=== PATIENT | female | born 1955 | race Caucasian/White ===

== ENCOUNTER → 2018-12-23 10:19 | Outpatient (CLI) | payer OTHER, MEDICAID, SELFPAY ==
[2018-12-23 11:02] LABS: Add Manual Diff / Slide Review NO; Basophils Absolute Auto 100 /uL (0-100); Basophils Percent Auto 0.8 % (0-2); Eosinophils Absolute Auto 100 /uL (0-450); Eosinophils Percent Auto 1.2 % (2-4); Hematocrit 42.5 % (36-46); Hemoglobin 14.6 g/dL (12.0-16.0); Lymphocytes Absolute Auto 1500 /uL (1100-4500); Lymphocytes Percent Auto 18.4 % (25-40); Mean Corpuscular HGB Conc 34.3 % (30-36); Mean Corpuscular Hemoglobin 33.6 PG (26-34); Mean Corpuscular Volume 97.9 fL (80-100); Monocytes Absolute Auto 500 /uL (0-900); Monocytes Percent Auto 5.7 % (3-14); Neutrophils Absolute Auto 6000 /uL (1500-7000); Neutrophils Percent Auto 73.9 % (50-75); Platelet Count 251 X10^3/uL (150-400); Red Blood Cell Count 4.34 X10^6/uL (4.0-5.2); Red Cell Distribution Width 13.2 % (11.6-14.8); White Blood Cell Count 8.2 X10^3/uL (4.5-11.0)
[2018-12-23 11:07] LABS: Hemoglobin A1C% w Est Avg Glu 6.7 % (4.0-6.0)
[2018-12-23 12:17] LABS: Creatinine Urine Random 124.1 mg/dL
[2018-12-23 12:24] LABS: Microalbumi Creatinin Ratio Ur 13.6 ug/mg CR (<30); Microalbumin Urine Random 1.7 mg/dL (0-1.6)
[2018-12-23 12:27] LABS: Alanine Aminotransferase 56 IU/L (9-52); Albumin 4.3 g/dL (3.5-5.0); Albumin Globulin Ratio 1.7 (1.0-2.8); Alkaline Phosphatase 111 U/L (38-126); Aspartate Aminotransferase 40 IU/L (14-36); Bilirubin Total 0.4 mg/dL (0.2-1.3); Blood Urea Nitrogen 15 mg/dL (7-17); Calcium 10.4 mg/dL (8.4-10.2); Carbon Dioxide 29 mmol/L (22-32); Chloride 104 mmol/L (98-107); Globulin 2.6 g/dL (1.7-4.1); Glucose 201 mg/dL (80-110); HDL Cholesterol 46 mg/dL (40-60); HEMOLYSIS < 15 (0-50); Potassium 4.9 mmol/L (3.4-5.1); Sodium 142 mmol/L (137-145); Total Protein 6.9 g/dL (6.3-8.2); Triglycerides 506 mg/dL (35-150)
[2018-12-23 12:51] LABS: Cholesterol 284 mg/dL (140-199)
[2018-12-23 13:10] LABS: LDL Cholesterol Direct 178 mg/dL (<100)
== END ==
PROVIDERS: PCP Family Medicine; Visit Provider Family Medicine
DX: E78.00 Pure hypercholesterolemia, unspecified (principal); E11.9 Type 2 diabetes mellitus without complications; Z79.4 Long term (current) use of insulin
CPT/HCPCS: 36415; 80053; 80061; 82043; 82570; 83036; 83721; 85025

== ENCOUNTER 2019-04-14 14:22 | Emergency (ER) | payer OTHER, MEDICAID, SELFPAY ==
[2019-04-14 14:34] VITALS: BP 141/88; PULSE 97; RESP 18; TEMP 36.3; O2SAT 97
== END 2019-04-14 16:55 | disposition left against medical advice (07) ==
PROVIDERS: Emergency Provider Emergency Medicine; PCP Family Medicine
CPT/HCPCS: 99282

== ENCOUNTER 2019-08-18 02:12 | Emergency (ER) | payer OTHER, MEDICAID, SELFPAY ==
--- NOTE | 2019-08-18 02:18 | DI.RAD.S_ITS ---
PROCEDURE: XR FOOT LT MIN 3V INDICATIONS: fall with foot pain TECHNIQUE: 3 views of the foot were acquired. COMPARISON: None. FINDINGS: Bones: No fractures or dislocations. No suspicious bony lesions. Soft tissues: No tibiotalar joint effusion. Achilles tendon appears normal. IMPRESSION: No fracture. No osseous lesion. If symptoms and/or clinical suspicion for pathology persists, further assessment with repeat radiographs (7-10 days) or advanced imaging (e.g. CT, MRI or bone scan) may be helpful. Dictated by: Liza Byrd MD, PhD on 08/18/2019 at 8:42 Approved by: Liza Byrd MD, PhD on 08/18/2019 at 8:42
--- NOTE | 2019-08-18 02:18 | DI.RAD.S_ITS ---
PROCEDURE: XR HAND RT MIN 3V INDICATIONS: fall with pain TECHNIQUE: 3 views of the hand(s) acquired. COMPARISON: [facility], , HAND 3V RIGHT, 08/18/2012, 1:51. FINDINGS: Bones: No fractures or dislocations. Carpal bones are normally aligned. No suspicious bony lesions. Soft tissues: No suspicious soft tissue calcifications. IMPRESSION: No fracture. No osseous lesion. If symptoms and/or clinical suspicion for pathology persists, further assessment with repeat radiographs (7-10 days) or advanced imaging (e.g. CT, MRI or bone scan) may be helpful. Dictated by: Liza Byrd MD, PhD on 08/18/2019 at 8:41 Approved by: Liza Byrd MD, PhD on 08/18/2019 at 8:42
--- NOTE | 2019-08-18 02:18 | DI.CT.S_ITS ---
PROCEDURE: CT HEAD/BRAIN WO CON INDICATIONS: fall TECHNIQUE: Noncontrast 4.5 mm thick angled axial sections acquired from the foramen magnum to the vertex, with coronal and sagittal reformats. For radiation dose reduction, the following was used: automated exposure control, adjustment of mA and/or kV according to patient size. COMPARISON: [facility], CT, HEAD WITHOUT CONTRAST, 06/03/2010, 19:43. FINDINGS: Image quality: Excellent. CSF spaces: Basal cisterns are patent. No extra-axial fluid collections. Ventricles are normal in size and shape. Brain: No midline shift. No intracranial masses or hemorrhage. Suresh-white matter interface is normal. Skull and face: Calvarium and visualized facial bones are intact, without suspicious lesions. Sinuses: Visualized sinuses and mastoids are clear. IMPRESSION: No acute intracranial disease process. Dictated by: Liza Byrd MD, PhD on 08/18/2019 at 7:12 Approved by: Liza Byrd MD, PhD on 08/18/2019 at 7:14
--- NOTE | 2019-08-18 02:18 | DI.RAD.S_ITS ---
PROCEDURE: XR ANKLE LT MIN 3V INDICATIONS: fall with ankle pain TECHNIQUE: 3 views of the ankle were acquired. COMPARISON: None. FINDINGS: Bones: Minimally displaced fracture of the lateral malleolus. Ankle mortise is normally aligned. No suspicious bony lesions. Soft tissues: No tibiotalar joint effusion. Achilles tendon appears normal. IMPRESSION: Lateral malleolus fracture. Dictated by: Liza Byrd MD, PhD on 08/18/2019 at 8:42 Approved by: Liza Byrd MD, PhD on 08/18/2019 at 8:43
[2019-08-18 02:23] VITALS: BP 123/74; PULSE 84; RESP 23; TEMP 36.6; O2SAT 100; BMI 33.4
--- NOTE | 2019-08-18 02:31 | ED.FALL ---
HPI - Fall General Chief Complaint: Fall Stated Complaint: Finger and leg pain Time Seen by Provider: 08/18/19 02:12 Source: patient and EMS Mode of arrival: EMS Limitations: no limitations History of Present Illness HPI Narrative: 63-year-old female daily smoker with history of asthma, schizophrenia, bipolar, anxiety and presents by EMS with chief complaint of alcohol intoxication and the left foot and right hand pain. Very little is known about the circumstances but apparently PD was called to the scene after perhaps an argument, this is very unclear. EMT state patient was laying on the ground and alert but slurring her words and smelling of alcohol. She admits to doing multiple shots tonight. It is unclear how long she laid on the ground. She is very adamant that she did not hit her head and has no neck or back pain, only left ankle and right hand. She denies the use of blood thinners and is not been using street drugs. Attempts to call home, but no answer MD complaint: fall Fall from: standing Fall witnessed: yes, by family Place fall occurred: home Loss of consciousness: none Prolonged down time: unclear Symptoms prior to fall: none Context: tripped/slipped and alcohol use Location of injury - extremities: Left: ankle and foot and Right: hand Related Data Home Medications Medication Instructions Recorded Confirmed atorvastatin [Lipitor] 20 mg PO BEDTIME 04/14/19 04/14/19 levothyroxine [Synthroid] 200 mcg PO DAILY 04/14/19 04/14/19 metformin 1,000 mg PO BID 04/14/19 04/14/19 quetiapine [Seroquel] 300 mg PO BEDTIME 04/14/19 04/14/19 Previous Rx's Medication Instructions Recorded [true metrix meter] 1 kit QDAY #1 06/12/16 Chantix Starting Month Box 1 tab PO SEE INSTRUCTIONS #1 pkg 08/20/17 [true metrix strips] #100 each 12/03/17 albuterol sulfate 90 mcg/actuation 1 puff INHALATION Q4HP PRN #1 ea 12/03/17 aerosol inhaler alcohol wipes #100 each 12/03/17 insulin glargine 100 unit/mL (3 10 unit SUBCUT QDAY #5 syr 12/03/17 mL) subcutaneous pen clonazepam 0.5 mg tablet 0.5 mg PO BID #60 tab 02/24/18 olanzapine 20 mg disintegrating 20 mg PO DAILY #30 tab 02/24/18 tablet pen needle, diabetic 31 gauge x #90 each 02/24/18/ hydrocodone 10 mg-acetaminophen 1 tab PO Q4H PRN #120 tab 03/10/18 325 mg tablet sertraline 100 mg tablet 100 mg PO BID #60 tab 01/23/19 hydrocodone-acetaminophen 1 tab PO Q4-6H PRN #20 tab 08/18/19 Allergies Allergy/AdvReac Type Severity Reaction Status Date / Time No Known Drug Allergies Allergy Unverified 02/24/18 10:38 Review of Systems Constitutional Constitutional: Denies chills, Denies fatigue, Denies fever(s), Denies frequent falls, Denies lethargy and Denies weakness Eyes Eyes: Denies change in vision, Denies eye discharge, Denies irritation and Denies loss of vision ENT Ears, Nose, Mouth, and Throat: Denies change in voice, Denies dizziness, Denies neck pain, Denies sore throat and Denies throat swelling Cardiovascular Cardiovascular: Denies chest pain, Denies irregular heart rhythm, Denies lightheadedness, Denies palpitations, Denies dyspnea, Denies dyspnea on exertion and Denies orthopnea Respiratory Respiratory: Denies cough, Denies dyspnea, Denies dyspnea on exertion and Denies wheezing Gastrointestinal Gastrointestinal: Denies abdominal pain, Denies change in bowel habits, Denies diarrhea, Denies nausea and Denies vomiting Genitourinary Genitourinary: Denies hematuria, Denies flank pain, Denies urinary incontinence and Denies urinary urgency Musculoskeletal Musculoskeletal: Denies back pain, Reports joint swelling, Reports limited range of motion, Denies muscle weakness, Denies neck pain, Denies numbness and Denies tingling Integumentary/Breasts Skin/Breast: Denies pruritus, Denies erythema, Denies rash and Denies wounds Neurologic Neurologic: Denies behavioral changes, Denies confusion, Denies dizziness, Denies frequent falls, Denies loss of vision, Denies numbness, Denies tingling and Denies weakness Psychiatric Psychiatric: Denies anxiety, Denies behavioral changes, Denies confusion, Denies depression, Denies homicidal ideation and Denies suicidal ideation Endocrine Endocrine: Denies fatigue, Denies flushing and Denies palpitations Hematologic/Lymphatic Hematologic/Lymphatic: Denies easy bruising Allergic/Immunologic Allergic/Immunologic: Denies urticaria, Denies throat swelling and Denies wheezing Patient History Medical History ADHD (attention deficit hyperactivity disorder) (Chronic Unknown) Anxiety (Chronic Unknown) Asthma (Chronic Unknown) Bipolar disorder (Chronic Unknown) Chickenpox (Resolved Unknown) Chronic back pain (Chronic Unknown) Chronic low back pain (05/02/15) Chronic pain syndrome (Chronic Unknown) Depression (Chronic Unknown) Diabetes insipidus (Chronic Unknown) Fibroids (Resolved 2004) Foot pain (Resolved Unknown) Fractures (Resolved Unknown) Hearing loss (Chronic Unknown) Hypothyroidism (Chronic 1985) Osteoarthritis (Chronic Unknown) Restless leg syndrome (Chronic Unknown) Schizophrenia (Chronic Unknown) Shoulder pain (Resolved Unknown) Type 2 diabetes mellitus (Chronic 2005) Uncomplicated opioid dependence (Chronic 12/11/16) Vertigo (Chronic Unknown) Surgical History Status post laparoscopic cholecystectomy Status post tubal ligation Family History Father Brain tumor Mother Cancer Brother Car occupant injured in traffic accident Sister Brain tumor Grandfather Cancer Grandmother Heart failure Social History Smoking Status: Current every day smoker Smoking Status: Current every day smoker alcohol intake frequency: 0-2 drinks per day Substance Use Type: does not use Exam Narrative Exam Narrative: GENERAL: [63] year old patient appears older than stated age. Well nourished, bit disheveled, anxious, tearful, slurring her words, anxious HEAD: Atraumatic. Normocephalic. EYES: Pupils equal round and reactive. Extraocular motions intact. No scleral icterus. No injection or drainage. ENT: Poor dentition throughout Nose without bleeding, purulent drainage. Throat without erythema, tonsillar hypertrophy or exudate. Airway patent. NECK: Trachea midline. Non tender CARDIOVASCULAR: Regular rate and rhythm without murmurs, gallops, or rubs. RESPIRATORY: Clear to auscultation. Breath sounds equal bilaterally. No wheezes, rales, or rhonchi. GASTROINTESTINAL: Abdomen soft, non-tender, nondistended. EXTREMITIES: Ecchymosis and tenderness to palpation on the dorsum of the left foot, closed, neurovascularly intact. Additional pain and swelling on right hand and middle finger. No obvious deformity, painful range of motion and close No edema or joint tenderness. BACK: Nontender without deformity or crepitance. No flank tenderness. NEURO: AOx3. SKIN: No rash or erythema of visible areas Initial Vital Signs Initial Vital Signs: Vital Signs Temperature 97.9 F 08/18/19 02:23 Pulse Rate 84 08/18/19 02:23 Respiratory Rate 23 08/18/19 02:23 Blood Pressure 123/74 08/18/19 02:23 Pulse Oximetry 100 08/18/19 02:23 Procedures Orthopedic Splinting/Casting Injury #1: Side: left Lower Extremity Injury Location: ankle Lower Extremity Immobilizer: boot orthosis Other Orthopedic Equipment: crutches Post splinting neuro exam: intact Post splinting vascular exam: intact Placed by: Nursing Injury #2: Side: right Upper Extremity Injury Location: hand Upper Extremity Immobilizer: aluminum form splint and finger (other) Post splinting neuro exam: intact Post splinting vascular exam: intact Placed by: Nursing Course Orders Ordered: ED Orders 08/18/19 02:18 CT head/brain wo con Stat XR ankle LT min 3V Stat XR foot LT min 3V Stat XR hand RT min 3V Stat 08/18/19 02:58 Basic Metabolic Panel Stat Complete Blood Count AUTO DIFF Stat Troponin & CK Cardiac Panel Stat Vital Signs Vital signs: Vital Signs - 8 hr 08/18/19 02:23 08/18/19 03:00 08/18/19 04:00 Temperature 97.9 F Pulse Rate 84 77 76 Respiratory Rate 23 18 18 Blood Pressure 123/74 Blood Pressure [Left Arm] 110/74 108/62 Pulse Oximetry 100 98 98 MDM - Fall Lab Data Result diagrams: 08/18/19 02:58 08/18/19 02:58 Labs: Lab Results 08/18/19 08/18/19 Range/Units 02:58 02:58 WBC 4.8 (4.5-11.0) X10^3/uL RBC 4.29 (4.0-5.2) X10^6/uL Hgb 14.2 (12.0-16.0) g/dL Hct 42.2 (36-46) % MCV 98.4 (80-100) fL MCH 33.2 (26-34) PG MCHC 33.7 (30-36) % RDW 13.8 (11.6-14.8) % Plt Count 222 (150-400) X10^3/uL Neut % (Auto) 56.1 (50-75) % Lymph % (Auto) 34.5 (25-40) % [place] % (Auto) 7.0 (3-14) % Eos % (Auto) 1.6 L (2-4) % Baso % (Auto) 0.8 (0-2) % Neut # (Auto) 2700 (7310-5418) /uL Lymph # (Auto) 1700 (5489-7121) /uL [place] # (Auto) 300 (0-900) /uL Eos # (Auto) 100 (0-450) /uL Baso # (Auto) 0 (0-100) /uL Sodium 141 (137-145) mmol/L Potassium 4.5 (3.4-5.1) mmol/L Chloride 107 (98-107) mmol/L Carbon Dioxide 20 L (22-32) mmol/L BUN 13 (7-17) mg/dL Creatinine 0.70 (0.52-1.04) mg/dL Estimated GFR > 60.0 (>60) mL/min BUN/Creatinine Ratio 18.6 (6-22) Glucose 127 H (80-110) mg/dL Calcium 9.4 (8.4-10.2) mg/dL Total Creatine Kinase 51 (30-135) U/L CK-MB (CK-2) TNP CK-MB (CK-2) Rel Index TNP Troponin I < 0.012 (0.01-0.034) ng/mL Discharge Plan Departure Patient Disposition: Home Clinical Impression: Ankle fracture, left Qualifiers: Encounter type: initial encounter Fracture type: closed Qualified Code(s): S82.892A - Other fracture of left lower leg, initial encounter for closed fracture Contusion of finger Qualifiers: Encounter type: initial encounter Finger: middle finger Damage to nail status: without damage Laterality: right Qualified Code(s): S60.031A - Contusion of right middle finger without damage to nail, initial encounter Alcohol intoxication Qualifiers: Complication of substance-induced condition: uncomplicated Qualified Code(s): F10.920 - Alcohol use, unspecified with intoxication, uncomplicated Activity Restrictions/Additional Instructions: *You have been diagnosed with [left ankle fracture] *What to do: *Take medications as directed. NO WEIGHT BEARING at all on LEFT FOOT *Follow up with your primary care provider in 2-3 days, call for an appointment. Let them know you were seen in the Emergency Department and that we ask that you be seen in follow up *Return to ER if you should have any new, worsening or concerning symptoms Prescriptions: New hydrocodone-acetaminophen 5-325 mg tablet 1 tab PO Q4-6H PRN (Reason: pain) Qty: 20 RF: 0 No Action clonazepam 0.5 mg tablet 0.5 mg PO BID Qty: 60 RF: 0 olanzapine 20 mg tablet,disintegrating 20 mg PO DAILY Qty: 30 RF: 11 (DME) pen needle, diabetic [Easy Comfort Pen [place]] 31 gauge x 3/16 needle See Dose Instructions .ROUTE .MEDSUPPLY Qty: 90 RF: 3 [true metrix meter] 1 kit QDAY Qty: 1 RF: 0 Chantix Starting Month Box 1 EACH tablets,dose pack 1 tab PO SEE INSTRUCTIONS Qty: 1 RF: 0 albuterol sulfate [Ventolin HFA] 90 mcg/actuation HFA aerosol inhaler 1 puff INHALATION Q4HP PRN (Reason: shortness of breath or wheezing) Qty: 1 RF: 11 insulin glargine [Lantus Solostar U-100 Insulin] 100 unit/mL (3 mL) insulin pen 10 unit SUBCUT QDAY Qty: 5 RF: 0 (DME) [true metrix strips] 0 .Route .MEDSUPPLY Qty: 100 RF: 6 (DME) alcohol wipes Qty: 100 RF: 1 hydrocodone-acetaminophen [[place]] 10-325 mg tablet 1 tab PO Q4H PRN (Reason: pain) Qty: 120 RF: 0 sertraline 100 mg tablet 100 mg PO BID Qty: 60 RF: 2 metformin 500 mg tablet extended release 24 hr 1,000 mg PO BID RF: 0 atorvastatin [Lipitor] 20 mg tablet 20 mg PO BEDTIME RF: 0 quetiapine [Seroquel] 300 mg tablet 300 mg PO BEDTIME RF: 0 levothyroxine [Synthroid] 200 mcg tablet 200 mcg PO DAILY RF: 0 Referrals: Adelso Baron MD [Primary Care Provider] - Abdi Moore MD [Physician] -
[2019-08-18 03:00] VITALS: BP 110/74; PULSE 77; RESP 18; O2SAT 98
[2019-08-18 03:11] LABS: Add Manual Diff / Slide Review NO; Basophils Absolute Auto 0 /uL (0-100); Basophils Percent Auto 0.8 % (0-2); Eosinophils Absolute Auto 100 /uL (0-450); Eosinophils Percent Auto 1.6 % (2-4); Hematocrit 42.2 % (36-46); Hemoglobin 14.2 g/dL (12.0-16.0); Lymphocytes Absolute Auto 1700 /uL (1100-4500); Lymphocytes Percent Auto 34.5 % (25-40); Mean Corpuscular HGB Conc 33.7 % (30-36); Mean Corpuscular Hemoglobin 33.2 PG (26-34); Mean Corpuscular Volume 98.4 fL (80-100); Monocytes Absolute Auto 300 /uL (0-900); Neutrophils Absolute Auto 2700 /uL (1500-7000); Neutrophils Percent Auto 56.1 % (50-75); Platelet Count 222 X10^3/uL (150-400); Red Blood Cell Count 4.29 X10^6/uL (4.0-5.2); Red Cell Distribution Width 13.8 % (11.6-14.8); White Blood Cell Count 4.8 X10^3/uL (4.5-11.0)
[2019-08-18 03:16] LABS: BUN Creatinine Ratio 18.6 (6-22); Blood Urea Nitrogen 13 mg/dL (7-17); Calcium 9.4 mg/dL (8.4-10.2); Carbon Dioxide 20 mmol/L (22-32); Chloride 107 mmol/L (98-107); Creatine Kinase 51 U/L (30-135); Estimated Glomerular Filt Rate > 60.0 mL/min (>60); Glucose 127 mg/dL (80-110); HEMOLYSIS 44 (0-50); Potassium 4.5 mmol/L (3.4-5.1); Sodium 141 mmol/L (137-145)
[2019-08-18 03:28] LABS: Troponin I < 0.012 ng/mL (0.01-0.034)
[2019-08-18 04:00] VITALS: BP 108/62; PULSE 76; RESP 18; O2SAT 98
[2019-08-18 05:30] VITALS: BP 125/68; PULSE 80; RESP 18; O2SAT 96
== END 2019-08-18 05:30 | disposition home or self-care (01) ==
PROVIDERS: Emergency Provider Emergency Medicine; PCP Family Medicine
DX: S82.892A Other fracture of left lower leg, initial encounter for closed fracture (principal); S60.031A Contusion of right middle finger without damage to nail, initial encounter; F10.920 Alcohol use, unspecified with intoxication, uncomplicated; W19.XXXA Unspecified fall, initial encounter
CPT/HCPCS: 36415; 70450; 73130; 73610; 73630; 80048; 82550; 84484; 85025; 99284; 99285

== ENCOUNTER 2019-08-20 01:09 | Emergency (ER) | payer OTHER, MEDICAID, SELFPAY ==
[2019-08-20 01:14] VITALS: BP 143/89; PULSE 107; RESP 18; TEMP 36.6; O2SAT 98; BMI 33.8
== END 2019-08-20 03:00 | disposition left against medical advice (07) ==
PROVIDERS: Emergency Provider Emergency Medicine; PCP Family Medicine
CPT/HCPCS: 99281

== ENCOUNTER 2021-04-17 17:05 | Inpatient (IN) | payer MEDICARE, MEDICAID, SELFPAY ==
[2021-04-17] VITALS (14 sets, daily range): BP systolic 93–126; BP diastolic 44–86; PULSE 92–101; RESP 15–30; TEMP 36.2; O2SAT 92–97; BMI 28.7
[2021-04-17] MEDS: SODIUM CHLORIDE 0.9% 1,000 ML 1000 ML IV ×2 (18:24→22:10)
[2021-04-17 18:36] LABS: Add Manual Diff / Slide Review NO; Basophils Absolute Auto 100 /uL (0-100); Basophils Percent Auto 0.9 % (0-2); Eosinophils Absolute Auto 0 /uL (0-450); Hematocrit 31.2 % (36-46); Hemoglobin 10.5 g/dL (12.0-16.0); Lymphocytes Absolute Auto 2600 /uL (1100-4500); Lymphocytes Percent Auto 36.4 % (25-40); Mean Corpuscular HGB Conc 33.5 % (30-36); Mean Corpuscular Hemoglobin 34.3 PG (26-34); Mean Corpuscular Volume 102.4 fL (80-100); Monocytes Absolute Auto 500 /uL (0-900); Monocytes Percent Auto 7.7 % (3-14); Neutrophils Absolute Auto 3900 /uL (1500-7000); Platelet Count 216 X10^3/uL (150-400); Red Blood Cell Count 3.05 X10^6/uL (4.0-5.2); Red Cell Distribution Width 16.6 % (11.6-14.8)
--- NOTE | 2021-04-17 18:46 | ED_ITS ---
HPI - Nausea/Vomiting/Diarrhea General Chief complaint: Nausea/Vomiting/Diarrhea Stated complaint: facial swelling, diarrhea, vomiting for days Time Seen by Provider: 04/17/21 18:39 Source: patient and family Mode of arrival: Wheelchair Limitations: no limitations History of Present Illness HPI Narrative: This is a 65-year-old female who comes emergency department for generally being unwell for the last couple weeks. She has a partner who is present with her but they have been living separately she in a travel trailer on their property. Patient does drink alcohol. She states she drinks much too much but does not clarify. Her partner also confirms this. She does have a history of hemangioma which was evaluated at [facility] and was told it was not cancer which they had originally thought. She states no other interventions were done. She has had a cholecystectomy. She does have insulin and she takes metformin and insulin but is unclear about her other medical issues. She does not believe she has had any cardiac issues. Neither she nor her spouse consume if she has any hypertension or dyslipidemia. Patient has been having some intermittent abdominal pain. She has had constipation not diarrhea. She has had vomiting intermittently. No blood noted in her stools or with her emesis per family or patient. She has had facial swelling that was worse yesterday but she and significant other stay is present today. She has not had any recent interventions. She is still using insulin intermittently. She states she is not typically compliant with her medications. She denies any other surgical history. She denies any recreational drugs. She denies any tobacco. Related Data Home Medications Medication Instructions Recorded Confirmed atorvastatin 20 mg tablet (Lipitor) 20 mg PO BEDTIME 04/14/19 04/14/19 levothyroxine 200 mcg tablet 200 mcg PO DAILY 04/14/19 04/14/19 (Synthroid) metformin 500 mg tablet,extended 1,000 mg PO BID 04/14/19 04/14/19 release 24 hr quetiapine 300 mg tablet (Seroquel) 300 mg PO BEDTIME 04/14/19 04/14/19 Previous Rx's Medication Instructions Recorded [true metrix meter] 1 kit QDAY #1 06/12/16 varenicline 0.5 mg (11)-1 mg (42) 1 tab PO SEE INSTRUCTIONS #1 pkg 08/20/17 tablets in a dose pack (Chantix Starting Month Box) [true metrix strips] #100 each 12/03/17 albuterol sulfate 90 mcg/actuation 1 puff INHALATION Q4HP PRN #1 ea 12/03/17 aerosol inhaler (Ventolin HFA) alcohol wipes #100 each 12/03/17 insulin glargine 100 unit/mL (3 10 unit SUBCUT QDAY #5 syr 12/03/17 mL) subcutaneous pen (Lantus Solostar U-100 Insulin) clonazepam 0.5 mg tablet 0.5 mg PO BID #60 tab 02/24/18 olanzapine 20 mg disintegrating 20 mg PO DAILY #30 tab 02/24/18 tablet pen needle, diabetic 31 gauge x #90 each 02/24/1809/17 (Easy Comfort Pen [place]) hydrocodone 10 mg-acetaminophen 1 tab PO Q4H PRN #120 tab 03/10/18 325 mg tablet ([place]) sertraline 100 mg tablet 100 mg PO BID #60 tab 01/23/19 hydrocodone 5 mg-acetaminophen 325 1 tab PO Q4-6H PRN #20 tab 08/18/20 mg tablet Allergies Allergy/AdvReac Type Severity Reaction Status Date / Time No Known Drug Allergies Allergy Unverified 02/24/18 10:38 Review of Systems Review of Systems ROS Unobtainable: All systems reviewed & are unremarkable except as noted in HPI and below Patient History Medical History (Updated 04/18/21 @ 04:57 by Snehal Gary DO) ADHD (attention deficit hyperactivity disorder) (Unknown) Anxiety (Unknown) Asthma (Unknown) Bipolar disorder (Unknown) Chickenpox (Unknown) Chronic back pain (Unknown) Chronic low back pain (05/02/15) Chronic pain syndrome (Unknown) Depression (Unknown) Diabetes insipidus (Unknown) Fibroids (2004) Foot pain (Unknown) Fractures (Unknown) Hearing loss (Unknown) Hypothyroidism (1985) Osteoarthritis (Unknown) Restless leg syndrome (Unknown) Schizophrenia (Unknown) Shoulder pain (Unknown) Type 2 diabetes mellitus (2005) Uncomplicated opioid dependence (12/11/16) Vertigo (Unknown) Surgical History Status post laparoscopic cholecystectomy Status post tubal ligation Family History Father Brain tumor Mother Cancer Brother Car occupant injured in traffic accident Sister Brain tumor Grandfather Cancer Grandmother Heart failure Social History Smoking Status: Current every day smoker Smoking Status: Current every day smoker alcohol intake frequency: 0-2 drinks per day Substance Use Type: does not use Exam Narrative Exam Narrative: GEN: Chronically ill-appearing female, alert and oriented, patient appears to be in to moderate distress. Patient does frequently roll around on the bed. HEENT: Atraumatic, pupils are equal round reactive to light, extraocular movements are intact, nares are clear, TMs are clear with no fluid, there is no conjunctival pallor. Throat is clear without any exudates, erythema, tonsillar enlargement or uvular deviation, no scleral icterus. No obvious jaundice. HEART: Regular rate and rhythm without murmur, clicks, rubs. No swelling bilateral lower extremities. LUNGS:Lungs clear to auscultation, no wheezes, rales, crackles, chest moves symmetrically, no tachypnea accessory muscle use. ABD:bowel sounds normal, soft, non-tender, no guarding, rebound, rigidity, no masses noted, no hepatosplenomegaly appreciated. :No CVA tenderness MSCL: Non-tender, no muscle atrophy, muscles strength 5/5 upper and lower extremities, full range of motion NEURO:CN 2-12 intact, sensation normal SKIN: No rash, erythema, jaundice or other skin changes appreciated other than a small area of cellulitis that is tender at the left abdomen with no obvious fluctuance or fluid collection. Spot a 1 cm area of erythema Initial Vital Signs Initial Vital Signs: Vital Signs Temperature 97.1 F L 04/17/21 17:17 Pulse Rate 95 H 04/17/21 17:17 Respiratory Rate 22 04/17/21 17:17 Blood Pressure 121/74 04/17/21 17:17 Pulse Oximetry 97 04/17/21 17:17 Course Orders Ordered: Acetaminophen (Acetaminophen 325 Mg Tablet) 650 mg PO Q6HR PRN PRN Reason: Fever/Mild Pain (1-3) Hydrocodone Bitart/Acetaminophen (Hydrocodone/Acet 5/325 Tablet) 1 tab PO Q6HR PRN PRN Reason: Pain, Moderate (4-6) Al Hydrox/Mg Hydrox/Simethicone (Mag Hydrox/Alum/Simeth 30 Ml Udc) 30 ml PO Q6HR PRN PRN Reason: Dyspepsia Albuterol (Albuterol 2.5 Mg/3 Ml Neb (Adult)) 2.5 mg INH Q4H PRN PRN Reason: Shortness Of Breath Or Wheezing Atorvastatin Calcium (Atorvastatin 20 Mg Tablet) 20 mg PO BEDTIME [facility] Clindamycin HCl (Clindamycin 150 Mg Capsule) 300 mg PO Q6H [facility] Last Admin: 04/18/21 03:30 Dose: 300 mg Documented by: FERMÍN Dextrose (Dextrose 50 % In Water 25 Gm/50 Ml Syringe) 25 gm IV PRN PRN PRN Reason: Hypoglycemia Enoxaparin Sodium (Enoxaparin 40 Mg/0.4 Ml Syringe) 40 mg SUBCUT DAILY [facility] Folic Acid (Folic Acid 1 Mg Tablet) 1 mg PO DAILY [facility] Sodium Chloride (Normal Saline 0.9%) 1,000 mls @ 100 mls/hr IV CONT [facility] Last Admin: 04/18/21 00:18 Dose: 100 mls/hr Documented by: FERMÍN Insulin Glargine (Insulin Glargine 100 Unit/Ml 3ml Pen) 10 unit SUBCUT DAILY [facility] Insulin Human Lispro (Insulin Lispro 100 Unit/Ml 3ml Vial) 0 unit SUBCUT ACHS [facility]; Protocol Levothyroxine Sodium (Levothyroxine 100 Mcg Tablet) 200 mcg PO DAILY [facility] Lorazepam (Lorazepam 2 Mg/Ml Inj) 0 mg IV CIWAPRN PRN; Protocol PRN Reason: Alcohol Withdrawal Last Admin: 04/18/21 00:22 Dose: 2 mg Documented by: FERMÍN Lorazepam (Lorazepam 1 Mg Tablet) 0 mg PO CIWAPRN PRN; Protocol PRN Reason: Alcohol Withdrawal Multivitamins (Multivitamin 1 Tablet) 1 tab PO DAILY [facility] Naloxone HCl (Naloxone 0.4 Mg/Ml Vial) 0.2 mg IV Q2MIN PRN PRN Reason: Opiate Reversal Ondansetron HCl (Ondansetron 4 Mg/2 Ml Inj) 4 mg IV Q8HR PRN PRN Reason: Nausea And Vomiting Pantoprazole Sodium (Pantoprazole 40 Mg Vial) 40 mg IV DAILY [facility] Quetiapine Fumarate (Quetiapine 100 Mg Tablet) 300 mg PO BEDTIME [facility] Sertraline HCl (Sertraline 50 Mg Tablet) 100 mg PO BID [facility] Thiamine HCl (Thiamine 100 Mg Tablet) 100 mg PO DAILY [facility] Stop: 04/21/21 09:01 Discontinued Medications Sodium Chloride (Normal Saline 0.9%) 1,000 mls @ 1,000 mls/hr IV BOLUS ONE Stop: 04/17/21 19:21 Last Infusion: 04/17/21 19:24 Dose: 0 mls/hr Documented by: Admin: 04/17/21 18:24 Dose: 1,000 mls/hr Documented by: CAMELIA Sodium Chloride (Normal Saline 0.9%) 1,000 mls @ 1,000 mls/hr IV BOLUS ONE Stop: 04/17/21 23:01 Last Infusion: 04/17/21 22:25 Dose: 0 mls/hr Documented by: Admin: 04/17/21 22:10 Dose: 1,000 mls/hr Documented by: AL Clindamycin Phosphate (Cleocin) 900 mg in 50 mls @ 50 mls/hr IV NOW ONE Stop: 04/17/21 23:16 Last Admin: 04/17/21 22:23 Dose: 50 mls/hr Documented by: AL Consultations Consultation #1: Dr. Phelps, accepts for admission. Some patient's symptoms I suspect are secondary to alcohol and methamphetamine abuse. After further discussion patient states she does use methamphetamines frequently. Was noted she had a large change in her hemoglobin. No bright red blood on digital rectal exam but poor sample. I would be concerned with her recent hypotension and elevated lactate for possible GI bleeding and he accepts for admission. Patient has not had any obvious bleeding here in the department. Her lactate was slowly improving. There was a very small area of cellulitis on her left abdomen with no changes on CT on she has known alcohol abuse with what appears to be cirrhosis. Vital Signs Vital signs: Vital Signs - 8 hr 04/17/21 21:40 04/17/21 21:41 Pulse Rate 95 H 96 H Respiratory Rate 15 16 Blood Pressure 119/59 L Pulse Oximetry 96 MDM - Nausea/Vomiting/Diarrhea Lab Data Result diagrams: 04/17/21 18:20 04/17/21 18:20 Labs: Lab Results 04/17/21 04/17/21 04/17/21 Range/Units 18:20 18:20 18:20 WBC 7.0 (4.5-11.0) X10^3/uL RBC 3.05 L (4.0-5.2) X10^6/uL Hgb 10.5 L (12.0-16.0) g/dL Hct 31.2 L (36-46) % MCV 102.4 H (80-100) fL MCH 34.3 H (26-34) PG MCHC 33.5 (30-36) % RDW 16.6 H (11.6-14.8) % Plt Count 216 (150-400) X10^3/uL Neut % (Auto) 55.0 (50-75) % Lymph % (Auto) 36.4 (25-40) % [place] % (Auto) 7.7 (3-14) % Eos % (Auto) 0.0 L (2-4) % Baso % (Auto) 0.9 (0-2) % Neut # (Auto) 3900 (1148-5066) /uL Lymph # (Auto) 2600 (7980-1558) /uL [place] # (Auto) 500 (0-900) /uL Eos # (Auto) 0 (0-450) /uL Baso # (Auto) 100 (0-100) /uL PT (10.1-12.7) SECONDS INR (0.9-1.3) APTT (26.4-36.2) SECONDS Sodium 127 L (137-145) mmol/L Potassium 3.9 (3.4-5.1) mmol/L Chloride 95 L (98-107) mmol/L Carbon Dioxide 21 L (22-32) mmol/L BUN 14 (7-17) mg/dL Creatinine 0.51 L (0.52-1.04) mg/dL Estimated GFR > 60.0 (>60) mL/min BUN/Creatinine Ratio 27.5 H (6-22) Glucose 372 H (80-110) mg/dL Lactate (0.7-2.1) mmol/L Calcium 8.8 (8.4-10.2) mg/dL Total Bilirubin 1.2 (0.2-1.3) mg/dL AST 102 H (14-36) IU/L ALT 109 H (<35) IU/L Alkaline Phosphatase 559 H (38-126) U/L Ammonia (9-30) umol/L Total Creatine Kinase < 20 L (30-135) U/L CK-MB (CK-2) TNP CK-MB (CK-2) Rel Index TNP Troponin I < 0.012 (0.01-0.034) ng/mL Total Protein 6.0 L (6.3-8.2) g/dL Albumin 3.3 L (3.5-5.0) g/dL Globulin 2.7 (1.7-4.1) g/dL Albumin/Globulin Ratio 1.2 (1.0-2.8) Lipase 105 (23-300) U/L Urine Color Urine Appearance Urine pH (4.5-8.0) Ur Specific [place] (1.000-1.035) Urine Protein (Negative) Urine Glucose (UA) (Negative) g/dL Urine Ketones (NEGATIVE) Urine Occult Blood (Negative) Urine Nitrate (Negative) Urine Bilirubin (NEGATIVE) Urine Urobilinogen (0.2) E.U./dL Ur Leukocyte Esterase (NEGATIVE) Urine RBC (0-5/HPF) Urine WBC (0-5/HPF) Ur Squamous Epith Cells (0-5/HPF) Urine Bacteria (None) Ur Culture Indicated? U Opiates 300ng/mL cut (Negative) Ur Oxycodone Screen (Negative) Urine Methadone Screen (Negative) Ur Barbiturates Screen (Negative) U Tricyclic Antidepress (Negative) Ur Phencyclidine Scrn (Negative) Ur Amphetamines Screen (Negative) U Methamphetamines Scrn (Negative) Ur MDMA Scrn (Ecstasy) (Negative) U Benzodiazepines Scrn (Negative) Urine Cocaine Screen (Negative) U Marijuana (THC) Screen (Negative) Ethyl Alcohol ( - 10) mg/dL SARS-CoV-2 (PCR) (Negative) 04/17/21 04/17/21 04/17/21 Range/Units 18:20 18:20 19:04 WBC (4.5-11.0) X10^3/uL RBC (4.0-5.2) X10^6/uL Hgb (12.0-16.0) g/dL Hct (36-46) % MCV (80-100) fL MCH (26-34) PG MCHC (30-36) % RDW (11.6-14.8) % Plt Count (150-400) X10^3/uL Neut % (Auto) (50-75) % Lymph % (Auto) (25-40) % [place] % (Auto) (3-14) % Eos % (Auto) (2-4) % Baso % (Auto) (0-2) % Neut # (Auto) (2592-2586) /uL Lymph # (Auto) (5944-7054) /uL [place] # (Auto) (0-900) /uL Eos # (Auto) (0-450) /uL Baso # (Auto) (0-100) /uL PT (10.1-12.7) SECONDS INR (0.9-1.3) APTT (26.4-36.2) SECONDS Sodium (137-145) mmol/L Potassium (3.4-5.1) mmol/L Chloride (98-107) mmol/L Carbon Dioxide (22-32) mmol/L BUN (7-17) mg/dL Creatinine (0.52-1.04) mg/dL Estimated GFR (>60) mL/min BUN/Creatinine Ratio (6-22) Glucose (80-110) mg/dL Lactate 3.7 H (0.7-2.1) mmol/L Calcium (8.4-10.2) mg/dL Total Bilirubin (0.2-1.3) mg/dL AST (14-36) IU/L ALT (<35) IU/L Alkaline Phosphatase (38-126) U/L Ammonia (9-30) umol/L Total Creatine Kinase (30-135) U/L CK-MB (CK-2) CK-MB (CK-2) Rel Index Troponin I (0.01-0.034) ng/mL Total Protein (6.3-8.2) g/dL Albumin (3.5-5.0) g/dL Globulin (1.7-4.1) g/dL Albumin/Globulin Ratio (1.0-2.8) Lipase (23-300) U/L Urine Color Urine Appearance Urine pH (4.5-8.0) Ur Specific [place] (1.000-1.035) Urine Protein (Negative) Urine Glucose (UA) (Negative) g/dL Urine Ketones (NEGATIVE) Urine Occult Blood (Negative) Urine Nitrate (Negative) Urine Bilirubin (NEGATIVE) Urine Urobilinogen (0.2) E.U./dL Ur Leukocyte Esterase (NEGATIVE) Urine RBC (0-5/HPF) Urine WBC (0-5/HPF) Ur Squamous Epith Cells (0-5/HPF) Urine Bacteria (None) Ur Culture Indicated? U Opiates 300ng/mL cut (Negative) Ur Oxycodone Screen (Negative) Urine Methadone Screen (Negative) Ur Barbiturates Screen (Negative) U Tricyclic Antidepress (Negative) Ur Phencyclidine Scrn (Negative) Ur Amphetamines Screen (Negative) U Methamphetamines Scrn (Negative) Ur MDMA Scrn (Ecstasy) (Negative) U Benzodiazepines Scrn (Negative) Urine Cocaine Screen (Negative) U Marijuana (THC) Screen (Negative) Ethyl Alcohol 116 H ( - 10) mg/dL SARS-CoV-2 (PCR) Negative (Negative) 04/17/21 04/17/21 04/17/21 Range/Units 19:22 19:22 19:24 WBC (4.5-11.0) X10^3/uL RBC (4.0-5.2) X10^6/uL Hgb (12.0-16.0) g/dL Hct (36-46) % MCV (80-100) fL MCH (26-34) PG MCHC (30-36) % RDW (11.6-14.8) % Plt Count (150-400) X10^3/uL Neut % (Auto) (50-75) % Lymph % (Auto) (25-40) % [place] % (Auto) (3-14) % Eos % (Auto) (2-4) % Baso % (Auto) (0-2) % Neut # (Auto) (0166-9065) /uL Lymph # (Auto) (8909-8569) /uL [place] # (Auto) (0-900) /uL Eos # (Auto) (0-450) /uL Baso # (Auto) (0-100) /uL PT 13.6 H (10.1-12.7) SECONDS INR 1.2 (0.9-1.3) APTT 31 (26.4-36.2) SECONDS Sodium (137-145) mmol/L Potassium (3.4-5.1) mmol/L Chloride (98-107) mmol/L Carbon Dioxide (22-32) mmol/L BUN (7-17) mg/dL Creatinine (0.52-1.04) mg/dL Estimated GFR (>60) mL/min BUN/Creatinine Ratio (6-22) Glucose (80-110) mg/dL Lactate (0.7-2.1) mmol/L Calcium (8.4-10.2) mg/dL Total Bilirubin (0.2-1.3) mg/dL AST (14-36) IU/L ALT (<35) IU/L Alkaline Phosphatase (38-126) U/L Ammonia (9-30) umol/L Total Creatine Kinase (30-135) U/L CK-MB (CK-2) CK-MB (CK-2) Rel Index Troponin I (0.01-0.034) ng/mL Total Protein (6.3-8.2) g/dL Albumin (3.5-5.0) g/dL Globulin (1.7-4.1) g/dL Albumin/Globulin Ratio (1.0-2.8) Lipase (23-300) U/L Urine Color Yellow Urine Appearance Clear Urine pH 5.5 (4.5-8.0) Ur Specific [place] 1.010 (1.000-1.035) Urine Protein Negative (Negative) Urine Glucose (UA) 2+ H (Negative) g/dL Urine Ketones Negative (NEGATIVE) Urine Occult Blood Negative (Negative) Urine Nitrate Negative (Negative) Urine Bilirubin Negative (NEGATIVE) Urine Urobilinogen 0.2 (0.2) E.U./dL Ur Leukocyte Esterase Negative (NEGATIVE) Urine RBC None seen (0-5/HPF) Urine WBC 0-1/hpf (0-5/HPF) Ur Squamous Epith Cells 0-1 /hpf (0-5/HPF) Urine Bacteria None seen (None) Ur Culture Indicated? Cult not indicated U Opiates 300ng/mL cut Negative (Negative) Ur Oxycodone Screen Negative (Negative) Urine Methadone Screen Negative (Negative) Ur Barbiturates Screen Negative (Negative) U Tricyclic Antidepress Positive H (Negative) Ur Phencyclidine Scrn Negative (Negative) Ur Amphetamines Screen Positive H (Negative) U Methamphetamines Scrn Positive H (Negative) Ur MDMA Scrn (Ecstasy) Negative (Negative) U Benzodiazepines Scrn Negative (Negative) Urine Cocaine Screen Negative (Negative) U Marijuana (THC) Screen Negative (Negative) Ethyl Alcohol ( - 10) mg/dL SARS-CoV-2 (PCR) (Negative) 04/17/21 04/17/21 Range/Units 19:24 21:23 WBC (4.5-11.0) X10^3/uL RBC (4.0-5.2) X10^6/uL Hgb (12.0-16.0) g/dL Hct (36-46) % MCV (80-100) fL MCH (26-34) PG MCHC (30-36) % RDW (11.6-14.8) % Plt Count (150-400) X10^3/uL Neut % (Auto) (50-75) % Lymph % (Auto) (25-40) % [place] % (Auto) (3-14) % Eos % (Auto) (2-4) % Baso % (Auto) (0-2) % Neut # (Auto) (4260-0008) /uL Lymph # (Auto) (6555-6371) /uL [place] # (Auto) (0-900) /uL Eos # (Auto) (0-450) /uL Baso # (Auto) (0-100) /uL PT (10.1-12.7) SECONDS INR (0.9-1.3) APTT (26.4-36.2) SECONDS Sodium (137-145) mmol/L Potassium (3.4-5.1) mmol/L Chloride (98-107) mmol/L Carbon Dioxide (22-32) mmol/L BUN (7-17) mg/dL Creatinine (0.52-1.04) mg/dL Estimated GFR (>60) mL/min BUN/Creatinine Ratio (6-22) Glucose (80-110) mg/dL Lactate 2.8 H (0.7-2.1) mmol/L Calcium (8.4-10.2) mg/dL Total Bilirubin (0.2-1.3) mg/dL AST (14-36) IU/L ALT (<35) IU/L Alkaline Phosphatase (38-126) U/L Ammonia < 9 L (9-30) umol/L Total Creatine Kinase (30-135) U/L CK-MB (CK-2) CK-MB (CK-2) Rel Index Troponin I (0.01-0.034) ng/mL Total Protein (6.3-8.2) g/dL Albumin (3.5-5.0) g/dL Globulin (1.7-4.1) g/dL Albumin/Globulin Ratio (1.0-2.8) Lipase (23-300) U/L Urine Color Urine Appearance Urine pH (4.5-8.0) Ur Specific [place] (1.000-1.035) Urine Protein (Negative) Urine Glucose (UA) (Negative) g/dL Urine Ketones (NEGATIVE) Urine Occult Blood (Negative) Urine Nitrate (Negative) Urine Bilirubin (NEGATIVE) Urine Urobilinogen (0.2) E.U./dL Ur Leukocyte Esterase (NEGATIVE) Urine RBC (0-5/HPF) Urine WBC (0-5/HPF) Ur Squamous Epith Cells (0-5/HPF) Urine Bacteria (None) Ur Culture Indicated? U Opiates 300ng/mL cut (Negative) Ur Oxycodone Screen (Negative) Urine Methadone Screen (Negative) Ur Barbiturates Screen (Negative) U Tricyclic Antidepress (Negative) Ur Phencyclidine Scrn (Negative) Ur Amphetamines Screen (Negative) U Methamphetamines Scrn (Negative) Ur MDMA Scrn (Ecstasy) (Negative) U Benzodiazepines Scrn (Negative) Urine Cocaine Screen (Negative) U Marijuana (THC) Screen (Negative) Ethyl Alcohol ( - 10) mg/dL SARS-CoV-2 (PCR) (Negative) Imaging Data CT scan - abdomen/pelvis: Radiologist's Impression: Launch?[place] [address] CT Scan Report Signed Patient: Cinthya Rosa MR#: [id number] : 1955 Acct:[id number] Age/Sex: 65 / F Date of Service: 04/17/21 Loc: ED Accession Number: [id number] ?? Procedure: CT abdomen pelvis w con Ordering Provider: Snehal Gary D.O. PROCEDURE:? CT ABDOMEN PELVIS W CON ? INDICATIONS:? etoh use, hx hemangioma, abd pain ? TECHNIQUE:? After the administration of oral and IV contrast, axial sections were acquired from the lung bases to the pubic symphysis.? Coronal and sagittal reformats were performe d.? For radiation dose reduction, the following was used:? automated exposure control, adjustment of mA and/or kV according to patient size. ? COMPARISON:? [facility], CT, ABDOMEN/PELVIS WITH CONTRAST, 03/27/2010, 23:45. ? FINDINGS:? Image quality:? Excellent.? ? Lung bases:? Clear lung bases.? Mild circumferential distal esophageal wall thickening.? No varices.? No hiatal hernia. Heart:? Moderate mitral annular calcification.? Normal size heart. ? ? ABDOMEN: Liver:? Mild hepatomegaly and diffuse hypodensity.? Ill-defined hypodensity in segment V measuring about 1.5 cm, decreased in size compared to the prior study.? No other liver masses. Gallbladder:? Surgically absent? ? Biliary ducts:? Nondilated. Pancreas:? Normal. Spleen:? Upper limits of normal in size measuring 12.1 cm.? Coarse calcifications suggesting granuloma.? Adrenal Glands:? No nodules. Kidneys and Ureters:? Normal enhancement.? No hydronephrosis or nephrolithiasis.? No hydroureter. ? Stomach and Bowel:? Decompressed stomach.? Few prominent loops of fluid-filled small bowel in the central abdomen but no transition point to suggest obstruction.? Normal quantity of solid stool present in the colon.? Nonvisualization of the appendix. Peritoneum:? No intraperitoneal inflammation, free fluid, or free air. ? Ventral Wall: ? No hernia.? Abdominal Nodes:? No retroperitoneal or mesenteric adenopathy by size criteria.? Vessels:? Aorta and inferior vena cava are normal in size.? Mild abdominal aortic atherosclerotic calcification. ? PELVIS: Pelvic Organs:? Anteverted uterus with an anterior ovoid enhancing mass in the myometrium consistent with a fibroid.? Normal ovarian tissue. Bladder:? Normal bladder wall thickness. Pelvic Nodes: No enlarged lymph nodes.? Miscellaneous: No inguinal hernias are seen. ? ? ? Bones:? Unremarkable.? IMPRESSION:? ? 1. Hepatomegaly and hepatic steatosis suggesting alcoholic steatosis. 2. Few mildly prominent loops of fluid-filled small bowel may indicate enteritis or ileus. 3. Distal esophageal wall thickening suggesting esophagitis 4.. Decreased size of prior hepatic hypodensity previously thought to be related to trauma versus hemangioma.? 5. Post cholecystectomy.? ? Dictated by: Silvai Michaels M.D. on 04/17/2021 at 20:25 ? ? Approved by: Silvia Michaels M.D. on 04/17/2021 at 20:35?? ECG Data Attestation: I personally reviewed and interpreted this ECG as follows: Prior ECG tracings: available for review Interpretation: Sinus rhythm rate of 93 CO 138 QRS 84 QTC 42. Q-waves in 3. Other acute changes noted. Patient has prior EKG from 12/29/2011 with no new changes. MDM Narrative Medical decision making narrative: This is a 65-year-old female comes emergency department with weakness, full you diarrhea which show she later [place] to cuts to patient patient has not had any obvious overt bleeding in the department but does admit to some changes with bowel movements a could be GI bleed. She has had a change in her hemoglobin recently. She has a been persistently tachycardic and her blood pressure improved with fluids but she was hypotensive initially. She has a small area of cellulitis on her left abdomen but this seems like a less likely source. She did respond to fluids she did have antibiotics initiated. CT abdomen pelvis was obtained as she also drinks quite a bit and has elevated liver enzymes. Is also noted to be hyponatremic which is new compared to her prior labs. Discharge Plan Departure Patient Disposition: Admitted As Inpatient Clinical Impression: Acute GI bleeding, Acidosis, lactic, ETOH abuse, Cirrhosis, Abdominal wall cellulitis, Hyponatremia Admit Date/Time: 04/17/21 22:15 Admit Provider: Jacob Phelps
[2021-04-17 18:48] LABS: Alanine Aminotransferase 109 IU/L (<35); Albumin 3.3 g/dL (3.5-5.0); Albumin Globulin Ratio 1.2 (1.0-2.8); Alkaline Phosphatase 559 U/L (38-126); Aspartate Aminotransferase 102 IU/L (14-36); BUN Creatinine Ratio 27.5 (6-22); Bilirubin Total 1.2 mg/dL (0.2-1.3); Blood Urea Nitrogen 14 mg/dL (7-17); Calcium 8.8 mg/dL (8.4-10.2); Carbon Dioxide 21 mmol/L (22-32); Chloride 95 mmol/L (98-107); Estimated Glomerular Filt Rate > 60.0 mL/min (>60); Globulin 2.7 g/dL (1.7-4.1); Glucose 372 mg/dL (80-110); HEMOLYSIS 20 (0-50); Lipase 105 U/L (23-300); Potassium 3.9 mmol/L (3.4-5.1); Sodium 127 mmol/L (137-145)
--- NOTE | 2021-04-17 18:56 | DI.CT.S_ITS ---
PROCEDURE: CT ABDOMEN PELVIS W CON INDICATIONS: etoh use, hx hemangioma, abd pain TECHNIQUE: After the administration of oral and IV contrast, axial sections were acquired from the lung bases to the pubic symphysis. Coronal and sagittal reformats were performed. For radiation dose reduction, the following was used: automated exposure control, adjustment of mA and/or kV according to patient size. COMPARISON: [facility], CT, ABDOMEN/PELVIS WITH CONTRAST, 03/27/2010, 23:45. FINDINGS: Image quality: Excellent. Lung bases: Clear lung bases. Mild circumferential distal esophageal wall thickening. No varices. No hiatal hernia. Heart: Moderate mitral annular calcification. Normal size heart. ABDOMEN: Liver: Mild hepatomegaly and diffuse hypodensity. Ill-defined hypodensity in segment V measuring about 1.5 cm, decreased in size compared to the prior study. No other liver masses. Gallbladder: Surgically absent Biliary ducts: Nondilated. Pancreas: Normal. Spleen: Upper limits of normal in size measuring 12.1 cm. Coarse calcifications suggesting granuloma. Adrenal Glands: No nodules. Kidneys and Ureters: Normal enhancement. No hydronephrosis or nephrolithiasis. No hydroureter. Stomach and Bowel: Decompressed stomach. Few prominent loops of fluid-filled small bowel in the central abdomen but no transition point to suggest obstruction. Normal quantity of solid stool present in the colon. Nonvisualization of the appendix. Peritoneum: No intraperitoneal inflammation, free fluid, or free air. Ventral Wall: No hernia. Abdominal Nodes: No retroperitoneal or mesenteric adenopathy by size criteria. Vessels: Aorta and inferior vena cava are normal in size. Mild abdominal aortic atherosclerotic calcification. PELVIS: Pelvic Organs: Anteverted uterus with an anterior ovoid enhancing mass in the myometrium consistent with a fibroid. Normal ovarian tissue. Bladder: Normal bladder wall thickness. Pelvic Nodes: No enlarged lymph nodes. Miscellaneous: No inguinal hernias are seen. Bones: Unremarkable. IMPRESSION: 1. Hepatomegaly and hepatic steatosis suggesting alcoholic steatosis. 2. Few mildly prominent loops of fluid-filled small bowel may indicate enteritis or ileus. 3. Distal esophageal wall thickening suggesting esophagitis 4.. Decreased size of prior hepatic hypodensity previously thought to be related to trauma versus hemangioma. 5. Post cholecystectomy. Dictated by: Silvia Michaels M.D. on 04/17/2021 at 20:25 Approved by: Silvia Michaels M.D. on 04/17/2021 at 20:35
[2021-04-17 19:18] LABS: Creatine Kinase < 20 U/L (30-135); Ethanol (ETOH) 116 mg/dL; Lactate (Lactic Acid) 3.7 mmol/L (0.7-2.1)
[2021-04-17 19:31] LABS: Troponin I < 0.012 ng/mL (0.01-0.034)
[2021-04-17 19:33] LABS: Appearance Urine UA CLEAR; Bilirubin Urine UA NEGATIVE (NEGATIVE); Color Urine UA YELLOW; Glucose Urine UA 2+ g/dL (Negative); Ketones Urine UA NEGATIVE (NEGATIVE); Leukocyte Esterase Urine UA NEGATIVE (NEGATIVE); Nitrite Urine UA NEGATIVE (Negative); Occult Blood Urine UA NEGATIVE (Negative); Protein Urine UA NEGATIVE (Negative); Urobilinogen Urine UA 0.2 E.U./dL (0.2)
[2021-04-17 19:38] LABS: UR Morphine/Opiate cutoff 300 Negative (Negative); Ur Creatinine Normal (Normal); Ur Specific Gravity Normal (Normal); Urine Amphetamines Positive (Negative); Urine Barbiturates Negative (Negative); Urine Benzodiazepines Negative (Negative); Urine Cocaine Negative (Negative); Urine MDMA Negative (Negative); Urine Methadone Negative (Negative); Urine Methamphetamines Positive (Negative); Urine Oxycodone Negative (Negative); Urine Phencyclidine Negative (Negative); Urine Tetrahydrocannabinol Negative (Negative); Urine Tricyclic Antidepressant Positive (Negative); Urine pH Normal (Normal)
[2021-04-17 19:42] LABS: INR 1.2 (0.9-1.3); Prothrombin Time 13.6 SECONDS (10.1-12.7)
[2021-04-17 19:43] LABS: Bacteria Urine None Seen; Culture Indicated Urine Cult Not Indicated; RBC Urine None Seen (0-5/HPF); Squamous Epithelial Cell Urine 0-1 /HPF (0-5/HPF); WBC Urine 0-1/HPF (0-5/HPF); pH Urine UA 5.5 (4.5-8.0)
[2021-04-17 19:45] LABS: PTT Partial Thromboplastin Tim 31 SECONDS (26.4-36.2)
[2021-04-17 19:53] LABS: Ammonia (NH3) < 9 umol/L (9-30)
[2021-04-17 20:09] LABS: COVID19 - ADMIT (NP swab/PCR) Negative (Negative)
[2021-04-17 21:04] LABS: Reflexed Lactate in 2 Hours Y
[2021-04-17 21:51] LABS: Lactate 2HR (Lactic Acid Rflx) 2.8 mmol/L (0.7-2.1)
[2021-04-17] MEDS: CLINDAMYCIN 900 MG/50 ML PIGGYBACK 50 MG IV (22:23)
[2021-04-18] VITALS (11 sets, daily range): BP systolic 102–128; BP diastolic 54–75; PULSE 72–93; RESP 16–18; TEMP 35.5–36.2; O2SAT 93–99
--- NOTE | 2021-04-18 00:12 | PM.HP.1 ---
History of Present Illness History of Present Illness Date Patient Seen: 04/17/21 Time Patient Seen: 22:00 Chief complaint: facial swelling, diarrhea, vomiting for days Narrative: Ms. Rosa is a 65W with PMH bipolar disorder, schizophrenia, depression, meth abuse (smokes), EtOH abuse, Type 2 DM on insulin, chronic pain syndrome who presents with facial swelling, vomiting, diarrhea, and abdominal pain. She appears acutely intoxicated and is difficult to get a history from. She also endorses most review of systems that I ask. She states she has not seen a doctor for at least two years. She notes for at least a week she has noticed inability to keep any oral intake down, and has noted significant vomiting and nausea. Also some diarrhea. She states she notes blood intermittently in stool, last over a week ago. She endorses diffuse abdominal pain, she endorses feeling feverish/chills, occasionally short of breath. She has chest pain that is painful to touch. Over the last day she has noted facial swelling, and feeling lethargic, though less facial swelling today. She says she smokes meth, last time was 5 days ago. She drinks at least 5 shots of whiskey daily, often more. In the ED workup was done, she was afebrile mildly tachycardic 90s-100s, blood pressure dropped to systolic of 90s, improved with fluids. Labs notable for WBC 7.0, hgb 10.5, na 127, creatinine 0.51, glucose 372, bili 1.2, ast 102, alt 109, alk phos 59, troponin negative. Lactate 3.7 improved to 2.8. EtOH 116. Ammonia negative. Ua negative for infection. CT abdomen showed hepatic steatosis, fluid-filled small bowel consistent with enteritis, esophageal wall thickening consistent with esophagitis, decreased hepatic hypodensity. She was given IV fluids and clindamycin and admitted for further treatment. Patient History Medical History ADHD (attention deficit hyperactivity disorder) (Unknown) Anxiety (Unknown) Asthma (Unknown) Bipolar disorder (Unknown) Chickenpox (Unknown) Chronic back pain (Unknown) Chronic low back pain (05/02/15) Chronic pain syndrome (Unknown) Depression (Unknown) Diabetes insipidus (Unknown) Fibroids (2005) Foot pain (Unknown) Fractures (Unknown) Hearing loss (Unknown) Hypothyroidism (1985) Osteoarthritis (Unknown) Restless leg syndrome (Unknown) Schizophrenia (Unknown) Shoulder pain (Unknown) Type 2 diabetes mellitus (2005) Uncomplicated opioid dependence (12/11/16) Vertigo (Unknown) Surgical History Status post laparoscopic cholecystectomy Status post tubal ligation Family & Social History Family History Father Brain tumor Mother Cancer Brother Car occupant injured in traffic accident Sister Brain tumor Grandfather Cancer Grandmother Heart failure Safety & Behavioral: Feels Safe in Current Yes Environment Been Physically Hurt or No Threatened By a Person Tobacco & Substance use: Smoking Status Current every day smoker alcohol intake frequency 0-2 drinks per day Substance Use Type does not use Meds Home Medications and Allergies Home Medications Medication Instructions Recorded Confirmed Type [true metrix meter] 1 kit QDAY #1 06/12/16 Rx varenicline 0.5 mg (11)-1 mg (42) 1 tab PO SEE INSTRUCTIONS #1 pkg 08/20/17 Rx tablets in a dose pack (Chantix Starting Month Box) [true metrix strips] #100 each 12/03/17 Rx albuterol sulfate 90 mcg/actuation 1 puff INHALATION Q4HP PRN #1 ea 12/03/17 Rx aerosol inhaler (Ventolin HFA) alcohol wipes #100 each 12/03/17 Rx insulin glargine 100 unit/mL (3 10 unit SUBCUT QDAY #5 syr 12/03/17 Rx mL) subcutaneous pen (Lantus Solostar U-100 Insulin) clonazepam 0.5 mg tablet 0.5 mg PO BID #60 tab 02/24/18 04/14/19 Rx olanzapine 20 mg disintegrating 20 mg PO DAILY #30 tab 02/24/18 04/14/19 Rx tablet pen needle, diabetic 31 gauge x #90 each 02/24/18 02/24/18 Rx 3/16 (Easy Comfort Pen Clarita) hydrocodone 10 mg-acetaminophen 1 tab PO Q4H PRN #120 tab 03/10/18 04/14/19 Rx 325 mg tablet (Mead) sertraline 100 mg tablet 100 mg PO BID #60 tab 01/23/19 04/14/19 Rx atorvastatin 20 mg tablet (Lipitor) 20 mg PO BEDTIME 04/14/19 04/14/19 History levothyroxine 200 mcg tablet 200 mcg PO DAILY 04/14/19 04/14/19 History (Synthroid) metformin 500 mg tablet,extended 1,000 mg PO BID 04/14/19 04/14/19 History release 24 hr quetiapine 300 mg tablet (Seroquel) 300 mg PO BEDTIME 04/14/19 04/14/19 History hydrocodone 5 mg-acetaminophen 325 1 tab PO Q4-6H PRN #20 tab 08/18/19 Rx mg tablet Allergies Allergy/AdvReac Type Severity Reaction Status Date / Time No Known Drug Allergies Allergy Unverified 02/24/18 10:38 Review of Systems Review of Systems Narrative: 14 systems reviewed and negative aside from what is noted in HPI Exam Vital Signs (past 8 hours): - 04/17/21 17:17 04/17/21 18:10 04/17/21 18:16 Temperature 97.1 F L Pulse Rate 95 H 100 H 97 H Respiratory Rate 22 23 Blood Pressure 121/74 Pulse Oximetry 97 95 96 04/17/21 18:18 04/17/21 18:30 04/17/21 18:45 Temperature Pulse Rate 96 H 94 H 94 H Respiratory Rate 30 H 19 17 Blood Pressure 93/44 L 99/50 L Pulse Oximetry 96 95 92 04/17/21 19:00 04/17/21 19:01 04/17/21 19:30 Temperature Pulse Rate 97 H 97 H 92 H Respiratory Rate 17 Blood Pressure 114/71 Pulse Oximetry 96 97 04/17/21 21:40 04/17/21 21:41 04/17/21 23:00 Temperature 97.2 F L Pulse Rate 95 H 96 H 101 H Respiratory Rate 15 16 16 Blood Pressure 119/59 L 126/86 Pulse Oximetry 96 94 04/17/21 23:28 Temperature 97.2 F L Pulse Rate 101 H Respiratory Rate 16 Blood Pressure 126/86 Pulse Oximetry 94 Oxygen Delivery Method Room Air Oxygen Flow Rate 0 Narrative Exam Narrative: GEN: moderate distress and discomfort in bed, writhing, appears acutely intoxicated HEENT: moist mucous membreanes, PERRL NECK: trachea midline, no JVD CV: regular rate and rhythm, no murmurs PULM: clear bilaterally, no wheezes, rhonchi, rales ABD: soft, nontender, nondistended, no organomegaly, skin has boils with surrounding mild erythema EXT: warm and well perfused with no edema NEURO: awake, alert, agitated, no focal deficits, confused PSYCH: cooperative, agitated Objective Labs Result Diagrams: 04/17/21 18:20 04/17/21 18:20 Labs: Laboratory Results - last 24 hr 04/17/21 04/17/21 04/17/21 18:20 18:20 18:20 WBC 7.0 RBC 3.05 L Hgb 10.5 L Hct 31.2 L MCV 102.4 H MCH 34.3 H MCHC 33.5 RDW 16.6 H Plt Count 216 Neut % (Auto) 55.0 Lymph % (Auto) 36.4 [place] % (Auto) 7.7 Eos % (Auto) 0.0 L Baso % (Auto) 0.9 Neut # (Auto) 3900 Lymph # (Auto) 2600 [place] # (Auto) 500 Eos # (Auto) 0 Baso # (Auto) 100 PT INR APTT Sodium 127 L Potassium 3.9 Chloride 95 L Carbon Dioxide 21 L BUN 14 Creatinine 0.51 L Estimated GFR > 60.0 BUN/Creatinine Ratio 27.5 H Glucose 372 H Lactate Calcium 8.8 Total Bilirubin 1.2 AST 102 H ALT 109 H Alkaline Phosphatase 559 H Ammonia Total Creatine Kinase < 20 L CK-MB (CK-2) TNP CK-MB (CK-2) Rel Index TNP Troponin I < 0.012 Total Protein 6.0 L Albumin 3.3 L Globulin 2.7 Albumin/Globulin Ratio 1.2 Lipase 105 Urine Color Urine Appearance Urine pH Ur Specific [place] Urine Protein Urine Glucose (UA) Urine Ketones Urine Occult Blood Urine Nitrate Urine Bilirubin Urine Urobilinogen Ur Leukocyte Esterase Urine RBC Urine WBC Ur Squamous Epith Cells Urine Bacteria Ur Culture Indicated? U Opiates 300ng/mL cut Ur Oxycodone Screen Urine Methadone Screen Ur Barbiturates Screen U Tricyclic Antidepress Ur Phencyclidine Scrn Ur Amphetamines Screen U Methamphetamines Scrn Ur MDMA Scrn (Ecstasy) U Benzodiazepines Scrn Urine Cocaine Screen U Marijuana (THC) Screen Ethyl Alcohol SARS-CoV-2 (PCR) 04/17/21 04/17/21 04/17/21 18:20 18:20 19:04 WBC RBC Hgb Hct MCV MCH MCHC RDW Plt Count Neut % (Auto) Lymph % (Auto) [place] % (Auto) Eos % (Auto) Baso % (Auto) Neut # (Auto) Lymph # (Auto) [place] # (Auto) Eos # (Auto) Baso # (Auto) PT INR APTT Sodium Potassium Chloride Carbon Dioxide BUN Creatinine Estimated GFR BUN/Creatinine Ratio Glucose Lactate 3.7 H Calcium Total Bilirubin AST ALT Alkaline Phosphatase Ammonia Total Creatine Kinase CK-MB (CK-2) CK-MB (CK-2) Rel Index Troponin I Total Protein Albumin Globulin Albumin/Globulin Ratio Lipase Urine Color Urine Appearance Urine pH Ur Specific [place] Urine Protein Urine Glucose (UA) Urine Ketones Urine Occult Blood Urine Nitrate Urine Bilirubin Urine Urobilinogen Ur Leukocyte Esterase Urine RBC Urine WBC Ur Squamous Epith Cells Urine Bacteria Ur Culture Indicated? U Opiates 300ng/mL cut Ur Oxycodone Screen Urine Methadone Screen Ur Barbiturates Screen U Tricyclic Antidepress Ur Phencyclidine Scrn Ur Amphetamines Screen U Methamphetamines Scrn Ur MDMA Scrn (Ecstasy) U Benzodiazepines Scrn Urine Cocaine Screen U Marijuana (THC) Screen Ethyl Alcohol 116 H SARS-CoV-2 (PCR) Negative 04/17/21 04/17/21 04/17/21 19:22 19:22 19:24 WBC RBC Hgb Hct MCV MCH MCHC RDW Plt Count Neut % (Auto) Lymph % (Auto) [place] % (Auto) Eos % (Auto) Baso % (Auto) Neut # (Auto) Lymph # (Auto) [place] # (Auto) Eos # (Auto) Baso # (Auto) PT 13.6 H INR 1.2 APTT 31 Sodium Potassium Chloride Carbon Dioxide BUN Creatinine Estimated GFR BUN/Creatinine Ratio Glucose Lactate Calcium Total Bilirubin AST ALT Alkaline Phosphatase Ammonia Total Creatine Kinase CK-MB (CK-2) CK-MB (CK-2) Rel Index Troponin I Total Protein Albumin Globulin Albumin/Globulin Ratio Lipase Urine Color Yellow Urine Appearance Clear Urine pH 5.5 Ur Specific [place] 1.010 Urine Protein Negative Urine Glucose (UA) 2+ H Urine Ketones Negative Urine Occult Blood Negative Urine Nitrate Negative Urine Bilirubin Negative Urine Urobilinogen 0.2 Ur Leukocyte Esterase Negative Urine RBC None seen Urine WBC 0-1/hpf Ur Squamous Epith Cells 0-1 /hpf Urine Bacteria None seen Ur Culture Indicated? Cult not indicated U Opiates 300ng/mL cut Negative Ur Oxycodone Screen Negative Urine Methadone Screen Negative Ur Barbiturates Screen Negative U Tricyclic Antidepress Positive H Ur Phencyclidine Scrn Negative Ur Amphetamines Screen Positive H U Methamphetamines Scrn Positive H Ur MDMA Scrn (Ecstasy) Negative U Benzodiazepines Scrn Negative Urine Cocaine Screen Negative U Marijuana (THC) Screen Negative Ethyl Alcohol SARS-CoV-2 (PCR) 04/17/21 04/17/21 19:24 21:23 WBC RBC Hgb Hct MCV MCH MCHC RDW Plt Count Neut % (Auto) Lymph % (Auto) [place] % (Auto) Eos % (Auto) Baso % (Auto) Neut # (Auto) Lymph # (Auto) [place] # (Auto) Eos # (Auto) Baso # (Auto) PT INR APTT Sodium Potassium Chloride Carbon Dioxide BUN Creatinine Estimated GFR BUN/Creatinine Ratio Glucose Lactate 2.8 H Calcium Total Bilirubin AST ALT Alkaline Phosphatase Ammonia < 9 L Total Creatine Kinase CK-MB (CK-2) CK-MB (CK-2) Rel Index Troponin I Total Protein Albumin Globulin Albumin/Globulin Ratio Lipase Urine Color Urine Appearance Urine pH Ur Specific [place] Urine Protein Urine Glucose (UA) Urine Ketones Urine Occult Blood Urine Nitrate Urine Bilirubin Urine Urobilinogen Ur Leukocyte Esterase Urine RBC Urine WBC Ur Squamous Epith Cells Urine Bacteria Ur Culture Indicated? U Opiates 300ng/mL cut Ur Oxycodone Screen Urine Methadone Screen Ur Barbiturates Screen U Tricyclic Antidepress Ur Phencyclidine Scrn Ur Amphetamines Screen U Methamphetamines Scrn Ur MDMA Scrn (Ecstasy) U Benzodiazepines Scrn Urine Cocaine Screen U Marijuana (THC) Screen Ethyl Alcohol SARS-CoV-2 (PCR) Assessment & Plan Assessment & Plan narrative: Ms. Rosa is a 65W with complex medical history who presents with multiple symptoms but most notably abdominal pain and likely meth intoxication. 1. Abdominal pain, acute -has evidence of acute enteritis and esophagitis on CT imaging, along with hepatic steatosis -DF low, no indication to start steroids -ordered for stool culture, no indication to start antibiotics currently -ordered for IV PPI -could consider further abdominal imaging 2. Possible GI bleed with anemia -no evidence of overt bleeding currently -ordered for stool occult blood test -type and screen ordered -trend cbc -no indication for transfusion currently, no indication for scope currently 3. Methamphetamine intoxication with acute encephalopathy -ordered for symptomatic control with prn benzos, prn pain meds -encouraged abstinence from substances -SW consult in AM 4. Abdominal skin ulcer with acute cellulitis -consistent with possibly infected furuncle -continue clindamycin -blood cultures pending 5. Alcohol abuse -endorses significant etoh abuse -mvi, thiamine, folate ordered -etoh level elevated on admission -no evidence of withdrawal currently, last drink 04/17 am 6. Transaminitis, acute -secondary to etoh abuse -trend lfts daily -abdominal ultrasound ordered 7. Hyponatremia, acute -secondary to poor oral intake and nausea and vomiting likely from substance abuse -ordered for IV fluids -trend daily 8. Type 2 Diabetes with hyperglycemia -glucose on chem >370 -hold oral diabetic medications -ordered for insulin sliding scale, continue lantus -check a1c 9. Hyperlipidemia -continue statin 10. Hypothyroidism -continue synthroid 11. Asthma -not in acute exacerbation -continue inhalers prn 12. Chronic pain syndrome -history of opiate dependence -careful with opiate dosing 13. Depression, Bipolar disorder, Schizophrenia -continue seroquel and sertraline -zyprexa also on med list, confirm first that patient should be on two anti-psychotics before continuing 14. Elevated lactate -initially elevated to 3.7, improved to 2.8 with IV fluids -repeat lactate -etiology not clear, likely related to meth abuse, possible also related to hypovolemia from poor oral intake or to liver disease 15. Tricyclic antidepressant in urine -patient does not endorse abuse of TCA -did not list TCA on medication list -unclear etiology of TCA in urine -doubt poisoning currently, monitor clinical course closely, QRS duration normal CODE: Full Proxy: Darci Rosa, life partner DIET: Full liquid DVT ppx: lovenox 40u sc I have utilized all available immediate resources to obtain, update, or review the patient's current medications. Time Spent With Patient Critical Care time: I spent a total of [] minutes of critical care time on this patient's care today; this time is exclusive of procedural time. Quality MIPS - Admit I confirm the patient?s Advance Care Plan is present, Code status is documented, Surrogate decision maker is in patient?s record [If Yes, STOP here]: Yes
[2021-04-18] MEDS: SODIUM CHLORIDE 0.9% 1,000 ML 100 ML IV ×3 (00:18→20:47)
[2021-04-18] MEDS: LORazepam 2 MG/ML INJ IV (00:22)
--- NOTE | 2021-04-18 00:22 | PC.NURSE ---
Patient belongings on admit: 1 pair edmondson leather sandals 1 hussain black stretch pants 1 pair black underwear 1 light teal shirt 1 blues furry zip jacket 1 blue cammo face covering
[2021-04-18] MEDS: CLINDAMYCIN 150 MG CAPSULE 300 MG PO ×4 (03:30→20:31)
[2021-04-18 04:59] LABS: Add Manual Diff / Slide Review NO; Basophils Absolute Auto 100 /uL (0-100); Basophils Percent Auto 1.1 % (0-2); Eosinophils Absolute Auto 0 /uL (0-450); Eosinophils Percent Auto 0.2 % (2-4); Hematocrit 29.2 % (36-46); Hemoglobin 9.8 g/dL (12.0-16.0); Lymphocytes Absolute Auto 2200 /uL (1100-4500); Lymphocytes Percent Auto 37.3 % (25-40); Mean Corpuscular HGB Conc 33.8 % (30-36); Mean Corpuscular Hemoglobin 34.3 PG (26-34); Mean Corpuscular Volume 101.7 fL (80-100); Monocytes Absolute Auto 400 /uL (0-900); Monocytes Percent Auto 7.3 % (3-14); Neutrophils Absolute Auto 3200 /uL (1500-7000); Neutrophils Percent Auto 54.1 % (50-75); Platelet Count 201 X10^3/uL (150-400); Red Blood Cell Count 2.87 X10^6/uL (4.0-5.2); Red Cell Distribution Width 16.3 % (11.6-14.8); White Blood Cell Count 5.9 X10^3/uL (4.5-11.0)
[2021-04-18 05:06] LABS: BUN Creatinine Ratio 25.5 (6-22); Blood Urea Nitrogen 12 mg/dL (7-17); Calcium 7.7 mg/dL (8.4-10.2); Carbon Dioxide 22 mmol/L (22-32); Chloride 100 mmol/L (98-107); Estimated Glomerular Filt Rate > 60.0 mL/min (>60); Glucose 183 mg/dL (80-110); HEMOLYSIS < 15 (0-50); Lactate (Lactic Acid) 2.9 mmol/L (0.7-2.1); Magnesium 1.1 mg/dL (1.6-2.3); Phosphorous 3.1 mg/dL (2.8-4.1); Sodium 129 mmol/L (137-145)
[2021-04-18 05:11] LABS: Alanine Aminotransferase 88 IU/L (<35); Albumin 2.7 g/dL (3.5-5.0); Albumin Globulin Ratio 1.1 (1.0-2.8); Alkaline Phosphatase 507 U/L (38-126); Aspartate Aminotransferase 112 IU/L (14-36); Bilirubin Total 1.4 mg/dL (0.2-1.3); Bilirubin Unconjugated 0.6 mg/dL (0.0-1.1); Globulin 2.5 g/dL (1.7-4.1); HEMOLYSIS < 15 (0-50); Total Protein 5.2 g/dL (6.3-8.2)
[2021-04-18 05:12] LABS: Hemoglobin A1C% w Est Avg Glu 9.9 % (4.0-6.0)
[2021-04-18] MEDS: HYDROCODONE/ACET 5/325 TABLET 1 TAB PO ×2 (06:11→09:10)
[2021-04-18 06:49] LABS: Reflexed Lactate in 2 Hours Y
[2021-04-18 08:50] LABS: Lactate 2HR (Lactic Acid Rflx) 2.3 mmol/L (0.7-2.1)
[2021-04-18] MEDS: MULTIVITAMIN 1 TABLET 1 TAB PO (08:50)
[2021-04-18] MEDS: LEVOTHYROXINE 100 MCG TABLET 200 MCG PO (08:50)
[2021-04-18] MEDS: FOLIC ACID 1 MG TABLET PO (08:50)
[2021-04-18] MEDS: PANTOPRAZOLE 40 MG VIAL IV (08:50)
[2021-04-18] MEDS: THIAMINE 100 MG TABLET PO (08:50)
[2021-04-18] MEDS: SERTRALINE 50 MG TABLET 100 MG PO ×2 (08:50→20:31)
[2021-04-18] MEDS: ENOXAPARIN 40 MG/0.4 ML SYRINGE SUBCUT (08:50)
[2021-04-18] MEDS: INSULIN LISPRO 100 UNIT/ML 3ML VIAL SUBCUT ×4 (09:07→21:09)
[2021-04-18] MEDS: MAGNESIUM CHLORIDE 64 MG TABLET 128 MG PO ×2 (09:08→16:46)
[2021-04-18] MEDS: INSULIN GLARGINE 100 UNIT/ML 3ML PEN 10 UNIT SUBCUT (09:09)
--- NOTE | 2021-04-18 11:47 | PC.NURSE ---
Patients CIWA score is a 0. She was given Vicodin earlier for discomfort to back at 5/10. This has been helpful to her. Ativan given earlier this morning by noc shift has been helpful to her. She does have a bit of SOB when up ambulating but this resolves as soon as she lays down. Patient has been appropriate and pleasant with care. She is a one person assist to use the bathroom. We need a stool sample sent on patient, and she is aware of this. Resting comfortably now.
--- NOTE | 2021-04-18 11:59 | DIET.PN1 ---
Dietary Progress Note Assessment: 65 y/o F c PMH bipolar disorder, schizophrenia, depression, meth abuse, ETOH abuse, T2DM c insulin, chronic pain. States she has not eaten consistently in weeks d/t N/V. Has been able to eat mostly full liquids prior to admit per her report, ie pudding, soups, large quantities of milk. Also reports hyperglycemia ranging from 200-600 mg/dL. States she checks BG once per day. Has not seen her provider (Dr. [facility]) in 2 years. Likely needs changes to DM medications c recent HgA1c of 9.9%, negative for ketones. No DM ed hx. Has family member at bedside, whom is also her transportation to appts. Both open to DM education. Encouraged her to see provider for DM med adjustment after d/c. Recent B H, 178, 330 H Current DM medications: Lantus 10u daily Lispro correction 330 mg/dL was taken while I was there. Seems to be r/t oatmeal, milk, and juice provided on full liquid diet for breakfast. Has skin ulcers on abdomen that look like where she injects insulin, but she cannot confirm this. Endorses slow healing, consistent with hyperglycemia and reported low protein intake. Usual intake reported as milk (1/2 gallon whole milk daily), SF jello, cheese, tomato soup, some chicken and pat. Pt poor diet recall historian. Has difficulty preparing foods Reports feeling she has lost weight, but recent weight is above reported UBW. ETOH reported intake 5 shots whisky daily. Currently on Thiamine, Folate, and MVI. Ht: 177.8 cm Wt: 83kg (last night) BMI: 28.7 UBW: 68-73kg (reported) Last BM: 04/18/21 (04/18/21 03:36) MNA: Willy Score: 16 Diet: 04/17/21 Dinner Full Liquid Diet Diet Modifications: Carb consistent diet full liquids 04/17/21 17:21 NPO Diet Diet Modifications: NPO Type: Strict Labs: RBC 2.87 X10^6/uL (4.0-5.2) L 04/18/21 04:45 Hgb 9.8 g/dL (12.0-16.0) L 04/18/21 04:45 Hct 29.2 % (36-46) L 04/18/21 04:45 Creatinine 0.47 mg/dL (0.52-1.04) L 04/18/21 04:45 Hemoglobin A1c 9.9 % (4.0-6.0) H 04/18/21 04:45 Lactate 2.3 mmol/L (0.7-2.1) H 04/18/21 08:27 Nutrition Diagnosis: Excessive CHO intake r/t lack of nutrition knowledge or ability to prepare foods aeb pt report and 9.9% hgA1c Inadequate protein kcal intake r/t ETOH abuse and N/V aeb pt report Interventions: 1. Change diet to full liquids Carb Consistent Diet 2. Send protein shake 3. Help set up OP DM education (provide DM ed contact info and contact provider's office) Monitoring/Evaluations: BG, weights, PO Electronically Signed by: Arielle Arreguin 04/18/21 11:59 Clinical Dietitian [address] [id number]
--- NOTE | 2021-04-18 16:25 | PM.PN.1 ---
Subjective Subjective Date Patient Seen: 04/18/21 Time Patient Seen: 16:25 Interval history: Patient feels improved today, still with abdominal pain. No bowel movements thus far. She is hungry, tolerated fulls, wants regular diet. Exam Vital Signs (past 8 hours): - 04/18/21 11:48 04/18/21 11:49 04/18/21 11:55 Temperature 96 F L Pulse Rate 87 Respiratory Rate 18 Blood Pressure 126/54 L Pulse Oximetry 96 96 98 04/18/21 16:23 Temperature Pulse Rate Respiratory Rate Blood Pressure Pulse Oximetry 96 Oxygen Delivery Method Room Air Oxygen Flow Rate 0 Narrative Exam Narrative: GEN: no acute distress, chronically ill appearing. HEENT: moist mucous membreanes, PERRL NECK: trachea midline, no JVD CV: regular rate and rhythm, no murmurs PULM: clear bilaterally, no wheezes, rhonchi, rales ABD: soft, nontender, nondistended, no organomegaly, skin has boils with surrounding mild erythema EXT: warm and well perfused with no edema NEURO: awake, alert, no focal deficits PSYCH: cooperative, calm Objective Labs Result Diagrams: 04/18/21 04:45 04/18/21 04:45 Labs: Laboratory Results - last 24 hr 04/17/21 04/17/21 04/17/21 18:20 18:20 18:20 WBC 7.0 RBC 3.05 L Hgb 10.5 L Hct 31.2 L MCV 102.4 H MCH 34.3 H MCHC 33.5 RDW 16.6 H Plt Count 216 Neut % (Auto) 55.0 Lymph % (Auto) 36.4 [place] % (Auto) 7.7 Eos % (Auto) 0.0 L Baso % (Auto) 0.9 Neut # (Auto) 3900 Lymph # (Auto) 2600 [place] # (Auto) 500 Eos # (Auto) 0 Baso # (Auto) 100 PT INR APTT Sodium 127 L Potassium 3.9 Chloride 95 L Carbon Dioxide 21 L BUN 14 Creatinine 0.51 L Estimated GFR > 60.0 BUN/Creatinine Ratio 27.5 H Glucose 372 H Hemoglobin A1c Lactate Calcium 8.8 Phosphorus Magnesium Total Bilirubin 1.2 Conjugated Bilirubin Unconjugated Bilirubin AST 102 H ALT 109 H Alkaline Phosphatase 559 H Ammonia Total Creatine Kinase < 20 L CK-MB (CK-2) TNP CK-MB (CK-2) Rel Index TNP Troponin I < 0.012 Total Protein 6.0 L Albumin 3.3 L Globulin 2.7 Albumin/Globulin Ratio 1.2 Lipase 105 Urine Color Urine Appearance Urine pH Ur Specific [place] Urine Protein Urine Glucose (UA) Urine Ketones Urine Occult Blood Urine Nitrate Urine Bilirubin Urine Urobilinogen Ur Leukocyte Esterase Urine RBC Urine WBC Ur Squamous Epith Cells Urine Bacteria Ur Culture Indicated? U Opiates 300ng/mL cut Ur Oxycodone Screen Urine Methadone Screen Ur Barbiturates Screen U Tricyclic Antidepress Ur Phencyclidine Scrn Ur Amphetamines Screen U Methamphetamines Scrn Ur MDMA Scrn (Ecstasy) U Benzodiazepines Scrn Urine Cocaine Screen U Marijuana (THC) Screen Ethyl Alcohol SARS-CoV-2 (PCR) Blood Type Antibody Screen 04/17/21 04/17/21 04/17/21 18:20 18:20 19:04 WBC RBC Hgb Hct MCV MCH MCHC RDW Plt Count Neut % (Auto) Lymph % (Auto) [place] % (Auto) Eos % (Auto) Baso % (Auto) Neut # (Auto) Lymph # (Auto) [place] # (Auto) Eos # (Auto) Baso # (Auto) PT INR APTT Sodium Potassium Chloride Carbon Dioxide BUN Creatinine Estimated GFR BUN/Creatinine Ratio Glucose Hemoglobin A1c Lactate 3.7 H Calcium Phosphorus Magnesium Total Bilirubin Conjugated Bilirubin Unconjugated Bilirubin AST ALT Alkaline Phosphatase Ammonia Total Creatine Kinase CK-MB (CK-2) CK-MB (CK-2) Rel Index Troponin I Total Protein Albumin Globulin Albumin/Globulin Ratio Lipase Urine Color Urine Appearance Urine pH Ur Specific [place] Urine Protein Urine Glucose (UA) Urine Ketones Urine Occult Blood Urine Nitrate Urine Bilirubin Urine Urobilinogen Ur Leukocyte Esterase Urine RBC Urine WBC Ur Squamous Epith Cells Urine Bacteria Ur Culture Indicated? U Opiates 300ng/mL cut Ur Oxycodone Screen Urine Methadone Screen Ur Barbiturates Screen U Tricyclic Antidepress Ur Phencyclidine Scrn Ur Amphetamines Screen U Methamphetamines Scrn Ur MDMA Scrn (Ecstasy) U Benzodiazepines Scrn Urine Cocaine Screen U Marijuana (THC) Screen Ethyl Alcohol 116 H SARS-CoV-2 (PCR) Negative Blood Type Antibody Screen 04/17/21 04/17/21 04/17/21 19:22 19:22 19:24 WBC RBC Hgb Hct MCV MCH MCHC RDW Plt Count Neut % (Auto) Lymph % (Auto) [place] % (Auto) Eos % (Auto) Baso % (Auto) Neut # (Auto) Lymph # (Auto) [place] # (Auto) Eos # (Auto) Baso # (Auto) PT 13.6 H INR 1.2 APTT 31 Sodium Potassium Chloride Carbon Dioxide BUN Creatinine Estimated GFR BUN/Creatinine Ratio Glucose Hemoglobin A1c Lactate Calcium Phosphorus Magnesium Total Bilirubin Conjugated Bilirubin Unconjugated Bilirubin AST ALT Alkaline Phosphatase Ammonia Total Creatine Kinase CK-MB (CK-2) CK-MB (CK-2) Rel Index Troponin I Total Protein Albumin Globulin Albumin/Globulin Ratio Lipase Urine Color Yellow Urine Appearance Clear Urine pH 5.5 Ur Specific [place] 1.010 Urine Protein Negative Urine Glucose (UA) 2+ H Urine Ketones Negative Urine Occult Blood Negative Urine Nitrate Negative Urine Bilirubin Negative Urine Urobilinogen 0.2 Ur Leukocyte Esterase Negative Urine RBC None seen Urine WBC 0-1/hpf Ur Squamous Epith Cells 0-1 /hpf Urine Bacteria None seen Ur Culture Indicated? Cult not indicated U Opiates 300ng/mL cut Negative Ur Oxycodone Screen Negative Urine Methadone Screen Negative Ur Barbiturates Screen Negative U Tricyclic Antidepress Positive H Ur Phencyclidine Scrn Negative Ur Amphetamines Screen Positive H U Methamphetamines Scrn Positive H Ur MDMA Scrn (Ecstasy) Negative U Benzodiazepines Scrn Negative Urine Cocaine Screen Negative U Marijuana (THC) Screen Negative Ethyl Alcohol SARS-CoV-2 (PCR) Blood Type Antibody Screen 04/17/21 04/17/21 04/18/21 19:24 21:23 04:45 WBC 5.9 RBC 2.87 L Hgb 9.8 L Hct 29.2 L MCV 101.7 H MCH 34.3 H MCHC 33.8 RDW 16.3 H Plt Count 201 Neut % (Auto) 54.1 Lymph % (Auto) 37.3 [place] % (Auto) 7.3 Eos % (Auto) 0.2 L Baso % (Auto) 1.1 Neut # (Auto) 3200 Lymph # (Auto) 2200 [place] # (Auto) 400 Eos # (Auto) 0 Baso # (Auto) 100 PT INR APTT Sodium Potassium Chloride Carbon Dioxide BUN Creatinine Estimated GFR BUN/Creatinine Ratio Glucose Hemoglobin A1c Lactate 2.8 H Calcium Phosphorus Magnesium Total Bilirubin Conjugated Bilirubin Unconjugated Bilirubin AST ALT Alkaline Phosphatase Ammonia < 9 L Total Creatine Kinase CK-MB (CK-2) CK-MB (CK-2) Rel Index Troponin I Total Protein Albumin Globulin Albumin/Globulin Ratio Lipase Urine Color Urine Appearance Urine pH Ur Specific [place] Urine Protein Urine Glucose (UA) Urine Ketones Urine Occult Blood Urine Nitrate Urine Bilirubin Urine Urobilinogen Ur Leukocyte Esterase Urine RBC Urine WBC Ur Squamous Epith Cells Urine Bacteria Ur Culture Indicated? U Opiates 300ng/mL cut Ur Oxycodone Screen Urine Methadone Screen Ur Barbiturates Screen U Tricyclic Antidepress Ur Phencyclidine Scrn Ur Amphetamines Screen U Methamphetamines Scrn Ur MDMA Scrn (Ecstasy) U Benzodiazepines Scrn Urine Cocaine Screen U Marijuana (THC) Screen Ethyl Alcohol SARS-CoV-2 (PCR) Blood Type Antibody Screen 04/18/21 04/18/21 04/18/21 04:45 04:45 04:45 WBC RBC Hgb Hct MCV MCH MCHC RDW Plt Count Neut % (Auto) Lymph % (Auto) [place] % (Auto) Eos % (Auto) Baso % (Auto) Neut # (Auto) Lymph # (Auto) [place] # (Auto) Eos # (Auto) Baso # (Auto) PT INR APTT Sodium 129 L Potassium 4.0 Chloride 100 Carbon Dioxide 22 BUN 12 Creatinine 0.47 L Estimated GFR > 60.0 BUN/Creatinine Ratio 25.5 H Glucose 183 H D Hemoglobin A1c 9.9 H Lactate Calcium 7.7 L Phosphorus 3.1 Magnesium 1.1 L Total Bilirubin 1.4 H Conjugated Bilirubin 0.0 Unconjugated Bilirubin 0.6 AST 112 H ALT 88 H Alkaline Phosphatase 507 H Ammonia Total Creatine Kinase CK-MB (CK-2) CK-MB (CK-2) Rel Index Troponin I Total Protein 5.2 L Albumin 2.7 L Globulin 2.5 Albumin/Globulin Ratio 1.1 Lipase Urine Color Urine Appearance Urine pH Ur Specific [place] Urine Protein Urine Glucose (UA) Urine Ketones Urine Occult Blood Urine Nitrate Urine Bilirubin Urine Urobilinogen Ur Leukocyte Esterase Urine RBC Urine WBC Ur Squamous Epith Cells Urine Bacteria Ur Culture Indicated? U Opiates 300ng/mL cut Ur Oxycodone Screen Urine Methadone Screen Ur Barbiturates Screen U Tricyclic Antidepress Ur Phencyclidine Scrn Ur Amphetamines Screen U Methamphetamines Scrn Ur MDMA Scrn (Ecstasy) U Benzodiazepines Scrn Urine Cocaine Screen U Marijuana (THC) Screen Ethyl Alcohol SARS-CoV-2 (PCR) Blood Type Antibody Screen 04/18/21 04/18/21 04/18/21 04:45 04:45 08:27 WBC RBC Hgb Hct MCV MCH MCHC RDW Plt Count Neut % (Auto) Lymph % (Auto) [place] % (Auto) Eos % (Auto) Baso % (Auto) Neut # (Auto) Lymph # (Auto) [place] # (Auto) Eos # (Auto) Baso # (Auto) PT INR APTT Sodium Potassium Chloride Carbon Dioxide BUN Creatinine Estimated GFR BUN/Creatinine Ratio Glucose Hemoglobin A1c Lactate 2.9 H 2.3 H Calcium Phosphorus Magnesium Total Bilirubin Conjugated Bilirubin Unconjugated Bilirubin AST ALT Alkaline Phosphatase Ammonia Total Creatine Kinase CK-MB (CK-2) CK-MB (CK-2) Rel Index Troponin I Total Protein Albumin Globulin Albumin/Globulin Ratio Lipase Urine Color Urine Appearance Urine pH Ur Specific [place] Urine Protein Urine Glucose (UA) Urine Ketones Urine Occult Blood Urine Nitrate Urine Bilirubin Urine Urobilinogen Ur Leukocyte Esterase Urine RBC Urine WBC Ur Squamous Epith Cells Urine Bacteria Ur Culture Indicated? U Opiates 300ng/mL cut Ur Oxycodone Screen Urine Methadone Screen Ur Barbiturates Screen U Tricyclic Antidepress Ur Phencyclidine Scrn Ur Amphetamines Screen U Methamphetamines Scrn Ur MDMA Scrn (Ecstasy) U Benzodiazepines Scrn Urine Cocaine Screen U Marijuana (THC) Screen Ethyl Alcohol SARS-CoV-2 (PCR) Blood Type B Positive Antibody Screen Negative REPLACED BY [facility] Medical History (Updated 04/18/21 @ 04:57 by Snehal Gary DO) ADHD (attention deficit hyperactivity disorder) (Unknown) Anxiety (Unknown) Asthma (Unknown) Bipolar disorder (Unknown) Chickenpox (Unknown) Chronic back pain (Unknown) Chronic low back pain (05/02/15) Chronic pain syndrome (Unknown) Depression (Unknown) Diabetes insipidus (Unknown) Fibroids (2004) Foot pain (Unknown) Fractures (Unknown) Hearing loss (Unknown) Hypothyroidism (1985) Osteoarthritis (Unknown) Restless leg syndrome (Unknown) Schizophrenia (Unknown) Shoulder pain (Unknown) Type 2 diabetes mellitus (2005) Uncomplicated opioid dependence (12/11/16) Vertigo (Unknown) Surgical History Status post laparoscopic cholecystectomy Status post tubal ligation Family History Father Brain tumor Mother Cancer Brother Car occupant injured in traffic accident Sister Brain tumor Grandfather Cancer Grandmother Heart failure Social History Smoking Status: Current every day smoker Assessment & Plan Assessment & Plan narrative: Ms. Rosa is a 65W with complex medical history who presents with multiple symptoms but most notably abdominal pain and likely meth intoxication. 1. Abdominal pain, acute, possible alcoholic hepatitis. -has evidence of acute enteritis and esophagitis on CT imaging, along with hepatic steatosis. Suspect dehydration due to enteritis at this time. -DF low, no indication to start steroids -ordered for stool culture, no indication to start antibiotics currently -continue IV PPI 2. Possible GI bleed with anemia -no evidence of overt bleeding currently, restarted diet today. Stool guaiac pending 3. Methamphetamine intoxication with acute encephalopathy -ordered for symptomatic control with prn benzos, prn pain meds -encouraged abstinence from substances -SW consult 4. Abdominal skin ulcer with acute cellulitis -consistent with possibly infected furuncle -continue clindamycin -blood cultures pending 5. Alcohol abuse -endorses significant etoh abuse -mvi, thiamine, folate ordered -etoh level elevated on admission -no evidence of withdrawal currently, last drink 04/17 am 6. Transaminitis, acute, possible alcoholic hepatitis. -secondary to etoh abuse -trend lfts daily -abdominal ultrasound ordered 7. Hyponatremia, acute -secondary to poor oral intake and nausea and vomiting likely from substance abuse or enteritis -ordered for IV fluids -trend daily 8. Type 2 Diabetes with hyperglycemia -glucose on chem >370. A1c 9.9%. -hold oral diabetic medications -ordered for insulin sliding scale, continue lantus 9. Hyperlipidemia -continue statin 10. Hypothyroidism -continue synthroid 11. Asthma -not in acute exacerbation -continue inhalers prn 12. Chronic pain syndrome -history of opiate dependence -careful with opiate dosing 13. Depression, Bipolar disorder, Schizophrenia -continue seroquel and sertraline -zyprexa also on med list, confirm first that patient should be on two anti-psychotics before continuing 14. Elevated lactate -initially elevated to 3.7, improved to 2.8 with IV fluids -repeat lactate -etiology not clear, likely related to meth abuse, possible also related to hypovolemia from poor oral intake or to liver disease CODE: Full Proxy: Darci Rosa, life partner DIET: diabetic diet DVT ppx: lovenox 40u sc I have utilized all available immediate resources to obtain, update, or review the patient's current medications. Dispo: likely discharge tomorrow if continued improvement. Time Spent With Patient Critical Care time: I spent a total of [] minutes of critical care time on this patient's care today; this time is exclusive of procedural time.
[2021-04-18 18:52] LABS: Free T4, Direct Thyroxine 0.86 ng/dL (0.78-2.19)
[2021-04-18] MEDS: HYDROCODONE/ACET 10/325 TABLET 1 TAB PO (19:00)
[2021-04-18] MEDS: QUETIAPINE 100 MG TABLET 300 MG PO (20:31)
[2021-04-18] MEDS: ATORVASTATIN 20 MG TABLET PO (20:31)
[2021-04-19 00:57] VITALS: BP 100/48; PULSE 99; RESP 18; TEMP 36.6; O2SAT 97
[2021-04-19 01:04] VITALS: O2SAT 97
[2021-04-19] MEDS: SODIUM CHLORIDE 0.9% 1,000 ML 100 ML IV (03:01)
[2021-04-19] MEDS: CLINDAMYCIN 150 MG CAPSULE 300 MG PO ×2 (03:36→11:31)
[2021-04-19 04:00] VITALS: BP 106/74; PULSE 99; RESP 18; TEMP 36.6; O2SAT 99
[2021-04-19 06:18] VITALS: O2SAT 99
[2021-04-19 06:26] LABS: Add Manual Diff / Slide Review NO; Basophils Absolute Auto 0 /uL (0-100); Basophils Percent Auto 1.2 % (0-2); Eosinophils Absolute Auto 0 /uL (0-450); Eosinophils Percent Auto 0.5 % (2-4); Hematocrit 26.8 % (36-46); Hemoglobin 8.8 g/dL (12.0-16.0); Lymphocytes Absolute Auto 1600 /uL (1100-4500); Lymphocytes Percent Auto 39.6 % (25-40); Mean Corpuscular HGB Conc 32.9 % (30-36); Mean Corpuscular Hemoglobin 34.4 PG (26-34); Mean Corpuscular Volume 104.3 fL (80-100); Monocytes Absolute Auto 200 /uL (0-900); Neutrophils Absolute Auto 2100 /uL (1500-7000); Neutrophils Percent Auto 52.7 % (50-75); Platelet Count 184 X10^3/uL (150-400); Red Blood Cell Count 2.57 X10^6/uL (4.0-5.2); Red Cell Distribution Width 16.6 % (11.6-14.8); White Blood Cell Count 4.1 X10^3/uL (4.5-11.0)
[2021-04-19 06:46] LABS: Alanine Aminotransferase 79 IU/L (<35); Albumin 2.8 g/dL (3.5-5.0); Albumin Globulin Ratio 1.1 (1.0-2.8); Alkaline Phosphatase 504 U/L (38-126); Aspartate Aminotransferase 81 IU/L (14-36); BUN Creatinine Ratio 15.8 (6-22); Bilirubin Total 1.4 mg/dL (0.2-1.3); Blood Urea Nitrogen 9 mg/dL (7-17); Carbon Dioxide 23 mmol/L (22-32); Chloride 100 mmol/L (98-107); Estimated Glomerular Filt Rate > 60.0 mL/min (>60); Globulin 2.6 g/dL (1.7-4.1); Glucose 333 mg/dL (80-110); HEMOLYSIS < 15 (0-50); Magnesium 1.2 mg/dL (1.6-2.3); Potassium 4.1 mmol/L (3.4-5.1); Sodium 129 mmol/L (137-145); Total Protein 5.4 g/dL (6.3-8.2)
[2021-04-19 08:00] VITALS: BP 103/56; PULSE 89; RESP 16; TEMP 35.6; O2SAT 96; O2SAT 97
[2021-04-19] MEDS: OLANZapine ODT 10 MG TAB 20 MG PO (08:05)
[2021-04-19] MEDS: INSULIN LISPRO 100 UNIT/ML 3ML VIAL SUBCUT ×2 (08:07→12:12)
[2021-04-19] MEDS: INSULIN GLARGINE 100 UNIT/ML 3ML PEN 10 UNIT SUBCUT (08:11)
[2021-04-19] MEDS: LEVOTHYROXINE 100 MCG TABLET 200 MCG PO (08:16)
[2021-04-19] MEDS: FOLIC ACID 1 MG TABLET PO (08:16)
[2021-04-19] MEDS: HYDROCODONE/ACET 5/325 TABLET 1 TAB PO (08:16)
[2021-04-19] MEDS: ENOXAPARIN 40 MG/0.4 ML SYRINGE SUBCUT (08:16)
[2021-04-19] MEDS: SERTRALINE 50 MG TABLET 100 MG PO (08:16)
[2021-04-19] MEDS: THIAMINE 100 MG TABLET PO (08:16)
[2021-04-19] MEDS: MULTIVITAMIN 1 TABLET 1 TAB PO (08:16)
[2021-04-19] MEDS: PANTOPRAZOLE 40 MG VIAL IV (08:17)
--- NOTE | 2021-04-19 08:37 | P.DS_ITS ---
History of Present Illness History of Present Illness Date Patient Seen: 04/19/21 Time Patient Seen: 08:37 Chief complaint: facial swelling, diarrhea, vomiting for days Narrative: Ms. Rosa is a 65W with PMH bipolar disorder, schizophrenia, depression, meth abuse (smokes), EtOH abuse, Type 2 DM on insulin, chronic pain syndrome who presents with facial swelling, vomiting, diarrhea, and abdominal pain. She appears acutely intoxicated and is difficult to get a history from. She also endorses most review of systems that I ask. She states she has not seen a doctor for at least two years. She notes for at least a week she has noticed inability to keep any oral intake down, and has noted significant vomiting and nausea. Also some diarrhea. She states she notes blood intermittently in stool, last over a week ago. She endorses diffuse abdominal pain, she endorses feeling feverish/chills, occasionally short of breath. She has chest pain that is painful to touch. Over the last day she has noted facial swelling, and feeling lethargic, though less facial swelling today. She says she smokes meth, last time was 5 days ago. She drinks at least 5 shots of whiskey daily, often more. In the ED workup was done, she was afebrile mildly tachycardic 90s-100s, blood pressure dropped to systolic of 90s, improved with fluids. Labs notable for WBC 7.0, hgb 10.5, na 127, creatinine 0.51, glucose 372, bili 1.2, ast 102, alt 109, alk phos 59, troponin negative. Lactate 3.7 improved to 2.8. EtOH 116. Ammonia negative. Ua negative for infection. CT abdomen showed hepatic steatosis, fluid- filled small bowel consistent with enteritis, esophageal wall thickening consis tent with esophagitis, decreased hepatic hypodensity. She was given IV fluids and clindamycin and admitted for further treatment. Discharge Providers Provider Date of admission: 04/17/21 22:15 Discharge Date: 04/19/21 Primary care physician: Adelso Baron MD Consults: 04/17/21 23:28 Consult to Dietitian, Adult Routine Comment: Reason For Exam: etoh abuse 04/18/21 04:12 [place] [facility] [place] Radiology Routine Comment: substance abuse Discharge provider: Rusty Ramos DO Summary Hospital Course Discharge Diagnosis: 1. Abdominal pain, acute enteritis, possible alcoholic hepatitis. 2. Acute anemia 3. Methamphetamine intoxication with acute encephalopathy 4. Abdominal skin ulcer with acute cellulitis 5. Alcohol abuse 6. Transaminitis, acute, possible alcoholic hepatitis. 7. Hyponatremia, acute 8. Type 2 Diabetes with hyperglycemia 9. Hyperlipidemia 10. Hypothyroidism 11. Asthma 12. Chronic pain syndrome 13. Depression, Bipolar disorder, Schizophrenia 14. Elevated lactate Hospital Course: Ms. Rosa is a 65W with complex medical history who presents with multiple symptoms but most notably abdominal pain. Her imaging showed a nonspecific enteritis. Her transaminase levels were also elevated and given her history of alcohol cessation this may be consistent with an alcoholic hepatitis, or possibly methamphetamine intoxication. Her transaminitis and symptoms continue to improve with fluids and the patient was able to tolerate a diet shortly after admission. Her hemoglobin did continue to trend downward but she had no bowel movements in no overt symptoms of bleeding. She reported to me a normal bowel movement on the day of discharge. This may be due to some dilution from fluids given slow decline in all cell lines on CBC. She was also noted to have an acute abdominal cellulitis that improved with clindamycin. On discharge she was recommended to start taking pantoprazole daily for possible gastritis or small bowel inflammation, as well as the clindamycin for the cellulitis as above. A recommend prompt follow-up with a primary care provider next week for recheck of her blood counts. Exam Vital Signs (past 8 hours): - 04/19/21 00:57 04/19/21 01:04 04/19/21 04:00 Temperature 97.9 F 97.9 F Pulse Rate 99 H 99 H Respiratory Rate 18 18 Blood Pressure 100/48 L 106/74 Pulse Oximetry 97 97 99 04/19/21 06:18 04/19/21 08:00 Temperature 96.1 F L Pulse Rate 89 Respiratory Rate 16 Blood Pressure 103/56 L Pulse Oximetry 99 96 Oxygen Delivery Method Room Air Oxygen Flow Rate 0 Narrative Exam Narrative: GEN: no acute distress, chronically ill appearing. HEENT: moist mucous membranes, PERRL NECK: trachea midline, no JVD CV: regular rate and rhythm, no murmurs PULM: clear bilaterally, no wheezes, rhonchi, rales ABD: soft, nontender, nondistended, no organomegaly, skin has boils with surrounding mild erythema which is improving. EXT: warm and well perfused with no edema NEURO: awake, alert, no focal deficits PSYCH: cooperative, calm Objective Labs Result Diagrams: 04/19/21 06:13 04/19/21 06:13 Labs: Laboratory Results - last 24 hr 04/18/21 04/18/21 04/18/21 04:45 08:27 20:21 WBC RBC Hgb Hct MCV MCH MCHC RDW Plt Count Neut % (Auto) Lymph % (Auto) [place] % (Auto) Eos % (Auto) Baso % (Auto) Neut # (Auto) Lymph # (Auto) [place] # (Auto) Eos # (Auto) Baso # (Auto) Sodium Potassium Chloride Carbon Dioxide BUN Creatinine Estimated GFR BUN/Creatinine Ratio Glucose Lactate 2.3 H Calcium Magnesium 1.0 L Total Bilirubin AST ALT Alkaline Phosphatase Total Protein Albumin Globulin Albumin/Globulin Ratio TSH 14.20 H Free T4 0.86 04/19/21 04/19/21 06:13 06:13 WBC 4.1 L RBC 2.57 L Hgb 8.8 L Hct 26.8 L MCV 104.3 H MCH 34.4 H MCHC 32.9 RDW 16.6 H Plt Count 184 Neut % (Auto) 52.7 Lymph % (Auto) 39.6 [place] % (Auto) 6.0 Eos % (Auto) 0.5 L Baso % (Auto) 1.2 Neut # (Auto) 2100 Lymph # (Auto) 1600 [place] # (Auto) 200 Eos # (Auto) 0 Baso # (Auto) 0 Sodium 129 L Potassium 4.1 Chloride 100 Carbon Dioxide 23 BUN 9 Creatinine 0.57 Estimated GFR > 60.0 BUN/Creatinine Ratio 15.8 Glucose 333 H D Lactate Calcium 8.0 L Magnesium 1.2 L Total Bilirubin 1.4 H AST 81 H ALT 79 H Alkaline Phosphatase 504 H Total Protein 5.4 L Albumin 2.8 L Globulin 2.6 Albumin/Globulin Ratio 1.1 TSH Free T4 [facility] Medical History (Updated 04/18/21 @ 04:57 by Snehal Gary DO) ADHD (attention deficit hyperactivity disorder) (Unknown) Anxiety (Unknown) Asthma (Unknown) Bipolar disorder (Unknown) Chickenpox (Unknown) Chronic back pain (Unknown) Chronic low back pain (05/02/15) Chronic pain syndrome (Unknown) Depression (Unknown) Diabetes insipidus (Unknown) Fibroids (2004) Foot pain (Unknown) Fractures (Unknown) Hearing loss (Unknown) Hypothyroidism (1985) Osteoarthritis (Unknown) Restless leg syndrome (Unknown) Schizophrenia (Unknown) Shoulder pain (Unknown) Type 2 diabetes mellitus (2005) Uncomplicated opioid dependence (12/11/16) Vertigo (Unknown) Surgical History Status post laparoscopic cholecystectomy Status post tubal ligation Family History Father Brain tumor Mother Cancer Brother Car occupant injured in traffic accident Sister Brain tumor Grandfather Cancer Grandmother Heart failure Social History household members: none Smoking Status: Current every day smoker Discharge Plan Discharge Plan Patient Disposition: Home Provider Discharge Comment: Please complete antibiotic course at home and added one new medication for inflammation in your stomach. Please follow up with a primary care provider as soon as possible. Avoid alcohol and methamphetamine in the future. Discharge orders & Medications Prescriptions: New clindamycin HCl 300 mg capsule 300 mg PO Q6H 5 Days Qty: 20 RF: 0 pantoprazole 40 mg tablet,delayed release (DR/EC) 40 mg PO DAILY 30 Days Qty: 30 RF: 0 Continued clonazepam 0.5 mg tablet 0.5 mg PO BID Qty: 60 RF: 0 olanzapine 20 mg tablet,disintegrating 20 mg PO DAILY Qty: 30 RF: 11 [true metrix meter] 1 kit QDAY Qty: 1 RF: 0 albuterol sulfate [Ventolin HFA] 90 mcg/actuation HFA aerosol inhaler 1 puff INHALATION Q4HP PRN (Reason: shortness of breath or wheezing) Qty: 1 RF: 11 insulin glargine [Lantus Solostar U-100 Insulin] 100 unit/mL (3 mL) insulin pen 10 unit SUBCUT QDAY Qty: 5 RF: 0 hydrocodone-acetaminophen [[place]] 10-325 mg tablet 1 tab PO Q4H PRN (Reason: pain) Qty: 120 RF: 0 sertraline 100 mg tablet 100 mg PO BID Qty: 60 RF: 2 metformin 500 mg tablet extended release 24 hr 1,000 mg PO BID RF: 0 atorvastatin [Lipitor] 20 mg tablet 20 mg PO BEDTIME RF: 0 quetiapine [Seroquel] 300 mg tablet 300 mg PO BEDTIME RF: 0 levothyroxine [Synthroid] 200 mcg tablet 200 mcg PO DAILY RF: 0 Follow up/Referrals: Adelso Baron MD [Primary Care Provider] - Diet/Activity/Treatments Diet: Diet as Tolerated and Carb-consistent/Diabetic Activity: As tolerated Visit Report/Discharge Packet Instructions: Clindamycin Discharge Data Primary Care Provider: Adelso Baron
--- NOTE | 2021-04-19 08:54 | PC.NURSE ---
Patient given a vicodin for complaints of pain. This has been helpful for her back discomfort. She is ambulating well with sba and will be going home today. Eating breakfast, blood sugar 360, 5u of fast acting given with 10u of lantus.
--- NOTE | 2021-04-19 09:08 | CM.IDA ---
[employer] Note Initial DCP Assessment Note Pt is a 65 yo female, resident of [place], arrives w/numerous complaints; facial swelling, diarrhea, vomiting. ETOH BAL upon arrival to ED was 116, Meth and Amphetamine+. PMH includes ADHD, Anxiety, Bipolar Disorder, Depression Alcoholic hepatitis suspected, acute enteritis and esophagitis on CT imaging as well. Patient states yesterday she is feeling better and requests regular diet. Today, feeling better and tolerating diet, ambulating room. PCP: Adelso Baron Payer: [employer] consult requested to assess needs and discuss poly substance abuse w/this 65 yo female Reviewed chart, met w/patient 04.18.21 to complete this assessment. S.O. 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 According to this conversation: Patient has been living in her RV since I've been sick states family lives in the house on the property. Patient admits to meth use on a weekly basis (states for approx one year) and drinking approx 5 shots daily of hard alcohol to numb my tummy pain. Patient states before two weeks ago, when her stomach started to hurt w/ N/V after meals, she only drank on the weekends. When asked about seeing outpatient providers, patient states she does not go out d/t the COVID-19 pandemic, states she will not get vaccinated I'm too at risk. States she will not reconsider this stance. Patient has h/o COVID-19 infection. Patient admits she finds no contreras in life currently. Patient reviews family h/o cancer diagnosis and , w/no grief counseling or support. Patient has children and grand children, sees them sporadically. 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 Patient denies the need for information about [employer] transport, which would assist w/getting to doctor appts. ZACHARY Hankins Discharge Planning/Care Management CM Discharge Assessment Start: 04/19/21 09:01 Freq: Status: Active Protocol: Document 04/19/21 09:01 HEATHER (Rec: 04/19/21 09:08 JW [id number]) Discharge Planning Assessment Assigned Banking Assistant ZACHARY Shelby DPOA/Assigned Designee Name Darci Rosa, partner [phone] yrs Contact Information [phone] Advance Directives? No History Provided By Patient,Medical Record Prior Living Arrangements RV Household Members none Comment S.O. Darci, dtr Shyla and dtr's BF live in the House on the property, patient has been living in an RV on property Type of transporation used prior to Relies on Others admit Independent with ADL's No Is patient alert and oriented? Yes: Groggy today, unsure of baseline Needs Assistance With Meal Prep,Home Chores / Shopping Patient/Family Preference Home with Home Health Comment Patient willing to discuss HH upon DC, states I'll think about it Barriers to Discharge No Comment None at this time, home w/ family, denies needs for STEVEN treatment/counseling resources Discharge Plan Home Transportation Arrangement Family Referrals Initiated None needed Additional Comment At this time Whiteboard Updated in Patient Room with Yes name and ext. # of Banking Assistant
[2021-04-19 11:37] VITALS: BP 102/68; PULSE 92; RESP 16; TEMP 35.5; O2SAT 95
--- NOTE | 2021-04-19 13:28 | CM.DPNOTE ---
DC Note Home today w/family. Patient denies needs from this [employer]. IMM provided. HEATHER
== END 2021-04-19 13:20 | disposition home or self-care (01) | DRG 432 ==
LOC: ED 22:14 → AC 22:15
PROVIDERS: Emergency Medicine; Internal Medicine; Admitting Provider Internal Medicine; Emergency Provider Emergency Medicine; PCP Family Medicine; Referring Provider Emergency Medicine; Visit Provider Internal Medicine
DX: K70.10 Alcoholic hepatitis without ascites (principal); G92.8 Other toxic encephalopathy; E87.1 Hypo-osmolality and hyponatremia; L03.311 Cellulitis of abdominal wall; K52.9 Noninfective gastroenteritis and colitis, unspecified; F10.10 Alcohol abuse, uncomplicated; F15.129 Other stimulant abuse with intoxication, unspecified; L98.499 Non-pressure chronic ulcer of skin of other sites with unspecified severity; G89.4 Chronic pain syndrome; Y90.5 Blood alcohol level of 100-119 mg/100 ml; F17.200 Nicotine dependence, unspecified, uncomplicated; E11.65 Type 2 diabetes mellitus with hyperglycemia; E78.5 Hyperlipidemia, unspecified; E03.9 Hypothyroidism, unspecified; F31.9 Bipolar disorder, unspecified; F20.9 Schizophrenia, unspecified; J45.909 Unspecified asthma, uncomplicated; D64.9 Anemia, unspecified; R74.02 Elevation of levels of lactic acid dehydrogenase [LDH]; Z79.4 Long term (current) use of insulin; Z20.822 Contact with and (suspected) exposure to COVID-19; Z79.84 Long term (current) use of oral hypoglycemic drugs
CPT/HCPCS: 36415; 74177; 80048; 80053; 80076; 80305; 80320; 81001; 82140; 82550; 82962; 83036; 83605; 83690; 83735; 84100; 84439; 84443; 84484; 85025; 85610; 85730; 86850; 86900; 86901; 87040; 87045; 87635; 87899; 93005; 93010; 94760; 96361; 96374; 99285; C9803; C9113; J1650; J1815; J2060

== ENCOUNTER 2023-05-29 21:49 | Emergency (ER) | payer MEDICARE, MEDICAID, SELFPAY ==
[2021-04-17 22:25] VITALS: BMI 28.7
[2023-05-29 21:55] VITALS: BP 142/70; PULSE 89; RESP 20; TEMP 36.2; O2SAT 97
--- NOTE | 2023-05-29 22:05 | DI.RAD.S_ITS ---
PROCEDURE: XR RIBS RT MIN 3V W CXR 1V INDICATIONS: R larteral mid rib pain after fall TECHNIQUE: Two views of the right ribs were acquired, along with a single view chest. COMPARISON: None. FINDINGS: Surgical changes and devices: None. Bones and chest wall: Questionable nondisplaced right posterolateral 7th rib fracture. No suspicious bony lesions. Overlying soft tissues appear unremarkable. Lungs and pleura: No pleural effusions or pneumothorax. Lungs appear clear. Mediastinum: Mediastinal contours appear normal. Heart size is normal. IMPRESSION: Questionable nondisplaced right posterolateral 7th rib fracture. No pneumothorax or pleural effusion. Approved by: Meek Hughes M.D. on 05/29/2023 at 23:11
--- NOTE | 2023-05-29 23:22 | ED.FALL ---
HPI - Fall General Chief Complaint: Fall Stated Complaint: GLF, RIGHT SIDE RIBS INJURY Time Seen by Provider: 05/29/23 22:04 Source: patient Mode of arrival: Wheelchair History of Present Illness HPI Narrative: Patient is a 67-year-old female who is here for evaluation of right-sided rib pain. She states that 2 days ago she had an episode where she choked on some milk. During the event of coughing afterwards she ended up falling. She did hit her head. There was no loss of consciousness. She is not on blood thinners. She also landed on her right ribs. Ever since that time she is had discomfort with palpation of the right ribs. Discomfort with coughing or sneezing or taking deep breaths. She is broken ribs in the past and she was concerned that maybe that has happened again. She denies any fevers. She did take some ?pills? prior to arrival and also uses kratom on a regular basis for pain. Related Data Home Medications Medication Instructions Recorded Confirmed atorvastatin 20 mg tablet (Lipitor) 20 mg PO BEDTIME 04/14/19 04/18/21 levothyroxine 200 mcg tablet 200 mcg PO DAILY 04/14/19 04/18/21 (Synthroid) metformin 500 mg tablet,extended 1,000 mg PO BID 04/14/19 04/18/21 release 24 hr quetiapine 300 mg tablet (Seroquel) 300 mg PO BEDTIME 04/14/19 04/18/21 Previous Rx's Medication Instructions Recorded [true metrix meter] 1 kit QDAY ##1 06/12/16 albuterol sulfate 90 mcg/actuation 1 puff inhalation Q4HP PRN 12/03/17 aerosol inhaler (Ventolin HFA) shortness of breath or wheezing #1 ea insulin glargine 100 unit/mL (3 10 unit (0.1 mL) SUBCUT QDAY ##5 12/03/17 mL) subcutaneous pen (Lantus Solostar U-100 Insulin) clonazepam 0.5 mg tablet 0.5 mg PO BID #60 tabs 02/24/18 olanzapine 20 mg disintegrating 20 mg PO DAILY #30 tabs 02/24/18 tablet hydrocodone 10 mg-acetaminophen 1 tab PO Q4H PRN pain #120 tabs 03/10/18 325 mg tablet ([place]) sertraline 100 mg tablet 100 mg PO BID #60 tabs 01/23/19 Allergies Allergy/AdvReac Type Severity Reaction Status Date / Time No Known Drug Allergies Allergy Unverified 02/24/18 10:38 Review of Systems Constitutional Constitutional: Reports system reviewed and no additional complaints, except as documented Cardiovascular Cardiovascular: Reports system reviewed and no additional complaints, except as documented Respiratory Respiratory: Reports system reviewed and no additional complaints, except as documented Gastrointestinal Gastrointestinal: Reports system reviewed and no additional complaints, except as documented Integumentary/Breasts Skin/Breast: Reports system reviewed and no additional complaints, except as documented Patient History Medical History Chronic pain syndrome (Unknown) Osteoarthritis (Unknown) Asthma (Unknown) Schizophrenia (Unknown) Depression (Unknown) Bipolar disorder (Unknown) Anxiety (Unknown) Restless leg syndrome (Unknown) ADHD (attention deficit hyperactivity disorder) (Unknown) Shoulder pain (Unknown) Foot pain (Unknown) Fractures (Unknown) Chronic back pain (Unknown) Chickenpox (Unknown) Vertigo (Unknown) Hearing loss (Unknown) Fibroids (2004) Hypothyroidism (1985) Diabetes insipidus (Unknown) Type 2 diabetes mellitus (2005) Uncomplicated opioid dependence (12/11/16) Chronic low back pain (05/02/15) Surgical History Status post tubal ligation Status post laparoscopic cholecystectomy Family History Father Brain tumor Mother Cancer Brother Car occupant injured in traffic accident Sister Brain tumor Grandfather Cancer Grandmother Heart failure Social History household members: none Smoking Status: Current every day smoker Smoking Status: Current every day smoker alcohol intake frequency: 0-2 drinks per day Substance Use Type: does not use Exam Initial Vital Signs Initial Vital Signs: Vital Signs Temperature 97.2 F L 05/29/23 21:55 Pulse Rate 89 05/29/23 21:55 Respiratory Rate 20 05/29/23 21:55 Blood Pressure 142/70 H 05/29/23 21:55 Pulse Oximetry 97 05/29/23 21:55 Oxygen Delivery Method Room Air 05/29/23 21:55 [facility] Head: normal to inspection and normocephalic Chest Other: Discomfort with palpation of right-sided lateral chest wall. Resp Effort & Inspection: normal respiratory effort Auscultation: clear to auscultation bilaterally Cardio Rate: regular rate GI Other: No abdominal tenderness. Skin General: no rashes or lesions noted Neuro General: patient alert, patient awake and moves all extremities Extrem General: capillary refill normal Course Orders Ordered: ED Orders 05/29/23 22:05 XR ribs RT min 3V w CXR1V Stat Discontinued Medications Hydrocodone Bitart/Acetaminophen (Hydrocodone/Acet 5/325 Prepack) 1 bottle MISC DIRECTED ONE Stop: 05/29/23 23:23 Last Admin: 05/29/23 23:41 Dose: 1 bottle Documented By: PAVAN Hydromorphone HCl (Hydromorphone 1 Mg Inj) 1 mg IM NOW ONE Stop: 05/29/23 23:23 Last Admin: 05/29/23 23:41 Dose: 1 mg Documented By: PAVAN Ketorolac Tromethamine (Ketorolac 30 Mg/Ml Vial) 30 mg IM NOW ONE Stop: 05/29/23 23:23 Last Admin: 05/29/23 23:40 Dose: 30 mg Documented By: PAVAN Vital Signs Vital signs: Vital Signs - 8 hr 05/29/23 21:55 05/29/23 23:45 Temperature 97.2 F L 98.1 F Pulse Rate 89 84 Respiratory Rate 20 18 Blood Pressure 142/70 H 156/88 H Pulse Oximetry 97 96 Oxygen Delivery Method Room Air Room Air MDM - Fall Imaging Data rib x-ray: Radiologist's Impression: PROCEDURE: XR RIBS RT MIN 3V W CXR 1V INDICATIONS: R larteral mid rib pain after fall TECHNIQUE: Two views of the right ribs were acquired, along with a single view chest. COMPARISON: None. FINDINGS: Surgical changes and devices: None. Bones and chest wall: Questionable nondisplaced right posterolateral 7th rib fracture. No suspicious bony lesions. Overlying soft tissues appear unremarkable. Lungs and pleura: No pleural effusions or pneumothorax. Lungs appear clear. Mediastinum: Mediastinal contours appear normal. Heart size is normal. IMPRESSION: Questionable nondisplaced right posterolateral 7th rib fracture. No pneumothorax or pleural effusion. [facility] Narrative Medical decision making narrative: X-ray shows potential 7th rib fracture. This does correspond to where she is having discomfort. She is no abdominal tenderness. Low suspicion for liver or kidney injury based on the location of her discomfort and what she describes. She did hit her head but she is not on any anticoagulation. She was alert and oriented x3. GCS of 15. Low suspicion for intracranial pathology. Will discharge home with symptom treatment. She was given return precautions. Discharge Plan Departure Patient Disposition: Home Clinical Impression: Fracture of rib Instructions: DI for Rib Fracture Activity Restrictions/Additional Instructions: The rib x-ray today does show that your lungs local well however there is most likely a rib fracture on the right side and this does correspond to where you are having discomfort. Unfortunately every time that you sneezing cough this will be uncomfortable. You can try to hold the area or Hugger pillow during these times. Use the pain medication as needed. You can continue to take Tylenol/ibuprofen. Return to the emergency department for new symptoms. Prescriptions: No Action clonazepam 0.5 mg tablet 0.5 mg PO BID Qty: 60 0RF Patient Comments: Patient states that she has not taken this for a bit because she has not seen her dr. olanzapine 20 mg tablet,disintegrating 20 mg PO DAILY Qty: 30 11RF [true metrix meter] 1 kit QDAY Qty: 1 0RF albuterol sulfate [Ventolin HFA] 90 mcg/actuation HFA aerosol inhaler 1 puff INHALATION Q4HP PRN (Reason: shortness of breath or wheezing) Qty: 1 11RF insulin glargine [Lantus Solostar U-100 Insulin] 100 unit/mL (3 mL) insulin pen 10 unit SUBCUT QDAY Qty: 5 0RF hydrocodone-acetaminophen [[place]] 10-325 mg tablet 1 tab PO Q4H PRN (Reason: pain) Qty: 120 0RF Patient Comments: Patient states that she has not had this but is suppose to, she has not seen her doctor. Rx Instructions: EXEMPT sertraline 100 mg tablet 100 mg PO BID Qty: 60 2RF metformin 500 mg tablet extended release 24 hr 1,000 mg PO BID atorvastatin [Lipitor] 20 mg tablet 20 mg PO BEDTIME quetiapine [Seroquel] 300 mg tablet 300 mg PO BEDTIME Rx Instructions: Patient needs to est. care with a PCP. 01/23/19 Last fill by [facility] per [facility] Patient states that she only takes 150mg of this but order is for 300mg levothyroxine [Synthroid] 200 mcg tablet 200 mcg PO DAILY Referrals: Adelso Baron MD [Primary Care Provider] - Stand Alone Forms: Patient Portal/API
[2023-05-29] MEDS: KETOROLAC 30 MG/ML VIAL IM (23:40)
[2023-05-29] MEDS: HYDROCODONE/ACET 5/325 PREPACK 1 BOTTLE MISC (23:41)
[2023-05-29] MEDS: HYDROMORPHONE 1 MG INJ IM (23:41)
[2023-05-29 23:45] VITALS: BP 156/88; PULSE 84; RESP 18; TEMP 36.7; O2SAT 96
== END 2023-05-29 23:47 | disposition home or self-care (01) ==
PROVIDERS: Emergency Provider Emergency Medicine; PCP Family Medicine
DX: S22.31XA Fracture of one rib, right side, initial encounter for closed fracture (principal); F17.200 Nicotine dependence, unspecified, uncomplicated; W19.XXXA Unspecified fall, initial encounter
CPT/HCPCS: 71101; 96372; 99283; J1170; J1885

== ENCOUNTER 2023-06-05 02:07 | Emergency (ER) | payer MEDICARE, MEDICAID, SELFPAY ==
[2021-04-17 22:25] VITALS: BMI 28.7
[2023-06-05] VITALS (12 sets, daily range): BP systolic 125–135; BP diastolic 56–90; PULSE 84–115; RESP 18–24; TEMP 36.6; O2SAT 88–99; BMI 32.7
--- NOTE | 2023-06-05 02:10 | DI.RAD.S_ITS ---
PROCEDURE: XR CHEST 1V INDICATIONS: rib pain, known rib fx. TECHNIQUE: One view of the chest was acquired. COMPARISON: [facility], CHEST 2 VIEW, 05/24/2010, 5:48. [facility], CHEST 2 VIEW, 03/28/2010, 1:06. FINDINGS: Surgical changes and devices: None. Lungs and pleura: Lungs are clear. No pleural effusions or pneumothorax. Mediastinum: Mediastinal contours appear normal. Heart size is normal. Bones and chest wall: No suspicious bony lesions. Overlying soft tissues appear unremarkable. IMPRESSION: No acute cardiopulmonary abnormality is seen. Dictated by: Anthony Courtney M.D. on 06/05/2023 at 7:52 Approved by: Anthony Courtney M.D. on 06/05/2023 at 7:52
--- NOTE | 2023-06-05 02:12 | ED_ITS ---
HPI - Trauma General Chief Complaint: Shortness of Breath/Dyspnea Stated Complaint: EXTREME PAIN/BROKEN RIBS Time Seen by Provider: 06/05/23 02:10 Source: patient, RN notes reviewed and old records reviewed Mode of arrival: Family Vehicle History of Present Illness HPI narrative: 67-year-old female with history of asthma, schizophrenia, bipolar, anxiety chronic tobacco and alcohol use who presents with complaint of rib pain. Patient was seen here on 05/29/2023 after having fall and had what appeared to be a 7th rib fracture on chest x-ray. Patient states rib pain is significantly worse evening she states she does not recall falling. She does drink alcohol regularly and has had alcohol this evening. Patient states pain significantly worse but does not know why. She denies any blood thinners. She denies recurrent trauma. Has pain with any sort of movement or deep inhalation. No nausea vomiting or other GI or urinary symptoms reported. Denies any fevers. Patient denies any street drugs but was noted that she uses kratom regularly on her last visit on 05/29/2023. She does state she smokes regularly and drinks alcohol and when asked she says a lot. She states she is been drinking for pain control. Related Data Home Medications Medication Instructions Recorded Confirmed atorvastatin 20 mg tablet (Lipitor) 20 mg PO BEDTIME 04/14/19 04/18/21 levothyroxine 200 mcg tablet 200 mcg PO DAILY 04/14/19 04/18/21 (Synthroid) metformin 500 mg tablet,extended 1,000 mg PO BID 04/14/19 04/18/21 release 24 hr quetiapine 300 mg tablet (Seroquel) 300 mg PO BEDTIME 04/14/19 04/18/21 Previous Rx's Medication Instructions Recorded [true metrix meter] 1 kit QDAY ##1 06/12/16 albuterol sulfate 90 mcg/actuation 1 puff inhalation Q4HP PRN 12/03/17 aerosol inhaler (Ventolin HFA) shortness of breath or wheezing #1 ea insulin glargine 100 unit/mL (3 10 unit (0.1 mL) SUBCUT QDAY ##5 12/03/17 mL) subcutaneous pen (Lantus Solostar U-100 Insulin) clonazepam 0.5 mg tablet 0.5 mg PO BID #60 tabs 02/24/18 olanzapine 20 mg disintegrating 20 mg PO DAILY #30 tabs 02/24/18 tablet hydrocodone 10 mg-acetaminophen 1 tab PO Q4H PRN pain #120 tabs 03/10/18 325 mg tablet ([place]) sertraline 100 mg tablet 100 mg PO BID #60 tabs 01/23/19 lidocaine 5 % topical patch 1 patch topical DAILY PRN pain #30 06/05/23 ea Allergies Allergy/AdvReac Type Severity Reaction Status Date / Time No Known Drug Allergies Allergy Unverified 02/24/18 10:38 Review of Systems Review of Systems ROS Unobtainable: All systems reviewed & are unremarkable except as noted in HPI and below Patient History Medical History (Updated 06/05/23 @ 04:37 by Snehal Gary DO) Chronic pain syndrome (Unknown) Osteoarthritis (Unknown) Asthma (Unknown) Schizophrenia (Unknown) Depression (Unknown) Bipolar disorder (Unknown) Anxiety (Unknown) Restless leg syndrome (Unknown) ADHD (attention deficit hyperactivity disorder) (Unknown) Shoulder pain (Unknown) Foot pain (Unknown) Fractures (Unknown) Chronic back pain (Unknown) Chickenpox (Unknown) Vertigo (Unknown) Hearing loss (Unknown) Fibroids (2004) Hypothyroidism (1985) Diabetes insipidus (Unknown) Type 2 diabetes mellitus (2005) Uncomplicated opioid dependence (12/11/16) Chronic low back pain (05/02/15) Surgical History Status post tubal ligation Status post laparoscopic cholecystectomy Family History Father Brain tumor Mother Cancer Brother Car occupant injured in traffic accident Sister Brain tumor Grandfather Cancer Grandmother Heart failure Social History household members: none Smoking Status: Current every day smoker Smoking Status: Current every day smoker alcohol intake frequency: 0-2 drinks per day Substance Use Type: does not use Exam Narrative Exam Narrative: GEN: Patient appears in moderate distress. HEAD: No evidence of trauma, no raccoon/Clark sign. NECK: Nontender, painless range of motion, trachea midline EYES: PERRLA, EOMI ENT: External inspection normal, trachea is midline, TM's are normal no hemotypanum, Nares are clear, no septal hematoma, no dental or oral injury, airway is normal and with normal occlusion, No bony tenderness RESP: Chest is tender on the right, no obvious deformity and has symmetric movement, no ecchymosis, breath sounds are normal no crackles, wheezes or rales CVS: Heart sounds are normal, no murmur noted, No JVD. ABG/GI: Nontender, soft, normal bowel sounds, no distention, no organomegaly, pelvic rock is negative NEURO: Oriented AOx3, neuro is grossly intact, sensation and motor is normal all 4 extremities moving, cranial nerves II through XII are intact PSYCH: Normal mood and affect SKIN: Intact, warm and dry, no crepitus and without decubitus BACK: No CVA tenderness, no vertebral tenderness, no step-off's, no crepitus EXT: Atraumatic, hips are nontender, no pedal edema, normal color and temperature, normal range of motion of extremities with normal tendon exam, 2+ pulses in all four extremities. Patient able to stand and step on stool onto bed. Initial Vital Signs Initial Vital Signs: Vital Signs Pulse Rate 115 H 06/05/23 02:09 Respiratory Rate 24 06/05/23 02:09 Pulse Oximetry 99 06/05/23 02:09 Oxygen Delivery Method Room Air 06/05/23 02:09 Course Orders Ordered: ED Orders 06/05/23 02:10 Chest [XR chest 1V] Stat 06/05/23 02:11 Urine Drug Screen, Rapid Stat EKG-12 Lead Stat 06/05/23 02:12 ETOH [Ethanol (ETOH)] Stat 06/05/23 02:20 Complete Blood Count AUTO DIFF Stat Comprehensive Metabolic Panel Stat Lipase Stat PTT Partial Thromboplastin Mohamud Stat Prothrombin Time INR Stat Troponin & CK Cardiac Panel Stat 06/05/23 03:07 CT chest abd pel w con Stat 06/05/23 05:52 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 - [employer] Stat Discontinued Medications Hydromorphone HCl (Hydromorphone 1 Mg Inj) 1 mg IV NOW ONE Stop: 06/05/23 02:11 Last Admin: 06/05/23 02:15 Dose: 1 mg Documented By: SB Acetaminophen (Ofirmev) 1,000 mg in 100 mls @ 400 mls/hr IV NOW ONE Stop: 06/05/23 17:20 Sodium Chloride (Normal Saline 0.9%) 1,000 mls @ 1,000 mls/hr IV BOLUS ONE Stop: 06/05/23 04:56 Last Infusion: 06/05/23 05:43 Dose: Infused Acetaminophen (Ofirmev) 1,000 mg in 100 mls @ 400 mls/hr IV NOW ONE Stop: 06/05/23 04:18 Last Infusion: 06/05/23 04:30 Dose: Infused Ketorolac Tromethamine (Ketorolac 30 Mg/Ml Vial) 15 mg IV NOW ONE Stop: 06/05/23 02:39 Last Admin: 06/05/23 02:42 Dose: 15 mg Documented By: BHASKAR Lidocaine (Lidocaine 5% Patch) 1 each TOP NOW ONE Stop: 06/05/23 05:37 Last Admin: 06/05/23 05:42 Dose: 1 each Vital Signs Vital signs: Vital Signs - 8 hr 06/05/23 02:09 06/05/23 02:17 06/05/23 02:18 Temperature 97.9 F Pulse Rate 115 H 95 H Respiratory Rate 24 Blood Pressure 127/61 Pulse Oximetry 99 88 L 95 Oxygen Delivery Method Room Air Room Air Nasal Cannula Oxygen Flow Rate 2 06/05/23 02:18 06/05/23 02:30 06/05/23 02:30 Temperature Pulse Rate 94 H Respiratory Rate Blood Pressure 127/61 127/85 Pulse Oximetry 95 Oxygen Delivery Method Oxygen Flow Rate 06/05/23 03:00 06/05/23 03:00 06/05/23 03:36 Temperature Pulse Rate 92 H 96 H Respiratory Rate 18 Blood Pressure 125/69 Pulse Oximetry 95 98 Oxygen Delivery Method Nasal Cannula Oxygen Flow Rate 2 06/05/23 04:00 06/05/23 04:00 06/05/23 04:30 Temperature Pulse Rate 97 H 84 Respiratory Rate 18 Blood Pressure 135/90 Pulse Oximetry 95 96 Oxygen Delivery Method Nasal Cannula Oxygen Flow Rate 2 06/05/23 04:30 06/05/23 04:41 06/05/23 04:57 Temperature Pulse Rate Respiratory Rate Blood Pressure 131/78 Pulse Oximetry 92 88 L Oxygen Delivery Method Room Air Room Air Oxygen Flow Rate 06/05/23 04:58 06/05/23 05:00 06/05/23 05:00 Temperature Pulse Rate 87 Respiratory Rate Blood Pressure 127/56 L Pulse Oximetry 93 92 Oxygen Delivery Method Nasal Cannula Room Air Oxygen Flow Rate 1 MDM - Trauma Lab Data 06/05/23 02:20 06/05/23 02:20 Labs: Lab Results 06/05/23 06/05/23 Range/Units 02:12 02:20 WBC 7.5 (4.5-11.0) X10^3/uL RBC 3.68 L (4.0-5.2) X10^6/uL Hgb 12.6 (12.0-16.0) g/dL Hct 36.4 (36-46) % MCV 99.0 (80-100) fL MCH 34.2 H (26-34) PG MCHC 34.6 (30-36) % RDW 14.0 (11.6-14.8) % Plt Count 340 (150-400) X10^3/uL Neut % (Auto) 48.7 L (50-75) % Lymph % (Auto) 41.6 H (25-40) % [place] % (Auto) 8.0 (3-14) % Eos % (Auto) 0.5 L (2-4) % Baso % (Auto) 1.2 (0-2) % Neut # (Auto) 3600 (6555-1773) /uL Lymph # (Auto) 3100 (5355-1007) /uL [place] # (Auto) 600 (0-900) /uL Eos # (Auto) 0 (0-450) /uL Baso # (Auto) 100 (0-100) /uL PT 11.0 (9.4-12.5) SECONDS INR 1.0 (0.9-1.3) APTT 29 (25.1-36.5) SECONDS Sodium 136 L (137-145) mmol/L Potassium 3.6 (3.4-5.1) mmol/L Chloride 98 (98-107) mmol/L Carbon Dioxide 21 L (22-32) mmol/L BUN 7 (7-17) mg/dL Creatinine 0.61 (0.52-1.04) mg/dL Estimated GFR > 60 (>60) mL/min BUN/Creatinine Ratio 11.5 (6-22) Glucose 407 H (80-110) mg/dL Calcium 9.8 (8.4-10.2) mg/dL Total Bilirubin 0.4 (0.2-1.3) mg/dL AST 78 H (14-36) IU/L ALT 70 H (<35) IU/L Alkaline Phosphatase 194 H (38-126) U/L Total Creatine Kinase 36 (30-135) U/L Troponin I < 0.012 (0.01-0.034) ng/mL Total Protein 6.9 (6.3-8.2) g/dL Albumin 4.2 (3.5-5.0) g/dL Globulin 2.7 (1.7-4.1) g/dL Albumin/Globulin Ratio 1.6 (1.0-2.8) Lipase 173 (23-300) U/L Ethyl Alcohol 244 H ( - 10) mg/dL Imaging Data Chest x-ray: Radiologist's Impression: Cardiomediastinal silhouette is unremarkable lungs are well-aerated and clear, no mass infiltrate or atelectasis appear, no pleural effusion suspected osseous structures are unremarkable. New acute cardiopulmonary disease demonstrated. ECG Data Attestation: I personally reviewed and interpreted this ECG as follows: Prior ECG tracings: available for review Interpretation: Normal sinus rhythm rate 89 NE 140 QRS of 134 QTC of 506, right bundle-branch block. Nonspecific change from 04/17/2021. MDM Narrative Medical decision making narrative: 67-year-old female with fall and injury seen on 05/29/23, patient denies recurrent trauma but presents with increased pain in the same area. Patient states she is been drinking to control her pain. She does not have any tachycardia, hypotension or hypoxia initially. She did not receive pain medication and then did become somewhat hypoxic. Chest x-ray shows no acute fracture or changes no effusion, no pneumothorax or other new significant changes. Labs show hemoglobin of 12.6, white count of 7.5 with platelets of 340. COVID is improved from hospitalization in April of 2021. Coags are negative, electrolytes, creatinine are normal glucose is 407, total bilirubin is normal at 0.4 AST ALT and alk-phos are slightly elevated at 78, 7194 CK is 36- troponin with negative lipase. ETOH is 244. She continued to be painful was given additional dose of Toradol here in the department. Patient did not seem to have improvement with this on recheck. Patient did have drop of O2 after receiving Dilaudid. Did not have this when she was here on her last visit although those medications were given IM. With prior rib fracture and hypoxia after pain medications maybe secondary to narcotics but will update additional imaging as CT chest abdomen pelvis. CT chest/abd/pelvis shows nondisplaced right 6th through 8th rib fractures, compression deformity L2 vertebral body proximal 50% loss of vertebral height. No pericardial or pleural effusion lung windows scarring at the lung apices no nodule or infiltrate diffuse hepatic steatosis. Patient had Toradol and Tylenol IV for pain management. Patient did have improvement. Oxygenation improved over time. Patient was able to ambulate to the bathroom without any assistance. Reviewed findings with patient, wished to avoid narcotic pain medications was given prescription for lidocaine patch and incentive spirometer with teaching. Discharge Plan Departure Patient Disposition: Home Clinical Impression: Acute right-sided thoracic back pain Right rib fracture Qualifiers: Encounter type: subsequent encounter Rib fracture type: multiple ribs Fracture type: closed Instructions: DI for Rib Fracture Activity Restrictions/Additional Instructions: Please follow up with your physician for recheck. Use incentive spirometer once hourly while awake for the next week. Continue your home medications as prescribed. Use lidocaine patch to the affected area. Prescription has been printed. Please return for new or worsening symptoms increasing chest pain, shortness of breath, passing out, persistent vomiting, black or bloody stools or other new or concerning changes. Prescriptions: New lidocaine 5 % adhesive patch,medicated 1 patch topical DAILY PRN (Reason: pain) Qty: 30 0RF Rx Instructions: leave on most painful area for up to 12 hrs No Action clonazepam 0.5 mg tablet 0.5 mg PO BID Qty: 60 0RF Patient Comments: Patient states that she has not taken this for a bit because she has not seen her dr. olanzapine 20 mg tablet,disintegrating 20 mg PO DAILY Qty: 30 11RF [true metrix meter] 1 kit QDAY Qty: 1 0RF albuterol sulfate [Ventolin HFA] 90 mcg/actuation HFA aerosol inhaler 1 puff INHALATION Q4HP PRN (Reason: shortness of breath or wheezing) Qty: 1 11RF insulin glargine [Lantus Solostar U-100 Insulin] 100 unit/mL (3 mL) insulin pen 10 unit SUBCUT QDAY Qty: 5 0RF hydrocodone-acetaminophen [[place]] 10-325 mg tablet 1 tab PO Q4H PRN (Reason: pain) Qty: 120 0RF Patient Comments: Patient states that she has not had this but is suppose to, she has not seen her doctor. Rx Instructions: EXEMPT sertraline 100 mg tablet 100 mg PO BID Qty: 60 2RF metformin 500 mg tablet extended release 24 hr 1,000 mg PO BID atorvastatin [Lipitor] 20 mg tablet 20 mg PO BEDTIME quetiapine [Seroquel] 300 mg tablet 300 mg PO BEDTIME Rx Instructions: Patient needs to est. care with a PCP. 01/23/19 Last fill by [facility] per [facility] Patient states that she only takes 150mg of this but order is for 300mg levothyroxine [Synthroid] 200 mcg tablet 200 mcg PO DAILY Referrals: Adelso Baron MD [Primary Care Provider] - Stand Alone Forms: Patient Portal/API
[2023-06-05] MEDS: HYDROMORPHONE 1 MG INJ IV (02:15)
[2023-06-05 02:24] LABS: Add Manual Diff / Slide Review NO; Basophils Absolute Auto 100 /uL (0-100); Basophils Percent Auto 1.2 % (0-2); Eosinophils Absolute Auto 0 /uL (0-450); Eosinophils Percent Auto 0.5 % (2-4); Hematocrit 36.4 % (36-46); Hemoglobin 12.6 g/dL (12.0-16.0); Lymphocytes Absolute Auto 3100 /uL (1100-4500); Lymphocytes Percent Auto 41.6 % (25-40); Mean Corpuscular HGB Conc 34.6 % (30-36); Mean Corpuscular Hemoglobin 34.2 PG (26-34); Monocytes Absolute Auto 600 /uL (0-900); Neutrophils Absolute Auto 3600 /uL (1500-7000); Neutrophils Percent Auto 48.7 % (50-75); Platelet Count 340 X10^3/uL (150-400); Red Blood Cell Count 3.68 X10^6/uL (4.0-5.2); White Blood Cell Count 7.5 X10^3/uL (4.5-11.0)
[2023-06-05 02:33] LABS: Creatine Kinase 36 U/L (30-135)
[2023-06-05 02:35] LABS: Alanine Aminotransferase 70 IU/L (<35); Albumin 4.2 g/dL (3.5-5.0); Albumin Globulin Ratio 1.6 (1.0-2.8); Alkaline Phosphatase 194 U/L (38-126); Aspartate Aminotransferase 78 IU/L (14-36); BUN Creatinine Ratio 11.5 (6-22); Bilirubin Total 0.4 mg/dL (0.2-1.3); Blood Urea Nitrogen 7 mg/dL (7-17); Calcium 9.8 mg/dL (8.4-10.2); Carbon Dioxide 21 mmol/L (22-32); Chloride 98 mmol/L (98-107); Estimated Glomerular Filt Rate > 60 mL/min (>60); Globulin 2.7 g/dL (1.7-4.1); Glucose 407 mg/dL (80-110); HEMOLYSIS < 15 (0-50); Lipase 173 U/L (23-300); Potassium 3.6 mmol/L (3.4-5.1); Sodium 136 mmol/L (137-145); Total Protein 6.9 g/dL (6.3-8.2)
[2023-06-05 02:40] LABS: PTT Partial Thromboplastin Tim 29 SECONDS (25.1-36.5)
[2023-06-05] MEDS: KETOROLAC 30 MG/ML VIAL 15 MG IV (02:42)
[2023-06-05 02:46] LABS: Troponin I < 0.012 ng/mL (0.01-0.034)
--- NOTE | 2023-06-05 03:07 | DI.CT.S_ITS ---
PROCEDURE: CT CHEST ABD PEL W CON INDICATIONS: rib fx. 05/29, increased pain, +etoh, ? recurrent trauma TECHNIQUE: After the administration of oral and intravenous contrast, axial sections acquired from the supraclavicular neck to the pubic symphysis. Coronal and sagittal reformats were performed. For radiation dose reduction, the following was used: automated exposure control, adjustment of mA and/or kV according to patient size. COMPARISON: [facility], CR, XR RIBS RT MIN 3V W CXR 1V, 05/29/2023, 22:22. FINDINGS: Image quality: Excellent. CHEST: Lower Neck: No enlarged lymph nodes. Thyroid: Within normal limits. Axillae: No enlarged lymph nodes. Chest Wall: Nondisplaced posterior right 6th through 8th rib fractures. Lungs and Airways: No consolidation or suspicious nodules. Pleura: No pneumothorax or pleural effusions. Heart: Heart size is enlarged. No pericardial effusion. Annular calcification of the mitral valve. Thoracic Vessels: The aorta and pulmonary arteries demonstrate normal size. Mediastinum and Emilie: No enlarged lymph nodes. Esophagus: Circumferential wall thickening. No hiatal hernia. ABDOMEN: Liver: Hepatic steatosis with edge blunting. Gallbladder: Absent. Biliary ducts: No biliary dilation. Pancreas: No ductal dilation. Spleen: Size is within normal limits. Adrenal Glands: No adrenal nodules. Kidneys and Ureters: No hydronephrosis. No solid mass. No complex renal cystic lesion which requires follow up. Punctate nonobstructing left-sided nephrolithiasis. Stomach and Bowel: Normal colonic caliber, without significant wall thickening. Cholelithiasis without wall thickening or adjacent fat stranding to suggest acute cholecystitis. Peritoneum: No abnormal intraperitoneal fluid. No free air. Ventral Wall: No hernia. Abdominal Nodes: No retroperitoneal or mesenteric adenopathy by size criteria. Vessels: Aorta and inferior vena cava are normal in size. PELVIS: Pelvic Organs: Unremarkable. Bladder: Unremarkable. Pelvic Nodes: No enlarged lymph nodes. Miscellaneous: No inguinal hernias are seen. Bones: Acute appearing compression deformity of the L2 vertebral body, without endplate retropulsion. IMPRESSION: 1. Nondisplaced fractures of the 6th through 8th right ribs. No pneumothorax or hemothorax. 2. Acute appearing compression deformity of the L2 vertebral body, without endplate retropulsion. Dictated by: Anthony Courtney M.D. on 06/05/2023 at 7:53 Approved by: Anthony Courtney M.D. on 06/05/2023 at 7:59
[2023-06-05 03:11] LABS: Ethanol (ETOH) 244 mg/dL
--- NOTE | 2023-06-05 03:42 | PC.NURSE ---
Patient INC of urine on stretcher. Patient denied need to urinate more. While patient off floor getting CT complete linen was changed and patient provided with disposable scrub pants.
[2023-06-05] MEDS: SODIUM CHLORIDE 0.9% 1,000 ML 1000 ML IV (04:12)
[2023-06-05] MEDS: ACETAMINOPHEN IV 1,000 MG/100 ML VIAL 400 MG IV (04:13)
[2023-06-05] MEDS: LIDOCAINE 5% PATCH 1 EACH TOP (05:42)
== END 2023-06-05 05:52 | disposition home or self-care (01) ==
PROVIDERS: Emergency Provider Emergency Medicine; PCP Family Medicine
DX: S22.41XA Multiple fractures of ribs, right side, initial encounter for closed fracture (principal); I45.10 Unspecified right bundle-branch block; R09.02 Hypoxemia; W19.XXXA Unspecified fall, initial encounter
CPT/HCPCS: 36415; 71045; 71260; 74177; 80053; 80320; 82550; 83690; 84484; 85025; 85610; 85730; 93005; 96365; 96375; 99284; 99285; J0131; J1170; J1885; Q9967

== ENCOUNTER 2023-08-04 04:58 | Emergency (ER) | payer MEDICARE, MEDICAID, SELFPAY ==
[2021-04-17 22:25] VITALS: BMI 28.7
[2023-08-04] VITALS (28 sets, daily range): BP systolic 101–169; BP diastolic 57–96; PULSE 99–121; RESP 20; TEMP 36.4–36.6; O2SAT 92–99; BMI 29.5
--- NOTE | 2023-08-04 05:09 | DI.RAD.S_ITS ---
PROCEDURE: XR CHEST 1V INDICATIONS: N/V TECHNIQUE: One view of the chest was acquired. COMPARISON: [facility], CR, XR CHEST 1V, 06/05/2023, 2:25. FINDINGS: Surgical changes and devices: None. Lungs and pleura: Low lung volumes. No consolidation or pneumothorax. No visible pleural effusion. Mediastinum: Normal heart size with dense mitral annular calcification. There is a new curvilinear density along the left superior mediastinum near the aortic arch. No definite widening of the mediastinum. Bones and chest wall: Several mildly displaced right-sided rib fractures. Chronicity is uncertain. IMPRESSION: 1. Right-sided rib fractures of uncertain chronicity. Correlate with recent injury. 2. Left medial mediastinal curvilinear density of uncertain chronicity. This may be due to technique, patient position, or other. Recommend repeat chest radiograph with improved technique. 3. Discussed with Dr. Gary in the emergency room at 09:18 hours 08/04/23. Dictated by: Silvia Michaels M.D. on 08/04/2023 at 9:09 Approved by: Silvia Michaels M.D. on 08/04/2023 at 9:16
--- NOTE | 2023-08-04 05:14 | DI.CT.S_ITS ---
PROCEDURE: CT ABDOMEN PELVIS W CON INDICATIONS: FALL DOWN STAIRS/HEAD TRAUMA/INTRACTABLE VOMITING TECHNIQUE: After the administration of intravenous contrast, axial sections acquired from the lung bases to the pubic symphysis. Coronal and sagittal reformats were performed. For radiation dose reduction, the following was used: automated exposure control, adjustment of mA and/or kV according to patient size. COMPARISON: [facility], CT, CT CHEST ABD PEL W CON, 06/05/2023, 3:20. [facility], CT, CT ABDOMEN PELVIS W CON, 04/17/2021, 19:18. FINDINGS: Image quality: Diagnostic. Lower Chest: Right-sided anterior and posterior rib fractures are partially seen. No visible basal pneumothorax or significant pleural effusion. Mild circumferential distal esophageal wall thickening. Dense mitral annular calcification. Normal size heart. ABDOMEN: Liver: Moderate to severe hepatic steatosis. Smooth liver margin. Further focal fat deposition adjacent to the falciform ligament and adjacent to the gallbladder fossa. Gallbladder: Surgically absent Biliary ducts: No biliary dilation. Pancreas: Diminutive pancreas. No visible ductal dilatation. Spleen: Normal size. Calcified granuloma. Adrenal Glands: No adrenal nodules. Kidneys and Ureters: Symmetric enhancement. Nonobstructing left upper pole punctate calcification. No hydronephrosis. No hydroureter. Stomach and Bowel: Stomach and small bowel loops are normal caliber. Decompressed colon. Appendix was not seen. Peritoneum: No abnormal intraperitoneal fluid. No free air. Ventral Wall: No hernia. Abdominal Nodes: No retroperitoneal or mesenteric adenopathy by size criteria. Vessels: Aorta and inferior vena cava are normal in size. PELVIS: Pelvic Organs: Anteverted uterus with heterogeneous myometrium secondary to several small fibroids. Ovarian tissue is age-appropriate. Bladder: Decompressed. Pelvic Nodes: No enlarged lymph nodes. Miscellaneous: No hernias. No pelvic hematoma. Bones: There is a nonacute L2 compression fracture with superior endplate irregularity. No acute fractures. IMPRESSION: 1. Partially seen right rib fractures of uncertain chronicity. No pleural or parenchymal abnormalities seen at the lung bases. 2. Moderate to severe hepatic steatosis. Worse compared to the prior exam. 3. Nonobstructing left upper pole intrarenal calculus. 4. Fibroid uterus. 5. Nonacute L2 compression fracture. 6. Final interpretation is concordant with preliminary report. Dictated by: Silvia Michaels M.D. on 08/04/2023 at 9:01 Approved by: Silvia Michaels M.D. on 08/04/2023 at 9:08
--- NOTE | 2023-08-04 05:15 | ED_ITS ---
HPI - Nausea/Vomiting/Diarrhea <Snehal Aguero MD - Last Filed: 08/04/23 18:44> General Chief complaint: Nausea/Vomiting/Diarrhea Stated complaint: sick, can't eat x2 days Time Seen by Provider: 08/04/23 04:59 Source: patient and family Mode of arrival: Wheelchair History of Present Illness HPI Narrative: 67-year-old female with history of insulin-dependent diabetes, alcohol abuse, schizophrenia, bipolar disorder presents by private vehicle from home for nausea, vomiting, generalized abdominal pain. History is somewhat difficult to obtain, patient initially stated that symptoms have been going on for 2 months, when checking in the complaint was for 2 days of vomiting, daughter at bedside states that symptoms have been ongoing for 5 days. Patient has been able to swallow liquids and foods, but shortly afterwards vomits. Normally drinks pt of liquor per day, patient states she has been continuing to drink alcohol because it ?soothes my stomach?, but vomits the alcohol as well. Denies history of alcohol withdrawal Related Data Home Medications Medication Instructions Recorded Confirmed atorvastatin 20 mg tablet (Lipitor) 20 mg PO BEDTIME 04/14/19 04/18/21 levothyroxine 200 mcg tablet 200 mcg PO DAILY 04/14/19 04/18/21 (Synthroid) metformin 500 mg tablet,extended 1,000 mg PO BID 04/14/19 04/18/21 release 24 hr quetiapine 300 mg tablet (Seroquel) 300 mg PO BEDTIME 04/14/19 04/18/21 Previous Rx's Medication Instructions Recorded [true metrix meter] 1 kit QDAY ##1 06/12/16 albuterol sulfate 90 mcg/actuation 1 puff inhalation Q4HP PRN 12/03/17 aerosol inhaler (Ventolin HFA) shortness of breath or wheezing #1 ea insulin glargine 100 unit/mL (3 10 unit (0.1 mL) SUBCUT QDAY ##5 12/03/17 mL) subcutaneous pen (Lantus Solostar U-100 Insulin) clonazepam 0.5 mg tablet 0.5 mg PO BID #60 tabs 02/24/18 olanzapine 20 mg disintegrating 20 mg PO DAILY #30 tabs 02/24/18 tablet hydrocodone 10 mg-acetaminophen 1 tab PO Q4H PRN pain #120 tabs 03/10/18 325 mg tablet ([place]) sertraline 100 mg tablet 100 mg PO BID #60 tabs 01/23/19 lidocaine 5 % topical patch 1 patch topical DAILY PRN pain #30 06/05/23 ea ondansetron 4 mg disintegrating 4 mg PO QID PRN nausea and 08/04/23 tablet vomiting #10 tabs Allergies Allergy/AdvReac Type Severity Reaction Status Date / Time No Known Drug Allergies Allergy Unverified 02/24/18 10:38 Review of Systems <Snehal Aguero MD - Last Filed: 08/04/23 18:44> Review of Systems Narrative: Negative except as noted above Patient History <Snehal Aguero MD - Last Filed: 08/04/23 18:44> Medical History (Updated 08/04/23 @ 05:20 by Snehal Aguero MD) Chronic pain syndrome (Unknown) Osteoarthritis (Unknown) Asthma (Unknown) Schizophrenia (Unknown) Depression (Unknown) Bipolar disorder (Unknown) Anxiety (Unknown) Restless leg syndrome (Unknown) ADHD (attention deficit hyperactivity disorder) (Unknown) Shoulder pain (Unknown) Foot pain (Unknown) Fractures (Unknown) Chronic back pain (Unknown) Chickenpox (Unknown) Vertigo (Unknown) Hearing loss (Unknown) Fibroids (2004) Hypothyroidism (1985) Diabetes insipidus (Unknown) Type 2 diabetes mellitus (2005) Uncomplicated opioid dependence (12/11/16) Chronic low back pain (05/02/15) Surgical History Status post tubal ligation Status post laparoscopic cholecystectomy Family History Father Brain tumor Mother Cancer Brother Car occupant injured in traffic accident Sister Brain tumor Grandfather Cancer Grandmother Heart failure Social History household members: none Smoking Status: Current every day smoker Smoking Status: Current every day smoker alcohol intake frequency: 3 or more drinks per day Alcohol type: hard liquor Substance Use Type: does not use Exam <Snehal Aguero MD - Last Filed: 08/04/23 18:44> Initial Vital Signs Initial Vital Signs: Vital Signs Pulse Oximetry 97 08/04/23 05:03 Oxygen Delivery Method Room Air 08/04/23 05:03 Const: Awake, alert, moaning, appears chronically unwell, significantly older than stated age ENT: Patent, edentulous, dry mucous membranes Cardiac: Tachycardia, regular rhythm RESP: unlabored, clear bilaterally, no wheezing GI: Atraumatic, soft, generalized tenderness to deep palpation without rebound or guarding Skin: Warm, Dry, intact, foreskin turgor Neuro: AO x3, CN II-XII grossly intact, moves all extremities, writing around on bed, jerking head back and forth, smacking lips (tardive dyskinesia?) <Snehal Gary DO - Last Filed: 08/09/23 20:01> Initial Vital Signs Initial Vital Signs: Vital Signs Pulse Oximetry 97 08/04/23 05:03 Oxygen Delivery Method Room Air 08/04/23 05:03 Course <Snehal Aguero MD - Last Filed: 08/04/23 18:44> Orders Ordered: Discontinued Medications Droperidol (Droperidol 5 Mg/2 Ml Vial) 5 mg IV NOW ONE Stop: 08/04/23 05:11 Last Admin: 08/04/23 05:20 Dose: 5 mg Documented By: CAROLINA Sodium Chloride (Normal Saline 0.9%) 1,000 mls @ 1,000 mls/hr IV BOLUS ONE Stop: 08/04/23 06:08 Last Infusion: 08/04/23 07:19 Dose: Infused Documented By: Admin: 08/04/23 05:19 Dose: 1,000 mls/hr Documented By: CAROLINA Sodium Chloride (Normal Saline 0.9%) 1,000 mls @ 1,000 mls/hr IV BOLUS ONE Stop: 08/04/23 06:55 Last Infusion: 08/04/23 07:30 Dose: Infused Documented By: Admin: 08/04/23 06:27 Dose: 1,000 mls/hr Documented By: CAROLINA Lorazepam (Lorazepam 2 Mg/Ml Inj) 2 mg IV NOW ONE Stop: 08/04/23 05:36 Last Admin: 08/04/23 05:38 Dose: 2 mg Documented By: CAROLINA Vital Signs Vital signs: Vital Signs - 8 hr 08/04/23 12:04 08/04/23 12:05 08/04/23 12:05 Temperature Pulse Rate 115 H 115 H Respiratory Rate Blood Pressure 109/71 Pulse Oximetry 97 95 Oxygen Delivery Method 08/04/23 12:30 08/04/23 13:24 08/04/23 13:25 Temperature 97.5 F L Pulse Rate 114 H 119 H Respiratory Rate 20 Blood Pressure 121/72 121/72 Pulse Oximetry 93 93 Oxygen Delivery Method Room Air <Snehal Gary DO - Last Filed: 08/09/23 20:01> Orders Ordered: Discontinued Medications Droperidol (Droperidol 5 Mg/2 Ml Vial) 5 mg IV NOW ONE Stop: 08/04/23 05:11 Last Admin: 08/04/23 05:20 Dose: 5 mg Documented By: CAROLINA Sodium Chloride (Normal Saline 0.9%) 1,000 mls @ 1,000 mls/hr IV BOLUS ONE Stop: 08/04/23 06:08 Last Infusion: 08/04/23 07:19 Dose: Infused Documented By: Admin: 08/04/23 05:19 Dose: 1,000 mls/hr Documented By: CAROLINA Sodium Chloride (Normal Saline 0.9%) 1,000 mls @ 1,000 mls/hr IV BOLUS ONE Stop: 08/04/23 06:55 Last Infusion: 08/04/23 07:30 Dose: Infused Documented By: Admin: 08/04/23 06:27 Dose: 1,000 mls/hr Documented By: CAROLINA Lorazepam (Lorazepam 2 Mg/Ml Inj) 2 mg IV NOW ONE Stop: 08/04/23 05:36 Last Admin: 08/04/23 05:38 Dose: 2 mg Documented By: CAROLINA Vital Signs Vital signs: Vital Signs - 8 hr 08/04/23 12:04 08/04/23 12:05 08/04/23 12:05 Temperature Pulse Rate 115 H 115 H Respiratory Rate Blood Pressure 109/71 Pulse Oximetry 97 95 Oxygen Delivery Method 08/04/23 12:30 08/04/23 13:24 08/04/23 13:25 Temperature 97.5 F L Pulse Rate 114 H 119 H Respiratory Rate 20 Blood Pressure 121/72 121/72 Pulse Oximetry 93 93 Oxygen Delivery Method Room Air MDM - Nausea/Vomiting/Diarrhea <Snehal Aguero MD - Last Filed: 08/04/23 18:44> Lab Data 01/31/24 05:10 08/04/23 05:10 Labs: Lab Results 08/04/23 08/04/23 08/04/23 Range/Units 05:10 05:18 05:20 WBC 6.9 (4.5-11.0) X10^3/uL RBC 4.26 (4.0-5.2) X10^6/uL Hgb 14.4 (12.0-16.0) g/dL Hct 42.1 (36-46) % MCV 98.8 (80-100) fL MCH 33.7 (26-34) PG MCHC 34.1 (30-36) % RDW 15.9 H (11.6-14.8) % Plt Count 279 (150-400) X10^3/uL Neut % (Auto) 65.3 (50-75) % Lymph % (Auto) 25.2 (25-40) % [place] % (Auto) 7.8 (3-14) % Eos % (Auto) 0.5 L (2-4) % Baso % (Auto) 1.2 (0-2) % Neut # (Auto) 4500 (4450-1735) /uL Lymph # (Auto) 1700 (3072-4279) /uL [place] # (Auto) 500 (0-900) /uL Eos # (Auto) 0 (0-450) /uL Baso # (Auto) 100 (0-100) /uL PT 12.2 (9.4-12.5) SECONDS INR 1.1 (0.9-1.3) VBG pH 7.44 H (7.33-7.43) VBG pCO2 28.6 L (45-50) mmHg VBG pO2 51 H (35-45) mmHg VBG HCO3 19 L (24-28) mmol/L VBG Total CO2 20 L (24-29) mmol/L VBG O2 Saturation 88 H (70-75) % VBG Base Excess -5.0 L (0-4) mmol/L FiO2 21 Sodium 132 L (137-145) mmol/L Potassium 3.6 (3.4-5.1) mmol/L Chloride 94 L (98-107) mmol/L Carbon Dioxide 20 L (22-32) mmol/L BUN 8 (7-17) mg/dL Creatinine 0.55 (0.52-1.04) mg/dL Estimated GFR > 60 (>60) mL/min BUN/Creatinine Ratio 14.5 (6-22) Glucose 264 H (80-110) mg/dL Calcium 8.6 (8.4-10.2) mg/dL Total Bilirubin 1.1 (0.2-1.3) mg/dL AST 428 H (14-36) IU/L ALT 211 H (<35) IU/L Alkaline Phosphatase 302 H (38-126) U/L Ammonia 15 (9-30) umol/L Total Creatine Kinase 44 (30-135) U/L Troponin I < 0.012 (0.01-0.034) ng/mL Total Protein 7.1 (6.3-8.2) g/dL Albumin 4.1 (3.5-5.0) g/dL Globulin 3.0 (1.7-4.1) g/dL Albumin/Globulin Ratio 1.4 (1.0-2.8) Lipase 67 (23-300) U/L Urine Color Urine Appearance Urine pH (4.5-8.0) Ur Specific [place] (1.000-1.035) Urine Protein (Negative) Urine Glucose (UA) (Negative) g/dL Urine Ketones (NEGATIVE) Urine Occult Blood (Negative) Urine Nitrate (Negative) Urine Bilirubin (NEGATIVE) Urine Urobilinogen (0.2) E.U./dL Ur Leukocyte Esterase (NEGATIVE) Urine RBC (0-5/HPF) Urine WBC (0-5/HPF) Ur Squamous Epith Cells (0-5/HPF) Urine Bacteria (None) Ur Culture Indicated? Vol Urine Centrifuged Salicylates 3.6 (<20) mg/dL U Opiates 300ng/mL cut (Negative) Ur Oxycodone Screen (Negative) Urine Methadone Screen (Negative) Acetaminophen < 10 (10-30) ug/mL Ur Barbiturates Screen (Negative) U Tricyclic Antidepress (Negative) Ur Phencyclidine Scrn (Negative) Ur Amphetamines Screen (Negative) U Methamphetamines Scrn (Negative) Ur MDMA Scrn (Ecstasy) (Negative) U Benzodiazepines Scrn (Negative) Urine Cocaine Screen (Negative) U Marijuana (THC) Screen (Negative) Urine Specific [place] (Normal) Ethyl Alcohol 124 H ( - 10) mg/dL Ur Creatinine (Normal) Chlamy pneumoniae PCR Not detected (Not Detect) Adenovirus (PCR) Not detected (Not Detect) B.parapertussis DNA PCR Not detected (Not Detecte) Coronavirus OC43 (PCR) Not detected (Not Detect) Coronavirus HKU1 (PCR) Not detected (Not Detect) Coronavirus 229E (PCR) Not detected (Not Detect) SARS-CoV-2 (PCR) Not detected (Not Detecte) Coronavirus NL63 (PCR) Not detected (Not Detect) Human Metapneumovir PCR Not detected (Not Detect) Influenza Type A (PCR) Not detected (Not Detect) Influenza Type B (PCR) Not detected (Not Detect) M. pneumoniae (PCR) Not detected (Not Detect) Parainfluenza 1 (PCR) Not detected (Not Detect) Parainfluenza 2 (PCR) Not detected (Not Detect) Parainfluenza 3 (PCR) Not detected (Not Detect) Parainfluenza 4 (PCR) Not detected (Not Detect) RSV (PCR) Detected H (Not Detect) Entero/Rhino (PCR) Not detected (Not Detect) 08/04/23 08/04/23 Range/Units 09:25 09:25 WBC (4.5-11.0) X10^3/uL RBC (4.0-5.2) X10^6/uL Hgb (12.0-16.0) g/dL Hct (36-46) % MCV (80-100) fL MCH (26-34) PG MCHC (30-36) % RDW (11.6-14.8) % Plt Count (150-400) X10^3/uL Neut % (Auto) (50-75) % Lymph % (Auto) (25-40) % [place] % (Auto) (3-14) % Eos % (Auto) (2-4) % Baso % (Auto) (0-2) % Neut # (Auto) (7490-9539) /uL Lymph # (Auto) (0232-1136) /uL [place] # (Auto) (0-900) /uL Eos # (Auto) (0-450) /uL Baso # (Auto) (0-100) /uL PT (9.4-12.5) SECONDS INR (0.9-1.3) VBG pH (7.33-7.43) VBG pCO2 (45-50) mmHg VBG pO2 (35-45) mmHg VBG HCO3 (24-28) mmol/L VBG Total CO2 (24-29) mmol/L VBG O2 Saturation (70-75) % VBG Base Excess (0-4) mmol/L FiO2 Sodium (137-145) mmol/L Potassium (3.4-5.1) mmol/L Chloride (98-107) mmol/L Carbon Dioxide (22-32) mmol/L BUN (7-17) mg/dL Creatinine (0.52-1.04) mg/dL Estimated GFR (>60) mL/min BUN/Creatinine Ratio (6-22) Glucose (80-110) mg/dL Calcium (8.4-10.2) mg/dL Total Bilirubin (0.2-1.3) mg/dL AST (14-36) IU/L ALT (<35) IU/L Alkaline Phosphatase (38-126) U/L Ammonia (9-30) umol/L Total Creatine Kinase (30-135) U/L Troponin I (0.01-0.034) ng/mL Total Protein (6.3-8.2) g/dL Albumin (3.5-5.0) g/dL Globulin (1.7-4.1) g/dL Albumin/Globulin Ratio (1.0-2.8) Lipase (23-300) U/L Urine Color Yellow Urine Appearance Clear Urine pH 6.5 Normal (4.5-8.0) Ur Specific [place] <=1.005 (1.000-1.035) Urine Protein Negative (Negative) Urine Glucose (UA) Negative (Negative) g/dL Urine Ketones Trace H (NEGATIVE) Urine Occult Blood Negative (Negative) Urine Nitrate Negative (Negative) Urine Bilirubin Negative (NEGATIVE) Urine Urobilinogen 2.0 H (0.2) E.U./dL Ur Leukocyte Esterase Negative (NEGATIVE) Urine RBC None seen (0-5/HPF) Urine WBC 1-5/hpf (0-5/HPF) Ur Squamous Epith Cells 0-1 /hpf (0-5/HPF) Urine Bacteria Many (>30) H (None) Ur Culture Indicated? Cult not indicated Vol Urine Centrifuged 10ml (spun) Salicylates (<20) mg/dL U Opiates 300ng/mL cut Negative (Negative) Ur Oxycodone Screen Negative (Negative) Urine Methadone Screen Negative (Negative) Acetaminophen (10-30) ug/mL Ur Barbiturates Screen Negative (Negative) U Tricyclic Antidepress Negative (Negative) Ur Phencyclidine Scrn Negative (Negative) Ur Amphetamines Screen Positive H (Negative) U Methamphetamines Scrn Positive H (Negative) Ur MDMA Scrn (Ecstasy) Negative (Negative) U Benzodiazepines Scrn Positive H (Negative) Urine Cocaine Screen Negative (Negative) U Marijuana (THC) Screen Negative (Negative) Urine Specific [place] Normal (Normal) Ethyl Alcohol ( - 10) mg/dL Ur Creatinine Normal (Normal) Chlamy pneumoniae PCR (Not Detect) Adenovirus (PCR) (Not Detect) B.parapertussis DNA PCR (Not Detecte) Coronavirus OC43 (PCR) (Not Detect) Coronavirus HKU1 (PCR) (Not Detect) Coronavirus 229E (PCR) (Not Detect) SARS-CoV-2 (PCR) (Not Detecte) Coronavirus NL63 (PCR) (Not Detect) Human Metapneumovir PCR (Not Detect) Influenza Type A (PCR) (Not Detect) Influenza Type B (PCR) (Not Detect) M. pneumoniae (PCR) (Not Detect) Parainfluenza 1 (PCR) (Not Detect) Parainfluenza 2 (PCR) (Not Detect) Parainfluenza 3 (PCR) (Not Detect) Parainfluenza 4 (PCR) (Not Detect) RSV (PCR) (Not Detect) Entero/Rhino (PCR) (Not Detect) Point of Care Testing Glucose POC 231 ECG Data Interpretation: Sinus tachycardia rate of 107 beats per minute. Right bundle-branch block, PVCs present. No STEMI. MDM Narrative Medical decision making narrative: This is a very chronically unwell appearing patient presenting for 2-5 days of nausea, vomiting, inability to tolerate p.o.. Abdomen is soft with diffuse tenderness to deep palpation, no peritoneal signs. Patient has generalized writhing movements and lip-smacking, question if patient has some form of tardive dyskinesia, this movement pattern is reported to be patient's baseline per daughter at bedside, but slightly worse in the last several days. We will order IV fluids, droperidol since this will have both antiemetic and antipsychotic properties given patient's history of schizophrenia and abnormal movements. Patient states that she has had decreased alcohol intake over the last several days but is still able to keep down some alcohol. She denies ever withdrawing from alcohol however I am concerned that there may be a component of withdrawal contributing to the agitation and tachycardia and we will add Ativan. Daughter has arrived to help provide additional history. Daughter states that she has not seen the patient several days, when she arrived she was told that the patient had not been able to get up off the couch due to weakness and has been urinating on herself. She has been off of all of her medications for at least 1 month due to insurance issues. Daughter states that the patient did fall 1-1/2 weeks ago and did not seek medical care at that time. She has not had any other medical care at outside facilities recently. Patient is now resting comfortably after receiving antiemetics and Ativan. Laboratory work is significant for WBCs 6.9, hemoglobin 14.4, platelets 279. VBG shows pH of 7.44, bicarb 19. Sodium 132, potassium 3.6, chloride 94, CO2 20, creatinine 0.55. Anion gap 18, question if this is starvation ketosis. Respiratory panel positive for RSV. Pending urinalysis and urine tox screen. Alcohol level 124. CT brain negative for acute findings. Chest x-ray unremarkable. CT of the abdomen and pelvis shows hepatic steatosis without obstruction, infection, other acute findings. Patient is still sleeping soundly, pending urinalysis, we will need to trial p.o.. Care of patient is signed out to daytime provider at 7:00 a.m.. Final disposition pending their evaluation and judgment. <Snehal Gary, - Last Filed: 08/09/23 20:01> Lab Data Labs: Lab Results 08/04/23 08/04/23 08/04/23 Range/Units 05:10 05:18 05:20 WBC 6.9 (4.5-11.0) X10^3/uL RBC 4.26 (4.0-5.2) X10^6/uL Hgb 14.4 (12.0-16.0) g/dL Hct 42.1 (36-46) % MCV 98.8 (80-100) fL MCH 33.7 (26-34) PG MCHC 34.1 (30-36) % RDW 15.9 H (11.6-14.8) % Plt Count 279 (150-400) X10^3/uL Neut % (Auto) 65.3 (50-75) % Lymph % (Auto) 25.2 (25-40) % [place] % (Auto) 7.8 (3-14) % Eos % (Auto) 0.5 L (2-4) % Baso % (Auto) 1.2 (0-2) % Neut # (Auto) 4500 (6764-0829) /uL Lymph # (Auto) 1700 (9373-3982) /uL [place] # (Auto) 500 (0-900) /uL Eos # (Auto) 0 (0-450) /uL Baso # (Auto) 100 (0-100) /uL PT 12.2 (9.4-12.5) SECONDS INR 1.1 (0.9-1.3) VBG pH 7.44 H (7.33-7.43) VBG pCO2 28.6 L (45-50) mmHg VBG pO2 51 H (35-45) mmHg VBG HCO3 19 L (24-28) mmol/L VBG Total CO2 20 L (24-29) mmol/L VBG O2 Saturation 88 H (70-75) % VBG Base Excess -5.0 L (0-4) mmol/L FiO2 21 Sodium 132 L (137-145) mmol/L Potassium 3.6 (3.4-5.1) mmol/L Chloride 94 L (98-107) mmol/L Carbon Dioxide 20 L (22-32) mmol/L BUN 8 (7-17) mg/dL Creatinine 0.55 (0.52-1.04) mg/dL Estimated GFR > 60 (>60) mL/min BUN/Creatinine Ratio 14.5 (6-22) Glucose 264 H (80-110) mg/dL Calcium 8.6 (8.4-10.2) mg/dL Total Bilirubin 1.1 (0.2-1.3) mg/dL AST 428 H (14-36) IU/L ALT 211 H (<35) IU/L Alkaline Phosphatase 302 H (38-126) U/L Ammonia 15 (9-30) umol/L Total Creatine Kinase 44 (30-135) U/L Troponin I < 0.012 (0.01-0.034) ng/mL Total Protein 7.1 (6.3-8.2) g/dL Albumin 4.1 (3.5-5.0) g/dL Globulin 3.0 (1.7-4.1) g/dL Albumin/Globulin Ratio 1.4 (1.0-2.8) Lipase 67 (23-300) U/L Urine Color Urine Appearance Urine pH (4.5-8.0) Ur Specific [place] (1.000-1.035) Urine Protein (Negative) Urine Glucose (UA) (Negative) g/dL Urine Ketones (NEGATIVE) Urine Occult Blood (Negative) Urine Nitrate (Negative) Urine Bilirubin (NEGATIVE) Urine Urobilinogen (0.2) E.U./dL Ur Leukocyte Esterase (NEGATIVE) Urine RBC (0-5/HPF) Urine WBC (0-5/HPF) Ur Squamous Epith Cells (0-5/HPF) Urine Bacteria (None) Ur Culture Indicated? Vol Urine Centrifuged Salicylates 3.6 (<20) mg/dL U Opiates 300ng/mL cut (Negative) Ur Oxycodone Screen (Negative) Urine Methadone Screen (Negative) Acetaminophen < 10 (10-30) ug/mL Ur Barbiturates Screen (Negative) U Tricyclic Antidepress (Negative) Ur Phencyclidine Scrn (Negative) Ur Amphetamines Screen (Negative) U Methamphetamines Scrn (Negative) Ur MDMA Scrn (Ecstasy) (Negative) U Benzodiazepines Scrn (Negative) Urine Cocaine Screen (Negative) U Marijuana (THC) Screen (Negative) Urine Specific [place] (Normal) Ethyl Alcohol 124 H ( - 10) mg/dL Ur Creatinine (Normal) Chlamy pneumoniae PCR Not detected (Not Detect) Adenovirus (PCR) Not detected (Not Detect) B.parapertussis DNA PCR Not detected (Not Detecte) Coronavirus OC43 (PCR) Not detected (Not Detect) Coronavirus HKU1 (PCR) Not detected (Not Detect) Coronavirus 229E (PCR) Not detected (Not Detect) SARS-CoV-2 (PCR) Not detected (Not Detecte) Coronavirus NL63 (PCR) Not detected (Not Detect) Human Metapneumovir PCR Not detected (Not Detect) Influenza Type A (PCR) Not detected (Not Detect) Influenza Type B (PCR) Not detected (Not Detect) M. pneumoniae (PCR) Not detected (Not Detect) Parainfluenza 1 (PCR) Not detected (Not Detect) Parainfluenza 2 (PCR) Not detected (Not Detect) Parainfluenza 3 (PCR) Not detected (Not Detect) Parainfluenza 4 (PCR) Not detected (Not Detect) RSV (PCR) Detected H (Not Detect) Entero/Rhino (PCR) Not detected (Not Detect) 08/04/23 08/04/23 Range/Units 09:25 09:25 WBC (4.5-11.0) X10^3/uL RBC (4.0-5.2) X10^6/uL Hgb (12.0-16.0) g/dL Hct (36-46) % MCV (80-100) fL MCH (26-34) PG MCHC (30-36) % RDW (11.6-14.8) % Plt Count (150-400) X10^3/uL Neut % (Auto) (50-75) % Lymph % (Auto) (25-40) % [place] % (Auto) (3-14) % Eos % (Auto) (2-4) % Baso % (Auto) (0-2) % Neut # (Auto) (3648-5604) /uL Lymph # (Auto) (5369-8621) /uL [place] # (Auto) (0-900) /uL Eos # (Auto) (0-450) /uL Baso # (Auto) (0-100) /uL PT (9.4-12.5) SECONDS INR (0.9-1.3) VBG pH (7.33-7.43) VBG pCO2 (45-50) mmHg VBG pO2 (35-45) mmHg VBG HCO3 (24-28) mmol/L VBG Total CO2 (24-29) mmol/L VBG O2 Saturation (70-75) % VBG Base Excess (0-4) mmol/L FiO2 Sodium (137-145) mmol/L Potassium (3.4-5.1) mmol/L Chloride (98-107) mmol/L Carbon Dioxide (22-32) mmol/L BUN (7-17) mg/dL Creatinine (0.52-1.04) mg/dL Estimated GFR (>60) mL/min BUN/Creatinine Ratio (6-22) Glucose (80-110) mg/dL Calcium (8.4-10.2) mg/dL Total Bilirubin (0.2-1.3) mg/dL AST (14-36) IU/L ALT (<35) IU/L Alkaline Phosphatase (38-126) U/L Ammonia (9-30) umol/L Total Creatine Kinase (30-135) U/L Troponin I (0.01-0.034) ng/mL Total Protein (6.3-8.2) g/dL Albumin (3.5-5.0) g/dL Globulin (1.7-4.1) g/dL Albumin/Globulin Ratio (1.0-2.8) Lipase (23-300) U/L Urine Color Yellow Urine Appearance Clear Urine pH 6.5 Normal (4.5-8.0) Ur Specific [place] <=1.005 (1.000-1.035) Urine Protein Negative (Negative) Urine Glucose (UA) Negative (Negative) g/dL Urine Ketones Trace H (NEGATIVE) Urine Occult Blood Negative (Negative) Urine Nitrate Negative (Negative) Urine Bilirubin Negative (NEGATIVE) Urine Urobilinogen 2.0 H (0.2) E.U./dL Ur Leukocyte Esterase Negative (NEGATIVE) Urine RBC None seen (0-5/HPF) Urine WBC 1-5/hpf (0-5/HPF) Ur Squamous Epith Cells 0-1 /hpf (0-5/HPF) Urine Bacteria Many (>30) H (None) Ur Culture Indicated? Cult not indicated Vol Urine Centrifuged 10ml (spun) Salicylates (<20) mg/dL U Opiates 300ng/mL cut Negative (Negative) Ur Oxycodone Screen Negative (Negative) Urine Methadone Screen Negative (Negative) Acetaminophen (10-30) ug/mL Ur Barbiturates Screen Negative (Negative) U Tricyclic Antidepress Negative (Negative) Ur Phencyclidine Scrn Negative (Negative) Ur Amphetamines Screen Positive H (Negative) U Methamphetamines Scrn Positive H (Negative) Ur MDMA Scrn (Ecstasy) Negative (Negative) U Benzodiazepines Scrn Positive H (Negative) Urine Cocaine Screen Negative (Negative) U Marijuana (THC) Screen Negative (Negative) Urine Specific [place] Normal (Normal) Ethyl Alcohol ( - 10) mg/dL Ur Creatinine Normal (Normal) Chlamy pneumoniae PCR (Not Detect) Adenovirus (PCR) (Not Detect) B.parapertussis DNA PCR (Not Detecte) Coronavirus OC43 (PCR) (Not Detect) Coronavirus HKU1 (PCR) (Not Detect) Coronavirus 229E (PCR) (Not Detect) SARS-CoV-2 (PCR) (Not Detecte) Coronavirus NL63 (PCR) (Not Detect) Human Metapneumovir PCR (Not Detect) Influenza Type A (PCR) (Not Detect) Influenza Type B (PCR) (Not Detect) M. pneumoniae (PCR) (Not Detect) Parainfluenza 1 (PCR) (Not Detect) Parainfluenza 2 (PCR) (Not Detect) Parainfluenza 3 (PCR) (Not Detect) Parainfluenza 4 (PCR) (Not Detect) RSV (PCR) (Not Detect) Entero/Rhino (PCR) (Not Detect) Point of Care Testing Glucose POC 231 MDM Narrative Medical decision making narrative: This is a very chronically unwell appearing patient presenting for 2-5 days of nausea, vomiting, inability to tolerate p.o.. Abdomen is soft with diffuse tenderness to deep palpation, no peritoneal signs. Patient has generalized writhing movements and lip-smacking, question if patient has some form of tardive dyskinesia, this movement pattern is reported to be patient's baseline per daughter at bedside, but slightly worse in the last several days. We will order IV fluids, droperidol since this will have both antiemetic and antipsychotic properties given patient's history of schizophrenia and abnormal movements. Patient states that she has had decreased alcohol intake over the last several days but is still able to keep down some alcohol. She denies ever withdrawing from alcohol however I am concerned that there may be a component of withdrawal contributing to the agitation and tachycardia and we will add Ativan. Daughter has arrived to help provide additional history. Daughter states that she has not seen the patient several days, when she arrived she was told that the patient had not been able to get up off the couch due to weakness and has been urinating on herself. She has been off of all of her medications for at least 1 month due to insurance issues. Daughter states that the patient did fall 1-1/2 weeks ago and did not seek medical care at that time. She has not had any other medical care at outside facilities recently. Patient is now resting comfortably after receiving antiemetics and Ativan. Laboratory work is significant for WBCs 6.9, hemoglobin 14.4, platelets 279. VBG shows pH of 7.44, bicarb 19. Sodium 132, potassium 3.6, chloride 94, CO2 20, creatinine 0.55. Anion gap 18, question if this is starvation ketosis. Respiratory panel positive for RSV. Pending urinalysis and urine tox screen. Alcohol level 124. CT brain negative for acute findings. Chest x-ray unremarkable. CT of the abdomen and pelvis shows hepatic steatosis without obstruction, infection, other acute findings. Patient is still sleeping soundly, pending urinalysis, we will need to trial p.o.. Care of patient is signed out to daytime provider at 7:00 a.m.. Final disposition pending their evaluation and judgment. 08/04/23 Mank: Patient seen and evaluated by myself. She is currently sleeping. is in the room. Reviewed patient's findings with the . We will continue to monitor, he states he has been able to get to the bathroom but has had a few accidents but has had generalized weakness. Has been vomiting but has been more like clear things not food or bile and she has been able to keep some things down. He states she does continue to drink regularly. We will wait for patient to wake up, check urinalysis p.o. trial and ambulation trial for final disposition Patient seen evaluated by myself she has been up more she has been eating and drinking here in the department. She has still been a little bit wobbly. No vomiting. Reviewed all of her findings with her and her . She states she feels improved right now. Discharge Plan Departure Patient Disposition: Home Clinical Impression: Vomiting, Alcohol abuse Activity Restrictions/Additional Instructions: I hope you continue to feel improved. You can take zofran 1 tablet every 6 hours as needed for nausea and vomiting. Prescription printed. Please return for persistent vomiting, lightheadedness or passing out, new abdominal back or flank pain, black or bloody stools, difficulty with urination or other new or concerning changes Prescriptions: New ondansetron 4 mg tablet,disintegrating 4 mg PO QID PRN (Reason: nausea and vomiting) Qty: 10 0RF No Action clonazepam 0.5 mg tablet 0.5 mg PO BID Qty: 60 0RF Patient Comments: Patient states that she has not taken this for a bit because she has not seen her dr. olanzapine 20 mg tablet,disintegrating 20 mg PO DAILY Qty: 30 11RF [true metrix meter] 1 kit QDAY Qty: 1 0RF albuterol sulfate [Ventolin HFA] 90 mcg/actuation HFA aerosol inhaler 1 puff INHALATION Q4HP PRN (Reason: shortness of breath or wheezing) Qty: 1 11RF insulin glargine [Lantus Solostar U-100 Insulin] 100 unit/mL (3 mL) insulin pen 10 unit SUBCUT QDAY Qty: 5 0RF hydrocodone-acetaminophen [[place]] 10-325 mg tablet 1 tab PO Q4H PRN (Reason: pain) Qty: 120 0RF Patient Comments: Patient states that she has not had this but is suppose to, she has not seen her doctor. Rx Instructions: EXEMPT sertraline 100 mg tablet 100 mg PO BID Qty: 60 2RF metformin 500 mg tablet extended release 24 hr 1,000 mg PO BID atorvastatin [Lipitor] 20 mg tablet 20 mg PO BEDTIME quetiapine [Seroquel] 300 mg tablet 300 mg PO BEDTIME Rx Instructions: Patient needs to est. care with a PCP. 01/23/19 Last fill by Brook Doe Patient states that she only takes 150mg of this but order is for 300mg levothyroxine [Synthroid] 200 mcg tablet 200 mcg PO DAILY lidocaine 5 % adhesive patch,medicated 1 patch topical DAILY PRN (Reason: pain) Qty: 30 0RF Rx Instructions: leave on most painful area for up to 12 hrs Referrals: Adelso Baron MD [Primary Care Provider] - Stand Alone Forms: Patient Portal/API
[2023-08-04] MEDS: SODIUM CHLORIDE 0.9% 1,000 ML 1000 ML IV ×2 (05:19→06:27)
[2023-08-04] MEDS: DROPERIDOL 5 MG/2 ML VIAL IV (05:20)
[2023-08-04 05:22] LABS: Add Manual Diff / Slide Review NO; Basophils Absolute Auto 100 /uL (0-100); Basophils Percent Auto 1.2 % (0-2); Eosinophils Absolute Auto 0 /uL (0-450); Eosinophils Percent Auto 0.5 % (2-4); Hematocrit 42.1 % (36-46); Hemoglobin 14.4 g/dL (12.0-16.0); Lymphocytes Absolute Auto 1700 /uL (1100-4500); Lymphocytes Percent Auto 25.2 % (25-40); Mean Corpuscular HGB Conc 34.1 % (30-36); Mean Corpuscular Hemoglobin 33.7 PG (26-34); Mean Corpuscular Volume 98.8 fL (80-100); Monocytes Absolute Auto 500 /uL (0-900); Monocytes Percent Auto 7.8 % (3-14); Neutrophils Absolute Auto 4500 /uL (1500-7000); Neutrophils Percent Auto 65.3 % (50-75); Platelet Count 279 X10^3/uL (150-400); Red Blood Cell Count 4.26 X10^6/uL (4.0-5.2); Red Cell Distribution Width 15.9 % (11.6-14.8); White Blood Cell Count 6.9 X10^3/uL (4.5-11.0)
[2023-08-04 05:29] LABS: Fractionated Inspired Oxygen 21; HCO3 VBG 19 mmol/L (24-28); Oxygen Saturation VBG 88 % (70-75); PCO2 VBG 28.6 mmHg (45-50); PO2 VBG 51 mmHg (35-45); Total CO2 VBG 20 mmol/L (24-29); pH VBG 7.44 (7.33-7.43)
[2023-08-04 05:29] LABS: INR 1.1 (0.9-1.3); Prothrombin Time 12.2 SECONDS (9.4-12.5)
--- NOTE | 2023-08-04 05:31 | DI.CT.S_ITS ---
PROCEDURE: CT HEAD/BRAIN WO CON INDICATIONS: N/V X 5 DAYS, CAN'T KEEP ANYTHING DOWN, MIDEPIGASTRIC PN TECHNIQUE: Noncontrast 4.5 mm thick angled axial sections acquired from the foramen magnum to the vertex, with coronal and sagittal reformats. For radiation dose reduction, the following was used: automated exposure control, adjustment of mA and/or kV according to patient size. COMPARISON: [facility], CT, HEAD WITHOUT CONTRAST, 06/03/2010, 19:43. [facility], CT, CT HEAD/BRAIN WO CON, 08/18/2019, 2:19. FINDINGS: Image quality: Diagnostic. CSF spaces: Basal cisterns are patent. No extra-axial fluid collections. The ventricles are symmetric in size and shape. Brain: No intracranial bleeds or masses. There is cerebral volume loss for age, with resultant ventricular and sulcal prominence. There are periventricular and deep white matter chronic small vessel ischemic changes. There is intracranial internal carotid artery atherosclerosis. Skull and face: Calvarium and visualized facial bones appear intact, without suspicious lesions. Sinuses: Bilateral maxillary and ethmoidal sinus mucous mucosal thickening. The mastoids are clear. IMPRESSION: 1. No acute intracranial pathology. No significant discrepancy with the security shift manager radiology preliminary report. Dictated by: Rachna Vines M.D. on 08/04/2023 at 7:51 Approved by: Rachna Vines M.D. on 08/04/2023 at 7:52
[2023-08-04] MEDS: LORazepam 2 MG/ML INJ IV (05:38)
[2023-08-04 05:47] LABS: Acetaminophen < 10 ug/mL (10-30); Alanine Aminotransferase 211 IU/L (<35); Albumin 4.1 g/dL (3.5-5.0); Albumin Globulin Ratio 1.4 (1.0-2.8); Alkaline Phosphatase 302 U/L (38-126); Ammonia (NH3) 15 umol/L (9-30); Aspartate Aminotransferase 428 IU/L (14-36); BUN Creatinine Ratio 14.5 (6-22); Bilirubin Total 1.1 mg/dL (0.2-1.3); Blood Urea Nitrogen 8 mg/dL (7-17); Calcium 8.6 mg/dL (8.4-10.2); Carbon Dioxide 20 mmol/L (22-32); Chloride 94 mmol/L (98-107); Estimated Glomerular Filt Rate > 60 mL/min (>60); Ethanol (ETOH) 124 mg/dL; Glucose 264 mg/dL (80-110); HEMOLYSIS 16 (0-50); Lipase 67 U/L (23-300); Potassium 3.6 mmol/L (3.4-5.1); Salicylate 3.6 mg/dL (<20); Sodium 132 mmol/L (137-145); Total Protein 7.1 g/dL (6.3-8.2)
[2023-08-04 06:17] LABS: Adenovirus Not Detected (Not Detect); B. parapertussis Not Detected (Not Detecte); Bordetella pertussis Not Detected (Not Detect); Chlamydophila pneumoniae Not Detected (Not Detect); Coronavirus 229E Not Detected (Not Detect); Coronavirus HKU1 Not Detected (Not Detect); Coronavirus NL 63 Not Detected (Not Detect); Coronavirus OC43 Not Detected (Not Detect); Human Metapneumovirus Not Detected (Not Detect); Human Rhinovirus/Enterovirus Not Detected (Not Detect); Influenza A Not Detected (Not Detect); Influenza B Not Detected (Not Detect); Mycoplasma pneumoniae Not Detected (Not Detect); Parainfluenza Virus 1 Not Detected (Not Detect); Parainfluenza Virus 2 Not Detected (Not Detect); Parainfluenza Virus 3 Not Detected (Not Detect); Parainfluenza Virus 4 Not Detected (Not Detect); Respiratory Syncytial Virus Detected (Not Detect); SARS- CoV-2 Not Detected (Not Detecte)
--- NOTE | 2023-08-04 06:40 | PC.NURSE ---
PO fluid challenge ordered. Pt. sleeping soundly, arousable briefly to shoulder shake, but falls immediately back to sleep. RN uncomfortable giving pt. tsp. H2O in current state. ERMD informed.
[2023-08-04 07:05] LABS: Creatine Kinase 44 U/L (30-135)
[2023-08-04 07:18] LABS: Troponin I < 0.012 ng/mL (0.01-0.034)
--- NOTE | 2023-08-04 09:19 | DI.RAD.S_ITS ---
PROCEDURE: XR CHEST 2V INDICATIONS: mediastinal contour TECHNIQUE: 2 views of the chest were acquired. COMPARISON: [facility], CR, XR CHEST 1V, 08/04/2023, 5:33. FINDINGS: Surgical changes and devices: None. Lungs and pleura: Lungs are clear. No pleural effusions or pneumothorax. Mediastinum: Mediastinal contours are normal. Heart size is normal. Bones and chest wall: No suspicious bony abnormalities. Soft tissues appear unremarkable. IMPRESSION: No acute cardiopulmonary abnormality is seen. Dictated by: Carlo Barnett M.D. on 08/04/2023 at 10:07 Approved by: Carlo Barnett M.D. on 08/04/2023 at 10:10
--- NOTE | 2023-08-04 09:26 | PC.NURSE ---
Pt up to bsc with 2 person assist. Pt unsteady on feet and very sleepy. Unable to produce urine sample. Bladder scanned pt and 250mL in bladder. Verbal order to straight-cath pt from dr sanford. 250mL of clear anirudh urine drained from bladder. Urine sample sent to lab. Pt ke-area red and irritated. Performed pericare. Pt o2 sat dropped to 89% and pt placed on 2L NC. Pt sating 95%.
[2023-08-04 09:31] LABS: Appearance Urine UA CLEAR; Bilirubin Urine UA NEGATIVE (NEGATIVE); Color Urine UA YELLOW; Glucose Urine UA NEGATIVE (Negative); Ketones Urine UA TRACE (NEGATIVE); Leukocyte Esterase Urine UA NEGATIVE (NEGATIVE); Nitrite Urine UA NEGATIVE (Negative); Occult Blood Urine UA NEGATIVE (Negative); Protein Urine UA NEGATIVE (Negative); Specific Gravity Urine UA <=1.005 (1.000-1.035)
[2023-08-04 09:34] LABS: pH Urine UA 6.5 (4.5-8.0)
[2023-08-04 09:36] LABS: UR Morphine/Opiate cutoff 300 Negative (Negative); Ur Creatinine Normal (Normal); Ur Specific Gravity Normal (Normal); Urine Amphetamines Positive (Negative); Urine Cocaine Negative (Negative); Urine Tetrahydrocannabinol Negative (Negative); Urine pH Normal (Normal)
[2023-08-04 09:37] LABS: Urine Barbiturates Negative (Negative); Urine Benzodiazepines Positive (Negative); Urine MDMA Negative (Negative); Urine Methadone Negative (Negative); Urine Methamphetamines Positive (Negative); Urine Phencyclidine Negative (Negative); Urine Volume 10mL (spun)
[2023-08-04 09:38] LABS: Urine Oxycodone Negative (Negative); Urine Tricyclic Antidepressant Negative (Negative)
[2023-08-04 09:46] LABS: Bacteria Urine Many (>30)
[2023-08-04 09:47] LABS: Culture Indicated Urine Cult Not Indicated; RBC Urine None Seen (0-5/HPF); Squamous Epithelial Cell Urine 0-1 /HPF (0-5/HPF); WBC Urine 1-5/HPF (0-5/HPF)
--- NOTE | 2023-08-04 12:49 | PC.NURSE ---
pt ambulated around the dept with stand by assist. Pt has steady gait and denies sob
== END 2023-08-04 13:25 | disposition home or self-care (01) ==
PROVIDERS: Emergency Medicine; Emergency Provider Emergency Medicine; PCP Family Medicine
DX: F10.129 Alcohol abuse with intoxication, unspecified (principal); Y90.6 Blood alcohol level of 120-199 mg/100 ml; B33.8 Other specified viral diseases; R11.2 Nausea with vomiting, unspecified; R00.0 Tachycardia, unspecified; Z20.822 Contact with and (suspected) exposure to COVID-19
CPT/HCPCS: 36415; 70450; 71045; 71046; 74177; 80053; 80305; 80320; 80329; 81001; 82140; 82550; 82805; 82962; 83690; 84484; 85025; 85610; 87633; 93005; 96361; 96374; 96375; 99284; 99285; G0480; J1790; J2060; Q9967

== ENCOUNTER 2024-05-12 18:38 | Inpatient (IN) | payer MEDICARE, MEDICAID, SELFPAY ==
[2021-04-17 22:25] VITALS: BMI 28.7
[2024-05-12] VITALS (15 sets, daily range): BP systolic 94–124; BP diastolic 53–78; PULSE 98–104; RESP 11–41; TEMP 36.4; O2SAT 92–95; BMI 25.2
--- NOTE | 2024-05-12 18:59 | EKG_ITS ---
[address] [id number] [address] [place] [address] Test Date: 2024-05-12 Pat Name: Cinthya Rosa Department: Room: Gender: Female Search Analyst: : 1955 Requested By: Order Number: [id number] Reading MD: Dequan Leahy MD Measurements Intervals [place] Rate: 104 P: 42 [place]: 158 QRS: 65 QRSD: 132 T: 9 QT: 416 QTc: 547 Interpretive Statements Sinus tachycardia Right bundle branch block NO SIGNIFICANT CHANGE FROM PRIOR TRACING Electronically Signed On 05-14-2024 13:39:50 PST by Dequan Leahy MD
--- NOTE | 2024-05-12 18:59 | DI.RAD.S_ITS ---
PROCEDURE: XR CHEST 1V INDICATIONS: chest pain TECHNIQUE: One view of the chest was acquired. COMPARISON: [facility], CR, XR CHEST 2V, 08/04/2023, 9:36. [facility], CR, XR CHEST 1V, 08/04/2023, 5:33. FINDINGS: Surgical changes and devices: None. Lungs and pleura: Lungs are clear. No pleural effusions or pneumothorax. Mediastinum: Mediastinal contours appear normal. Heart size is normal. Bones and chest wall: No suspicious bony lesions. Overlying soft tissues appear unremarkable. Healed right rib fractures. IMPRESSION: No acute cardiopulmonary abnormality is seen. Dictated by: Anthony Courtney M.D. on 05/12/2024 at 19:27 Approved by: Anthony Courtney M.D. on 05/12/2024 at 19:27
--- NOTE | 2024-05-12 19:04 | PC.NURSE ---
This RN went to take patients blood as there was a line in place from EMS This RN pulled blood from established 18G IV in left AC. This RN engaged patient in conversation. This RN asked if patient used any form of drugs. Patient states I do meth but my last time smoking it was yesterday. I asked if patient took any drugs nasally and patient responded 'no. This RN asked if patient used IV drugs and patient states no. This RN asked if patient if she uses fentnyl at all. Patient responded Oh, yes I do occasionally but I don't think I used any today. Patient continues My granddaughter is my supplier of fentnyl and sometimes she leaves me other stuff behind. Primary nurse notified. Dr. Holm notified.
[2024-05-12 19:15] LABS: Prothrombin Time 11.1 SECONDS (9.4-12.5)
[2024-05-12 19:16] LABS: Add Manual Diff / Slide Review NO; Basophils Absolute Auto 100 /uL (0-100); Basophils Percent Auto 1.5 % (0-2); Eosinophils Absolute Auto 100 /uL (0-450); Eosinophils Percent Auto 1.4 % (2-4); Hematocrit 37.7 % (36-46); Hemoglobin 12.6 g/dL (12.0-16.0); Lymphocytes Absolute Auto 2200 /uL (1100-4500); Lymphocytes Percent Auto 32.3 % (25-40); Mean Corpuscular HGB Conc 33.4 % (30-36); Mean Corpuscular Hemoglobin 33.1 PG (26-34); Monocytes Absolute Auto 300 /uL (0-900); Monocytes Percent Auto 4.3 % (3-14); Neutrophils Absolute Auto 4100 /uL (1500-7000); Neutrophils Percent Auto 60.5 % (50-75); Platelet Count 212 X10^3/uL (150-400); Red Blood Cell Count 3.81 X10^6/uL (4.0-5.2); Red Cell Distribution Width 15.6 % (11.6-14.8); White Blood Cell Count 6.9 X10^3/uL (4.5-11.0)
[2024-05-12 19:17] LABS: PTT Partial Thromboplastin Tim 36 SECONDS (25.1-36.5)
[2024-05-12 19:24] LABS: Alanine Aminotransferase 137 IU/L (<35); Albumin 4.3 g/dL (3.5-5.0); Albumin Globulin Ratio 1.7 (1.0-2.8); Alkaline Phosphatase 178 U/L (38-126); Aspartate Aminotransferase 336 IU/L (14-36); BUN Creatinine Ratio 30.4 (6-22); Bilirubin Total 0.6 mg/dL (0.2-1.3); Blood Urea Nitrogen 21 mg/dL (7-17); Calcium 8.4 mg/dL (8.4-10.2); Carbon Dioxide 22 mmol/L (22-32); Chloride 109 mmol/L (98-107); Creatine Kinase 66 U/L (30-135); Estimated Glomerular Filt Rate > 60 mL/min (>60); Globulin 2.6 g/dL (1.7-4.1); Glucose 162 mg/dL (80-110); HEMOLYSIS 50 (0-50); Lipase 81 U/L (23-300); Magnesium 1.3 mg/dL (1.6-2.3); Potassium 4.3 mmol/L (3.4-5.1); Sodium 140 mmol/L (137-145); Total Protein 6.9 g/dL (6.3-8.2)
[2024-05-12 19:36] LABS: NT-proBNP (BNP-Adult 18+) 31 pg/mL (<125); Troponin I 0.018 ng/mL (0.01-0.034)
--- NOTE | 2024-05-12 19:55 | ED_ITS ---
HPI - Overdose General Chief Complaint: Toxicology Problem Stated Complaint: Unresponsive/Not Breathing - Now AxO Time Seen by Provider: 05/12/24 19:54 Source: patient and EMS Mode of arrival: EMS History of Present Illness HPI Narrative: Patient is a 68-year-old female with a history of insulin-dependent diabetes, alcohol abuse, drug abuse, schizophrenia, bipolar, comes into the ED via EMS for evaluation of unresponsiveness. According to medics family found the patient unresponsive with decreased breathing therefore they did by standard chest compression only CPR, by medic arrival patient with pulse, was given Narcan intranasally and patient back to baseline. Patient does admit to taking methamphetamine, fentanyl, at time of initial evaluation patient tearful but not complaining of any actual discomfort or pain at this time. 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 States she occasionally does fentanyl, however she states that she did not do any drugs today. Related Data Home Medications Medication Instructions Recorded Confirmed atorvastatin 20 mg tablet (Lipitor) 20 mg PO BEDTIME 04/14/19 04/18/21 levothyroxine 200 mcg tablet 200 mcg PO DAILY 04/14/19 04/18/21 (Synthroid) metformin 500 mg tablet,extended 1,000 mg PO BID 04/14/19 04/18/21 release 24 hr quetiapine 300 mg tablet (Seroquel) 300 mg PO BEDTIME 04/14/19 04/18/21 Previous Rx's Medication Instructions Recorded [true metrix meter] 1 kit QDAY ##1 06/12/16 albuterol sulfate 90 mcg/actuation 1 puff inhalation Q4HP PRN 12/03/17 aerosol inhaler (Ventolin HFA) shortness of breath or wheezing #1 ea insulin glargine 100 unit/mL (3 10 unit (0.1 mL) SUBCUT QDAY ##5 12/03/17 mL) subcutaneous pen (Lantus Solostar U-100 Insulin) clonazepam 0.5 mg tablet 0.5 mg PO BID #60 tabs 02/24/18 olanzapine 20 mg disintegrating 20 mg PO DAILY #30 tabs 02/24/18 tablet hydrocodone 10 mg-acetaminophen 1 tab PO Q4H PRN pain #120 tabs 03/10/18 325 mg tablet (Simpson) sertraline 100 mg tablet 100 mg PO BID #60 tabs 01/23/19 lidocaine 5 % topical patch 1 patch topical DAILY PRN pain #30 06/05/23 ea ondansetron 4 mg disintegrating 4 mg PO QID PRN nausea and 08/04/23 tablet vomiting #10 tabs Allergies Allergy/AdvReac Type Severity Reaction Status Date / Time No Known Drug Allergies Allergy Unverified 02/24/18 10:38 Review of Systems Review of Systems Narrative: General: Denies fever, chills, weight loss HEENT: Denies headache, eye drainage, eye irritation, head trauma, sore throat, voice change Cardiovascular: Positive chest pain, denies palpitations, shortness of breath, tachycardia Respiratory: Denies any shortness of breath, cough, wheeze, stridor GI/: Denies any abdominal pain, nausea, vomiting, diarrhea, bright red blood per rectum, melanotic stools, urinary frequency, urinary retention, dysuria, hematuria MSK: Denies any joint pain, muscle pains, swelling Skin: Denies any rashes, lesions, discoloration Neuro: Denies any headache, lightheadedness, dizziness, fainting, weakness Psych: Denies SI/HI Patient History Medical History (Updated 05/12/24 @ 22:25 by Rusty Denney DO) Chronic pain syndrome (Unknown) Osteoarthritis (Unknown) Asthma (Unknown) Schizophrenia (Unknown) Depression (Unknown) Bipolar disorder (Unknown) Anxiety (Unknown) Restless leg syndrome (Unknown) ADHD (attention deficit hyperactivity disorder) (Unknown) Shoulder pain (Unknown) Foot pain (Unknown) Fractures (Unknown) Chronic back pain (Unknown) Chickenpox (Unknown) Vertigo (Unknown) Hearing loss (Unknown) Fibroids (2004) Hypothyroidism (1985) Diabetes insipidus (Unknown) Type 2 diabetes mellitus (2005) Uncomplicated opioid dependence (12/11/16) Chronic low back pain (05/02/15) Surgical History Status post tubal ligation Status post laparoscopic cholecystectomy Family History Father Brain tumor Mother Cancer Brother Car occupant injured in traffic accident Sister Brain tumor Grandfather Cancer Grandmother Heart failure Social History household members: none Smoking Status: Current every day smoker Smoking Status: Current every day smoker alcohol intake frequency: 3 or more drinks per day Alcohol type: hard liquor Substance Use Type: methamphetamine Exam Narrative Exam Narrative: General: Cooperative, comfortable, well-developed, not in acute distress HEENT: Normocephalic, atraumatic, PERRLA, normal sclera, eyelids normal, Neck: Active full range of motion, atraumatic Chest: Normal to inspection, negative crepitus, no overlying erythema ecchymosis, mild tenderness to palpation of the chest but no gross deformity noted Respiratory: Normal respiratory effort, not in acute respiratory distress, clear to auscultation bilaterally negative cough, wheeze, tachypnea, rhonchi, rales Cardiology: Regular rate rhythm negative gallop, murmur, rubs GI/: Normal to inspection, soft, nonrigid, no tenderness to palpation, exam deferred MSK: Full range of active range of motion of all 4 extremities, atraumatic Skin: No rashes lesions noted Neuro: Alert awake oriented x3, moves all 4 extremities spontaneously, cranial nerves intact, able to answer all questions appropriately follows commands appropriately Psych: Cooperative, negative suicidal or homicidal ideations Initial Vital Signs Initial Vital Signs: Vital Signs Temperature 97.6 F 05/12/24 18:38 Pulse Rate 103 H 05/12/24 18:38 Respiratory Rate 16 05/12/24 18:38 Blood Pressure 115/59 L 05/12/24 18:38 Pulse Oximetry 92 05/12/24 18:38 Oxygen Delivery Method Room Air 05/12/24 18:38 Course Orders Ordered: ED Orders 05/12/24 18:58 Complete Blood Count AUTO DIFF Stat Comprehensive Metabolic Panel Stat Lipase Stat Magnesium Stat NT-proBNP (BNP-Adult 18+) Stat PTT Partial Thromboplastin Mohamud Stat Prothrombin Time INR Stat Troponin & CK Cardiac Panel Stat 05/12/24 18:59 XR chest 1V Stat EKG-12 Lead Stat 05/12/24 19:00 Acetaminophen Stat Ethanol (ETOH) Stat Salicylate Stat 05/12/24 20:01 CT chest wo con Stat 05/12/24 20:06 Urine Drug Screen, Rapid Stat 05/12/24 21:14 Troponin I Routine 05/12/24 23:21 Trop I [Troponin I] Stat Discontinued Medications Magnesium Sulfate (Magnesium Sulfate) 2 gm in 50 mls @ 150 mls/hr IV NOW ONE Stop: 05/12/24 20:14 Last Infusion: 05/12/24 21:51 Dose: Infused Documented By: LOGAN Co-signed By: SUZANNE Admin: 05/12/24 20:03 Dose: 150 mls/hr Documented By: LOGAN Co-signed By: KELLI Acetaminophen (Ofirmev) 1,000 mg in 100 mls @ 400 mls/hr IV NOW ONE Stop: 05/12/24 23:53 Last Infusion: 05/13/24 00:06 Dose: Infused Documented By: Admin: 05/12/24 23:49 Dose: 400 mls/hr Documented By: MENDOZA Lidocaine (Lidocaine 5% Patch) 1 each TOP NOW ONE Stop: 05/12/24 20:28 Last Admin: 05/12/24 20:34 Dose: 1 each Documented By: LOGAN Vital Signs Vital signs: Vital Signs - 8 hr 05/12/24 18:38 05/12/24 18:43 05/12/24 18:44 Temperature 97.6 F Pulse Rate 103 H Respiratory Rate 16 Blood Pressure 115/59 L 115/59 L Pulse Oximetry 92 92 Oxygen Delivery Method Room Air Oxygen Flow Rate 05/12/24 18:44 05/12/24 19:00 05/12/24 19:00 Temperature Pulse Rate 102 H 103 H Respiratory Rate 25 H Blood Pressure 120/62 Pulse Oximetry 92 94 Oxygen Delivery Method Nasal Cannula Oxygen Flow Rate 2 05/12/24 19:30 05/12/24 19:30 05/12/24 20:00 Temperature Pulse Rate 101 H 104 H Respiratory Rate 11 L 16 Blood Pressure 104/67 Pulse Oximetry 94 95 Oxygen Delivery Method Oxygen Flow Rate 05/12/24 20:01 05/12/24 20:01 05/12/24 20:30 Temperature Pulse Rate 103 H Respiratory Rate 41 H Blood Pressure 97/57 L 107/61 Pulse Oximetry 93 Oxygen Delivery Method Oxygen Flow Rate 05/12/24 20:30 05/12/24 21:00 05/12/24 21:00 Temperature Pulse Rate 100 H 100 H Respiratory Rate 11 L 36 H Blood Pressure 94/53 L Pulse Oximetry 93 93 Oxygen Delivery Method Nasal Cannula Nasal Cannula Oxygen Flow Rate 2 2 05/12/24 21:33 05/12/24 21:34 05/12/24 21:34 Temperature Pulse Rate 102 H 104 H Respiratory Rate 14 33 H Blood Pressure 120/68 Pulse Oximetry 95 Oxygen Delivery Method Oxygen Flow Rate 05/12/24 22:00 05/12/24 22:00 05/12/24 22:30 Temperature Pulse Rate 99 H 99 H Respiratory Rate 30 H 32 H Blood Pressure 110/64 Pulse Oximetry 94 94 Oxygen Delivery Method Oxygen Flow Rate 05/12/24 22:30 05/12/24 23:00 05/12/24 23:00 Temperature Pulse Rate 98 H Respiratory Rate 19 Blood Pressure 107/72 117/75 Pulse Oximetry 95 Oxygen Delivery Method Nasal Cannula Oxygen Flow Rate 2 05/12/24 23:30 05/12/24 23:30 05/13/24 00:00 Temperature Pulse Rate 100 H Respiratory Rate 16 Blood Pressure 124/78 137/86 Pulse Oximetry 93 Oxygen Delivery Method Oxygen Flow Rate 05/13/24 00:00 05/13/24 00:30 05/13/24 00:30 Temperature Pulse Rate 104 H 97 H Respiratory Rate 24 19 Blood Pressure 137/79 Pulse Oximetry 96 95 Oxygen Delivery Method Oxygen Flow Rate MDM - Overdose Differential Diagnosis Differential diagnosis: Likely cocaine intoxication, poisoning by opiate or related narcotic and drug overdose Lab Data 05/12/24 18:58 05/12/24 18:58 Labs: Lab Results 05/12/24 05/12/24 05/12/24 Range/Units 18:58 19:00 21:14 WBC 6.9 (4.5-11.0) X10^3/uL RBC 3.81 L (4.0-5.2) X10^6/uL Hgb 12.6 (12.0-16.0) g/dL Hct 37.7 (36-46) % MCV 99.0 (80-100) fL MCH 33.1 (26-34) PG MCHC 33.4 (30-36) % RDW 15.6 H (11.6-14.8) % Plt Count 212 (150-400) X10^3/uL Neut % (Auto) 60.5 (50-75) % Lymph % (Auto) 32.3 (25-40) % O'Brien % (Auto) 4.3 (3-14) % Eos % (Auto) 1.4 L (2-4) % Baso % (Auto) 1.5 (0-2) % Neut # (Auto) 4100 (0757-4131) /uL Lymph # (Auto) 2200 (2839-3943) /uL O'Brien # (Auto) 300 (0-900) /uL Eos # (Auto) 100 (0-450) /uL Baso # (Auto) 100 (0-100) /uL PT 11.1 (9.4-12.5) SECONDS INR 1.0 (0.9-1.3) APTT 36 (25.1-36.5) SECONDS Sodium 140 (137-145) mmol/L Potassium 4.3 (3.4-5.1) mmol/L Chloride 109 H (98-107) mmol/L Carbon Dioxide 22 (22-32) mmol/L BUN 21 H (7-17) mg/dL Creatinine 0.69 (0.52-1.04) mg/dL Estimated GFR > 60 (>60) mL/min BUN/Creatinine Ratio 30.4 H (6-22) Glucose 162 H (80-110) mg/dL Calcium 8.4 (8.4-10.2) mg/dL Magnesium 1.3 L (1.6-2.3) mg/dL Total Bilirubin 0.6 (0.2-1.3) mg/dL AST 336 H (14-36) IU/L ALT 137 H (<35) IU/L Alkaline Phosphatase 178 H (38-126) U/L Total Creatine Kinase 66 (30-135) U/L Troponin I 0.018 0.067 H (0.01-0.034) ng/mL NT-Pro-B Natriuret Pep 31 (<125) pg/mL Total Protein 6.9 (6.3-8.2) g/dL Albumin 4.3 (3.5-5.0) g/dL Globulin 2.6 (1.7-4.1) g/dL Albumin/Globulin Ratio 1.7 (1.0-2.8) Lipase 81 (23-300) U/L Salicylates < 1.0 (<20) mg/dL Acetaminophen < 10 (10-30) ug/mL Ethyl Alcohol 259 H ( - 10) mg/dL 11/08/24 Range/Units 23:21 WBC (4.5-11.0) X10^3/uL RBC (4.0-5.2) X10^6/uL Hgb (12.0-16.0) g/dL Hct (36-46) % MCV (80-100) fL MCH (26-34) PG MCHC (30-36) % RDW (11.6-14.8) % Plt Count (150-400) X10^3/uL Neut % (Auto) (50-75) % Lymph % (Auto) (25-40) % O'Brien % (Auto) (3-14) % Eos % (Auto) (2-4) % Baso % (Auto) (0-2) % Neut # (Auto) (3546-5706) /uL Lymph # (Auto) (0432-5598) /uL O'Brien # (Auto) (0-900) /uL Eos # (Auto) (0-450) /uL Baso # (Auto) (0-100) /uL PT (9.4-12.5) SECONDS INR (0.9-1.3) APTT (25.1-36.5) SECONDS Sodium (137-145) mmol/L Potassium (3.4-5.1) mmol/L Chloride (98-107) mmol/L Carbon Dioxide (22-32) mmol/L BUN (7-17) mg/dL Creatinine (0.52-1.04) mg/dL Estimated GFR (>60) mL/min BUN/Creatinine Ratio (6-22) Glucose (80-110) mg/dL Calcium (8.4-10.2) mg/dL Magnesium (1.6-2.3) mg/dL Total Bilirubin (0.2-1.3) mg/dL AST (14-36) IU/L ALT (<35) IU/L Alkaline Phosphatase (38-126) U/L Total Creatine Kinase (30-135) U/L Troponin I 0.092 H (0.01-0.034) ng/mL NT-Pro-B Natriuret Pep (<125) pg/mL Total Protein (6.3-8.2) g/dL Albumin (3.5-5.0) g/dL Globulin (1.7-4.1) g/dL Albumin/Globulin Ratio (1.0-2.8) Lipase (23-300) U/L Salicylates (<20) mg/dL Acetaminophen (10-30) ug/mL Ethyl Alcohol ( - 10) mg/dL Imaging Data Chest x-ray: Radiologist's Impression: [address] [address] XRay Report Signed Patient: Cinthya Rosa MR#: [id number] : 1955 Acct:[id number] Age/Sex: 68 / F Date of Service: 05/12/24 Loc: ED Accession Number: [id number] Procedure: XR chest 1V Ordering Provider: Rusty Denney D.O. PROCEDURE: XR CHEST 1V INDICATIONS: chest pain TECHNIQUE: One view of the chest was acquired. COMPARISON: [facility], CR, XR CHEST 2V, 08/04/2023, 9:36. [facility], CR, XR CHEST 1V, 08/04/2023, 5:33. FINDINGS: Surgical changes and devices: None. Lungs and pleura: Lungs are clear. No pleural effusions or pneumothorax. Mediastinum: Mediastinal contours appear normal. Heart size is normal. Bones and chest wall: No suspicious bony lesions. Overlying soft tissues appear unremarkable. Healed right rib fractures. IMPRESSION: No acute cardiopulmonary abnormality is seen. CT scan - chest: Radiologist's Impression: [address] [address] [address] Scan Report Signed Patient: Cinthya Rosa MR#: [id number] : 1955 Acct:[id number] Age/Sex: 68 / F Date of Service: 05/12/24 Loc: ED Accession Number: [id number] Procedure: CT chest wo con Ordering Provider: Rusty Denney D.O. PROCEDURE: CT CHEST WO CON INDICATIONS: chest pain after CPR, r/o rib and sternal fractures TECHNIQUE: Noncontrast 5 mm thick sections acquired from the pulmonary apices to the posterior costophrenic angles. 1 mm lung window, 5 mm thick coronal and sagittal and 7 mm axial MIP reformats were then acquired. For radiation dose reduction, the following was used: automated exposure control, adjustment of mA and/or kV according to patient size. COMPARISON: [facility], CT, CT CHEST ABD PEL W CON, 06/05/2023, 3:20. [facility], CR, XR CHEST 1V, 05/12/2024, 19:04. FINDINGS: Image quality: [id number] motion artifact Lungs and pleura: Mild bibasilar atelectasis and opacities. No pneumothorax. No drainable pleural effusions. There are micro nodules and granulomas, without overtly suspicious component. Mediastinum, heart, and esophagus: Atherosclerotic calcifications. No hiatal hernia. Mild nonspecific distal esophageal wall thickening and patulous appearance of the mid esophagus. Annular and coronary calcifications. No pathologic lymph nodes by size criteria. Chest wall and thyroid: No actionable thyroid nodule identified. Chest wall is unremarkable Upper abdomen: Hepatic steatosis. Possible splenic granuloma. No significant abnormality on this noncontrast study Bones: There are osseous degenerative changes. There are old right posterior rib fractures. Right anterior rib fractures appears subacute, although there are a few rib fractures, for example the anterior 3rd rib and 6 rib, which may be acute. Nondisplaced acute left rib fractures are present at multiple levels, extending from the 2nd to the 8th ribs. Nondisplaced lower sternal fracture. IMPRESSION: Multiple rib fractures of different ages, with subacute to chronic components particularly on the right. Acute components are seen anteriorly at multiple levels bilaterally along with a nondisplaced sternal fracture, compatible with reported chest compressions. No pneumothorax or hemothorax. Mild lower lung opacities and atelectasis. Consider future imaging surveillance to assess for resolution. ECG Data Interpretation: EKG interpreted ED physician sinus tachycardia 104 beats per minute QTC 547, normal axis, nonspecific ST changes, right bundle-branch block noted, no STEMI MDM Narrative Medical decision making narrative: Patient is a 68-year-old female with a history of drug abuse, hyperlipidemia, insulin-dependent diabetes, presents via EMS for unresponsiveness. According to medics they were called because patient was found at home by family unresponsive not breathing, they did perform chest compressions only CPR, at time of evaluation by medics they noted patient with a pulse, did give intranasal Narcan with patient with immediately awakening. Patient states that she does do meth, fentanyl, kratom, she is complaining of chest pain consistent with recent CPR. CT scan showing nondisplaced sternal fracture with subacute and chronic rib fractures, patient with up trending troponin, more consistent with recent compression most likely secondary to cardiac contusion, EKG nonischemic in nature, patient require admission to the hospital to trend troponin call placed to hospitalist for admission. 2256: Discussed case with hospitalist Dr. Tello, who reviewed the case, he is recommending repeat troponin, states that as long as it is peaked/not up trending would recommend discharge home, order repeat troponin now 0003: Patient's repeat troponin still up trending, most recent 0.092 therefore will reach out to hospitalist for admission need for echo in the a.m. 0043: The patient's management plan was discussed Dr. Tello, who agrees to admit the patient to their service and assumes care of this patient at this time. Full admission orders will be placed by the primary team. Naloxone at Discharge Meets criteria for naloxone at discharge?: No Discharge Plan Departure Patient Disposition: Admitted As Inpatient Clinical Impression: Sternal fracture, Cardiac contusion, Alcohol intoxication, Drug abuse
--- NOTE | 2024-05-12 20:01 | DI.CT.S_ITS ---
PROCEDURE: CT CHEST WO CON INDICATIONS: chest pain after CPR, r/o rib and sternal fractures TECHNIQUE: Noncontrast 5 mm thick sections acquired from the pulmonary apices to the posterior costophrenic angles. 1 mm lung window, 5 mm thick coronal and sagittal and 7 mm axial MIP reformats were then acquired. For radiation dose reduction, the following was used: automated exposure control, adjustment of mA and/or kV according to patient size. COMPARISON: [facility], CT, CT CHEST ABD PEL W CON, 06/05/2023, 3:20. [facility], CR, XR CHEST 1V, 05/12/2024, 19:04. FINDINGS: Image quality: [id number] motion artifact Lungs and pleura: Mild bibasilar atelectasis and opacities. No pneumothorax. No drainable pleural effusions. There are micro nodules and granulomas, without overtly suspicious component. Mediastinum, heart, and esophagus: Atherosclerotic calcifications. No hiatal hernia. Mild nonspecific distal esophageal wall thickening and patulous appearance of the mid esophagus. Annular and coronary calcifications. No pathologic lymph nodes by size criteria. Chest wall and thyroid: No actionable thyroid nodule identified. Chest wall is unremarkable Upper abdomen: Hepatic steatosis. Possible splenic granuloma. No significant abnormality on this noncontrast study Bones: There are osseous degenerative changes. There are old right posterior rib fractures. Right anterior rib fractures appears subacute, although there are a few rib fractures, for example the anterior 3rd rib and 6 rib, which may be acute. Nondisplaced acute left rib fractures are present at multiple levels, extending from the 2nd to the 8th ribs. Nondisplaced lower sternal fracture. IMPRESSION: Multiple rib fractures of different ages, with subacute to chronic components particularly on the right. Acute components are seen anteriorly at multiple levels bilaterally along with a nondisplaced sternal fracture, compatible with reported chest compressions. No pneumothorax or hemothorax. Mild lower lung opacities and atelectasis. Consider future imaging surveillance to assess for resolution. Other findings above. Dictated by: Balwinder Randall M.D. on 05/12/2024 at 21:52 Approved by: Balwinder Randall M.D. on 05/12/2024 at 21:57
[2024-05-12] MEDS: MAGNESIUM SULFATE 2 GM/50 ML PIGGYBACK IV (20:03)
[2024-05-12 20:24] LABS: Acetaminophen < 10 ug/mL (10-30); Ethanol (ETOH) 259 mg/dL; Salicylate < 1.0 mg/dL (<20)
[2024-05-12] MEDS: LIDOCAINE 5% PATCH 1 EACH TOP (20:34)
[2024-05-12 21:51] LABS: Troponin I 0.067 ng/mL (0.01-0.034)
[2024-05-12 23:49] LABS: Troponin I 0.092 ng/mL (0.01-0.034)
[2024-05-12] MEDS: ACETAMINOPHEN IV 1,000 MG/100 ML VIAL 400 MG IV (23:49)
[2024-05-13] VITALS (14 sets, daily range): BP systolic 121–165; BP diastolic 79–109; PULSE 76–112; RESP 16–27; TEMP 35.8–36.3; O2SAT 92–96; BMI 25.2
--- NOTE | 2024-05-13 01:11 | DI.ECHO.S_ITS ---
[facility] : : [address] : : [place] : : [address] : : Phone: [phone] Echocardiogram Report + :Name: NEETU BRUCE Study Date: 05/13/2024 Height: 60 in : :[facility] ReadingLocation: Weight: 129 lb : : Gender: Female BSA: 1.5 m2 : :: 1955 Age: 68 yrs BP: 121/83 mmHg: :Reason For Study: Found unresponsive : :Ordering Physician: ANNETTE : :FLEX GATES Performed By: Kim Walls : :Referring: FLEX SAMAYOA : + Interpretation Summary This is a technically difficult study characterized by limited endocardial visualization on apical views. Patient refused contrast and was not able to perform breathing instructions. Sinus tachycardia. Normal LV size, wall thickness, wall motion and LV systolic function. EF is 70-75%. Moderate MAC; otherwise no significant valvular abnormalities. No prior study available for comparison. Procedure: A two-dimensional transthoracic echocardiogram with color flow and Doppler was performed. The study was done portably. The study quality was technically difficult. Images were not obtained from all of the standard acoustic windows due to the limited scope of the study. The patient was in a tachycardic rhythm during the exam. The heart rate ranged between 100-105 bpm during the study. Left Ventricle: The left ventricle is normal in size and wall thickness. The left ventricle is hyperdynamic. The ejection fraction is estimated to be 70- 75%. Diastolic function could not be accurately assessed due to tachycardia. Right Ventricle: The right ventricle is not well visualized. Right ventricular systolic function is mildly reduced. Atria: The left atrium is not well visualized. Right atrium not well visualized. There is no Doppler evidence for an interatrial shunt. Mitral Valve: The mitral valve leaflets are slightly calcified. There is moderate mitral annular calcification. No significant mitral valve stenosis. There is trace mitral regurgitation. Aortic Valve: The aortic valve is trileaflet. The aortic valve opens well. There is mild aortic valve sclerosis. There is no aortic valve stenosis. No aortic regurgitation is present. Tricuspid Valve: The tricuspid valve leaflets are thin and pliable. There is a trace or physiologic amount of tricuspid regurgitation. Pulmonary artery pressures cannot be estimated because of the lack of a measurable TR jet velocity but the IVC suggests a CVP of around 3 mmHg. Pulmonic Valve: The pulmonic valve leaflets are thin and pliable; valve motion is normal. There is no pulmonic valvular regurgitation. Great Vessels: The aortic root is normal size. The ascending aorta is normal in size. The aortic arch could not be visualized. The pulmonary artery is normal size. The IVC is of normal diameter and collapses greater than 50% with a sniff. This suggests a low right atrial pressure of 3 mm Hg. Pericardium/ Pleura There is an anterior echo-free space consistent with a fat pad. There is no pericardial effusion. There is no pleural effusion. MMode/2D Measurements & Calculations LVIDd: 3.7 cm LVOT diam: 2.1 cm LVIDs: 2.2 cm Ao root diam: 3.4 cm FS: 40.5 % asc Aorta Diam: 3.3 cm EPSS: 0.72 cm IVSd: 0.72 cm LVPWd: 1.1 cm LV bradshaw. diameter/BSA (cm/m^2): 2.4 LV sys. diameter/BSA (cm/m^2): 1.4 IVC diam: 1.2 cm TAPSE: 1.2 cm LVAd ap4: 14.3 cm2 LVAd ap2: 15.9 cm2 LVAs ap4: 7.6 cm2 LVLd ap2: 6.6 cm LVLs ap4: 4.8 cm LVAs ap2: 7.6 cm2 LVLs ap2: 4.9 cm Doppler Measurements & Calculations Ao V2 max: 117.8 cm/sec LVOT Max Philipp: 100.2 cm/sec Ao V2 mean: 77.1 cm/sec LV V1 max P.0 mmHg Ao max P.5 mmHg LV V1 VTI: 14.5 cm Ao mean P.7 mmHg ARELY(I,D): 2.9 cm2 Ao V2 VTI: 16.9 cm ARELY(V,D): 2.9 cm2 sev ratio: 0.86 ARELY indexed to BSA (cm^2/m^2): 1.9 MV E max philipp: 62.4 cm/sec PA V2 max: 84.1 cm/sec MV A max philipp: 145.6 cm/sec PA V2 mean: 55.5 cm/sec MV E/A: 0.43 PA mean P.4 mmHg Med Peak E' Philipp: 7.7 cm/sec PA pr(Accel): 46.5 mmHg E/E' med: 8.1 Lat Peak E' Philipp: 8.7 cm/sec E/E' lat: 7.1 E/e' average: 7.6 MV dec time: 0.12 sec MVA(VTI): 1.9 cm2 MV V2 mean: 83.5 cm/sec SV(LVOT): 49.4 ml MV mean P.5 mmHg MV V2 VTI: 26.2 cm Electronically signed by: Yolanda Terrazas M.D. on Reading Physician:05/13/2024 05:54 PM
--- NOTE | 2024-05-13 01:19 | P.HP_ITS ---
History of Present Illness History of Present Illness Chief complaint: Unresponsive/Not Breathing - Now AxO Narrative: 68 y/o with PMH of drug abuse, alcoholism, bipolar disorder, BRIGITTE, DM, HLD, hypothyroidism, became unresponsive at home and had doing chest compressions until the arrival of EMS. She had a pulse on their arrival and woke up immediately after administered Narcan. On arrival to ED she complained on muskuloskeletal chest pain and Xray showed sternal / rib fractures from CPR and uptrending troponin. EKG looked same as previous ones - RBBB w/o acute ischemic changes. Considering existing risk factors, placed in observation on telemetry for additional work up -cycling troponins / echocardiogram. [facility] Medical History (Updated 05/13/24 @ 03:24 by Soy Taylor MD) Chronic pain syndrome (Unknown) Osteoarthritis (Unknown) Asthma (Unknown) Schizophrenia (Unknown) Depression (Unknown) Bipolar disorder (Unknown) Anxiety (Unknown) Restless leg syndrome (Unknown) ADHD (attention deficit hyperactivity disorder) (Unknown) Shoulder pain (Unknown) Foot pain (Unknown) Fractures (Unknown) Chronic back pain (Unknown) Chickenpox (Unknown) Vertigo (Unknown) Hearing loss (Unknown) Fibroids (2004) Hypothyroidism (1985) Diabetes insipidus (Unknown) Type 2 diabetes mellitus (2005) Uncomplicated opioid dependence (12/11/16) Chronic low back pain (05/02/15) Surgical History Status post tubal ligation Status post laparoscopic cholecystectomy Family History Father Brain tumor Mother Cancer Brother Car occupant injured in traffic accident Sister Brain tumor Grandfather Cancer Grandmother Heart failure Social History household members: none Smoking Status: Current every day smoker Meds Home Medications and Allergies Home Medications Medication Instructions Recorded Confirmed Type [true metrix meter] 1 kit QDAY ##1 06/12/16 04/18/21 Rx albuterol sulfate 90 mcg/actuation 1 puff inhalation Q4HP PRN 12/03/17 05/13/24 Rx aerosol inhaler (Ventolin HFA) shortness of breath or wheezing #1 ea insulin glargine 100 unit/mL (3 10 unit (0.1 mL) SUBCUT QDAY ##5 12/03/17 05/13/24 Rx mL) subcutaneous pen (Lantus Solostar U-100 Insulin) olanzapine 20 mg disintegrating 20 mg PO DAILY #30 tabs 02/24/18 05/13/24 Rx tablet hydrocodone 10 mg-acetaminophen 1 tab PO Q4H PRN pain #120 tabs 03/10/18 05/13/24 Rx 325 mg tablet ([place]) sertraline 100 mg tablet 100 mg PO BID #60 tabs 01/23/19 05/13/24 Rx levothyroxine 200 mcg tablet 200 mcg PO DAILY 04/14/19 05/13/24 History (Synthroid) quetiapine 300 mg tablet (Seroquel) 300 mg PO BEDTIME 04/14/19 05/13/24 History atorvastatin 20 mg tablet 20 mg PO QPM 05/13/24 05/13/24 History Allergies Allergy/AdvReac Type Severity Reaction Status Date / Time No Known Drug Allergies Allergy Unverified 02/24/18 10:38 Review of Systems Review of Systems Narrative: Poor historian Musculoskeletal Comments: anterior chest wall / sternal tenderness, more on the left Exam Vital Signs (past 8 hours): - 05/12/24 18:38 05/12/24 18:43 05/12/24 18:44 Temperature 97.6 F Pulse Rate 103 H Respiratory Rate 16 Blood Pressure 115/59 L 115/59 L Pulse Oximetry 92 92 Oxygen Delivery Method Room Air Oxygen Flow Rate 05/12/24 18:44 05/12/24 19:00 05/12/24 19:00 Temperature Pulse Rate 102 H 103 H Respiratory Rate 25 H Blood Pressure 120/62 Pulse Oximetry 92 94 Oxygen Delivery Method Nasal Cannula Oxygen Flow Rate 2 05/12/24 19:30 05/12/24 19:30 05/12/24 20:00 Temperature Pulse Rate 101 H 104 H Respiratory Rate 11 L 16 Blood Pressure 104/67 Pulse Oximetry 94 95 Oxygen Delivery Method Oxygen Flow Rate 05/12/24 20:01 05/12/24 20:01 05/12/24 20:30 Temperature Pulse Rate 103 H Respiratory Rate 41 H Blood Pressure 97/57 L 107/61 Pulse Oximetry 93 Oxygen Delivery Method Oxygen Flow Rate 05/12/24 20:30 05/12/24 21:00 05/12/24 21:00 Temperature Pulse Rate 100 H 100 H Respiratory Rate 11 L 36 H Blood Pressure 94/53 L Pulse Oximetry 93 93 Oxygen Delivery Method Nasal Cannula Nasal Cannula Oxygen Flow Rate 2 2 05/12/24 21:33 05/12/24 21:34 05/12/24 21:34 Temperature Pulse Rate 102 H 104 H Respiratory Rate 14 33 H Blood Pressure 120/68 Pulse Oximetry 95 Oxygen Delivery Method Oxygen Flow Rate 05/12/24 22:00 05/12/24 22:00 05/12/24 22:30 Temperature Pulse Rate 99 H 99 H Respiratory Rate 30 H 32 H Blood Pressure 110/64 Pulse Oximetry 94 94 Oxygen Delivery Method Oxygen Flow Rate 05/12/24 22:30 05/12/24 23:00 05/12/24 23:00 Temperature Pulse Rate 98 H Respiratory Rate 19 Blood Pressure 107/72 117/75 Pulse Oximetry 95 Oxygen Delivery Method Nasal Cannula Oxygen Flow Rate 2 05/12/24 23:30 05/12/24 23:30 05/13/24 00:00 Temperature Pulse Rate 100 H Respiratory Rate 16 Blood Pressure 124/78 137/86 Pulse Oximetry 93 Oxygen Delivery Method Oxygen Flow Rate 05/13/24 00:00 05/13/24 00:30 05/13/24 00:30 Temperature Pulse Rate 104 H 97 H Respiratory Rate 24 19 Blood Pressure 137/79 Pulse Oximetry 96 95 Oxygen Delivery Method Oxygen Flow Rate Oxygen Delivery Method Nasal Cannula Oxygen Flow Rate 2 Const Other: in no distress HENMT Other: poor dentition Chest Other: severe tenderness over sternum Resp Other: b/l rhonchi Cardio Other: tachycardic, regular Neuro Other: tardive dyskinesia Extrem Other: w/o swelling Psych Other: anxious Objective ECG Impression: NSR, RBBB, likely old inferior DC, w/o acute ischemic changes Labs 05/12/24 18:58 05/12/24 18:58 Labs: Laboratory Results - last 24 hr 05/12/24 05/12/24 05/12/24 18:58 19:00 21:14 WBC 6.9 RBC 3.81 L Hgb 12.6 Hct 37.7 MCV 99.0 MCH 33.1 MCHC 33.4 RDW 15.6 H Plt Count 212 Neut % (Auto) 60.5 Lymph % (Auto) 32.3 [place] % (Auto) 4.3 Eos % (Auto) 1.4 L Baso % (Auto) 1.5 Neut # (Auto) 4100 Lymph # (Auto) 2200 [place] # (Auto) 300 Eos # (Auto) 100 Baso # (Auto) 100 PT 11.1 INR 1.0 APTT 36 Sodium 140 Potassium 4.3 Chloride 109 H Carbon Dioxide 22 BUN 21 H Creatinine 0.69 Estimated GFR > 60 BUN/Creatinine Ratio 30.4 H Glucose 162 H Calcium 8.4 Magnesium 1.3 L Total Bilirubin 0.6 AST 336 H ALT 137 H Alkaline Phosphatase 178 H Total Creatine Kinase 66 Troponin I 0.018 0.067 H NT-Pro-B Natriuret Pep 31 Total Protein 6.9 Albumin 4.3 Globulin 2.6 Albumin/Globulin Ratio 1.7 Lipase 81 Salicylates < 1.0 Acetaminophen < 10 Ethyl Alcohol 259 H 05/12/24 23:21 WBC RBC Hgb Hct MCV MCH MCHC RDW Plt Count Neut % (Auto) Lymph % (Auto) [place] % (Auto) Eos % (Auto) Baso % (Auto) Neut # (Auto) Lymph # (Auto) [place] # (Auto) Eos # (Auto) Baso # (Auto) PT INR APTT Sodium Potassium Chloride Carbon Dioxide BUN Creatinine Estimated GFR BUN/Creatinine Ratio Glucose Calcium Magnesium Total Bilirubin AST ALT Alkaline Phosphatase Total Creatine Kinase Troponin I 0.092 H NT-Pro-B Natriuret Pep Total Protein Albumin Globulin Albumin/Globulin Ratio Lipase Salicylates Acetaminophen Ethyl Alcohol Assessment & Plan Assessment and plan (1) Elevated troponin: Status: Acute (2) Opiate overdose: Qualifiers: Encounter type: subsequent encounter Injury intent: accidental or unintentional Qualified Code(s): T40.601D - Poisoning by unspecified narcotics, accidental (unintentional), subsequent encounter Status: Acute (3) Sternal fracture: Status: Acute (4) Drug abuse: Status: Acute (5) Alcohol intoxication: Qualifiers: Complication of substance-induced condition: uncomplicated Qualified Code(s): F10.920 - Alcohol use, unspecified with intoxication, uncomplicated Status: Acute (6) Schizophrenia: Status: Chronic (7) Bipolar disorder: Status: Chronic (8) Chronic pain syndrome: Status: None (9) Type 2 diabetes mellitus: Status: Chronic (10) Hypothyroidism: Status: Chronic Assessment & Plan narrative: Opiate OD / Polysubstance Abuse - tested negative for opiates and psitive methamphetamine, likely used fentanyl earlier today. Urine level pending - counseling, monitored Elevated Troponin - likely from CPR although with multiple risk factors for CAD - placed in observation on hospital monitor, troponin until it peaks, echocardiogram, ASA x 1, statin, lipid panel Sternal / Ribs Fractures - from unnecessary CPR at home - pain management, incentive spirometry DM - Lantus, SS, metformin, CCD - A1C pending Bipolar Disorder / BRIGITTE - Zyprexa, Seroquel, Zoloft, clonazepam Hypothyroidism - levothyroxine, - TSH pending DVT prophylaxis - Lovenox Time-Based Coding :: [TOTAL MINUTES] spent with patient and on the chart (including review of chart, obtaining history, exam, reviewing outside data, placing orders, documenting exam and treatment plan, and counseling patient) on [DATE].
[2024-05-13 02:18] LABS: Ur Creatinine Normal (Normal); Ur Specific Gravity Normal (Normal); Urine pH Normal (Normal)
[2024-05-13 02:19] LABS: UR Morphine/Opiate cutoff 300 Negative (Negative); Urine Amphetamines Positive (Negative); Urine Barbiturates Negative (Negative); Urine Benzodiazepines Negative (Negative); Urine Cocaine Negative (Negative); Urine MDMA Negative (Negative); Urine Methadone Negative (Negative); Urine Methamphetamines Positive (Negative); Urine Oxycodone Negative (Negative); Urine Phencyclidine Negative (Negative); Urine Tetrahydrocannabinol Negative (Negative); Urine Tricyclic Antidepressant Negative (Negative)
[2024-05-13 03:04] LABS: Troponin I 0.085 ng/mL (0.01-0.034)
[2024-05-13 03:15] LABS: BUN Creatinine Ratio 33.9 (6-22); Blood Urea Nitrogen 19 mg/dL (7-17); Calcium 8.8 mg/dL (8.4-10.2); Carbon Dioxide 19 mmol/L (22-32); Chloride 104 mmol/L (98-107); Cholesterol 255 mg/dL (140-199); Estimated Glomerular Filt Rate > 60 mL/min (>60); Glucose 141 mg/dL (80-110); HEMOLYSIS < 15 (0-50); Magnesium 1.4 mg/dL (1.6-2.3); Potassium 3.8 mmol/L (3.4-5.1); Sodium 134 mmol/L (137-145); Triglycerides 75 mg/dL (35-150)
[2024-05-13 03:18] LABS: Hemoglobin A1C% w Est Avg Glu 8.1 % (4.0-6.0)
[2024-05-13 03:23] LABS: HDL Cholesterol 121 mg/dL (40-60); LDL Cholesterol Calculated 119 mg/dL (<100)
[2024-05-13] MEDS: HYDROCODONE/ACET 5/325 TABLET 2 TAB PO ×4 (03:45→19:54)
[2024-05-13 03:46] LABS: Thyroid Stimulating Hormone 6.68 uIU/mL (0.47-4.68)
[2024-05-13] MEDS: LORazepam 2 MG/ML INJ IV ×5 (04:30→22:32)
[2024-05-13 07:05] LABS: Troponin I 0.049 ng/mL (0.01-0.034)
--- NOTE | 2024-05-13 07:41 | P.HP_ITS ---
History of Present Illness History of Present Illness Date Patient Seen: 05/13/24 Chief complaint: Unresponsive/Not Breathing - Now AxO Narrative: From night doctor: 68 y/o with PMH of drug abuse, alcoholism, bipolar disorder, BRIGITTE, DM, HLD, hypothyroidism, became unresponsive at home and had doing chest compressions until the arrival of EMS. She had a pulse on their arrival and woke up immediately after administered Narcan. On arrival to ED she complained on muskuloskeletal chest pain and Xray showed sternal / rib fractures from CPR and uptrending troponin. EKG looked same as previous ones - RBBB w/o acute ischemic changes. Considering existing risk factors, placed in observation on telemetry for additional work up -cycling troponins / echocardiogram. S: She was doing well except for sternal pain. She was not confused. No nausea. She also denies any abdominal pain. Her feet are tingling. [facility] Medical History Chronic pain syndrome (Unknown) Osteoarthritis (Unknown) Asthma (Unknown) Schizophrenia (Unknown) Depression (Unknown) Bipolar disorder (Unknown) Anxiety (Unknown) Restless leg syndrome (Unknown) ADHD (attention deficit hyperactivity disorder) (Unknown) Shoulder pain (Unknown) Foot pain (Unknown) Fractures (Unknown) Chronic back pain (Unknown) Chickenpox (Unknown) Vertigo (Unknown) Hearing loss (Unknown) Fibroids (2004) Hypothyroidism (1985) Diabetes insipidus (Unknown) Type 2 diabetes mellitus (2005) Uncomplicated opioid dependence (12/11/16) Chronic low back pain (05/02/15) Surgical History Status post tubal ligation Status post laparoscopic cholecystectomy Family History Father Brain tumor Mother Cancer Brother Car occupant injured in traffic accident Sister Brain tumor Grandfather Cancer Grandmother Heart failure Social History household members: none Smoking Status: Current every day smoker Meds Home Medications and Allergies Home Medications Medication Instructions Recorded Confirmed Type [true metrix meter] 1 kit QDAY ##1 06/12/16 04/18/21 Rx albuterol sulfate 90 mcg/actuation 1 puff inhalation Q4HP PRN 12/03/17 05/13/24 Rx aerosol inhaler (Ventolin HFA) shortness of breath or wheezing #1 ea insulin glargine 100 unit/mL (3 10 unit (0.1 mL) SUBCUT QDAY ##5 12/03/17 05/13/24 Rx mL) subcutaneous pen (Lantus Solostar U-100 Insulin) olanzapine 20 mg disintegrating 20 mg PO DAILY #30 tabs 02/24/18 05/13/24 Rx tablet hydrocodone 10 mg-acetaminophen 1 tab PO Q4H PRN pain #120 tabs 03/10/18 05/13/24 Rx 325 mg tablet ([place]) sertraline 100 mg tablet 100 mg PO BID #60 tabs 01/23/19 05/13/24 Rx levothyroxine 200 mcg tablet 200 mcg PO DAILY 04/14/19 05/13/24 History (Synthroid) quetiapine 300 mg tablet (Seroquel) 300 mg PO BEDTIME 04/14/19 05/13/24 History atorvastatin 20 mg tablet 20 mg PO QPM 05/13/24 05/13/24 History Allergies Allergy/AdvReac Type Severity Reaction Status Date / Time No Known Drug Allergies Allergy Unverified 02/24/18 10:38 Review of Systems Review of Systems Narrative: All else reviewed and otherwise unremarkable except as noted in the history and physical. Exam Vital Signs (past 8 hours): - 05/13/24 00:00 05/13/24 00:00 05/13/24 00:30 Temperature Pulse Rate 104 H 97 H Respiratory Rate 24 19 Blood Pressure 137/86 Pulse Oximetry 96 95 Oxygen Delivery Method Oxygen Flow Rate Fraction of Inspired Oxygen 05/13/24 00:30 05/13/24 01:20 05/13/24 01:33 Temperature 96.7 F L Pulse Rate 103 H 103 H Respiratory Rate 22 Blood Pressure 137/79 165/96 H Pulse Oximetry 96 96 Oxygen Delivery Method Nasal Cannula Oxygen Flow Rate 2 2 Fraction of Inspired Oxygen 28 05/13/24 04:00 05/13/24 05:36 Temperature 97.3 F L Pulse Rate 105 H 98 H Respiratory Rate 19 16 Blood Pressure 158/98 H Pulse Oximetry 96 Oxygen Delivery Method Oxygen Flow Rate 2 Fraction of Inspired Oxygen Fraction of Inspired Oxygen 28 SaO2/FiO2 Ratio 342 Oxygen Delivery Method Nasal Cannula Oxygen Flow Rate 2 Narrative Exam Narrative: NAD, alert and oriented, fluent speech, calm. Normocephalic skull, EOMI, anicteric sclera, symmetric pupils. Oropharynx unremarkable, no droop. Neck supple, midline trachea, no adenopathy. Lungs clear, normal rate and effort. Heart regular, no murmur gallop or rub. Abdomen is soft, non distended and non tender. Extremities are free of edema. Skin is free of rash or lesions. Joints are not swollen or deformed. Judgment appears to be normal. Sternum is tender. Objective ECG Impression: Rate: 104 P: 42 RI: 158 QRS: 65 QRSD: 132 T: 9 QT: 416 QTc: 547 Interpretive Statements Sinus tachycardia Right bundle branch block Imaging CT scan - chest: Radiologist's impression: Multiple rib fractures of different ages, with subacute to chronic components particularly on the right. Acute components are seen anteriorly at multiple levels bilaterally along with a nondisplaced sternal fracture, compatible with reported chest compressions. No pneumothorax or hemothorax. Mild lower lung opacities and atelectasis. Consider future imaging surveillance to assess for resolution. Other findings above. Labs 05/12/24 18:58 05/13/24 02:30 Labs: Laboratory Results - last 24 hr 05/12/24 05/12/24 05/12/24 18:58 19:00 21:14 WBC 6.9 RBC 3.81 L Hgb 12.6 Hct 37.7 MCV 99.0 MCH 33.1 MCHC 33.4 RDW 15.6 H Plt Count 212 Neut % (Auto) 60.5 Lymph % (Auto) 32.3 [place] % (Auto) 4.3 Eos % (Auto) 1.4 L Baso % (Auto) 1.5 Neut # (Auto) 4100 Lymph # (Auto) 2200 [place] # (Auto) 300 Eos # (Auto) 100 Baso # (Auto) 100 PT 11.1 INR 1.0 APTT 36 Sodium 140 Potassium 4.3 Chloride 109 H Carbon Dioxide 22 BUN 21 H Creatinine 0.69 Estimated GFR > 60 BUN/Creatinine Ratio 30.4 H Glucose 162 H Hemoglobin A1c 8.1 H Calcium 8.4 Magnesium 1.3 L Total Bilirubin 0.6 AST 336 H ALT 137 H Alkaline Phosphatase 178 H Total Creatine Kinase 66 Troponin I 0.018 0.067 H NT-Pro-B Natriuret Pep 31 Total Protein 6.9 Albumin 4.3 Globulin 2.6 Albumin/Globulin Ratio 1.7 Triglycerides Cholesterol LDL Cholesterol, Calc HDL Cholesterol Lipase 81 TSH Salicylates < 1.0 U Opiates 300ng/mL cut Ur Oxycodone Screen Urine Methadone Screen Acetaminophen < 10 Ur Barbiturates Screen U Tricyclic Antidepress Ur Phencyclidine Scrn Ur Amphetamines Screen U Methamphetamines Scrn Ur MDMA Scrn (Ecstasy) U Benzodiazepines Scrn Urine Cocaine Screen U Marijuana (THC) Screen Urine pH Urine Specific [place] Ethyl Alcohol 259 H Ur Creatinine 05/12/24 05/13/24 05/13/24 23:21 01:39 02:30 WBC RBC Hgb Hct MCV MCH MCHC RDW Plt Count Neut % (Auto) Lymph % (Auto) [place] % (Auto) Eos % (Auto) Baso % (Auto) Neut # (Auto) Lymph # (Auto) [place] # (Auto) Eos # (Auto) Baso # (Auto) PT INR APTT Sodium 134 L Potassium 3.8 Chloride 104 Carbon Dioxide 19 L BUN 19 H Creatinine 0.56 Estimated GFR > 60 BUN/Creatinine Ratio 33.9 H Glucose 141 H Hemoglobin A1c Calcium 8.8 Magnesium 1.4 L Total Bilirubin AST ALT Alkaline Phosphatase Total Creatine Kinase Troponin I 0.092 H 0.085 H NT-Pro-B Natriuret Pep Total Protein Albumin Globulin Albumin/Globulin Ratio Triglycerides 75 Cholesterol 255 H LDL Cholesterol, Calc 119 H HDL Cholesterol 121 H Lipase TSH 6.68 H Salicylates U Opiates 300ng/mL cut Negative Ur Oxycodone Screen Negative Urine Methadone Screen Negative Acetaminophen Ur Barbiturates Screen Negative U Tricyclic Antidepress Negative Ur Phencyclidine Scrn Negative Ur Amphetamines Screen Positive H U Methamphetamines Scrn Positive H Ur MDMA Scrn (Ecstasy) Negative U Benzodiazepines Scrn Negative Urine Cocaine Screen Negative U Marijuana (THC) Screen Negative Urine pH Normal Urine Specific [place] Normal Ethyl Alcohol Ur Creatinine Normal 05/13/24 06:32 WBC RBC Hgb Hct MCV MCH MCHC RDW Plt Count Neut % (Auto) Lymph % (Auto) [place] % (Auto) Eos % (Auto) Baso % (Auto) Neut # (Auto) Lymph # (Auto) [place] # (Auto) Eos # (Auto) Baso # (Auto) PT INR APTT Sodium Potassium Chloride Carbon Dioxide BUN Creatinine Estimated GFR BUN/Creatinine Ratio Glucose Hemoglobin A1c Calcium Magnesium Total Bilirubin AST ALT Alkaline Phosphatase Total Creatine Kinase Troponin I 0.049 H NT-Pro-B Natriuret Pep Total Protein Albumin Globulin Albumin/Globulin Ratio Triglycerides Cholesterol LDL Cholesterol, Calc HDL Cholesterol Lipase TSH Salicylates U Opiates 300ng/mL cut Ur Oxycodone Screen Urine Methadone Screen Acetaminophen Ur Barbiturates Screen U Tricyclic Antidepress Ur Phencyclidine Scrn Ur Amphetamines Screen U Methamphetamines Scrn Ur MDMA Scrn (Ecstasy) U Benzodiazepines Scrn Urine Cocaine Screen U Marijuana (THC) Screen Urine pH Urine Specific [place] Ethyl Alcohol Ur Creatinine Assessment & Plan Assessment & Plan narrative: 1. Opiate overdose, present on admission and improved. - tested negative for opiates and psitive methamphetamine, likely used fentanyl earlier today. Urine level pending - counseling, monitored 2. Elevated Troponin, present on admission and active. - likely from CPR although with multiple risk factors for CAD - placed in observation on clinical research monitor, troponin until it peaks, echocardiogram, ASA x 1, statin, lipid panel 3. Sternal and rib fractures, present on admission and improved. - from unnecessary CPR at home - pain management, incentive spirometry 4. DM 2, present on admission and improved. - Lantus, SS, metformin, CCD - A1C pending 5. Bipolar Disorder, present on admission and improved. - Zyprexa, Seroquel, Zoloft, clonazepam 6. Hypothyroidism, present on admission and improved. - levothyroxine, - TSH pending PLAN: -continue to monitor mental status and pain control. -telemetry -bed, physical therapy -incentive spirometry JUNIOR: 05/14 if pain control adequate. DVT prophylaxis - Lovenox Full code. Time-Based Coding :: 40 min spent with patient and on the chart (including review of chart, obtaining history, exam, reviewing outside data, placing orders, documenting exam and treatment plan, and counseling patient) on 05/13 Quality MIPS - Admit I confirm the patient?s Advance Care Plan is present, Code status is documented, Surrogate decision maker is in patient?s record [If Yes, STOP here]: Yes MIPS - Meds 'Current medications' to include all prescriptions, [id number] products, herbals, cannabis/cannabidiol products, and vitamin/mineral/dietary (nutritional) supplements. I have utilized all available resources to obtain, update, or review the patient?s current medications. [If Yes, STOP here]: Yes
[2024-05-13] MEDS: ASPIRIN EC 81 MG TABLET PO (08:09)
[2024-05-13] MEDS: OLANZapine ODT 10 MG TAB 20 MG PO (08:09)
[2024-05-13] MEDS: clonazePAM 0.5 MG TABLET PO ×2 (08:09→20:04)
[2024-05-13] MEDS: SERTRALINE 50 MG TABLET 100 MG PO ×2 (08:09→20:03)
[2024-05-13] MEDS: ENOXAPARIN 40 MG/0.4 ML SYRINGE SUBCUT (08:12)
[2024-05-13] MEDS: INSULIN GLARGINE 100 UNIT/ML 3ML PEN 10 UNIT SUBCUT (08:20)
[2024-05-13] MEDS: INSULIN LISPRO 100 UNIT/ML 3ML VIAL SUBCUT ×2 (08:21→11:44)
[2024-05-13 09:48] LABS: Troponin I 0.034 ng/mL (0.01-0.034)
[2024-05-13] MEDS: MAGNESIUM CHLORIDE 64 MG TABLET 128 MG PO (11:45)
[2024-05-13] MEDS: HYDROCODONE/ACET 5/325 TABLET 1 TAB PO (15:52)
[2024-05-13] MEDS: METFORMIN XR 500 MG TABLET 1000 MG PO (20:03)
[2024-05-13] MEDS: ATORVASTATIN 20 MG TABLET PO (20:03)
[2024-05-13] MEDS: QUETIAPINE 100 MG TABLET 300 MG PO (20:03)
[2024-05-13 20:50] LABS: Alanine Aminotransferase 140 IU/L (<35); Albumin 4.3 g/dL (3.5-5.0); Albumin Globulin Ratio 1.7 (1.0-2.8); Alkaline Phosphatase 203 U/L (38-126); Aspartate Aminotransferase 199 IU/L (14-36); BUN Creatinine Ratio 30.4 (6-22); Bilirubin Total 1.4 mg/dL (0.2-1.3); Blood Urea Nitrogen 17 mg/dL (7-17); Calcium 8.7 mg/dL (8.4-10.2); Carbon Dioxide 20 mmol/L (22-32); Chloride 103 mmol/L (98-107); Estimated Glomerular Filt Rate > 60 mL/min (>60); Globulin 2.6 g/dL (1.7-4.1); Glucose 154 mg/dL (80-110); HEMOLYSIS < 15 (0-50); Potassium 3.9 mmol/L (3.4-5.1); Sodium 133 mmol/L (137-145); Total Protein 6.9 g/dL (6.3-8.2)
[2024-05-14] VITALS (8 sets, daily range): BP systolic 129–143; BP diastolic 68–123; PULSE 75–115; RESP 14–22; TEMP 36.1–36.8; O2SAT 91–98
[2024-05-14] MEDS: HYDROCODONE/ACET 5/325 TABLET 2 TAB PO ×4 (00:12→21:35)
[2024-05-14] MEDS: LORazepam 2 MG/ML INJ IV ×4 (04:46→22:39)
[2024-05-14 07:36] LABS: Magnesium 1.2 mg/dL (1.6-2.3)
[2024-05-14] MEDS: SERTRALINE 50 MG TABLET 100 MG PO ×2 (09:00→19:55)
[2024-05-14] MEDS: ASPIRIN EC 81 MG TABLET PO (09:00)
[2024-05-14] MEDS: clonazePAM 0.5 MG TABLET PO ×2 (09:00→19:56)
[2024-05-14] MEDS: METFORMIN XR 500 MG TABLET 1000 MG PO (09:00)
[2024-05-14] MEDS: HYDROCODONE/ACET 5/325 TABLET 1 TAB PO (09:00)
[2024-05-14] MEDS: ENOXAPARIN 40 MG/0.4 ML SYRINGE SUBCUT (09:00)
[2024-05-14] MEDS: OLANZapine ODT 10 MG TAB 20 MG PO (09:00)
[2024-05-14] MEDS: INSULIN GLARGINE 100 UNIT/ML 3ML PEN 10 UNIT SUBCUT (09:02)
[2024-05-14] MEDS: INSULIN LISPRO 100 UNIT/ML 3ML VIAL SUBCUT ×3 (09:03→20:14)
--- NOTE | 2024-05-14 09:29 | PM.PN.1 ---
Subjective Subjective Interval history: She was doing a little bit better today. She is still having a lot of sternal and rib pain with any movement. Poor appetite. She denies any dyspnea but is having a hard time taking a deep breath. She would like to go home. She denies drugs in the evening if her event but does note 3 cocktails. Exam Vital Signs (past 8 hours): - 05/14/24 05:05 Pulse Rate 75 Respiratory Rate 16 Fraction of Inspired Oxygen 28 SaO2/FiO2 Ratio 342 Oxygen Delivery Method Nasal Cannula Oxygen Flow Rate 3 Narrative Exam Narrative: NAD, alert and oriented. Fluent speech. Chronically ill and frail in appearance Lungs are clear, normal rate and effort. Heart is regular, no murmur gallop or rub. Abdomen is soft, non distended. Extremities are free of edema. Sternum is tender to palpation. Objective Labs 05/12/24 18:58 05/13/24 09:18 Labs: Laboratory Results - last 24 hr 05/13/24 05/13/24 05/14/24 09:15 09:18 07:10 Sodium 133 L Potassium 3.9 Chloride 103 Carbon Dioxide 20 L BUN 17 Creatinine 0.56 Estimated GFR > 60 BUN/Creatinine Ratio 30.4 H Glucose 154 H Calcium 8.7 Magnesium 1.2 L Total Bilirubin 1.4 H AST 199 H ALT 140 H Alkaline Phosphatase 203 H Troponin I 0.034 Total Protein 6.9 Albumin 4.3 Globulin 2.6 Albumin/Globulin Ratio 1.7 [facility] Medical History Chronic pain syndrome (Unknown) Osteoarthritis (Unknown) Asthma (Unknown) Schizophrenia (Unknown) Depression (Unknown) Bipolar disorder (Unknown) Anxiety (Unknown) Restless leg syndrome (Unknown) ADHD (attention deficit hyperactivity disorder) (Unknown) Shoulder pain (Unknown) Foot pain (Unknown) Fractures (Unknown) Chronic back pain (Unknown) Chickenpox (Unknown) Vertigo (Unknown) Hearing loss (Unknown) Fibroids (2004) Hypothyroidism (1985) Diabetes insipidus (Unknown) Type 2 diabetes mellitus (2005) Uncomplicated opioid dependence (12/11/16) Chronic low back pain (05/02/15) Surgical History Status post tubal ligation Status post laparoscopic cholecystectomy Family History Father Brain tumor Mother Cancer Brother Car occupant injured in traffic accident Sister Brain tumor Grandfather Cancer Grandmother Heart failure Social History household members: none Smoking Status: Current every day smoker Assessment & Plan Assessment & Plan narrative: 1. Opiate overdose, present on admission and improved. - tested negative for opiates and psitive methamphetamine, likely used fentanyl earlier today. Urine level pending - counseling, monitored -she denies recent use of opiates today. 2. Elevated Troponin, present on admission and active. - likely from CPR although with multiple risk factors for CAD - stop telemetry. 3. Sternal and rib fractures, present on admission and improved. - from unnecessary CPR at home - pain management, incentive spirometry - PT and OT referrals. Assess mobility and safety of gait. 4. DM 2, present on admission and improved. - Lantus, SS, metformin, CCD - A1C pending 5. Bipolar Disorder, present on admission and improved. - Zyprexa, Seroquel, Zoloft, clonazepam 6. Hypothyroidism, present on admission and improved. - levothyroxine, - TSH pending 7. Hypomagnesemia, present on admission and active. PLAN: -continue to monitor mental status and pain control. -out of bed, PT and OT assessments. -replace magnesium -incentive spirometry JUNIOR: 05/15 if pain control adequate. DVT prophylaxis - Lovenox Full code. Time-Based Coding :: [TOTAL MINUTES] spent with patient and on the chart (including review of chart, obtaining history, exam, reviewing outside data, placing orders, documenting exam and treatment plan, and counseling patient) on [DATE].
[2024-05-14] MEDS: MAGNESIUM CHLORIDE 64 MG TABLET 128 MG PO ×2 (10:43→19:55)
--- NOTE | 2024-05-14 12:32 | PT.IIE ---
Current Diagnoses Hypothyroidism, unspecified (05/13/24) Type 2 diabetes mellitus without complications (05/13/24) Alcohol use, unspecified with intoxication, uncomplicated (05/13/24) Other psychoactive substance abuse, uncomplicated (05/13/24) Schizophrenia, unspecified (05/13/24) Bipolar disorder, unspecified (05/13/24) Chronic pain syndrome (05/13/24) Other specified abnormal findings of blood chemistry (05/13/24) Unspecified fracture of sternum, initial encounter for closed fracture (05/13/24) Poisoning by unspecified narcotics, accidental (unintentional), subsequent encounter (05/13/24) Surgical History (Last Reviewed 05/13/24 @ 07:42 by Victor Hugo Lan MD) Status post laparoscopic cholecystectomy Status post tubal ligation Medical History (Last Reviewed 05/13/24 @ 07:42 by Victor Hugo Lan MD) ADHD (attention deficit hyperactivity disorder) (Unknown) Anxiety (Unknown) Asthma (Unknown) Bipolar disorder (Unknown) Chickenpox (Unknown) Chronic back pain (Unknown) Chronic low back pain (05/02/15) Chronic pain syndrome (Unknown) Depression (Unknown) Diabetes insipidus (Unknown) Fibroids (2004) Foot pain (Unknown) Fractures (Unknown) Hearing loss (Unknown) Hypothyroidism (1985) Osteoarthritis (Unknown) Restless leg syndrome (Unknown) Schizophrenia (Unknown) Shoulder pain (Unknown) Type 2 diabetes mellitus (2005) Uncomplicated opioid dependence (12/11/16) Vertigo (Unknown) Physical Therapy Inpatient Evaluation/Re-Eval M1 PT/OT-IP Prior Functional Status Start: 05/14/24 11:36 Freq: NEEDED Status: Active Protocol: Document 05/14/24 11:36 MB (Rec: 05/14/24 12:32 MB [id number]) Medical Review Prior Functional Status Medical History Reviewed Yes Communication Unsure baseline diet, pt has no teeth and when asked if she has dentures, she states she does not. Pt with confusion and she does not answer any other questions except for name and . Speech is difficult to understand. Mobility and Gait Unsure baseline mobility and pt cannot answer questions Activities of Daily Living and IADL's Unsure baseline ADLs and pt cannot answer questions Social History Additional Social History Comment Pt cannot answer any PLOF questions and given confidential status, PT does not look to call any other person M2 PT-IP Current Condition Start: 05/14/24 11:36 Freq: NEEDED Status: Active Protocol: Document 05/14/24 11:36 MB (Rec: 05/14/24 12:32 MB [id number]) Physical Therapy Current Condition Current Condition Evaluation Date 05/14/24 Treatment Diagnosis Unresponsive, CPR performed, sternal and rib fractures M3 PT-IP Subjective Start: 05/14/24 11:36 Freq: NEEDED Status: Active Protocol: Document 05/14/24 11:36 MB (Rec: 05/14/24 12:32 MB [id number]) Subjective Physical Therapy Visit Type Type Initial Evaluation Visit Start Time 11:36 Visit Stop Time 12:02 Number of ACADEMIC ADVISEMENT DIRECTOR Visits 0 Physical Therapy Visit Comments Patient Comments Pt with some verbalizations that are difficult to understand and she makes gasping type face and sits up when bed flattened as nsg and PT try to assist pt up to HOB Therapy Pain Assessment Pain When Pain Assessed During Mobility Pain Present Pain Present Pain Reported Location Chest Intensity 10 Scale Used Richi (Faces) M4 PT-IP Mobility and Gait Start: 05/14/24 11:36 Freq: NEEDED Status: Active Protocol: Document 05/14/24 11:36 MB (Rec: 05/14/24 12:32 MB [id number]) PT-Bed Mobility Assessment Supine to Sit Supine to Sit Contact Guard Assistance,1 Person Assistance,Head of Bed Elevated,Bedrails Sit to Supine Sit to Supine Moderate Assistance Scooting Scooting to Edge of Bed Contact Guard Assistance Scooting Up and Down in Bed Minimal Assistance PT-Transfer Assessment Sit to and From Stand Sit to and from Stand Minimal Assistance,1 Person Assistance,Use of Upper Extremities Equipment Transfer Assistive Device Front Wheeled Walker Orthotic/Prosthetic Devices or Brace: No Transfers Transfer Destination Bed Transfer Technique Side stepping Transfer Ability Level of Assist Minimal Assistance,1 Person Assistance,2 Person Assistance ,Use of Upper Extremities Comments Mobility Comments 1-2 person assistance for bed mobility, STS and stepping today d/t pt has trouble following commands and communicating and her mobility /body positioning and movement is occ writhing type movement, likely d/t high sternal pain Gait Assessment Gait Gait Assistance Required: Minimum Assistance,Moderate Assistance,1 Person Assist,2 Person Assist Distance (Feet) 4 Able to Maintain Weight Bearing Status Yes During Gait Assistive Devices Assistive Device Front Wheeled Walker Orthotic/Prosthetic Devices or Brace: No Gait Deviations General Gait Pattern Antalgic,Flexed Trunk,Step-to Gait,Wide Based Gait Factors Limiting Gait Function Factors Limiting Gait Function Decreased Activity Tolerance, Decreased Strength,Difficulty Following Directions, Incoordination,Pain,Poor Balance,Poor Safety Awareness Comments Gait Comments Side stepping with rolling walker today PT-Balance Assessment Sitting Balance and Reactions Static Sitting Balance Ability Fair Dynamic Sitting Balance Ability Fair Standing Balance and Reactions Static Standing Balance Ability Fair Dynamic Standing Balance Ability Poor Device Used RW M5 PT-IP Objective Assessments Start: 05/14/24 11:36 Freq: NEEDED Status: Active Protocol: Document 05/14/24 11:36 MB (Rec: 05/14/24 12:32 MB [id number]) Orientation Orientation/Cognition Level of Alertness Confusional State Orientation Name,Birthday Comments Pt has no teeth, presents with confusion and does not answer many questions and speech is difficult to understand Gross Range of Motion Upper Extremity ROM Impairments Cannot tolerate ROM or MMT UEs or LEs today d/t pain Coordination Assessment Gross Coordination Gross Coordination Impaired Sensation Assessment Comments Sensation Comments Does not follow directions M6 PT-IP Treatment Start: 05/14/24 11:36 Freq: NEEDED Status: Active Protocol: Document 05/14/24 11:36 MB (Rec: 05/14/24 12:32 MB [id number]) Physical Therapy Treatment Education Education Provided Safety M7 PT-IP Assessment and Plan Start: 05/14/24 11:36 Freq: NEEDED Status: Active Protocol: Document 05/14/24 11:36 MB (Rec: 05/14/24 12:32 MB [id number]) PT Summary Assessment and Plan Potential Rehabilitation Potential Fair Status of Condition at Evaluation Evolving Summary Impairments Pain,ROM,Strength,Balance, Coordination,Cognition,Bed Mobility,Transfers,Gait, Activity Tolerance Progress Towards Goals Slow Progress due to Pain,Slow Progress due to Activity Tolerance Assessment Summary Pt is a 68 y/o female who was found unrespsonsive and who underwent CPR and sustained displaced sternal fracture and rib fractures. All mobility appears very painful for pt today. She presents with confusion and poor communication. She will benefit from PT to improve mobility. Unsure baseline and home safety given history of events. Goals Bed Mobility Goal Standby Assistance Transfer Goal Standby Assistance,Front Wheeled Walker Gait Goal Standby Assistance,Front Wheel Walker Gait Distance 100 Other Goals If pt has steps, she will perform stair training with LRAD or rail and no more than CGA to allow safe home entry. Days to Meet Goals 10 Frequency of Treatment Frequency Of Treatment Once a Day Treatment Plan Physical Therapy Treatment Plan Bed Mobility Training,Transfer Training,Gait Training, Therapeutic Exercise,Balance Retraining,Discharge Planning, Hot or Cold Pack,Neuromuscular Re-ed,Coordination Retraining ,Manual Therapy Precautions Other Precautions Displaced sternal fracture, rib fractures Recommendations To Nursing Amount of Assist Needed 2 Person Assist Discharge Recommendations PT Discharge Recommendations SNF Rehab Transportation Needs at Discharge Wheelchair/Cabulance
--- NOTE | 2024-05-14 15:42 | CM.IDA ---
Initial Brief DCP Assessment Patient is 68 y/o female who presented to via EMS due to concern for unresponsiveness, concern for overdose. Patient received CPR chest compressions and was given Narcan prior to arrival to ED. Patient admitted to Methamphetamine use and states occasional fentanyl use. Patient was positive for Amphetamines, Methamphetamine and ETOH BAL 259 upon arrival. Patient's PCP is Dr. Adelso Baron, patient has Medicaid and Medicare insurance. Patient has hx of insulin dependent diabetes, Hypothyroidism, ETOH use, polysubstance use, Schizophrenia, Depression, Anxiety, Bipolar Affective Disorder, and ADHD. Patient was admitted due to concern for elevated troponin, opiate overdose, cardiac contusion, sternal fracture and ETOH intoxication. This TOOLS DEVELOPER reviewed TOOLS DEVELOPER and reviewed patient with RN. It is reported that patient's CIWA is 10, patient presents as A/Ox4 but was just given Ativan for withdrawal symptoms. At this time PT recommends SNF rehab, per Hospitalist report patient endorses preference to d/c to home. This TOOLS DEVELOPER attempts to meet with patient but patient presented as somnolent and TOOLS DEVELOPER was unable to wake patient at this time. Patient is not allowed visitors at this time and TOOLS DEVELOPER did not receive consent to contact patient's life partner. Per EMR, patient resides in [place] with life partner. Patient has local children and grandchildren. Patient reported to ED RN last night that her granddaughter supplies her with drugs. TOOLS DEVELOPER put STEVEN resource handout on DCP desk for follow up to attempt to evaluate patient further tomorrow. Plan: patient in need of further PT and OT evaluation, DCP to continue to attempt to assess patient further in regards to POC IBIS Flynn Discharge Planning/Care Management CM Discharge Assessment Start: 05/14/24 15:34 Freq: Status: Active Protocol: Document 05/14/24 15:34 LN (Rec: 05/14/24 15:41 LN [id number]) Discharge Planning Assessment Assigned Medical Diagnostic Radiographer IBIS Sales DPOA/Assigned Designee Name cassidy Ramirez Contact Information [phone] Advance Directives? No Advance Directives on File No History Provided By Medical Record Has Patient been admitted in last 30 No days? Prior Living Arrangements House Household Members significant other Type of transportation used prior to Relies on Others admit Independent with ADL's No Is patient alert and oriented? RN states A/O, TOOLS DEVELOPER unable to assess today Comment Unknown at this time Caregiver for Another No Comment Unable to meet with patient, did not receive consent to talk with family yet at this time. Per Hospitalist note, patient preference to d/c to home. Transportation Arrangement Family Additional Comment none at this time
[2024-05-14] MEDS: QUETIAPINE 100 MG TABLET 300 MG PO (19:55)
[2024-05-14] MEDS: ATORVASTATIN 20 MG TABLET PO (19:55)
--- NOTE | 2024-05-14 22:47 | PC.NURSE ---
NOC: Pt continuously attempting to get out of bed, reporting increased anxiety and suspicion, referencing calling or seeing family members, and confused re: location and circumstances, most recent CIWA 8. Attempts to redirect patient are only temporarily successful (~5 min). Medicated per CIWA protocol 1 mg lorazepam IV. Pt resting comfortable, call light and belongings within reach, RR 15 and O2 sat 93% on room air. Care continues.
[2024-05-15] VITALS (7 sets, daily range): BP systolic 100–169; BP diastolic 69–100; PULSE 98–112; RESP 16–24; TEMP 36.1–37.1; O2SAT 92–98
[2024-05-15] MEDS: HYDROCODONE/ACET 5/325 TABLET 2 TAB PO ×5 (05:11→21:37)
[2024-05-15] MEDS: LEVOTHYROXINE 100 MCG TABLET 200 MCG PO (05:11)
[2024-05-15] MEDS: LORazepam 2 MG/ML INJ IV (05:20)
--- NOTE | 2024-05-15 08:10 | PM.PN.1 ---
Subjective Subjective Interval history: S: She feels better today, less sternal pain. No nausea. She denies cough in his breathing relatively well. She was still somewhat somnolent and shaky. Met with her at the bedside. Exam Vital Signs (past 8 hours): - 05/15/24 04:45 05/15/24 07:02 Temperature 98.8 F Pulse Rate 109 H 105 H Respiratory Rate 24 Blood Pressure 148/96 H Pulse Oximetry 94 92 Oxygen Delivery Method Room Air Oxygen Flow Rate 0 Fraction of Inspired Oxygen 21 Fraction of Inspired Oxygen 21 SaO2/FiO2 Ratio 438 Oxygen Delivery Method Room Air Oxygen Flow Rate 0 Narrative Exam Narrative: NAD, drowsy, alert and oriented. Slow and fluent speech. Lungs are clear, normal rate and effort. Heart is regular, no murmur gallop or rub. Abdomen is soft, non distended. Extremities are free of edema. Objective Labs 05/15/24 08:20 05/15/24 08:20 [facility] Medical History Chronic pain syndrome (Unknown) Osteoarthritis (Unknown) Asthma (Unknown) Schizophrenia (Unknown) Depression (Unknown) Bipolar disorder (Unknown) Anxiety (Unknown) Restless leg syndrome (Unknown) ADHD (attention deficit hyperactivity disorder) (Unknown) Shoulder pain (Unknown) Foot pain (Unknown) Fractures (Unknown) Chronic back pain (Unknown) Chickenpox (Unknown) Vertigo (Unknown) Hearing loss (Unknown) Fibroids (2004) Hypothyroidism (1985) Diabetes insipidus (Unknown) Type 2 diabetes mellitus (2005) Uncomplicated opioid dependence (12/11/16) Chronic low back pain (05/02/15) Surgical History Status post tubal ligation Status post laparoscopic cholecystectomy Family History Father Brain tumor Mother Cancer Brother Car occupant injured in traffic accident Sister Brain tumor Grandfather Cancer Grandmother Heart failure Social History household members: significant other Smoking Status: Current every day smoker Assessment & Plan Assessment & Plan narrative: 1. Opiate overdose, present on admission and resolved. - tested negative for opiates and psitive methamphetamine, likely used fentanyl earlier today. Urine level pending - counseling, monitored -she denies recent use of opiates today. 2. Elevated Troponin, present on admission and improved. - likely from CPR although with multiple risk factors for CAD 3. Alcohol withdrawal, present on admission and active. 4. Sternal and rib fractures, present on admission and improved. - from unnecessary CPR at home - pain management, incentive spirometry - PT and OT referrals. Assess mobility and safety of gait. 5. DM 2, present on admission and improved. - Lantus, SS, metformin, CCD - A1C pending 6. Bipolar Disorder, present on admission and improved. - Zyprexa, Seroquel, Zoloft, clonazepam 7. Hypothyroidism, present on admission and improved. - levothyroxine, - TSH pending 8. Hypomagnesemia, present on admission and active. PLAN: -add Librium 10 t.i.d. today, continue CIWA protocol. -continue pain medications, primarily oral. She was much improved, anticipate probable discharge in 1 day to the care of her . JUNIOR: 05/16 if pain control adequate. Time-Based Coding :: [TOTAL MINUTES] spent with patient and on the chart (including review of chart, obtaining history, exam, reviewing outside data, placing orders, documenting exam and treatment plan, and counseling patient) on [DATE].
[2024-05-15 08:39] LABS: Hematocrit 34.7 % (36-46); Hemoglobin 11.7 g/dL (12.0-16.0); Mean Corpuscular HGB Conc 33.8 % (30-36); Mean Corpuscular Hemoglobin 33.4 PG (26-34); Mean Corpuscular Volume 98.8 fL (80-100); Platelet Count 129 X10^3/uL (150-400); Red Blood Cell Count 3.51 X10^6/uL (4.0-5.2); Red Cell Distribution Width 15.4 % (11.6-14.8); White Blood Cell Count 5.2 X10^3/uL (4.5-11.0)
[2024-05-15] MEDS: ASPIRIN EC 81 MG TABLET PO (08:42)
[2024-05-15] MEDS: clonazePAM 0.5 MG TABLET PO (08:42)
[2024-05-15] MEDS: ENOXAPARIN 40 MG/0.4 ML SYRINGE SUBCUT (08:42)
[2024-05-15] MEDS: SERTRALINE 50 MG TABLET 100 MG PO ×2 (08:43→21:29)
[2024-05-15] MEDS: OLANZapine ODT 10 MG TAB 20 MG PO (08:43)
[2024-05-15 08:46] LABS: BUN Creatinine Ratio 37.3 (6-22); Blood Urea Nitrogen 19 mg/dL (7-17); Calcium 9.4 mg/dL (8.4-10.2); Carbon Dioxide 21 mmol/L (22-32); Chloride 101 mmol/L (98-107); Estimated Glomerular Filt Rate > 60 mL/min (>60); Glucose 178 mg/dL (80-110); HEMOLYSIS 19 (0-50); Magnesium 1.1 mg/dL (1.6-2.3); Potassium 3.7 mmol/L (3.4-5.1); Sodium 131 mmol/L (137-145)
[2024-05-15] MEDS: INSULIN GLARGINE 100 UNIT/ML 3ML PEN 10 UNIT SUBCUT (08:49)
[2024-05-15] MEDS: INSULIN LISPRO 100 UNIT/ML 3ML VIAL SUBCUT ×4 (08:51→21:29)
--- NOTE | 2024-05-15 09:13 | OT.IP.EVAL ---
Current Diagnoses Hypothyroidism, unspecified (05/13/24) Type 2 diabetes mellitus without complications (05/13/24) Alcohol use, unspecified with intoxication, uncomplicated (05/13/24) Other psychoactive substance abuse, uncomplicated (05/13/24) Schizophrenia, unspecified (05/13/24) Bipolar disorder, unspecified (05/13/24) Chronic pain syndrome (05/13/24) Other specified abnormal findings of blood chemistry (05/13/24) Unspecified fracture of sternum, initial encounter for closed fracture (05/13/24) Poisoning by unspecified narcotics, accidental (unintentional), subsequent encounter (05/13/24) Past Medical History (Last Reviewed 05/13/24 @ 07:42 by Victor Hugo Lan MD) ADHD (attention deficit hyperactivity disorder) (Unknown) Anxiety (Unknown) Asthma (Unknown) Bipolar disorder (Unknown) Chickenpox (Unknown) Chronic back pain (Unknown) Chronic low back pain (05/02/15) Chronic pain syndrome (Unknown) Depression (Unknown) Diabetes insipidus (Unknown) Fibroids (2004) Foot pain (Unknown) Fractures (Unknown) Hearing loss (Unknown) Hypothyroidism (1985) Osteoarthritis (Unknown) Restless leg syndrome (Unknown) Schizophrenia (Unknown) Shoulder pain (Unknown) Type 2 diabetes mellitus (2005) Uncomplicated opioid dependence (12/11/16) Vertigo (Unknown) Surgical History (Last Reviewed 05/13/24 @ 07:42 by Victor Hugo Lan MD) Status post laparoscopic cholecystectomy Status post tubal ligation Occupational Therapy Inpatient Evaluation/Re-Eval M1 PT/OT-IP Prior Functional Status Start: 05/14/24 11:36 Freq: NEEDED Status: Active Protocol: Document 05/15/24 11:38 CGR (Rec: 05/15/24 11:51 CGR [id number]) Medical Review Prior Functional Status Medical History Reviewed Yes Communication Pt is an effective verbal communicator. Mobility and Gait Pt states she is IND in her mobility but has a wlker at home. Activities of Daily Living and IADL's Pt states she is IND in all ADLs but her daughter comes over to do her laundry for her . Social History Household Members significant other Living Arrangements House Number of Floors (Floors) 3 or More Floors Number of Stairs To Enter/Railing? 15 steps without rail to enter 2 steps down to the front room 2 steps up to the dining room 6 steps up to the bedroom and bathrooms 6 steps down to the other level. Home Environment Standard Height Toilet,Tub/ Shower Home Equipment Front Wheel Walker,Straight Cane,Shower Seat without Backrest,Hand Held Shower Employment Status Retired Additional Social History Comment Pt states that she has a adjustabel bed but it hasn't been set up so she is sleeping in a flat bed at home. M2 OT-IP Current Condition Start: 05/15/24 11:38 Freq: Status: Active Protocol: Document 05/15/24 11:38 CGR (Rec: 05/15/24 11:51 CGR [id number]) Occupational Therapy Current Condition Current Condition Evaluation Date 05/15/24 Treatment Diagnosis unresponsive s/p CPR, + methamphetamines, increased trops Diagnosis Onset Date 05/13/24 M3 OT- IP Subjective and Pain Start: 05/15/24 11:38 Freq: Status: Active Protocol: Document 05/15/24 11:38 CGR (Rec: 05/15/24 11:51 CGR [id number]) OT- Subjective Occupational Therapy Visit Type Type Initial Evaluation Visit Start Time 08:41 Visit Stop Time 09:13 Notes Per nursing, pt is pretty agreeable at this time. OT Pain Assessment Pain When Pain Assessed At Rest Pain Present Pain Present Pain Reported Location Chest Intensity 5 Scale Used Numeric (0 - 10) Management Techniques Distraction,Modification of Treatment,Re-positioning, Timing of Activity with Medications M4 OT- IP ADL's Start: 05/15/24 11:38 Freq: Status: Active Protocol: Document 05/15/24 11:38 CGR (Rec: 05/15/24 11:51 CGR [id number]) OT [id number] General Evaluation Self-Feeding Ability Independent Comments OT Self-Feeding Comments Pt left eating breakfast at end of session. OT ADL-Grooming General Evaluation Grooming Ability Standby Assistance Comments OT Grooming Comments washed hands at sink OT ADL-Oral Care Comments Oral Care Comments not performed, pt does not appear to have teeth. OT ADL-Dressing General Eval Lower Body Dressing Ability Independent Areas Needing Assistance Underpants/Brief,Socks Comments OT Dressing Comments seated EOB for socks, clean brief done seated on toilet OT ADL-Toileting General Evaluation Toileting Ability Standby Assistance Comments OT Toileting Comments urination seated on toilet OT ADL-Bathing Comments OT Bathing Comments not performed M5 OT- IP IADL's Start: 05/15/24 11:38 Freq: Status: Active Protocol: Document 05/15/24 11:38 CGR (Rec: 05/15/24 11:51 CGR [id number]) OT-Instrumental Activities of Daily Living Deficits IADL Deficits Identified Deficits Home Safety Awareness Awareness of Need for Assistance at Home Decreased Awareness Ability to Problem Solve Emergency Unable to Problem Solve Situations Medication Management Medication Management Comments Concerns for pt's abilty to perform Money Management Money Management Caregiver Provides Assistance Meal Preparation Meal Preparation Caregiver Provides Assist Hay Chopper Hay Chopper Caregiver Provides Assist Driving Driving Comments Pt does not drive M6 OT- IP Functional Cognition Start: 05/15/24 11:38 Freq: Status: Active Protocol: Document 05/15/24 11:38 CGR (Rec: 05/15/24 11:51 CGR [id number]) Cognitive Factors Limiting Selfcare Function Cognitive Ability Level of Alertness Alert Patient Orientation Name,Age,Birthday,Month,Year, Place,Situation Attention Span Ability Capable of Focused Attention, Capable of Sustained Attention Ability to Follow Commands Able to Follow One Step Commands OT- Vision and Hearing OT- Hearing Assessment OT- Hearing Assessment WFL OT- Vision Assessment Visual Acuity Glasses All The Time Visual Attentiveness WFL Occular Pursuits WFL Visual Convergence WFL Vision Assessment Comments Pt states she does not have glasses at hospital M7 OT- IP Mobility and Balance Start: 05/15/24 11:38 Freq: Status: Active Protocol: Document 05/15/24 11:38 CGR (Rec: 05/15/24 11:51 CGR [id number]) OT- Bed Mobility Assessment Scooting Scooting to Edge of Bed Independent OT-Transfer Assessment Sit to and From Stand Sit to and from Stand Contact Guard Assistance Transfers Transfer Ability Contact Guard Assistance Technique Transfer Destination Bed,Chair,Toilet Transfer Technique Stand Step Pivot Devices Transfer Assistive Devices Gait Belt,Front Wheeled Walker Comments Mobility Comments Pt sitting up in bed when OT entered. Bed to toielt to sink to chair. OT- Balance Assessment Sitting Balance and Reactions Static Sitting Balance Ability Normal Dynamic Sitting Balance Ability Normal M8 OT- IP Objective Assessments Start: 05/15/24 11:38 Freq: Status: Active Protocol: Document 05/15/24 11:38 CGR (Rec: 05/15/24 11:51 CGR [id number]) OT Gross Range of Motion Upper Extremity Range of Motion Assessment Within Functional Limits OT Strength Upper Extremity Strength Assessment Bilaterally Impaired Comments Strength Comments 3+/5 OT- Coordination Assessment Upper Extremity Finger to Nose Test Within Functional Limits Finger Tapping Test Within Functional Limits OT-Muscle Tone Assessment Muscle Tone WNL Yes OT Sensation Assessment Edema Edema Absent M9 OT- IP Assessment and Plan Start: 05/15/24 11:38 Freq: Status: Active Protocol: Document 05/15/24 11:38 CGR (Rec: 05/15/24 11:51 CGR [id number]) OT Summary Assessment and Plan Potential Rehabilitation Potential Good Analytic Complexity at Evaluation Moderate Summary OT Impairments Pain,Strength,Balance, Coordination,Functional Cognition,Functional Mobility, Grooming,Dressing,Toileting, Bathing,Toilet Transfers, Shower Transfers,Activity Tolerance Progress Towards Goals Progressing Toward Goals Assessment Summary Pt presents as a moderate complexity evaluation s/p admit for being found unresponsive. Pt currently needing CGA for mobility and SBA for ADLS but with poor safety. Pt is likely close to her baseline but may benefit from a few more sessions with OT. Goals Grooming Goal Independent Dressing Goal Independent Toileting Goal Independent Bathing Goal Independent Toilet Transfer Goal Independent Shower Transfer Goal Independent Days to Meet Goals 10 Frequency of Treatment Other frequency 5x a week Treatment Plan OT Treatment Plan ADL Training,Functional Cognition Training,Functional Mobility,Patient/Family Education,Discharge Planning Other Treatment Recommendations and Next Shower Treatment Focus Discharge Recommendations OT Discharge Recommendations Home with Assistance Transportation Needs at Discharge Private Vehicle
[2024-05-15] MEDS: chlordiazePOXIDE 10 MG CAPSULE PO ×3 (12:43→21:29)
[2024-05-15] MEDS: MAGNESIUM CHLORIDE 64 MG TABLET 128 MG PO ×2 (12:44→20:29)
--- NOTE | 2024-05-15 13:13 | CM.DPC ---
DCP STEVEN Cont: Per MD, pt remains on withdrawal and pain meds and to work with therapies today and not yet stable for discharge home today but anticipate possible d/c tomorrow Tues. Per OT, pt needing SBA to CGA with mobility but likely close to baseline and recommending home with assist and pt with poor safety awareness. SW met bedside with pt and Sig Other Darci and explained role but pt recently given sedating medications and sleeping at the end of the bed for comfort and not able to participate in conversation at this time. Darci confirms that they were for 25 years and for a few years and then have been back together for many years. Darci states that he and pt have a hx of ETOH use but mostly social until about 3 years ago when pt's ETOH use significantly increased. Darci is not aware of pt having any hx of STEVEN treatment in the past but he and other family members have been encouraging pt to seek treatment and pt had stated at admission that she feels this is a turning point and interested in sobriety and tx. Darci aware of pt's auditory hallucinations/schizophrenia and bipolar and mental health and confirms that pt has long hx of paranoia and feeling the need to track Darci when he leaves the house through his cell phone. Darci aware that pt has been using meth but he and pt have not talked very extensively or directly about this as pt tends to hide it from me and he is not sure her source for the meth (unclear if Darci is aware of pt's other UDS+ drugs). Darci works for [employer] and had the past 6 weeks off due to the strike but just started back to working nights yesterday and has to commute to [employer] for work. SO very supportive of pt getting STEVEN or MH tx but pt does not drive and Darci gets her to her appointments. Provided the list of STEVEN resources locally to Darci to review with pt once she wakes up more. Darci confirms that pt should be using cane or walker at home but she doesn't and he also provides CGA assist for entering and exiting the house as it's a split level with a fair amount of stairs. This could be a barrier to pt doing tx in person outside of the home unless other family members can assist with mobility and transport to appointments. ADRIAN discussed other option of Telehealth as well. Dtr comes over about once a week to assist with some chores. Roopa is homeless and uses Fentanyl and sometimes comes over to their house. Plan: SW to follow closely for pt to become more medically appropriate to stay awake and participate in discharge planning and discussion to determine any community resources she might be agreeable to participating in. Darci will arrive bedside in the AM around [address] back from his job with [employer] and will provide transport home if pt medically stable to d/c. ZACHARY Matias
--- NOTE | 2024-05-15 14:07 | PT.IPTN ---
Current Diagnoses Hypothyroidism, unspecified (05/13/24) Type 2 diabetes mellitus without complications (05/13/24) Alcohol use, unspecified with intoxication, uncomplicated (05/13/24) Other psychoactive substance abuse, uncomplicated (05/13/24) Schizophrenia, unspecified (05/13/24) Bipolar disorder, unspecified (05/13/24) Chronic pain syndrome (05/13/24) Other specified abnormal findings of blood chemistry (05/13/24) Unspecified fracture of sternum, initial encounter for closed fracture (05/13/24) Poisoning by unspecified narcotics, accidental (unintentional), subsequent encounter (05/13/24) Physical Therapy Treatment Note M2 PT-IP Current Condition Start: 05/14/24 11:36 Freq: NEEDED Status: Active Protocol: Document 05/14/24 11:36 MB (Rec: 05/14/24 12:32 MB [id number]) Physical Therapy Current Condition Current Condition Evaluation Date 05/14/24 Treatment Diagnosis Unresponsive, CPR performed, sternal and rib fractures M3 PT-IP Subjective Start: 05/14/24 11:36 Freq: NEEDED Status: Active Protocol: Document 05/15/24 13:47 MB (Rec: 05/15/24 14:06 MB [id number]) Subjective Physical Therapy Visit Type Type Treatment Note Visit Start Time 13:47 Visit Stop Time 14:02 Number of HAM MARKER Visits 0 Physical Therapy Visit Comments Patient Comments Pt is hypoverbal and con't with high pain with all mobility, especially when moving flat. Therapy Pain Assessment Pain When Pain Assessed During Mobility Pain Present Pain Present Pain Reported Location Chest Intensity 10 Scale Used Kern-Jean Baptiste (Faces) M4 PT-IP Mobility and Gait Start: 05/14/24 11:36 Freq: NEEDED Status: Active Protocol: Document 05/15/24 13:47 MB (Rec: 05/15/24 14:06 MB [id number]) PT-Bed Mobility Assessment Supine to Sit Supine to Sit Contact Guard Assistance,1 Person Assistance,Head of Bed Elevated,Bedrails Sit to Supine Sit to Supine Moderate Assistance Scooting Scooting to Edge of Bed Contact Guard Assistance PT-Transfer Assessment Sit to and From Stand Sit to and from Stand Contact Guard Assistance,1 Person Assistance,Use of Upper Extremities Equipment Transfer Assistive Device Front Wheeled Walker Orthotic/Prosthetic Devices or Brace: No Transfers Transfer Destination Bed Transfer Technique Side stepping Transfer Ability Level of Assist Minimal Assistance,1 Person Assistance,Use of Upper Extremities Comments Mobility Comments Increased time and encouragement for mobility d/t high pain, side stepping right up to HOB about 3' Gait Assessment Gait Gait Assistance Required: Minimum Assistance,1 Person Assist Distance (Feet) 3 Assistive Devices Assistive Device Front Wheeled Walker Orthotic/Prosthetic Devices or Brace: No Gait Deviations General Gait Pattern Antalgic,Flexed Trunk,Step-to Gait,Wide Based Gait Factors Limiting Gait Function Factors Limiting Gait Function Decreased Activity Tolerance, Decreased Strength,Difficulty Following Directions, Incoordination,Pain,Poor Balance,Poor Safety Awareness PT-Balance Assessment Sitting Balance and Reactions Static Sitting Balance Ability Fair Dynamic Sitting Balance Ability Fair Standing Balance and Reactions Static Standing Balance Ability Fair Dynamic Standing Balance Ability Fair Device Used RW M5 PT-IP Objective Assessments Start: 05/14/24 11:36 Freq: NEEDED Status: Active Protocol: Document 05/14/24 11:36 MB (Rec: 05/14/24 12:32 MB [id number]) Orientation Orientation/Cognition Level of Alertness Confusional State Orientation Name,Birthday Comments Pt has no teeth, presents with confusion and does not answer many questions and speech is difficult to understand Gross Range of Motion Upper Extremity ROM Impairments Cannot tolerate ROM or MMT UEs or LEs today d/t pain Coordination Assessment Gross Coordination Gross Coordination Impaired Sensation Assessment Comments Sensation Comments Does not follow directions M6 PT-IP Treatment Start: 05/14/24 11:36 Freq: NEEDED Status: Active Protocol: Document 05/15/24 13:47 MB (Rec: 05/15/24 14:06 MB [id number]) Physical Therapy Treatment Education Education Provided Safety M7 PT-IP Assessment and Plan Start: 05/14/24 11:36 Freq: NEEDED Status: Active Protocol: Document 05/15/24 13:47 MB (Rec: 05/15/24 14:06 MB [id number]) PT Summary Assessment and Plan Potential Rehabilitation Potential Fair Status of Condition at Evaluation Evolving Summary Impairments Pain,ROM,Strength,Balance, Coordination,Cognition,Bed Mobility,Transfers,Gait, Activity Tolerance Progress Towards Goals Slow Progress due to Pain,Slow Progress due to Activity Tolerance Assessment Summary Pt con't with high pain with mobility and is willing to get up with PT and DATA LIBRARIAN to move from foot of bed to HOB. DATA LIBRARIAN assist with changing brief and hygiene. Pt only tolerates minimally stepping up to HOB today. Goals Bed Mobility Goal Standby Assistance Transfer Goal Standby Assistance,Front Wheeled Walker Gait Goal Standby Assistance,Front Wheel Walker Gait Distance 100 Other Goals If pt has steps, she will perform stair training with LRAD or rail and no more than CGA to allow safe home entry. Days to Meet Goals 10 Frequency of Treatment Frequency Of Treatment Once a Day Treatment Plan Physical Therapy Treatment Plan Bed Mobility Training,Transfer Training,Gait Training, Therapeutic Exercise,Balance Retraining,Discharge Planning, Hot or Cold Pack,Neuromuscular Re-ed,Coordination Retraining ,Manual Therapy Precautions Other Precautions Displaced sternal fracture, rib fractures Recommendations To Nursing Amount of Assist Needed 1 Person Assist Discharge Recommendations PT Discharge Recommendations Home with 25/01 Assist Available,Home Health,SNF Rehab Equipment Needed for Home Before Pt may need RW if d/c home Discharge Transportation Needs at Discharge Wheelchair/Cabulance
[2024-05-15] MEDS: QUETIAPINE 100 MG TABLET 300 MG PO (21:29)
[2024-05-15] MEDS: ATORVASTATIN 20 MG TABLET PO (21:29)
[2024-05-16] VITALS: BP 100/57; PULSE 114; RESP 20; TEMP 36.2; O2SAT 95
[2024-05-16] MEDS: NICOTINE 21 MG PATCH TOP (01:12)
[2024-05-16] MEDS: HYDROCODONE/ACET 5/325 TABLET 2 TAB PO (01:15)
[2024-05-16 03:53] VITALS: BP 121/76; PULSE 103; RESP 18; TEMP 36.2; O2SAT 97
[2024-05-16] MEDS: SERTRALINE 50 MG TABLET 100 MG PO (05:08)
[2024-05-16] MEDS: OLANZapine ODT 10 MG TAB 20 MG PO (05:08)
[2024-05-16] MEDS: LEVOTHYROXINE 100 MCG TABLET 200 MCG PO (06:13)
--- NOTE | 2024-05-16 07:03 | P.DS_ITS ---
History of Present Illness History of Present Illness Chief complaint: Unresponsive/Not Breathing - Now AxO Narrative: From night doctor: 68 y/o with PMH of drug abuse, alcoholism, bipolar disorder, BRIGITTE, DM, HLD, hypothyroidism, became unresponsive at home and had doing chest compressions until the arrival of EMS. She had a pulse on their arrival and woke up immediately after administered Narcan. On arrival to ED she complained on muskuloskeletal chest pain and Xray showed sternal / rib fractures from CPR and uptrending troponin. EKG looked same as previous ones - RBBB w/o acute ischemic changes. Considering existing risk factors, placed in observation on telemetry for additional work up -cycling troponins / echocardiogram. S: She was doing well except for sternal pain. She was not confused. No nausea. She also denies any abdominal pain. Her feet are tingling. Discharge Providers Provider Date of admission: 05/13/24 00:47 Discharge Date: 05/16/24 Primary care physician: Adelso Baron MD Consults: 05/13/24 02:14 Consult to Speech Therapy Evaluate & Treat Comment: Physician Instructions: Evaluate and treat 05/14/24 09:28 Consult to Physical Therapy Evaluate & Treat Comment: Physician Instructions: Evaluate and Treat 05/14/24 09:29 Consult to Occupational Therapy Evaluate & Treat Comment: Physician Instructions: Evaluate and treat Discharge provider: Victor Hugo Lan MD Summary Hospital Course Discharge Diagnosis: 1. Opiate overdose, present on admission and resolved. - tested negative for opiates and psitive methamphetamine, likely used fentanyl earlier today. Urine level pending -she denies recent use of opiates today. 2. Elevated troponin, present on admission and improved. - likely from CPR. 3. Alcohol withdrawal, present on admission and improved. 4. Sternal and rib fractures, present on admission and improved. 5. DM 2, present on admission and improved. 6. Bipolar Disorder, present on admission and improved. - Zyprexa, Seroquel, Zoloft, clonazepam 7. Hypothyroidism, present on admission and improved. 8. Hypomagnesemia, present on admission and active. Hospital Course: She was admitted with a presumed overdose related to alcohol and possibly fentanyl. Her opiate screen was negative but this does not include fentanyl I believe. She did improve with Narcan and subsequently was found to have sternal and rib fractures. She was observed for evidence of withdrawal and treated with Librium as well as pain medications for her fracture associated pain. She was initially quite somnolent but normalized over the next 2 days. I met with her on the afternoon of May 15 and felt that she would be stable for discharge with the if she had ongoing improvement and reasonable pain control. We met together on the morning of the and he felt comfortable taking her home. She was eager to return home he will be on Librium t.i.d. as needed for several days and pain medications. Status at Discharge Cognitive/behavioral status at discharge: oriented Functional status at discharge: independent ambulation Overall status at discharge: patient is progressing back to baseline Time Spent with Patient Time spent: Greater than 30 minutes Exam Vital Signs (past 8 hours): - 05/16/24 00:00 05/16/24 03:53 Temperature 97.2 F L 97.1 F L Pulse Rate 114 H 103 H Respiratory Rate 20 18 Blood Pressure 100/57 L 121/76 Pulse Oximetry 95 97 Oxygen Flow Rate 0 0 Fraction of Inspired Oxygen 21 SaO2/FiO2 Ratio 438 Oxygen Delivery Method Room Air Oxygen Flow Rate 0 Narrative Exam Narrative: NAD, alert and oriented. Fluent speech. Lungs are clear, normal rate and effort. Heart is regular, no murmur gallop or rub. Abdomen is soft, non distended. Extremities are free of edema. Objective ECG Impression: Impression: Rate: 104 P: 42 [place]: 158 QRS: 65 QRSD: 132 T: 9 QT: 416 QTc: 547 Interpretive Statements Sinus tachycardia Right bundle branch block Imaging Multiple studies:: Radiologist's impression: CT scan - chest: Radiologist's impression: Multiple rib fractures of different ages, with subacute to chronic components particularly on the right. Acute components are seen anteriorly at multiple levels bilaterally along with a nondisplaced sternal fracture, compatible with reported chest compressions. No pneumothorax or hemothorax. Mild lower lung opacities and atelectasis. Consider future imaging surveillance to assess for resolution. Other findings above. Labs 05/15/24 08:20 05/15/24 08:20 Labs: Laboratory Results - last 24 hr 05/15/24 05/16/24 08:20 04:25 WBC 5.2 RBC 3.51 L Hgb 11.7 L Hct 34.7 L MCV 98.8 MCH 33.4 MCHC 33.8 RDW 15.4 H Plt Count 129 L Sodium 131 L Potassium 3.7 Chloride 101 Carbon Dioxide 21 L BUN 19 H Creatinine 0.51 L Estimated GFR > 60 BUN/Creatinine Ratio 37.3 H Glucose 178 H Calcium 9.4 Magnesium 1.1 L 1.0 L [facility] Medical History Chronic pain syndrome (Unknown) Osteoarthritis (Unknown) Asthma (Unknown) Schizophrenia (Unknown) Depression (Unknown) Bipolar disorder (Unknown) Anxiety (Unknown) Restless leg syndrome (Unknown) ADHD (attention deficit hyperactivity disorder) (Unknown) Shoulder pain (Unknown) Foot pain (Unknown) Fractures (Unknown) Chronic back pain (Unknown) Chickenpox (Unknown) Vertigo (Unknown) Hearing loss (Unknown) Fibroids (2004) Hypothyroidism (1985) Diabetes insipidus (Unknown) Type 2 diabetes mellitus (2005) Uncomplicated opioid dependence (12/11/16) Chronic low back pain (05/02/15) Surgical History Status post tubal ligation Status post laparoscopic cholecystectomy Family History Father Brain tumor Mother Cancer Brother Car occupant injured in traffic accident Sister Brain tumor Grandfather Cancer Grandmother Heart failure Social History household members: significant other Smoking Status: Current every day smoker Discharge Assessment & Plan Assessment and Plan Assessment: 1. Opiate overdose, present on admission and resolved. - tested negative for opiates and psitive methamphetamine, likely used fentanyl earlier today. Urine level pending -she denies recent use of opiates today. 2. Elevated troponin, present on admission and improved. - likely from CPR. 3. Alcohol withdrawal, present on admission and improved. 4. Sternal and rib fractures, present on admission and improved. 5. DM 2, present on admission and improved. 6. Bipolar Disorder, present on admission and improved. - Zyprexa, Seroquel, Zoloft, clonazepam 7. Hypothyroidism, present on admission and improved. 8. Hypomagnesemia, present on admission and active. Plan of Treatment: Discharge home with close follow up. Vicodin as needed pain and Librium 10 t.i.d. as needed anxiety or agitation. Discharge Plan Discharge Plan Patient Disposition: Home Provider Discharge Comment: Stable for discharge home with limited pain medications and close follow up. Discharge orders & Medications Prescriptions: New hydrocodone-acetaminophen 5-325 mg Tablet 1 tab PO Q4H PRN (Reason: Pain, Moderate (4-6)) Qty: 15 0RF chlordiazepoxide HCl 10 mg capsule 10 mg PO Q8H PRN (Reason: anxiety) Qty: 15 0RF magnesium chloride [Mag 64] 64 mg tablet,delayed release (DR/EC) 64 mg PO DAILY Qty: 30 0RF Continued olanzapine 20 mg tablet,disintegrating 20 mg PO DAILY Qty: 30 11RF [true metrix meter] 1 kit QDAY Qty: 1 0RF albuterol sulfate [Ventolin HFA] 90 mcg/actuation HFA aerosol inhaler 1 puff INHALATION Q4HP PRN (Reason: shortness of breath or wheezing) Qty: 1 11RF insulin glargine [Lantus Solostar U-100 Insulin] 100 unit/mL (3 mL) insulin pen 10 unit SUBCUT QDAY Qty: 5 0RF sertraline 100 mg tablet 100 mg PO BID Qty: 60 2RF quetiapine [Seroquel] 300 mg tablet 300 mg PO BEDTIME Rx Instructions: Patient needs to est. care with a PCP. 01/23/19 Last fill by Brook Doe Patient states that she only takes 150mg of this but order is for 300mg levothyroxine [Synthroid] 200 mcg tablet 200 mcg PO DAILY atorvastatin 20 mg tablet 20 mg PO QPM Patient Comments: take 1 tablet by mouth every evening Discontinued hydrocodone-acetaminophen [[place]] 10-325 mg tablet 1 tab PO Q4H PRN (Reason: pain) Qty: 120 0RF Patient Comments: Patient states that she has not had this but is suppose to, she has not seen her doctor. Rx Instructions: EXEMPT Follow up/Referrals: Adelso Baron MD [Primary Care Provider] - Discharge Health Status Multidrug resistant organism: No MDRO Diet/Activity/Treatments Diet: Regular Visit Report/Discharge Packet Instructions: DI for Rib Fracture, DI for Sternum Fracture, DI for Prescription Opioid Use, Chlordiazepoxide Stand Alone Forms: Patient Portal/API Discharge Data Primary Care Provider: Adelso Baron
--- NOTE | 2024-05-16 07:45 | PC.NURSE ---
Addendum entered by Kevan Acevedo R.N. 05/16/24 08:23: Patient agreed to wait for magnesium supplement, and magnesium supplement added in addition to prescriptions to [facility] per Dr. Lan. Patient declines breakfast, eager to leave. Discharge instructions reviewed with patient and her , included [facility] department standing order for Narcan and explained use to patient and her . Patient escorted out via wheelchair with all her belongings by SLIDE FASTENER CHAIN ASSEMBLER to ne home. Original Note: Report from crossing guard received, and discharge order is in place by Dr. Lan. Patient is dressed and sitting up next to her , she declines staying for breakfast or morning medications. IV removed by SLIDE FASTENER CHAIN ASSEMBLER.
[2024-05-16] MEDS: MAGNESIUM CHLORIDE 64 MG TABLET 128 MG PO (08:15)
== END 2024-05-16 08:26 | disposition home or self-care (01) | DRG 918 ==
LOC: ED 22:42 → AC 05-13 00:47
PROVIDERS: Hospitalist; Internal Medicine; Admitting Provider Internal Medicine; Emergency Provider Student in an Organized Health Care Education/Training Program; PCP Family Medicine; Referring Provider Student in an Organized Health Care Education/Training Program; Visit Provider Internal Medicine
DX: T40.411A Poisoning by fentanyl or fentanyl analogs, accidental (unintentional), initial encounter (principal); M96.A1 Fracture of sternum associated with chest compression and cardiopulmonary resuscitation; M96.A3 Multiple fractures of ribs associated with chest compression and cardiopulmonary resuscitation; F10.139 Alcohol abuse with withdrawal, unspecified; F10.129 Alcohol abuse with intoxication, unspecified; R79.89 Other specified abnormal findings of blood chemistry; F20.9 Schizophrenia, unspecified; F31.9 Bipolar disorder, unspecified; G89.4 Chronic pain syndrome; E11.9 Type 2 diabetes mellitus without complications; E03.9 Hypothyroidism, unspecified; E83.42 Hypomagnesemia; F17.200 Nicotine dependence, unspecified, uncomplicated; J45.909 Unspecified asthma, uncomplicated; Y90.8 Blood alcohol level of 240 mg/100 ml or more; Z79.4 Long term (current) use of insulin
CPT/HCPCS: 36415; 71045; 71250; 80048; 80053; 80061; 80305; 80320; 80329; 80354; 82550; 82962; 83036; 83690; 83735; 83880; 84443; 84484; 85025; 85027; 85610; 85730; 93005; 93010; 93306; 94762; 96365; 96367; 96375; 97161; 97166; 97530; 97535; 99285; G0480; J0134; J1650; J1815; J2060; J3475

== ENCOUNTER 2025-04-06 22:51 | Inpatient (IN) | payer MEDICARE, MEDICAID, SELFPAY ==
[2024-05-13 01:09] VITALS: BMI 25.2
[2025-04-06 23:15] VITALS: BP 103/73; PULSE 103; RESP 22; TEMP 37.2; O2SAT 97; BMI 26.4
[2025-04-06] MEDS: ONDANSETRON 4 MG/2 ML INJ IV (23:34)
[2025-04-06 23:43] LABS: Add Manual Diff / Slide Review NO; Hematocrit 32.1 % (36-46); Hemoglobin 11.4 g/dL (12.0-16.0); Lymphocytes Absolute Auto 3100 /uL (1100-4500); Mean Corpuscular HGB Conc 35.5 % (30-36); Mean Corpuscular Hemoglobin 36.8 PG (26-34); Mean Corpuscular Volume 103.5 fL (80-100); Platelet Count 246 X10^3/uL (150-400)
[2025-04-06 23:49] LABS: INR 2.3 (0.9-1.3); Prothrombin Time 25.4 SECONDS (9.4-12.5)
[2025-04-06 23:52] LABS: Alanine Aminotransferase 102 IU/L (<35); Albumin 3.2 g/dL (3.5-5.0); Albumin Globulin Ratio 1.1 (1.0-2.8); Alkaline Phosphatase 462 U/L (38-126); Blood Urea Nitrogen 3 mg/dL (7-17); Calcium 6.7 mg/dL (8.4-10.2); Carbon Dioxide 18 mmol/L (22-32); Chloride 92 mmol/L (98-107); Estimated Glomerular Filt Rate > 60 mL/min (>60); Globulin 3.0 g/dL (1.7-4.1); Glucose 202 mg/dL (70-99); HEMOLYSIS < 15 (0-50); Lipase 25 U/L (23-300); Potassium 3.0 mmol/L (3.4-5.1); Sodium 125 mmol/L (137-145); Total Protein 6.2 g/dL (6.3-8.2)
[2025-04-07] VITALS (21 sets, daily range): BP systolic 99–146; BP diastolic 52–92; PULSE 86–115; RESP 15–57; TEMP 35.5–36.4; O2SAT 91–97; BMI 26.4
--- NOTE | 2025-04-07 | DI.RAD.S_ITS ---
PROCEDURE: XR GASTROGRAFIN CHALLENGE COMPARISON: [facility], CT, CT ABDOMEN PELVIS W CON, 04/07/2025, 0:49. INDICATIONS: obstipation FINDINGS: Enteric contrast is seen within the colon . Mildly prominent loops of large bowel measuring up to 7 cm. Osseous structures are unremarkable. Visualized lungs are clear IMPRESSION: Progression of contrast through to the colon. Air-filled loops of large bowel measuring up to 7 cm suggestive of ileus. Dictated by: Ramez Boo M.D. on 04/07/2025 at 15:12 Approved by: Ramez Boo M.D. on 04/07/2025 at 15:16
--- NOTE | 2025-04-07 00:39 | DI.CT.S_ITS ---
PROCEDURE: CT ABDOMEN PELVIS W CON INDICATIONS: Distended abdomen/abdominal pain TECHNIQUE: After the administration of intravenous contrast, axial sections acquired from the lung bases to the pubic symphysis. Coronal and sagittal reformats were performed. For radiation dose reduction, the following was used: automated exposure control, adjustment of mA and/or kV according to patient size. COMPARISON: [facility], CT, CT ABDOMEN PELVIS W CON, 04/17/2021, 19:18. [facility], CT, CT ABDOMEN PELVIS W CON, 08/04/2023, 5:39. FINDINGS: Image quality: Diagnostic. Lower Chest: No significant findings. Prior right-sided rib fractures. ABDOMEN: Liver: Hepatic steatosis. Area of increased density in the right liver, (3/64), unchanged. Possibly a hemangioma. Rim of increased density surrounding the right liver. Gallbladder: Absent. Biliary ducts: No biliary dilation. Pancreas: Atrophic. Spleen: Size is within normal limits. Calcified granuloma. Adrenal Glands: No adrenal nodules. Kidneys and Ureters: No hydronephrosis. No solid mass. No complex renal cystic lesion which requires follow up. Stomach and Bowel: Stomach is not distended. The duodenum is fluid-filled with mural enhancement and surrounding edema. There is also mural enhancement at the proximal small bowel. No small bowel obstruction. A few colonic diverticuli. No diverticulitis. The appendix is not seen. Peritoneum: Mesenteric edema. No ascites. No pneumoperitoneum. Ventral Wall: No significant ventral hernia. Subcutaneous edema. Abdominal Nodes: No retroperitoneal or mesenteric adenopathy by size criteria. Vessels: Aorta and inferior vena cava are normal in size. Mesenteric arteries are patent. Portal vein is patent. PELVIS: Pelvic Organs: Anteverted uterus. Suspected uterine fibroid. Unchanged appearance. Presacral edema. Bladder: No bladder wall thickening, accounting for underdistention. Pelvic Nodes: No enlarged lymph nodes. Miscellaneous: No inguinal hernias are seen. Bones: No aggressive osseous abnormality. L2 compression fracture, unchanged. IMPRESSION: 1. Duodenitis and proximal small bowel enteritis. 2. No bowel obstruction. No pneumoperitoneum. 3. Marked hepatic steatosis. 4. Hypodense focus in the right liver, unchanged. Possibly a hemangioma. Dictated by: Tommy Pinto M.D. on 04/07/2025 at 2:07 Approved by: Tommy Pinto M.D. on 04/07/2025 at 2:18
[2025-04-07] MEDS: MORPHINE 4 MG/ML INJ IV (00:48)
--- NOTE | 2025-04-07 02:18 | ED_ITS ---
HPI - Abdominal Pain General Chief Complaint: Abdominal Pain Stated Complaint: N/V/D Time Seen by Provider: 04/07/25 00:07 Source: patient Mode of arrival: Wheelchair History of Present Illness HPI narrative: Patient is a 69-year-old female who presents today with abdominal pain. Past medical history significant for marijuana, opioids, methamphetamine use, insulin-dependent diabetes, alcohol abuse, bipolar. Patient states she has no prior history of abdominal surgery however EMR states she had tubal ligation as well as laparoscopic cholecystectomy. Patient states that she has had a 2 day history of progressive abdominal pain. She reports she has never had her abdomen be the still distended before. She reports multiple episodes of diarrhea that would transition to constipation and is unsure if she has had any melena or hematochezia. She in just 1 pt of hard liquor per day and denies any history of withdrawals or seizures. She denies any current use of opioids. Related Data Home Medications ?Medication ?Instructions ?Recorded ?Confirmed levothyroxine 200 mcg tablet 200 mcg PO DAILY 04/14/19 05/13/24 (Synthroid) quetiapine 300 mg tablet (Seroquel) 300 mg PO BEDTIME 04/14/19 05/13/24 atorvastatin 20 mg tablet 20 mg PO QPM 05/13/24 Previous Rx's ?Medication ?Instructions ?Recorded [true metrix meter] 1 kit QDAY ##1 06/12/16 albuterol sulfate 90 mcg/actuation 1 puff inhalation Q 4HP PRN 12/03/17 aerosol inhaler (Ventolin HFA) shortness of breath or wheezing #1 ea insulin glargine 100 unit/mL (3 10 unit (0.1 mL) SUBCU T QDAY ##5 12/03/17 mL) subcutaneous pen (Lantus Solostar U-100 Insulin) olanzapine 20 mg disintegrating 20 mg PO DAILY #30 tab s 02/24/18 tablet sertraline 100 mg tablet 100 mg PO BID #60 tabs 01/23 chlordiazepoxide HCl 10 mg capsule 10 mg PO Q8H PRN an xiety #15 caps 05/16/24 hydrocodone 5 mg-acetaminophen 325 1 tab PO Q4H PRN Pa in, Moderate 05/16/24 mg tablet (4-6) #15 tabs magnesium chloride 64 mg 64 mg PO DAILY #30 tabs 05/05 08/28 (magnesium chloride) tablet,delayed release (Mag 64) Allergies Allergy/AdvReac Type Severity Reaction Status Date / Time No Known Drug Allergies Allergy Unverified 02/24/18 10:38 Review of Systems Review of Systems Narrative: See HPI. Patient History Medical History (Updated 04/07/25 @ 05:16 by Soy Taylor MD) Chronic pain syndrome (Unknown) Osteoarthritis (Unknown) Asthma (Unknown) Schizophrenia (Unknown) Depression (Unknown) Bipolar disorder (Unknown) Anxiety (Unknown) Restless leg syndrome (Unknown) ADHD (attention deficit hyperactivity disorder) (Unknown) Shoulder pain (Unknown) Foot pain (Unknown) Fractures (Unknown) Chronic back pain (Unknown) Chickenpox (Unknown) Vertigo (Unknown) Hearing loss (Unknown) Fibroids (2004) Hypothyroidism (1985) Diabetes insipidus (Unknown) Type 2 diabetes mellitus (2005) Uncomplicated opioid dependence (12/11/16) Chronic low back pain (05/02/15) Surgical History Status post tubal ligation Status post laparoscopic cholecystectomy Family History Father Brain tumor Mother Cancer Brother Car occupant injured in traffic accident Sister Brain tumor Grandfather Cancer Grandmother Heart failure Social History household members: significant other Smoking Status: Current every day smoker Smoking Status: Current every day smoker alcohol intake frequency: 3 or more drinks per day Alcohol type: hard liquor Exam Initial Vital Signs Initial Vital Signs: Vital Signs Temperature 98.9 F 04/06/25 23:15 Pulse Rate 103 H 04/06/25 23:15 Respiratory Rate 22 04/06/25 23:15 Blood Pressure 103/73 04/06/25 23:15 Pulse Oximetry 97 04/06/25 23:15 Oxygen Delivery Method Room Air 04/06/25 23:15 Vital signs reviewed. Patient meets SIRS criteria however believe elevated vitals is secondary to pain and not sepsis. Const Other: Appears disheveled. HENMT Mouth: other (Patient is edentulous with dry mucous membranes.) Resp Other: Tachypneic cover no increased work of breathing, bilateral breath sounds. Cardio Other: Tachycardic with no murmurs rubs or gallops. GI Other: Distended, with no rebound, voluntary guarding, no rebound. Did not appreciate any laparoscopic incisions on patient's abdomen. Neuro Other: A&O x 4. Course Course Course Narrative: 0315: Called radiologist and spoke with Dr. Acosta who stated that patient's imaging is not consistent with mesenteric ischemia and that repeat imaging was not indicated. Dr. Acosta stated that she saw a small bowel obstruction and left lower quadrant. 0325: Discussed with Dr. Burns radiology read with small bowel obstruction in the left lower quadrant. 0346: Patient admitted to the hospital. 0444: Discussed with Dr. Burns and concern with patient's pain out of proportion to her abdominal pain, inability to control pain, LDH 360. 0514: Discussed patient [facility] as I do not believe she is opioid naive (previous UDS positive for fentanyl in 2023). 0715: Patient admitted to Dr. Pena, however remains in the ER. Transfer of care to Dr. Linda while patient is in ER. Orders Ordered: ED Orders 04/06/25 23:22 EKG-12 Lead Stat 04/06/25 23:30 Complete Blood Count AUTO DIFF Stat Comprehensive Metabolic Panel Stat Lipase Stat Prothrombin Time INR Stat 04/07/25 00:39 CT abdomen pelvis w con Stat 04/07/25 03:46 LDH [Lactate Dehydrogenase] Stat Albuterol (Albuterol 2.5 Mg/3 Ml Neb (Adult)) 2.5 mg INH [id number] PRN PRN Reason: Shortness Of Breath Bisacodyl (Bisacodyl 10 Mg Supp) 10 mg ND DAILY PRN PRN Reason: Constipation Hydromorphone HCl (Hydromorphone Hcl 0.5 Mg/0.5 Ml Syringe) 0.5 mg IV Q2H PRN PRN Reason: Pain, Severe (7-10) Last Admin: 04/07/25 07:31 Dose: 0.5 mg Documented By: EB Sodium Chloride (Normal Saline 0.9%) 1,000 mls @ 100 mls/hr IV CONT BRIGITTE Last Admin: 04/07/25 04:52 Dose: 100 mls/hr Documented By: ZIA POTASSIUM CHLORIDE IN WATER (Potassium Cl 10 Meq/100 Ml Aletha) 10 meq in 100 mls @ 100 mls/hr IV Q1H BRIGITTE Stop: 04/07/25 10:44 Last Admin: 04/07/25 07:09 Dose: 100 mls/hr Documented By: Infusion: 04/07/25 06:30 Dose: Infused Documented By: Infusion: 04/07/25 05:32 Dose: 50 mls/hr Documented By: Admin: 04/07/25 04:52 Dose: 100 mls/hr Documented By: ZIA Lactated Ringer's (Lactated Ringers) 1,000 mls @ 100 mls/hr IV CONT BRIGITTE Last Admin: 04/07/25 07:23 Dose: Not Given Documented By: SONJA Insulin Human Regular (Insulin Regular 100 Unit/Ml 3 Ml Vial) 0 unit SUBCUT Q6H BRIGITTE; Protocol Last Admin: 04/07/25 07:20 Dose: Not Given Documented By: SONJA Lorazepam (Lorazepam 2 Mg/Ml Inj) 0.5 mg IV Q2HR PRN PRN Reason: Anxiety Naloxone HCl (Naloxone 0.4 Mg/Ml Vial) 0.2 mg IV Q2MIN PRN PRN Reason: Opiate Reversal Ondansetron HCl (Ondansetron 4 Mg Odt) 4 mg PO NOW PRN PRN Reason: Nausea And Vomiting Last Admin: 04/07/25 07:31 Dose: 4 mg Documented By: SONJA Prochlorperazine (Prochlorperazine 10 Mg/2 Ml Vial) 5 mg IV Q6HR PRN PRN Reason: Nausea Discontinued Medications Hydrocodone Bitart/Acetaminophen (Hydrocodone/Acet 5/325 Tablet) 1 tab PO NOW ONE Stop: 04/07/25 03:34 Last Admin: 04/07/25 03:39 Dose: 1 tab Documented By: ZIA Albuterol (Albuterol Hfa Mdi 60 Puff/8 Gm Inhaler (Covid Only)) 1 puff INH RTQ6HR PRN PRN Reason: Shortness Of Breath Albuterol (Albuterol Hfa Prepack) 1 box MISC DIRECTED ONE Stop: 04/07/25 04:49 Last Admin: 04/07/25 06:59 Dose: Not Given Documented By: Albuterol (Albuterol Hfa Prepack) 1 box MISC DIRECTED ONE Stop: 04/07/25 04:51 Last Admin: 04/07/25 04:53 Dose: 1 box Documented By: ZIA Hydromorphone HCl (Hydromorphone Hcl 0.5 Mg/0.5 Ml Syringe) 0.5 mg IV NOW ONE Stop: 04/07/25 02:19 Last Admin: 04/07/25 02:25 Dose: 0.5 mg Documented By: ZIA Hydromorphone HCl (Hydromorphone Hcl 0.5 Mg/0.5 Ml Syringe) 0.5 mg IV NOW ONE Stop: 04/07/25 02:58 Last Admin: 04/07/25 03:02 Dose: 0.5 mg Documented By: ZIA Hydromorphone HCl (Hydromorphone Hcl 0.5 Mg/0.5 Ml Syringe) 0.5 mg IV NOW ONE Stop: 04/07/25 03:53 Last Admin: 04/07/25 03:57 Dose: 0.5 mg Documented By: ZIA Hydromorphone HCl (Hydromorphone Hcl 0.5 Mg/0.5 Ml Syringe) 0.5 mg IV NOW ONE Stop: 04/07/25 04:35 Last Admin: 04/07/25 04:53 Dose: 0.5 mg Documented By: ZIA Potassium Phosphate 9 mmol/ (Sodium Chloride) 253 mls @ 63.25 mls/hr IV NOW ONE Stop: 04/07/25 04:35 Last Admin: 04/07/25 07:20 Dose: Not Given Documented By: SONJA Lidocaine HCl (Lidocaine 2% (Glydo) 6 Ml Gel) 6 ml TOP NOW ONE Stop: 04/07/25 03:54 Last Admin: 04/07/25 03:58 Dose: 6 ml Documented By: ZIA Morphine Sulfate (Morphine 4 Mg/Ml Inj) 4 mg IV NOW ONE Stop: 04/07/25 00:44 Last Admin: 04/07/25 00:48 Dose: 4 mg Documented By: PEDRO Naloxone HCl (Naloxone 0.4 Mg/Ml Vial) 0.4 mg IV PRN PRN PRN Reason: Opiate Reversal Ondansetron HCl (Ondansetron 4 Mg/2 Ml Inj) 4 mg IV NOW PRN PRN Reason: Nausea And Vomiting Last Admin: 04/06/25 23:34 Dose: 4 mg Documented By: ZIA Ondansetron HCl (Ondansetron 4 Mg/2 Ml Inj) 4 mg IV Q4H PRN PRN Reason: Nausea And Vomiting Reevaluation(s) Reevaluation #1: Patient re-evaluated. Bedside point of care ultrasound did not reveal any pockets of fluid consistent with ascites. Given abdominal distention and pain, we will order CT abdomen and pelvis. Reevaluation #3: Patient re-evaluated. Vital Signs Vital signs: Vital Signs - 8 hr 04/07/25 00:25 04/07/25 00:30 04/07/25 00:30 Pulse Rate 103 H 100 H Respiratory Rate 41 H 25 H Blood Pressure 128/92 H Pulse Oximetry 97 97 04/07/25 01:00 04/07/25 01:30 04/07/25 02:00 Pulse Rate 100 H 92 H 92 H Respiratory Rate 57 H 23 Blood Pressure Pulse Oximetry 97 96 95 04/07/25 02:30 04/07/25 02:30 04/07/25 03:00 Pulse Rate 98 H 96 H Respiratory Rate 26 H 37 H Blood Pressure 146/84 H Pulse Oximetry 95 97 04/07/25 03:00 04/07/25 03:30 04/07/25 03:31 Pulse Rate 115 H Respiratory Rate Blood Pressure 114/84 103/77 Pulse Oximetry 96 04/07/25 03:31 04/07/25 04:00 04/07/25 04:01 Pulse Rate 112 H 109 H Respiratory Rate Blood Pressure 106/73 Pulse Oximetry 94 04/07/25 04:01 Pulse Rate 108 H Respiratory Rate 37 H Blood Pressure Pulse Oximetry MDM - Abdominal Pain Lab Data Lab results narrative: CBC without leukocytosis or left shift. Patient has mild anemia with a hemoglobin of 11.4. She has hyponatremia, hypokalemia. Kidney function was normal with normal creatinine and GFR. LFTs were elevated when compared to those obtained on 05/13/2024. Lactate dehydrogenase 360. PTT 25.4, INR 2.3, elevated from all previous labs and consistent with progressive liver disease. 04/06/25 23:30 04/06/25 23:30 Labs: Lab Results 04/06/25 Range/Units 23:30 WBC 8.3 (4.5-11.0) X10^3/uL RBC 3.10 L (4.0-5.2) X10^6/uL Hgb 11.4 L (12.0-16.0) g/dL Hct 32.1 L (36-46) % MCV 103.5 H (80-100) fL MCH 36.8 H (26-34) PG MCHC 35.5 (30-36) % RDW 16.7 H (11.6-14.8) % Plt Count 246 (150-400) X10^3/uL Neut % (Auto) 56.5 (50-75) % Lymph % (Auto) 37.5 (25-40) % Lyman % (Auto) 4.7 (3-14) % Eos % (Auto) 0.3 L (2-4) % Baso % (Auto) 1.0 (0-2) % Neut # (Auto) 4700 (8449-6964) /uL Lymph # (Auto) 3100 (9226-6350) /uL Lyman # (Auto) 400 (0-900) /uL Eos # (Auto) 0 (0-450) /uL Baso # (Auto) 100 (0-100) /uL PT 25.4 H (9.4-12.5) SECONDS INR 2.3 H (0.9-1.3) Sodium 125 L (137-145) mmol/L Potassium 3.0 L (3.4-5.1) mmol/L Chloride 92 L (98-107) mmol/L Carbon Dioxide 18 L (22-32) mmol/L BUN 3 L (7-17) mg/dL Creatinine 0.44 L (0.52-1.04) mg/dL Estimated GFR > 60 (>60) mL/min BUN/Creatinine Ratio 6.8 (6-22) Glucose 202 H (70-99) mg/dL Calcium 6.7 L (8.4-10.2) mg/dL Total Bilirubin 7.3 H (0.2-1.3) mg/dL AST 280 H (14-36) IU/L ALT 102 H (<35) IU/L Alkaline Phosphatase 462 H (38-126) U/L Lactate Dehydrogenase 360 H (120-246) U/L Total Protein 6.2 L (6.3-8.2) g/dL Albumin 3.2 L (3.5-5.0) g/dL Globulin 3.0 (1.7-4.1) g/dL Albumin/Globulin Ratio 1.1 (1.0-2.8) Lipase 25 (23-300) U/L Imaging Data CT scan - abdomen/pelvis: Radiologist's Impression: Stomach and Bowel: Stomach is not distended. The duodenum is fluid-filled with mural enhancement and surrounding edema. There is also mural enhancement at the proximal small bowel. No small bowel obstruction. A few colonic diverticuli. No diverticulitis. The appendix is not seen. Peritoneum: Mesenteric edema. No ascites. No pneumoperitoneum. Read by Tommy Pinto. Dr. Allyson Acosta stated pair is a transition point in the left lower quadrant consistent with small- bowel obstruction. Treatment and Disposition Social Determinants of Health that impact treatment or disposition: Education, medical literacy. [facility] Narrative Medical decision making narrative: Patient is a 69-year-old female who presents today with abdominal pain. Past medical history significant for marijuana, opioids, methamphetamine use, insulin-dependent diabetes, alcohol abuse, and bipolar. Differential diagnosis includes bowel obstruction, mesenteric ischemia, gastroenteritis, appendicitis, diverticulitis, liver cirrhosis, gastroparesis, constipation, other. In the ER, patient was mildly hypotensive (103/73), tachycardic (HR 103), tachypneic (RR 22), and afebrile. Although she met SIRS criteria for sepsis, patient did not clinically appear to be septic and her vitals were attributed to acute pain. Workup in the ER include a CBC that did not reveal any leukocytosis or left shift, hemoglobin 11.4 is at patient's baseline, PTT 25.4, INR 2.3, elevated from previous without lab values. The patient was hyponatremic (Na 125), potassium 3.0, her creatinine was 0.44 with an EGFR greater than 60. Her AST and ALT were 2:1 ratio, consistent with her alcohol use disorder. LDH 360. Lipase 25. CT abdomen and pelvis revealed duodenitis and proximal small bowel enteritis. I spoke with Dr. Allyson Acosta, radiologist, who informed me that patient had small-bowel obstruction with a transition point in her left lower quadrant. Given these findings, we attempted to place NG tube which patient did not tolerate. I consulted general surgery, Dr. Burns, who stated he will see the patient in the morning and in the interim patient was admitted to inpatient hospitalist service, Dr. Pena. On re-evaluation, patient continued to be writhing in pain after receiving multiple doses of p.o. and IV narcotics. On chart review, patient did have UDS positive for fentanyl. I consulted pharmacy to assist with adequately dosing a patient who is not opioid naive. Given persistent pain, pain out of proportion to exam, I called Dr. Amaro again with concerns that patient may have ischemia versus necrotic bowel. I was informed that general surgery will see the patient in the morning. Discharge Plan Departure Patient Disposition: Admitted As Inpatient Clinical Impression: Abdominal pain Qualifiers: Abdominal location: multiple sites Qualified Code(s): R10.85 - Abdominal pain of multiple sites Bowel obstruction Qualifiers: Intestinal obstruction type: unspecified Intestinal obstruction extent: u nspecified extent Qualified Code(s): K56.609 - Unspecified intestinal obstruction, unspecified as to partial versus complete obstruction Admit Date/Time: 04/07/25 04:28 Admit Provider: Soy Francis
[2025-04-07] MEDS: LIDOCAINE 2% (GLYDO) 6 ML GEL TOP (03:58)
--- NOTE | 2025-04-07 04:20 | PC.NURSE ---
Attempted NGT placement. Pt initially cooperative, but did not tolerate. Declines NGT placement despite education on benefits. Do aware
[2025-04-07] MEDS: POTASSIUM CHLORIDE IN WATER 10 MEQ/100 ML PIGGYBACK 100 MEQ IV ×2 (04:52→07:09)
[2025-04-07] MEDS: SODIUM CHLORIDE 0.9% 1,000 ML 100 ML IV (04:52)
[2025-04-07] MEDS: ALBUTEROL HFA PREPACK 1 BOX MISC (04:53)
--- NOTE | 2025-04-07 05:06 | PM.HP.1 ---
History of Present Illness History of Present Illness Date Patient Seen: 04/07/25 Chief complaint: N/V/D Narrative: 69 y/o with PMH of alcohol abuse, alcoholic liver cirrhosis, GERD, PUD, chronic pain syndrome, bipolar disorder, schizophrenia, without history of prior abdominal surgeries, presented with nausea, vomiting and abdominal pain. CT abdomen read as SBO with transition point. Discussed with surgeon, Dr Burns and admitted to medicine for NGT decompression but refused it's placement. [facility] Medical History (Updated 04/07/25 @ 05:16 by Soy Taylor MD) Chronic pain syndrome (Unknown) Osteoarthritis (Unknown) Asthma (Unknown) Schizophrenia (Unknown) Depression (Unknown) Bipolar disorder (Unknown) Anxiety (Unknown) Restless leg syndrome (Unknown) ADHD (attention deficit hyperactivity disorder) (Unknown) Shoulder pain (Unknown) Foot pain (Unknown) Fractures (Unknown) Chronic back pain (Unknown) Chickenpox (Unknown) Vertigo (Unknown) Hearing loss (Unknown) Fibroids (2004) Hypothyroidism (1985) Diabetes insipidus (Unknown) Type 2 diabetes mellitus (2005) Uncomplicated opioid dependence (12/11/16) Chronic low back pain (05/02/15) Surgical History Status post tubal ligation Status post laparoscopic cholecystectomy Family History Father Brain tumor Mother Cancer Brother Car occupant injured in traffic accident Sister Brain tumor Grandfather Cancer Grandmother Heart failure Social History household members: significant other Smoking Status: Current every day smoker Meds Home Medications and Allergies Home Medications ?Medication ?Instructions ?Recorded ?Confirmed ?Type [true metrix meter] 1 kit QDAY ##1 06/12/16 05/13/24 Rx albuterol sulfate 90 mcg/actuation 1 puff inhalation Q4HP PRN 12/03/17 05/13/24 Rx aerosol inhaler (Ventolin HFA) shortness of breath or wheezing #1 ea insulin glargine 100 unit/mL (3 10 unit (0.1 mL) SUBCUT QDAY ##5 12/03/17 05/13/24 Rx mL) subcutaneous pen (Lantus Solostar U-100 Insulin) olanzapine 20 mg disintegrating 20 mg PO DAILY #30 tabs 02/24/18 05/13/24 Rx tablet sertraline 100 mg tablet 100 mg PO BID #60 tabs 01/23/19 05/13/24 Rx levothyroxine 200 mcg tablet 200 mcg PO DAILY 04/14/19 05/13/24 History (Synthroid) quetiapine 300 mg tablet (Seroquel) 300 mg PO BEDTIME 04/14/19 05/13/24 History atorvastatin 20 mg tablet 20 mg PO QPM 05/13/24 05/13/24 History chlordiazepoxide HCl 10 mg capsule 10 mg PO Q8H PRN anxiety #15 caps 05/16/24 Rx hydrocodone 5 mg-acetaminophen 325 1 tab PO Q4H PRN Pain, Moderate 05/16/24 Rx mg tablet (4-6) #15 tabs magnesium chloride 64 mg 64 mg PO DAILY #30 tabs 05/16/24 Rx (magnesium chloride) tablet,delayed release (Mag 64) Allergies Allergy/AdvReac Type Severity Reaction Status Date / Time No Known Drug Allergies Allergy Unverified 02/24/18 10:38 Review of Systems Review of Systems Narrative: General - negative GI - nausea / vomiting / abdominal distension and pain CVS - w/o chest pain RS - short of breath from distended abdomen Psych - feels anxious MSK - negative Exam Vital Signs (past 8 hours): - 04/06/25 23:15 04/07/25 00:25 04/07/25 00:30 Temperature 98.9 F Pulse Rate 103 H 103 H 100 H Respiratory Rate 22 41 H 25 H Blood Pressure 103/73 Pulse Oximetry 97 97 97 Oxygen Delivery Method Room Air 04/07/25 00:30 04/07/25 01:00 04/07/25 01:30 Temperature Pulse Rate 100 H 92 H Respiratory Rate 57 H Blood Pressure 128/92 H Pulse Oximetry 97 96 Oxygen Delivery Method 04/07/25 02:00 04/07/25 02:30 04/07/25 02:30 Temperature Pulse Rate 92 H 98 H Respiratory Rate 23 26 H Blood Pressure 146/84 H Pulse Oximetry 95 95 Oxygen Delivery Method Oxygen Delivery Method Room Air Narrative Exam Narrative: General - appears in distress GI - distended abdomen, diffusely tender, wasn't able to auscultate for bowel sounds HEENT - edentulous, likely perioral tardive dyskinesia CVS - tachycardic, regular RS - tachypneic Neuro - likely perioral tardive dyskinesia, w/o focal deficits, anxious, not delusional Objective ECG Impression: Sinus tachycardia 104, RBBB, w/o acute ischemic changes QTc > [address] scan - abdomen: My impression: SBO with transition point Radiologist's impression: SBO with transition point hepatic steatosis with likely hemangioma Labs 04/06/25 23:30 04/06/25 23:30 Labs: Laboratory Results - last 24 hr 04/06/25 23:30 WBC 8.3 RBC 3.10 L Hgb 11.4 L Hct 32.1 L MCV 103.5 H MCH 36.8 H MCHC 35.5 RDW 16.7 H Plt Count 246 Neut % (Auto) 56.5 Lymph % (Auto) 37.5 Nye % (Auto) 4.7 Eos % (Auto) 0.3 L Baso % (Auto) 1.0 Neut # (Auto) 4700 Lymph # (Auto) 3100 Nye # (Auto) 400 Eos # (Auto) 0 Baso # (Auto) 100 PT 25.4 H INR 2.3 H Sodium 125 L Potassium 3.0 L Chloride 92 L Carbon Dioxide 18 L BUN 3 L Creatinine 0.44 L Estimated GFR > 60 BUN/Creatinine Ratio 6.8 Glucose 202 H Calcium 6.7 L Total Bilirubin 7.3 H AST 280 H ALT 102 H Alkaline Phosphatase 462 H Lactate Dehydrogenase 360 H Total Protein 6.2 L Albumin 3.2 L Globulin 3.0 Albumin/Globulin Ratio 1.1 Lipase 25 Assessment & Plan Assessment and plan (1) Small bowel obstruction: Status: Acute (2) Type 2 diabetes mellitus: Status: Chronic (3) Hypothyroidism: Status: Chronic (4) Bipolar disorder: Status: Chronic (5) Schizophrenia: Status: Chronic (6) Asthma: Status: Chronic (7) Chronic pain syndrome: Status: Chronic (8) Osteoarthritis: Status: Chronic (9) ETOH abuse: Status: Acute (10) Cirrhosis: Status: Acute (11) Drug abuse: Status: Acute Assessment & Plan narrative: SBO - NPO - NGT for decompression, asked her to allow us to place it, premedicated with Ativan 0.5 mg IV x 1 - surgical assessment - pain and nausea control w/o Zofran (QTc>500ms) - IVFs Duodenitis - PPI IV - likely from alcohol IDDMT2 - SS q 6 h Chronic pain syndrome / OA - prn Dilaudid IV Asthma - albuterol Bipolar disorder / BRIGITTE - to resume home medications with resumed PO - IV or IM antiphyscotics to be considered with prolonged NPO DVT prophylaxis - SCDs Patient consented to telemedicine, two-way, audio-visual encounter with RN assisting with exam. Patient located at [facility], provider located in [place]. Time-Based Coding :: [TOTAL MINUTES] spent with patient and on the chart (including review of chart, obtaining history, exam, reviewing outside data, placing orders, documenting exam and treatment plan, and counseling patient) on [DATE].
--- NOTE | 2025-04-07 05:30 | PC.NURSE ---
Pt c/o burning to L FA PIV where KCL is infusing with NS. KCL titrated down to 75ml/hr; pt again complained of burning. KCL rider now running at 50ml/hr.
[2025-04-07] MEDS: ONDANSETRON 4 MG ODT PO (07:31)
[2025-04-07] MEDS: POTASSIUM CHLORIDE IN WATER 10 MEQ/100 ML PIGGYBACK 50 MEQ IV ×3 (08:07→13:34)
--- NOTE | 2025-04-07 09:06 | PC.NURSE ---
Pt's L forearm IV infiltrated and removed. Three subsequent IV placement attempts were unsuccessful. Pt remains with 1 IV placed in R forearm that is intact.
--- NOTE | 2025-04-07 09:29 | PC.NURSE ---
RN to RN given to Rosa Isela in ACU at [phone]. Pt transferred by Winston LAROSE @[phone]
[2025-04-07] MEDS: INSULIN REGULAR 100 UNIT/ML 3 ML VIAL SUBCUT ×2 (11:53→17:32)
[2025-04-07] MEDS: OLANZapine ODT 10 MG TAB 20 MG PO (13:42)
[2025-04-07] MEDS: MAGNESIUM CHLORIDE 64 MG TABLET PO (13:42)
[2025-04-07 17:01] LABS: Clostridium difficile toxin AB Detected (Not Detect); Enteroaggregative E.coli Not Detected (Not Detect); Enteropathogenic E.coli Not Detected (Not Detect); Enterotoxigenic E.coli It/st Not Detected (Not Detect); Plesiomonsa shigelloides Not Detected (Not Detect); Shiga-like toxin-prod E.coli Not Detected (Not Detect)
[2025-04-07] MEDS: IBUPROFEN 400 MG TABLET PO (17:32)
[2025-04-08] MEDS: LEVOTHYROXINE 100 MCG TABLET 200 MCG PO (05:21)
[2025-04-08 05:56] LABS: Add Manual Diff / Slide Review NO; Hematocrit 30.5 % (36-46); Hemoglobin 10.8 g/dL (12.0-16.0); Lymphocytes Absolute Auto 1800 /uL (1100-4500); Mean Corpuscular HGB Conc 35.3 % (30-36); Mean Corpuscular Hemoglobin 37.0 PG (26-34); Mean Corpuscular Volume 104.8 fL (80-100); Platelet Count 161 X10^3/uL (150-400)
[2025-04-08 06:00] VITALS: BP 113/76; PULSE 106; RESP 16; TEMP 36.6; O2SAT 98
[2025-04-08 06:06] LABS: Blood Urea Nitrogen 7 mg/dL (7-17); Calcium 7.1 mg/dL (8.4-10.2); Carbon Dioxide 27 mmol/L (22-32); Chloride 100 mmol/L (98-107); Estimated Glomerular Filt Rate > 60 mL/min (>60); Glucose 111 mg/dL (70-99); HEMOLYSIS < 15 (0-50); Potassium 3.3 mmol/L (3.4-5.1); Sodium 132 mmol/L (137-145)
--- NOTE | 2025-04-08 08:12 | DI.RAD.S_ITS ---
PROCEDURE: XR KUB INDICATIONS: Bowel obstruction TECHNIQUE: One view of the abdomen acquired. COMPARISON: [facility], CR, XR GASTROGRAFIN CHALLENGE, 04/07/2025, 15:21. [facility], CT, CT ABDOMEN PELVIS W CON, 04/07/2025, 0:49. FINDINGS: Surgical changes and devices: Surgical clips in the right upper quadrant. Bowel: Contrast is seen within the transverse and descending colon with prominent air-filled loop of colon near the splenic flexure, decreased in size from comparison Soft tissues: No suspicious abdominal calcifications. Visualized solid organ contours appear normal in size. Bones: No suspicious bony lesions. IMPRESSION: No bowel obstruction. Progress of contrast through the colon. Dictated by: Ramez Boo M.D. on 04/08/2025 at 8:59 Approved by: Ramez Boo M.D. on 04/08/2025 at 9:01
[2025-04-08 08:33] VITALS: BP 96/56; PULSE 94; RESP 19; TEMP 36.1; O2SAT 96
[2025-04-08] MEDS: SERTRALINE 50 MG TABLET 100 MG PO (08:59)
[2025-04-08] MEDS: OLANZapine ODT 10 MG TAB 20 MG PO (08:59)
[2025-04-08] MEDS: MAGNESIUM CHLORIDE 64 MG TABLET PO (08:59)
[2025-04-08] MEDS: POTASSIUM CHLORIDE 20 MEQ TAB 40 MEQ PO (09:00)
--- NOTE | 2025-04-08 10:59 | P.DS_ITS ---
History of Present Illness History of Present Illness Date Patient Seen: 04/08/25 Chief complaint: N/V/D Narrative: Chief complaint: Abdominal discomfort and distention Clostridium difficile positive History of present illness: 04/07: 69-year-old with alcoholic liver cirrhosis reported nausea vomiting and abdominal pain. Findings emergency department significant for findings on CT significant for duodenitis enteritis and gaseous extension of the colon GI film panel positive for Clostridium difficile. Hospital course: 04/08: Patient is tolerating diet having bowel movements passing gas Clostridium difficile came back positive on GI film panel patient is started on oral vancomycin discharged on oral vancomycin for 14 days Review of systems: No fever or chills No shortness for breath No nausea vomiting No constipation Physical exam Elderly female in no acute distress HEENT unremarkable Heart and lungs clear Abdomen nontender Neuro nonfocal Assessment and plan: Mild Clostridium difficile enteritis without signs of colitis * Oral vancomycin for 14 days Disposition: * Discharge to home: Time based billing: * 35 minutes were involved in evaluation of the patient including direct [id number] evaluation physical examination review of objective laboratory findings and imaging including direct visualization of imaging discussion with care management and treatment team Discharge Providers Provider Date of admission: 04/07/25 04:28 Discharge Date: 04/08/25 Primary care physician: Adelso Baron MD Consults: 04/07/25 10:22 Consult to Dietitian, Adult Routine Comment: Reason For Exam: Pt states she lost a lot of weight d/t low appetit Discharge provider: Erwin Burgos MD Exam Vital Signs (past 8 hours): - 04/08/25 06:00 04/08/25 08:33 Temperature 97.8 F 96.9 F L Pulse Rate 106 H 94 H Respiratory Rate 16 19 Blood Pressure 113/76 96/56 L Pulse Oximetry 98 96 Oxygen Flow Rate 0 0 Oxygen Delivery Method Room Air Oxygen Flow Rate 0 Objective Labs 04/08/25 05:32 04/08/25 05:32 Labs: Laboratory Results - last 24 hr 04/07/25 04/07/25 04/07/25 11:46 13:00 16:44 WBC RBC Hgb Hct MCV MCH MCHC RDW Plt Count Neut % (Auto) Lymph % (Auto) Reagan % (Auto) Eos % (Auto) Baso % (Auto) Neut # (Auto) Lymph # (Auto) Reagan # (Auto) Eos # (Auto) Baso # (Auto) Sodium Potassium Chloride Carbon Dioxide BUN Creatinine Estimated GFR BUN/Creatinine Ratio Glucose POC Whole Bld Glucose 168 H 143 H Calcium Stl C. cayetanensis PCR Not detected Stool Rotavirus (PCR) Not detected Stool Adenovirus (PCR) Not detected Stool Astrovirus (PCR) Not detected Stool Cryptosporidium PCR Not detected Stl E.coli Shiga Tox PCR Not detected St Sh/Enteroin Ecoli PCR Not detected Stl Enterotoxigenic E PCR Not detected Stool EPEC (PCR) Not detected Stl E. histolytica PCR Not detected Stool Giardia Lamblia PCR Not detected Stool Sapovirus (PCR) Not detected Stl P. shigelloides PCR Not detected St Y.enterocolitica PCR Not detected Stool Vibrio (PCR) Not detected Stl Vibrio cholerae PCR Not detected Stl Enteroaggr Ecoli PCR Not detected Stl Norovirus GI/GII PCR Not detected Campylobacter (PCR) Not detected C. difficile Tox (PCR) Detected H Salmonella (PCR) Not detected 04/07/25 04/08/25 04/08/25 21:55 04:51 05:32 WBC 6.5 RBC 2.91 L Hgb 10.8 L Hct 30.5 L MCV 104.8 H MCH 37.0 H MCHC 35.3 RDW 17.1 H Plt Count 161 Neut % (Auto) 65.7 Lymph % (Auto) 28.0 Reagan % (Auto) 5.1 Eos % (Auto) 0.6 L Baso % (Auto) 0.6 Neut # (Auto) 4300 Lymph # (Auto) 1800 Reagan # (Auto) 300 Eos # (Auto) 0 Baso # (Auto) 0 Sodium 132 L Potassium 3.3 L Chloride 100 Carbon Dioxide 27 BUN 7 Creatinine 0.63 Estimated GFR > 60 BUN/Creatinine Ratio 11.1 Glucose 111 H POC Whole Bld Glucose 105 H 144 H Calcium 7.1 L Stl C. cayetanensis PCR Stool Rotavirus (PCR) Stool Adenovirus (PCR) Stool Astrovirus (PCR) Stool Cryptosporidium PCR Stl E.coli Shiga Tox PCR St Sh/Enteroin Ecoli PCR Stl Enterotoxigenic E PCR Stool EPEC (PCR) Stl E. histolytica PCR Stool Giardia Lamblia PCR Stool Sapovirus (PCR) Stl P. shigelloides PCR St Y.enterocolitica PCR Stool Vibrio (PCR) Stl Vibrio cholerae PCR Stl Enteroaggr Ecoli PCR Stl Norovirus GI/GII PCR Campylobacter (PCR) C. difficile Tox (PCR) Salmonella (PCR) [facility] Medical History (Updated 04/07/25 @ 05:16 by Syo Taylor MD) Chronic pain syndrome (Unknown) Osteoarthritis (Unknown) Asthma (Unknown) Schizophrenia (Unknown) Depression (Unknown) Bipolar disorder (Unknown) Anxiety (Unknown) Restless leg syndrome (Unknown) ADHD (attention deficit hyperactivity disorder) (Unknown) Shoulder pain (Unknown) Foot pain (Unknown) Fractures (Unknown) Chronic back pain (Unknown) Chickenpox (Unknown) Vertigo (Unknown) Hearing loss (Unknown) Fibroids (2004) Hypothyroidism (1985) Diabetes insipidus (Unknown) Type 2 diabetes mellitus (2005) Uncomplicated opioid dependence (12/11/16) Chronic low back pain (05/02/15) Surgical History Status post tubal ligation Status post laparoscopic cholecystectomy Family History Father Brain tumor Mother Cancer Brother Car occupant injured in traffic accident Sister Brain tumor Grandfather Cancer Grandmother Heart failure Social History household members: significant other Smoking Status: Current every day smoker alcohol intake: current Discharge Plan Discharge Plan Patient Disposition: Home Discharge orders & Medications Prescriptions: New polyethylene glycol 3350 [Miralax] 17 gram powder in packet 17 g PO BID Qty: 100 0RF vancomycin 250 mg capsule 250 mg PO QID Qty: 60 0RF Continued olanzapine 20 mg tablet,disintegrating 20 mg PO DAILY Qty: 30 11RF albuterol sulfate [Ventolin HFA] 90 mcg/actuation HFA aerosol inhaler 1 puff INHALATION Q4HP PRN (Reason: shortness of breath or wheezing) Qty: 1 11RF insulin glargine [Lantus Solostar U-100 Insulin] 100 unit/mL (3 mL) insulin pen 10 unit SUBCUT QDAY Qty: 5 0RF sertraline 100 mg tablet 100 mg PO BID Qty: 60 2RF quetiapine [Seroquel] 300 mg tablet 300 mg PO BEDTIME Rx Instructions: Patient needs to est. care with a PCP. 01/23/19 Last fill by [facility] per [facility] Patient states that she only takes 150mg of this but order is for 300mg levothyroxine [Synthroid] 200 mcg tablet 200 mcg PO DAILY magnesium chloride [Mag 64] 64 mg tablet,delayed release (DR/EC) 64 mg PO DAILY Qty: 30 0RF [true metrix meter] 1 kit QDAY Follow up/Referrals: Adelso Baron MD [Primary Care Provider, Family Practice] Visit Report/Discharge Packet Stand Alone Forms: Patient Portal/API, Stroke Signs & Symptoms Discharge Data Primary Care Provider: Adelso Baron
--- NOTE | 2025-04-08 11:04 | PM.HP.1 ---
History of Present Illness History of Present Illness Date Patient Seen: 04/07/25 Chief complaint: N/V/D Narrative: Chief complaint: Abdominal discomfort and distention nausea and vomiting History of present illness: 04/07: 69-year-old with alcoholic liver cirrhosis reported nausea vomiting and abdominal pain. Findings emergency department significant for findings on CT significant for duodenitis enteritis and gaseous extension of the colon GI film panel pending Past medical history: Chronic pain syndrome (Unknown) Osteoarthritis (Unknown) Asthma (Unknown) Schizophrenia (Unknown) Depression (Unknown) Bipolar disorder (Unknown) Anxiety (Unknown) Restless leg syndrome (Unknown) ADHD (attention deficit hyperactivity disorder) (Unknown) Shoulder pain (Unknown) Foot pain (Unknown) Fractures (Unknown) Chronic back pain (Unknown) Chickenpox (Unknown) Vertigo (Unknown) Hearing loss (Unknown) Fibroids (2004) Hypothyroidism (1985) Diabetes insipidus (Unknown) Type 2 diabetes mellitus (2005) Uncomplicated opioid dependence (12/11/16) Chronic low back pain (05/02/15) Review of systems: No fever or chills No shortness for breath No nausea vomiting No constipation Physical exam Elderly female in no acute distress HEENT unremarkable Heart and lungs clear Abdomen nontender Neuro nonfocal Assessment and plan: Enteritis and gaseous distention of colon Placed in observation Disposition: Observation The evaluate for possible discharge in 24 hours Time based billin minutes were involved in evaluation of the patient including direct [id number] evaluation physical examination review of objective laboratory findings and imaging including direct visualization of imaging discussion with care management and treatment team [facility] Medical History (Updated 04/07/25 @ 05:16 by Soy Taylor MD) Chronic pain syndrome (Unknown) Osteoarthritis (Unknown) Asthma (Unknown) Schizophrenia (Unknown) Depression (Unknown) Bipolar disorder (Unknown) Anxiety (Unknown) Restless leg syndrome (Unknown) ADHD (attention deficit hyperactivity disorder) (Unknown) Shoulder pain (Unknown) Foot pain (Unknown) Fractures (Unknown) Chronic back pain (Unknown) Chickenpox (Unknown) Vertigo (Unknown) Hearing loss (Unknown) Fibroids (2004) Hypothyroidism (1985) Diabetes insipidus (Unknown) Type 2 diabetes mellitus (2005) Uncomplicated opioid dependence (12/11/16) Chronic low back pain (05/02/15) Surgical History Status post tubal ligation Status post laparoscopic cholecystectomy Family History Father Brain tumor Mother Cancer Brother Car occupant injured in traffic accident Sister Brain tumor Grandfather Cancer Grandmother Heart failure Social History household members: significant other Smoking Status: Current every day smoker alcohol intake: current Meds Home Medications and Allergies Home Medications ?Medication ?Instructions ?Recorded ?Confirmed ?Type albuterol sulfate 90 mcg/actuation 1 puff inhalation Q4HP PRN 12/03/17 04/07/25 Rx aerosol inhaler (Ventolin HFA) shortness of breath or wheezing #1 ea insulin glargine 100 unit/mL (3 10 unit (0.1 mL) SUBCUT QDAY ##5 12/03/17 04/07/25 Rx mL) subcutaneous pen (Lantus Solostar U-100 Insulin) olanzapine 20 mg disintegrating 20 mg PO DAILY #30 tabs 02/24/18 04/07/25 Rx tablet sertraline 100 mg tablet 100 mg PO BID #60 tabs 01/23/19 04/07/25 Rx levothyroxine 200 mcg tablet 200 mcg PO DAILY 04/14/19 04/07/25 History (Synthroid) quetiapine 300 mg tablet (Seroquel) 300 mg PO BEDTIME 04/14/19 04/07/25 History magnesium chloride 64 mg 64 mg PO DAILY #30 tabs 05/16/24 04/07/25 Rx (magnesium chloride) tablet,delayed release (Mag 64) [true metrix meter] 1 kit QDAY 04/07/25 History polyethylene glycol 3350 17 gram 17 g PO BID #100 ea 04/08/25 Rx oral powder packet (Miralax) vancomycin 250 mg capsule 250 mg PO QID #60 caps 04/08/25 Rx Allergies Allergy/AdvReac Type Severity Reaction Status Date / Time No Known Drug Allergies Allergy Unverified 02/24/18 10:38 Exam Vital Signs (past 8 hours): - 04/08/25 06:00 04/08/25 08:33 Temperature 97.8 F 96.9 F L Pulse Rate 106 H 94 H Respiratory Rate 16 19 Blood Pressure 113/76 96/56 L Pulse Oximetry 98 96 Oxygen Flow Rate 0 0 Oxygen Delivery Method Room Air Oxygen Flow Rate 0 Objective Labs 04/08/25 05:32 04/08/25 05:32 Labs: Laboratory Results - last 24 hr 04/07/25 04/07/25 04/07/25 11:46 13:00 16:44 WBC RBC Hgb Hct MCV MCH MCHC RDW Plt Count Neut % (Auto) Lymph % (Auto) Woodward % (Auto) Eos % (Auto) Baso % (Auto) Neut # (Auto) Lymph # (Auto) Woodward # (Auto) Eos # (Auto) Baso # (Auto) Sodium Potassium Chloride Carbon Dioxide BUN Creatinine Estimated GFR BUN/Creatinine Ratio Glucose POC Whole Bld Glucose 168 H 143 H Calcium Stl C. cayetanensis PCR Not detected Stool Rotavirus (PCR) Not detected Stool Adenovirus (PCR) Not detected Stool Astrovirus (PCR) Not detected Stool Cryptosporidium PCR Not detected Stl E.coli Shiga Tox PCR Not detected St Sh/Enteroin Ecoli PCR Not detected Stl Enterotoxigenic E PCR Not detected Stool EPEC (PCR) Not detected Stl E. histolytica PCR Not detected Stool Giardia Lamblia PCR Not detected Stool Sapovirus (PCR) Not detected Stl P. shigelloides PCR Not detected St Y.enterocolitica PCR Not detected Stool Vibrio (PCR) Not detected Stl Vibrio cholerae PCR Not detected Stl Enteroaggr Ecoli PCR Not detected Stl Norovirus GI/GII PCR Not detected Campylobacter (PCR) Not detected C. difficile Tox (PCR) Detected H Salmonella (PCR) Not detected 04/07/25 04/08/25 04/08/25 21:55 04:51 05:32 WBC 6.5 RBC 2.91 L Hgb 10.8 L Hct 30.5 L MCV 104.8 H MCH 37.0 H MCHC 35.3 RDW 17.1 H Plt Count 161 Neut % (Auto) 65.7 Lymph % (Auto) 28.0 Woodward % (Auto) 5.1 Eos % (Auto) 0.6 L Baso % (Auto) 0.6 Neut # (Auto) 4300 Lymph # (Auto) 1800 Woodward # (Auto) 300 Eos # (Auto) 0 Baso # (Auto) 0 Sodium 132 L Potassium 3.3 L Chloride 100 Carbon Dioxide 27 BUN 7 Creatinine 0.63 Estimated GFR > 60 BUN/Creatinine Ratio 11.1 Glucose 111 H POC Whole Bld Glucose 105 H 144 H Calcium 7.1 L Stl C. cayetanensis PCR Stool Rotavirus (PCR) Stool Adenovirus (PCR) Stool Astrovirus (PCR) Stool Cryptosporidium PCR Stl E.coli Shiga Tox PCR St Sh/Enteroin Ecoli PCR Stl Enterotoxigenic E PCR Stool EPEC (PCR) Stl E. histolytica PCR Stool Giardia Lamblia PCR Stool Sapovirus (PCR) Stl P. shigelloides PCR St Y.enterocolitica PCR Stool Vibrio (PCR) Stl Vibrio cholerae PCR Stl Enteroaggr Ecoli PCR Stl Norovirus GI/GII PCR Campylobacter (PCR) C. difficile Tox (PCR) Salmonella (PCR) Assessment & Plan Time-Based Coding :: [TOTAL MINUTES] spent with patient and on the chart (including review of chart, obtaining history, exam, reviewing outside data, placing orders, documenting exam and treatment plan, and counseling patient) on [DATE].
[2025-04-08] MEDS: VANCOMYCIN 125 MG CAPSULE PO (11:45)
--- NOTE | 2025-04-08 13:34 | PC.NURSE ---
Patient is A&OX4, VSS, afebrile. She has loose stool this a.m. but able to keep meds and food down. She has po potassium and magnesium replaced. She denies dizziness/SOB/N/V. KUB repeated at bedside reveals no obstruction. She is cleared for discharge home with po antibiotic and laxative as needed. She verbalizes understanding of medications. She is escorted via w/ch to private vehicle for discharge home today with spouse at 1145 a.m.
[2025-04-09 13:36] LABS: C difficie Toxins A and B, EIA Negative (Negative)
== END 2025-04-08 11:45 | disposition home or self-care (01) | DRG 373 ==
LOC: ED 04-07 00:07 → AC 04-07 04:28
PROVIDERS: Internal Medicine; Admitting Provider Internal Medicine; Emergency Provider Student in an Organized Health Care Education/Training Program; PCP Family Medicine; Referring Provider Student in an Organized Health Care Education/Training Program; Visit Provider Internal Medicine
DX: A04.72 Enterocolitis due to Clostridium difficile, not specified as recurrent (principal); K29.80 Duodenitis without bleeding; E11.9 Type 2 diabetes mellitus without complications; G89.4 Chronic pain syndrome; K70.30 Alcoholic cirrhosis of liver without ascites; J45.909 Unspecified asthma, uncomplicated; F31.9 Bipolar disorder, unspecified; F20.9 Schizophrenia, unspecified; M19.90 Unspecified osteoarthritis, unspecified site; E03.9 Hypothyroidism, unspecified; F17.200 Nicotine dependence, unspecified, uncomplicated; Z79.4 Long term (current) use of insulin; Z79.890 Hormone replacement therapy
CPT/HCPCS: 36415; 74018; 74177; 80048; 80053; 82962; 83615; 83690; 85025; 85610; 87324; 87507; 94660; 96365; 96366; 96375; 96376; 99284; 99285; A9270; J1171; J2272; J2405; J7030; Q9967

== ENCOUNTER 2025-04-12 04:35 | Inpatient (IN) | payer MEDICARE, MEDICAID, SELFPAY ==
[2025-04-07 04:37] VITALS: BMI 26.4
[2025-04-12] VITALS (14 sets, daily range): BP systolic 100–140; BP diastolic 56–85; PULSE 92–114; RESP 18–40; TEMP 35.6–36.7; O2SAT 92–99; BMI 26.4
--- NOTE | 2025-04-12 04:45 | ED_ITS ---
HPI - Abdominal Pain <Brian Madrid MD - Last Filed: 04/12/25 16:25> General Chief Complaint: Abdominal Pain Stated Complaint: Abdominal Pain, Vomiting Time Seen by Provider: 04/12/25 04:44 History of Present Illness HPI narrative: 69-year-old female with history of alcohol and previous opiate abuse, diabetes mellitus, cirrhosis, schizophrenia, bipolar disorder, anxiety, depression. Recent admission, patient believes that was due to C diff infection, taking oral antibiotics. Has increasing abdominal girth, abdominal pain. Denies recent nausea or vomiting. Feels feverish. Denies painful frequent urination. Denies cough chest pain dyspnea. Denies back pain. Related Data Home Medications ?Medication ?Instructions ?Recorded ?Confirmed levothyroxine 200 mcg tablet 200 mcg PO DAILY 04/14/19 04/07/25 (Synthroid) [true metrix meter] 1 kit QDAY 04/07/25 Previous Rx's ?Medication ?Instructions ?Recorded albuterol sulfate 90 mcg/actuation 1 puff inhalation Q 4HP PRN 12/03/17 aerosol inhaler (Ventolin HFA) shortness of breath or wheezing #1 ea insulin glargine 100 unit/mL (3 10 unit (0.1 mL) SUBCU T QDAY ##5 12/03/17 mL) subcutaneous pen (Lantus Solostar U-100 Insulin) sertraline 100 mg tablet 100 mg PO BID #60 tabs 01/23 magnesium chloride 64 mg 64 mg PO DAILY #30 tabs 05/05 08/28 (magnesium chloride) tablet,delayed release (Mag 64) olanzapine 20 mg disintegrating 20 mg PO DAILY #30 tab s 04/08/25 tablet polyethylene glycol 3350 17 gram 17 g PO BID #100 ea 1 oral powder packet (Miralax) quetiapine 300 mg tablet (Seroquel) 300 mg PO BEDTIME #30 tabs 04/08/25 vancomycin 250 mg capsule 250 mg PO QID #60 caps 04/08 naloxone 4 mg/actuation nasal spray 4 mg intranasal Q2 M PRN opioid 04/12/25 overdose #2 ea Allergies Allergy/AdvReac Type Severity Reaction Status Date / Time No Known Drug Allergies Allergy Unverified 04/12/25 04:44 Patient History <Brian Madrid MD - Last Filed: 04/12/25 16:25> Medical History (Updated 04/12/25 @ 06:04 by Brian Madrid MD) Chronic pain syndrome (Unknown) Osteoarthritis (Unknown) Asthma (Unknown) Schizophrenia (Unknown) Depression (Unknown) Bipolar disorder (Unknown) Anxiety (Unknown) Restless leg syndrome (Unknown) ADHD (attention deficit hyperactivity disorder) (Unknown) Shoulder pain (Unknown) Foot pain (Unknown) Fractures (Unknown) Chronic back pain (Unknown) Chickenpox (Unknown) Vertigo (Unknown) Hearing loss (Unknown) Fibroids (2004) Hypothyroidism (1985) Diabetes insipidus (Unknown) Type 2 diabetes mellitus (2005) Uncomplicated opioid dependence (12/11/16) Chronic low back pain (05/02/15) Surgical History Status post tubal ligation Status post laparoscopic cholecystectomy Family History Father Brain tumor Mother Cancer Brother Car occupant injured in traffic accident Sister Brain tumor Grandfather Cancer Grandmother Heart failure Social History household members: significant other Smoking Status: Current some day smoker alcohol intake: current alcohol intake frequency: 3 or more drinks per day Alcohol type: hard liquor Exam <Brian Madrid MD - Last Filed: 04/12/25 16:25> Narrative Exam Narrative: GENERAL: Well-developed patient, in mild distress. HEAD: Atraumatic. Normocephalic. EYES: Pupils equal round and reactive. Extraocular motions intact. No scleral icterus. No injection or drainage. ENT: Nose without bleeding, purulent drainage. Throat without erythema, tonsillar hypertrophy or exudate. Airway patent. NECK: Trachea midline. Non tender CARDIOVASCULAR: Regular rate and rhythm without murmurs, gallops, or rubs. RESPIRATORY: Clear to auscultation. Breath sounds equal bilaterally. No wheezes, rales, or rhonchi. GASTROINTESTINAL: Abdomen protuberant, without central tympany or lateral dullness, not particularly tense, no significant areas of tenderness. Bowel tones normal without rushes/tinkles. EXTREMITIES: No edema or joint tenderness. BACK: Nontender without deformity or crepitance. No flank tenderness. NEURO: AOx3. Motor functions grossly nonfocal. SKIN: No rash or erythema of visible areas Initial Vital Signs Initial Vital Signs: Vital Signs Temperature 96.1 F L 04/12/25 04:44 Pulse Rate 99 H 04/12/25 04:44 Respiratory Rate 26 H 04/12/25 04:44 Blood Pressure 100/69 04/12/25 04:44 Pulse Oximetry 95 04/12/25 04:44 Oxygen Delivery Method Room Air 04/12/25 04:44 <Rachel Valles DO - Last Filed: 04/12/25 13:52> Initial Vital Signs Initial Vital Signs: Vital Signs Temperature 96.1 F L 04/12/25 04:44 Pulse Rate 99 H 04/12/25 04:44 Respiratory Rate 26 H 04/12/25 04:44 Blood Pressure 100/69 04/12/25 04:44 Pulse Oximetry 95 04/12/25 04:44 Oxygen Delivery Method Room Air 04/12/25 04:44 Course <Brian Madrid MD - Last Filed: 04/12/25 16:25> Orders Ordered: ED Orders 04/12/25 08:11 Covid-19 + FLU A/B + RSV - PCR Stat 04/12/25 09:24 US abdomen limited Stat 04/12/25 10:38 Urinalysis and Microscopic Stat Chlordiazepoxide HCl (Chlordiazepoxide 25 Mg Capsule) 25 mg PO TID FOR[facility], [facility] Last Admin: 04/12/25 15:00 Dose: 25 mg Documented By: Admin: 04/12/25 12:10 Dose: 25 mg Documented By: CLAUDIA Heparin Sodium (Porcine) (Heparin 5,000 Unit/Ml Vial) 5,000 unit SUBCUT BID [facility], [facility]–1983 Last Admin: 04/12/25 12:04 Dose: 5,000 unit Documented By: CLAUDIA Hydromorphone HCl (Hydromorphone Hcl 0.5 Mg/0.5 Ml Syringe) 0.5 mg IV Q2H PRN PRN Reason: Pain, Severe (7-10) Last Admin: 04/12/25 15:00 Dose: 0.5 mg Documented By: Admin: 04/12/25 12:11 Dose: 0.5 mg Documented By: CLAUDIA Sodium Chloride (Normal Saline 0.9%) 1,000 mls @ 100 mls/hr IV CONT BRIGITTE Last Admin: 04/12/25 12:04 Dose: 100 mls/hr Documented By: CLAUDIA Dextrose (D10w) 100 mls @ 999 mls/hr IV PRN PRN PRN Reason: Hypoglycemia Ceftriaxone Sodium 2,000 mg/ (Sodium Chloride) 100 mls @ 200 mls/hr IV Q24H BRIGITTE Metronidazole (Flagyl) 500 mg in 100 mls @ 100 mls/hr IV Q6H [facility], [facility]1983 Insulin Human Lispro (Insulin Lispro 100 Unit/Ml 3ml Vial) 0 unit SUBCUT ACHS [facility], [facility]; Protocol Last Admin: 04/12/25 12:20 Dose: 1 unit Documented By: CLAUDIA Co-signed By: Naloxone HCl (Naloxone 0.4 Mg/Ml Vial) 0.2 mg IV Q2MIN PRN PRN Reason: Opiate Reversal Nicotine (Nicotine 21 Mg Patch) 21 mg TOP DAILY [facility], [facility] Last Admin: 04/12/25 12:11 Dose: 21 mg Documented By: CLAUDIA Ondansetron HCl (Ondansetron 4 Mg/2 Ml Inj) 4 mg IV NOW PRN PRN Reason: Nausea And Vomiting Ondansetron HCl (Ondansetron 4 Mg Odt) 4 mg PO NOW PRN PRN Reason: Nausea And Vomiting Ondansetron HCl (Ondansetron 4 Mg/2 Ml Inj) 4 mg IV Q8HR PRN PRN Reason: Nausea And Vomiting Vancomycin HCl (Vancomycin 125 Mg Capsule) 125 mg PO Q6H [facility], [facility] Discontinued Medications Hydromorphone HCl (Hydromorphone Hcl 0.5 Mg/0.5 Ml Syringe) 0.5 mg IV NOW ONE Stop: 04/12/25 05:51 Last Admin: 04/12/25 06:10 Dose: 0.5 mg Documented By: FÁTIMA Hydromorphone HCl (Hydromorphone 1 Mg/Ml Syringe) 1 mg IV NOW ONE Stop: 04/12/25 09:24 Last Admin: 04/12/25 09:30 Dose: 1 mg Documented By: SONJA Sodium Chloride (Normal Saline 0.9%) 1,000 mls @ 1,000 mls/hr IV BOLUS ONE Stop: 04/12/25 05:48 Last Infusion: 04/12/25 07:43 Dose: Infused Documented By: Admin: 04/12/25 05:27 Dose: 1,000 mls/hr Documented By: FÁTIMA Sodium Chloride (Normal Saline 0.9%) 1,000 mls @ 1,000 mls/hr IV BOLUS ONE Stop: 04/12/25 06:18 Last Infusion: 04/12/25 10:16 Dose: Infused Documented By: Admin: 04/12/25 07:43 Dose: 1,000 mls/hr Documented By: SONJA Ceftriaxone Sodium 2,000 mg/ (Sodium Chloride) 100 mls @ 200 mls/hr IV NOW ONE Stop: 04/12/25 05:47 Last Infusion: 04/12/25 07:43 Dose: Infused Documented By: Admin: 04/12/25 06:09 Dose: 200 mls/hr Documented By: FÁTIMA POTASSIUM CHLORIDE IN WATER (Potassium Cl 10 Meq/100 Ml Aletha) 10 meq in 100 mls @ 100 mls/hr IV Q1H BRIGITTE Stop: 04/12/25 07:59 Last Infusion: 04/12/25 10:52 Dose: Infused Documented By: Admin: 04/12/25 09:30 Dose: 100 mls/hr Documented By: Infusion: 04/12/25 09:21 Dose: Infused Documented By: Admin: 04/12/25 08:21 Dose: 100 mls/hr Documented By: SONJA Magnesium Sulfate (Magnesium Sulfate) 2 gm in 50 mls @ 150 mls/hr IV NOW ONE Stop: 04/12/25 07:31 Last Infusion: 04/12/25 08:16 Dose: Infused Documented By: SONJA Co-signed By: SRIRAM Admin: 04/12/25 07:43 Dose: 150 mls/hr Documented By: SONJA Co-signed By: SRIRAM Sodium Chloride (Normal Saline 0.9%) 1,837.05 mls @ 612.35 mls/hr 30 ml/kg infuse over 3 hr (1837.05 ml) IV NOW ONE Stop: 04/12/25 11:07 Last Infusion: 04/12/25 12:38 Dose: Infused Documented By: Admin: 04/12/25 10:19 Dose: 612.35 mls/hr Documented By: SONJA Vancomycin HCl (Vancomycin) 1,250 mg in 250 mls @ 250 mls/hr IV NOW ONE Stop: 04/12/25 09:29 Last Infusion: 04/12/25 15:06 Dose: Infused Documented By: Admin: 04/12/25 12:04 Dose: 250 mls/hr Documented By: CLAUDIA Vital Signs Vital signs: Vital Signs - 8 hr 04/12/25 08:30 04/12/25 08:31 04/12/25 08:31 Pulse Rate 97 H 97 H Respiratory Rate 33 H 35 H Blood Pressure 126/82 Pulse Oximetry 98 93 04/12/25 09:00 04/12/25 09:00 Pulse Rate 93 H Respiratory Rate 30 H Blood Pressure 123/82 Pulse Oximetry 98 <Rachel Valles DO - Last Filed: 04/12/25 13:52> Orders Ordered: ED Orders 04/12/25 08:11 Covid-19 + FLU A/B + RSV - PCR Stat 04/12/25 09:24 US abdomen limited Stat 04/12/25 10:38 Urinalysis and Microscopic Stat Chlordiazepoxide HCl (Chlordiazepoxide 25 Mg Capsule) 25 mg PO TID [facility], [facility] Last Admin: 04/12/25 15:00 Dose: 25 mg Documented By: Admin: 04/12/25 12:10 Dose: 25 mg Documented By: CLAUDIA Heparin Sodium (Porcine) (Heparin 5,000 Unit/Ml Vial) 5,000 unit SUBCUT BID [facility], [facility] Last Admin: 04/12/25 12:04 Dose: 5,000 unit Documented By: CLAUDIA Hydromorphone HCl (Hydromorphone Hcl 0.5 Mg/0.5 Ml Syringe) 0.5 mg IV Q2H PRN PRN Reason: Pain, Severe (7-10) Last Admin: 04/12/25 15:00 Dose: 0.5 mg Documented By: Admin: 04/12/25 12:11 Dose: 0.5 mg Documented By: CLAUDIA Sodium Chloride (Normal Saline 0.9%) 1,000 mls @ 100 mls/hr IV CONT [facility], [facility] Last Admin: 04/12/25 12:04 Dose: 100 mls/hr Documented By: CLAUDIA Dextrose (D10w) 100 mls @ 999 mls/hr IV PRN PRN PRN Reason: Hypoglycemia Ceftriaxone Sodium 2,000 mg/ (Sodium Chloride) 100 mls @ 200 mls/hr IV Q24H [facility], [facility] Metronidazole (Flagyl) 500 mg in 100 mls @ 100 mls/hr IV Q6H [facility], [facility]1983 Insulin Human Lispro (Insulin Lispro 100 Unit/Ml 3ml Vial) 0 unit SUBCUT ACHS [facility], [facility]; Protocol Last Admin: 04/12/25 12:20 Dose: 1 unit Documented By: CLAUDIA Co-signed By: Naloxone HCl (Naloxone 0.4 Mg/Ml Vial) 0.2 mg IV Q2MIN PRN PRN Reason: Opiate Reversal Nicotine (Nicotine 21 Mg Patch) 21 mg TOP DAILY [facility], [facility] Last Admin: 04/12/25 12:11 Dose: 21 mg Documented By: CLAUDIA Ondansetron HCl (Ondansetron 4 Mg/2 Ml Inj) 4 mg IV NOW PRN PRN Reason: Nausea And Vomiting Ondansetron HCl (Ondansetron 4 Mg Odt) 4 mg PO NOW PRN PRN Reason: Nausea And Vomiting Ondansetron HCl (Ondansetron 4 Mg/2 Ml Inj) 4 mg IV Q8HR PRN PRN Reason: Nausea And Vomiting Vancomycin HCl (Vancomycin 125 Mg Capsule) 125 mg PO Q6H [facility], [facility] Discontinued Medications Hydromorphone HCl (Hydromorphone Hcl 0.5 Mg/0.5 Ml Syringe) 0.5 mg IV NOW ONE Stop: 04/12/25 05:51 Last Admin: 04/12/25 06:10 Dose: 0.5 mg Documented By: FÁTIMA Hydromorphone HCl (Hydromorphone 1 Mg/Ml Syringe) 1 mg IV NOW ONE Stop: 04/12/25 09:24 Last Admin: 04/12/25 09:30 Dose: 1 mg Documented By: SONJA Sodium Chloride (Normal Saline 0.9%) 1,000 mls @ 1,000 mls/hr IV BOLUS ONE Stop: 04/12/25 05:48 Last Infusion: 04/12/25 07:43 Dose: Infused Documented By: Admin: 04/12/25 05:27 Dose: 1,000 mls/hr Documented By: FÁTIMA Sodium Chloride (Normal Saline 0.9%) 1,000 mls @ 1,000 mls/hr IV BOLUS ONE Stop: 04/12/25 06:18 Last Infusion: 04/12/25 10:16 Dose: Infused Documented By: Admin: 04/12/25 07:43 Dose: 1,000 mls/hr Documented By: SONJA Ceftriaxone Sodium 2,000 mg/ (Sodium Chloride) 100 mls @ 200 mls/hr IV NOW ONE Stop: 04/12/25 05:47 Last Infusion: 04/12/25 07:43 Dose: Infused Documented By: Admin: 04/12/25 06:09 Dose: 200 mls/hr Documented By: FÁTIMA POTASSIUM CHLORIDE IN WATER (Potassium Cl 10 Meq/100 Ml Aletha) 10 meq in 100 mls @ 100 mls/hr IV Q1H BRIGITTE Stop: 04/12/25 07:59 Last Infusion: 04/12/25 10:52 Dose: Infused Documented By: Admin: 04/12/25 09:30 Dose: 100 mls/hr Documented By: Infusion: 04/12/25 09:21 Dose: Infused Documented By: Admin: 04/12/25 08:21 Dose: 100 mls/hr Documented By: SONJA Magnesium Sulfate (Magnesium Sulfate) 2 gm in 50 mls @ 150 mls/hr IV NOW ONE Stop: 04/12/25 07:31 Last Infusion: 04/12/25 08:16 Dose: Infused Documented By: SONJA Co-signed By: SRIRAM Admin: 04/12/25 07:43 Dose: 150 mls/hr Documented By: SONJA Co-signed By: SRIRAM Sodium Chloride (Normal Saline 0.9%) 1,837.05 mls @ 612.35 mls/hr 30 ml/kg infuse over 3 hr (1837.05 ml) IV NOW ONE Stop: 04/12/25 11:07 Last Infusion: 04/12/25 12:38 Dose: Infused Documented By: Admin: 04/12/25 10:19 Dose: 612.35 mls/hr Documented By: SONJA Vancomycin HCl (Vancomycin) 1,250 mg in 250 mls @ 250 mls/hr IV NOW ONE Stop: 04/12/25 09:29 Last Infusion: 04/12/25 15:06 Dose: Infused Documented By: Admin: 04/12/25 12:04 Dose: 250 mls/hr Documented By: CLAUDIA Vital Signs Vital signs: Vital Signs - 8 hr 04/12/25 08:30 04/12/25 08:31 04/12/25 08:31 Pulse Rate 97 H 97 H Respiratory Rate 33 H 35 H Blood Pressure 126/82 Pulse Oximetry 98 93 04/12/25 09:00 04/12/25 09:00 Pulse Rate 93 H Respiratory Rate 30 H Blood Pressure 123/82 Pulse Oximetry 98 MDM - Abdominal Pain <Brian Madrid MD - Last Filed: 04/12/25 16:25> Lab Data Attestation: I reviewed the patient's lab results. Lab results narrative: White blood cell count 8600, hemoglobin 13.1, platelets adequate. Glucose 199. BUN 4 with creatinine 0.54. Serum CO2 18 decreased. Sodium 133 mildly decreased. Potassium 3.1 decreased. Calculated Anion gap 7 not increased. Total bilirubin 8.8, AST 389, ALT 113, alkaline phosphatase 600. Lipase not elevated. INR 1.8 elevated. Serum albumin 3.5 normal. Lactate 4.6 elevated. Procalcitonin pending. Blood cultures pending. Urinalysis pending. 04/12/25 04:45 04/12/25 04:45 Labs: Lab Results 04/12/25 04/12/25 04/12/25 Range/Units 04:45 06:56 08:11 WBC 8.6 (4.5-11.0) X10^3/uL RBC 3.53 L (4.0-5.2) X10^6/uL Hgb 13.1 (12.0-16.0) g/dL Hct 37.0 (36-46) % MCV 105.1 H (80-100) fL MCH 37.2 H (26-34) PG MCHC 35.4 (30-36) % RDW 17.6 H (11.6-14.8) % Plt Count 278 (150-400) X10^3/uL Neut % (Auto) 50.7 (50-75) % Lymph % (Auto) 38.1 (25-40) % Motley % (Auto) 9.3 (3-14) % Eos % (Auto) 0.3 L (2-4) % Baso % (Auto) 1.6 (0-2) % Neut # (Auto) 4400 (8313-0753) /uL Lymph # (Auto) 3300 (9237-9180) /uL Motley # (Auto) 800 (0-900) /uL Eos # (Auto) 0 (0-450) /uL Baso # (Auto) 100 (0-100) /uL PT 20.4 H D (9.4-12.5) SECONDS INR 1.8 H (0.9-1.3) APTT 48 H (25.1-36.5) SECONDS Sodium 133 L (137-145) mmol/L Potassium 3.1 L (3.4-5.1) mmol/L Chloride 98 (98-107) mmol/L Carbon Dioxide 18 L (22-32) mmol/L BUN 4 L (7-17) mg/dL Creatinine 0.54 (0.52-1.04) mg/dL Estimated GFR > 60 (>60) mL/min BUN/Creatinine Ratio 7.4 (6-22) Glucose 199 H (70-99) mg/dL Lactate 4.6 H* 3.6 H (0.7-2.1) mmol/L Calcium 7.2 L (8.4-10.2) mg/dL Magnesium 0.9 L* (1.6-2.3) mg/dL Total Bilirubin 8.8 H (0.2-1.3) mg/dL AST 389 H (14-36) IU/L ALT 113 H (<35) IU/L Alkaline Phosphatase 600 H (38-126) U/L Total Protein 6.8 (6.3-8.2) g/dL Albumin 3.5 (3.5-5.0) g/dL Globulin 3.3 (1.7-4.1) g/dL Albumin/Globulin Ratio 1.1 (1.0-2.8) Lipase 31 (23-300) U/L Procalcitonin 1.18 H (<0.5) ng/mL SARS-CoV-2 (PCR) Negative (Negative) Influenza A (RT-PCR) Flu a negative (NEGATIVE) Influenza B (RT-PCR) Flu b negative (NEGATIVE) RSV (PCR) Negative (Negative) ECG Data Attestation: I personally reviewed and interpreted this ECG as follows: Interpretation: 0516, normal sinus rhythm with rate of 91, no obvious ST segment elevation or depression changes. Right bundle branch block noted. Low voltage QRS. [place] 152, QRS 118, QTC 521. [facility] Narrative Medical decision making narrative: 69-year-old female with history of schizophrenia and bipolar disorder, history of alcohol and polysubstance abuse, cirrhosis, prior lactic acidosis, recent admission for C diff diarrhea. Has increasing abdominal pain. Screening vitals SIRS positive, with increased respiratory rate and decreased temperature, possible sepsis. Labs sent including blood culture and lactate and procalcitonin. Chest x-ray no acute changes. See tele radiology report. Lab data: White blood cell count 8600, hemoglobin 13.1, platelets adequate. Glucose 199. BUN 4 with creatinine 0.54. Serum CO2 18 decreased. Sodium 133 mildly decreased. Potassium 3.1 decreased. Calculated Anion gap 7 not increased. Total bilirubin 8.8, AST 389, ALT 113, alkaline phosphatase 600. Lipase not elevated. INR 1.8 elevated. Serum albumin 3.5 normal. Lactate 4.6 elevated. Procalcitonin pending. Blood cultures pending. Urinalysis pending. Sepsis discussion. Sirs screening positive, possible GI cause of source of infection, organ dysfunction manifest by elevated lactate, increased heart rate, low temperature. Screening labs show lactate greater than 4, consistent with severe sepsis, although cirrhosis noted, clinically suspect ascites, no significant tenderness on abdominal exam. Blood cultures requested. IV ceftriaxone early empriric antibiotics. Weight 61 kg, IV crystalloid 30 cc/kg we would be 1800 cc, will give 2 L bolus for now. No signs symptoms fluid overload at this time. Urinalysis still pending. Hypokalemia, IV fluid ordered, initial serum potassium 3.1 we will be further diluted, will initiate IV potassium 20 mEq, if CT negative then we will give oral potassium further repletion, might need further intravenous repletion. Add serum magnesium. GI panel requested, if stool specimen received. CT abdomen and pelvis ordered. 0700, CT abdomen and pelvis scan pending, empiric antibiotics and IVF for severe sepsis with elevated lactate, normotensive at present, potassium repletion initiated. Signed out to Dr. Valles. 0730 Dr. Valles-I received sign-out from Dr. Madrid I have seen evaluated myself. Abdomen is quite distended and she is moaning in pain. CT does not show evidence of ascites and overall appears stable from her last CT. Ultrasound also confirms no ascites. There is concern for sepsis she has persistently elevated lactate 4.6 with repeat at 3.6, but no leukocytosis, prolactin also elevated at 1.18. She has a abnormal electrolytes magnesium and potassium which are being replaced. Chronically elevated liver enzymes bilirubin today is 8.8 it was previously 7.3 with elevated AST ALT and alk-phos thought to be secondary to liver failure cirrhosis. SBP considered however she has no evidence of ascites on CT or ultrasound. other possibility choledocholithiasis Urine still pending Dr. Lan updated on patient's symptoms test results agrees to inpatient admission <Rachel Valles, - Last Filed: 04/12/25 13:52> Lab Data Labs: Lab Results 04/12/25 04/12/25 04/12/25 Range/Units 04:45 06:56 08:11 WBC 8.6 (4.5-11.0) X10^3/uL RBC 3.53 L (4.0-5.2) X10^6/uL Hgb 13.1 (12.0-16.0) g/dL Hct 37.0 (36-46) % MCV 105.1 H (80-100) fL MCH 37.2 H (26-34) PG MCHC 35.4 (30-36) % RDW 17.6 H (11.6-14.8) % Plt Count 278 (150-400) X10^3/uL Neut % (Auto) 50.7 (50-75) % Lymph % (Auto) 38.1 (25-40) % Motley % (Auto) 9.3 (3-14) % Eos % (Auto) 0.3 L (2-4) % Baso % (Auto) 1.6 (0-2) % Neut # (Auto) 4400 (5803-2798) /uL Lymph # (Auto) 3300 (9694-4946) /uL Motley # (Auto) 800 (0-900) /uL Eos # (Auto) 0 (0-450) /uL Baso # (Auto) 100 (0-100) /uL PT 20.4 H D (9.4-12.5) SECONDS INR 1.8 H (0.9-1.3) APTT 48 H (25.1-36.5) SECONDS Sodium 133 L (137-145) mmol/L Potassium 3.1 L (3.4-5.1) mmol/L Chloride 98 (98-107) mmol/L Carbon Dioxide 18 L (22-32) mmol/L BUN 4 L (7-17) mg/dL Creatinine 0.54 (0.52-1.04) mg/dL Estimated GFR > 60 (>60) mL/min BUN/Creatinine Ratio 7.4 (6-22) Glucose 199 H (70-99) mg/dL Lactate 4.6 H* 3.6 H (0.7-2.1) mmol/L Calcium 7.2 L (8.4-10.2) mg/dL Magnesium 0.9 L* (1.6-2.3) mg/dL Total Bilirubin 8.8 H (0.2-1.3) mg/dL AST 389 H (14-36) IU/L ALT 113 H (<35) IU/L Alkaline Phosphatase 600 H (38-126) U/L Total Protein 6.8 (6.3-8.2) g/dL Albumin 3.5 (3.5-5.0) g/dL Globulin 3.3 (1.7-4.1) g/dL Albumin/Globulin Ratio 1.1 (1.0-2.8) Lipase 31 (23-300) U/L Procalcitonin 1.18 H (<0.5) ng/mL SARS-CoV-2 (PCR) Negative (Negative) Influenza A (RT-PCR) Flu a negative (NEGATIVE) Influenza B (RT-PCR) Flu b negative (NEGATIVE) RSV (PCR) Negative (Negative) Imaging Data CT scan - abdomen/pelvis: Radiologist's Impression: PROCEDURE: CT ABDOMEN PELVIS W CON INDICATIONS: abd pain TECHNIQUE: After the administration of intravenous contrast, axial sections acquired from the lung bases to the pubic symphysis. Coronal and sagittal reformats were performed. For radiation dose reduction, the following was used: automated exposure control, adjustment of mA and/or kV according to patient size. COMPARISON: [facility], CT, CT ABDOMEN PELVIS W CON, 04/07/2025, 0:49. FINDINGS: Image quality: Diagnostic. Lower Chest: No significant findings. ABDOMEN: Liver: Possible hemangioma in right hepatic lobe remains unchanged. Severe hepatic steatosis. Hepatomegaly. Gallbladder: Gallbladder is surgically absent. Biliary ducts: No biliary dilation. Pancreas: No ductal dilation. Spleen: Size is within normal limits. Adrenal Glands: No adrenal nodules. Kidneys and Ureters: Tiny nonobstructing stones are again seen in left kidney. No hydronephrosis. No solid mass. No complex renal cystic lesion which requires follow up. Stomach and Bowel: Again noted are significant wall thickening in edema with adjacent fat stranding involving duodenum and proximal jejunum consistent with enteritis. No other area of abnormal bowel wall thickening. No abscess collection. Peritoneum: No abnormal intraperitoneal fluid. No free air. Ventral Wall: No significant ventral hernia. Abdominal Nodes: No retroperitoneal or mesenteric adenopathy by size criteria. Vessels: Aorta and inferior vena cava are normal in size. PELVIS: Pelvic Organs: Bulky appearing uterus. Bladder: No bladder wall thickening, accounting for underdistention. Pelvic Nodes: No enlarged lymph nodes. Miscellaneous: No inguinal hernias are seen. Bones: No aggressive osseous abnormality. IMPRESSION: 1. Finding is suggestive of infectious inflammatory enteritis involving proximal small bowel loops as above not significantly changed from prior study. No abscess collection. No free fluid or free air. 2. Other chronic findings are not significantly changed from recent study. Dictated by: Merlin Urbina M.D. on 04/12/2025 at 7:50 Approved by: Merlin Urbina M.D. on 04/12/2025 at 7:57 Chest x-ray: Radiologist's Impression: PROCEDURE: XR CHEST 1V INDICATIONS: suspected sepsis TECHNIQUE: One view of the chest was acquired. COMPARISON: [facility], CR, XR CHEST 1V, 05/12/2024, 19:04. FINDINGS: Surgical changes and devices: None. Lungs and pleura: Lungs are clear. No pleural effusions or pneumothorax. Mediastinum: Mediastinal contours appear normal. Heart size is normal. Bones and chest wall: No suspicious bony lesions. Overlying soft tissues appear unremarkable. IMPRESSION: No acute cardiopulmonary pathology. No discrepancies. Dictated by: Merlin Urbina M.D. on 04/12/2025 at 7:50 US - abdomen: Radiologist's Impression: PROCEDURE: US ABDOMEN LIMITED INDICATIONS: ASCITES TECHNIQUE: Real-time focused scanning was performed of the abdomen, with image documentation. COMPARISON: [facility], CT, CT ABDOMEN PELVIS W CON, 04/12/2025, 5:29. FINDINGS: Pronounced fatty infiltration throughout the liver, with hepatomegaly measuring up to 24 cm craniocaudad on the right and 19 cm on the left. No ascites found all [address] scanning the spleen is normal in length. Bladder volume was noted to be relatively prominent both before and after voiding with postvoid volume 410 cc. IMPRESSION: Hepatomegaly with pronounced diffuse fatty infiltration throughout. No ascites found. Bladder prominence as noted. Dictated by: Erwin Nicole M.D. on 04/12/2025 at 10:56 MDM Narrative Medical decision making narrative: 69-year-old female with history of schizophrenia and bipolar disorder, history of alcohol and polysubstance abuse, cirrhosis, prior lactic acidosis, recent admission for C diff diarrhea. Has increasing abdominal pain. Screening vitals sirs positive, with increased respiratory rate and decreased temperature, possible sepsis. Labs sent including blood culture and lactate and procalcitonin. Chest x-ray no acute changes. See tele radiology report. Lab data: White blood cell count 8600, hemoglobin 13.1, platelets adequate. Glucose 199. BUN 4 with creatinine 0.54. Serum CO2 18 decreased. Sodium 133 mildly decreased. Potassium 3.1 decreased. Calculated Anion gap 7 not increased. Total bilirubin 8.8, AST 389, ALT 113, alkaline phosphatase 600. Lipase not elevated. INR 1.8 elevated. Serum albumin 3.5 normal. Lactate 4.6 elevated. Procalcitonin pending. Blood cultures pending. Urinalysis pending. Sepsis discussion. Sirs screening positive, possible GI cause of source of infection, organ dysfunction manifest by elevated lactate, increased heart rate, low temperature. Screening labs show lactate greater than 4, consistent with severe sepsis, although cirrhosis noted, clinically suspect ascites, no significant tenderness on abdominal exam. Blood cultures requested. IV ceftriaxone early antibiotics. Weight 61 kg, IV crystalloid 30 cc/kilos we would be 1800 cc, we will give 2 L bolus for now. No signs symptoms fluid overload at this time. Urinalysis still pending. Hypokalemia, IV fluid ordered, initial serum potassium 3.1 we will be further diluted, will initiate IV potassium 20 mEq, if CT negative then we will give oral potassium further repletion, might need further intravenous repletion. Add serum magnesium. GI panel requested, if stool specimen received. CT abdomen and pelvis ordered. 0700, CT abdomen and pelvis scan pending, empiric antibiotics and IVF for severe sepsis with elevated lactate, normotensive at present, potassium repletion initiated. Signed out to Dr. Valles. 07 Dr. Valles-I received sign-out from Dr. Madrid I have seen evaluated myself. Abdomen is quite distended and she is moaning in pain. CT does not show evidence of ascites and overall appears stable from her last CT. Ultrasound also confirms no ascites. There is concern for sepsis she has persistently elevated lactate 4.6 with repeat at 3.6, but no leukocytosis, prolactin also elevated at 1.18. She has a abnormal electrolytes magnesium and potassium which are being replaced. Chronically elevated liver enzymes bilirubin today is 8.8 it was previously 7.3 with elevated AST ALT and alk-phos thought to be secondary to liver failure cirrhosis. SBP considered however she has no evidence of ascites on CT or ultrasound. other possibility choledocholithiasis Urine still pending Dr. Lan updated on patient's symptoms test results agrees to inpatient admission Discharge Plan Departure Patient Disposition: Admitted As Inpatient Clinical Impression: Abdominal pain, Diarrhea, History of Clostridioides difficile infection, History of cirrhosis of liver Admit Date/Time: 04/12/25 09:24 Admit Provider: Victor Hugo Lan
--- NOTE | 2025-04-12 04:49 | DI.RAD.S_ITS ---
PROCEDURE: XR CHEST 1V INDICATIONS: suspected sepsis TECHNIQUE: One view of the chest was acquired. COMPARISON: [facility], CR, XR CHEST 1V, 05/12/2024, 19:04. FINDINGS: Surgical changes and devices: None. Lungs and pleura: Lungs are clear. No pleural effusions or pneumothorax. Mediastinum: Mediastinal contours appear normal. Heart size is normal. Bones and chest wall: No suspicious bony lesions. Overlying soft tissues appear unremarkable. IMPRESSION: No acute cardiopulmonary pathology. No discrepancies. Dictated by: Merlin Urbina M.D. on 04/12/2025 at 7:50 Approved by: Merlin Urbina M.D. on 04/12/2025 at 7:50
--- NOTE | 2025-04-12 05:16 | EKG_ITS ---
[address] [address] Test Date: 2025-04-12 Pat Name: Cinthya Rosa Department: Room: Gender: Female Team Foreman: JHONATHAN : 1955 Requested By: Order Number: [id number] Reading MD: Victor Hugo Lan Measurements Intervals [place] Rate: 91 P: 52 MO: 152 QRS: 64 QRSD: 118 T: 20 QT: 424 QTc: 521 Interpretive Statements Normal sinus rhythm Low voltage QRS Right bundle branch block Electronically Signed On 04-12-2025 17:08:42 PDT by Victor Hugo Lan
--- NOTE | 2025-04-12 05:19 | DI.CT.S_ITS ---
PROCEDURE: CT ABDOMEN PELVIS W CON INDICATIONS: abd pain TECHNIQUE: After the administration of intravenous contrast, axial sections acquired from the lung bases to the pubic symphysis. Coronal and sagittal reformats were performed. For radiation dose reduction, the following was used: automated exposure control, adjustment of mA and/or kV according to patient size. COMPARISON: [facility], CT, CT ABDOMEN PELVIS W CON, 04/07/2025, 0:49. FINDINGS: Image quality: Diagnostic. Lower Chest: No significant findings. ABDOMEN: Liver: Possible hemangioma in right hepatic lobe remains unchanged. Severe hepatic steatosis. Hepatomegaly. Gallbladder: Gallbladder is surgically absent. Biliary ducts: No biliary dilation. Pancreas: No ductal dilation. Spleen: Size is within normal limits. Adrenal Glands: No adrenal nodules. Kidneys and Ureters: Tiny nonobstructing stones are again seen in left kidney. No hydronephrosis. No solid mass. No complex renal cystic lesion which requires follow up. Stomach and Bowel: Again noted are significant wall thickening in edema with adjacent fat stranding involving duodenum and proximal jejunum consistent with enteritis. No other area of abnormal bowel wall thickening. No abscess collection. Peritoneum: No abnormal intraperitoneal fluid. No free air. Ventral Wall: No significant ventral hernia. Abdominal Nodes: No retroperitoneal or mesenteric adenopathy by size criteria. Vessels: Aorta and inferior vena cava are normal in size. PELVIS: Pelvic Organs: Bulky appearing uterus. Bladder: No bladder wall thickening, accounting for underdistention. Pelvic Nodes: No enlarged lymph nodes. Miscellaneous: No inguinal hernias are seen. Bones: No aggressive osseous abnormality. IMPRESSION: 1. Finding is suggestive of infectious inflammatory enteritis involving proximal small bowel loops as above not significantly changed from prior study. No abscess collection. No free fluid or free air. 2. Other chronic findings are not significantly changed from recent study. Dictated by: Merlin Urbina M.D. on 04/12/2025 at 7:50 Approved by: Merlin Urbina M.D. on 04/12/2025 at 7:57
[2025-04-12 05:23] LABS: Add Manual Diff / Slide Review NO; Hematocrit 37.0 % (36-46); Hemoglobin 13.1 g/dL (12.0-16.0); Lymphocytes Absolute Auto 3300 /uL (1100-4500); Mean Corpuscular HGB Conc 35.4 % (30-36); Mean Corpuscular Hemoglobin 37.2 PG (26-34); Mean Corpuscular Volume 105.1 fL (80-100); Platelet Count 278 X10^3/uL (150-400)
[2025-04-12] MEDS: SODIUM CHLORIDE 0.9% 1,000 ML 1000 ML IV ×2 (05:27→07:43)
[2025-04-12 05:33] LABS: INR 1.8 (0.9-1.3); Prothrombin Time 20.4 SECONDS (9.4-12.5)
[2025-04-12 05:36] LABS: PTT Partial Thromboplastin Tim 48 SECONDS (25.1-36.5)
[2025-04-12 05:37] LABS: Alanine Aminotransferase 113 IU/L (<35); Albumin 3.5 g/dL (3.5-5.0); Albumin Globulin Ratio 1.1 (1.0-2.8); Alkaline Phosphatase 600 U/L (38-126); Blood Urea Nitrogen 4 mg/dL (7-17); Calcium 7.2 mg/dL (8.4-10.2); Carbon Dioxide 18 mmol/L (22-32); Chloride 98 mmol/L (98-107); Estimated Glomerular Filt Rate > 60 mL/min (>60); Globulin 3.3 g/dL (1.7-4.1); Glucose 199 mg/dL (70-99); HEMOLYSIS < 15 (0-50); Lipase 31 U/L (23-300); Potassium 3.1 mmol/L (3.4-5.1); Sodium 133 mmol/L (137-145); Total Protein 6.8 g/dL (6.3-8.2)
[2025-04-12 05:45] LABS: Lactate (Lactic Acid) 4.6 mmol/L (0.7-2.1)
[2025-04-12 05:53] LABS: Procalcitonin 1.18 ng/mL (<0.5)
--- NOTE | 2025-04-12 05:56 | PC.NURSE ---
Pt to imaging via ED stretcher with geospatial information technologist
[2025-04-12] MEDS: cefTRIAXone 2,000 MG in SODIUM CHLORIDE 0.9% 100 ML 200 MG IV (06:09)
[2025-04-12 06:14] LABS: Magnesium 0.9 mg/dL (1.6-2.3)
[2025-04-12 06:50] LABS: Reflexed Lactate in 2 Hours Y
[2025-04-12 07:19] LABS: Lactate 2HR (Lactic Acid Rflx) 3.6 mmol/L (0.7-2.1)
[2025-04-12] MEDS: MAGNESIUM SULFATE 2 GM/50 ML PIGGYBACK IV (07:43)
[2025-04-12] MEDS: POTASSIUM CHLORIDE IN WATER 10 MEQ/100 ML PIGGYBACK 100 MEQ IV ×2 (08:21→09:30)
[2025-04-12 08:54] LABS: Influenza A - CEPHEID Flu A NEGATIVE (NEGATIVE); Influenza B - CEPHEID Flu B NEGATIVE (NEGATIVE)
[2025-04-12 09:08] LABS: COVID-19 CEPHEID 4-PLEX PCR Negative (Negative)
--- NOTE | 2025-04-12 09:24 | DI.US.S_ITS ---
PROCEDURE: US ABDOMEN LIMITED INDICATIONS: ASCITES TECHNIQUE: Real-time focused scanning was performed of the abdomen, with image documentation. COMPARISON: [facility], CT, CT ABDOMEN PELVIS W CON, 04/12/2025, 5:29. FINDINGS: Pronounced fatty infiltration throughout the liver, with hepatomegaly measuring up to 24 cm craniocaudad on the right and 19 cm on the left. No ascites found all [address] scanning the spleen is normal in length. Bladder volume was noted to be relatively prominent both before and after voiding with postvoid volume 410 cc. IMPRESSION: Hepatomegaly with pronounced diffuse fatty infiltration throughout. No ascites found. Bladder prominence as noted. Dictated by: Erwin Nicole M.D. on 04/12/2025 at 10:56 Approved by: Erwin Nicole M.D. on 04/12/2025 at 11:00
[2025-04-12] MEDS: SODIUM CHLORIDE 0.9% 1,837.05 ML 612.35 ML IV (10:19)
--- NOTE | 2025-04-12 10:48 | CM.DANOTE ---
DCP Assessment Note: Pt is a 69yo female, resident of [place], is admitted for sepsis, C-Diff+. Pt lives in a house with her partner, Darci. Pt's Primary Care Provider is Dr. Adelso Baron and insurance is Medicare and Medicaid. Reviewed chart and discussed with multidisciplinary team pt's medical status and initial discharge needs. Per ED Provider, pt to be admitted for IV antibiotics and potassium repletion. Per chart review, pt has a history of Substance Use. DCP met w/patient at bedside; introduced self and role. Patient was found in bed, alert and oriented, cooperative with assessment. Pt confirmed living situation and good support in partner, states she is no longer able independent of ADLs, states she has her carry me to the bathroom, utilizes briefs or crawl to the bathroom. Pt expressed preference in discharge home but is willing to discuss if SNF needed. Pt has a no history of home health or SNF Rehab. Plan: Anticipating discharge home . CM team will follow closely for coordination of discharge plans. IBIS Quinones Discharge Planning/Care Management CM Discharge Assessment Start: 04/12/25 09:47 Freq: Status: Active Protocol: Document 04/12/25 10:44 MW (Rec: 04/12/25 10:47 MW [id number]) Discharge Planning Assessment Assigned Discharge ZACHARY Snell Organizational Development Consultant Provider Dr. Adelso Baron Insurance Medicaid,Medicare DPOA/Assigned Arturo Ramirez Partner Designee Name Contact Information [phone] Advance Directives? No Advance Directives No on File History Provided By Patient,Medical Record Has Patient been Yes admitted in last 30 days? Prior Living House Arrangements Household Members significant other Type of Relies on Others transporation used prior to admit Independent with ADL No 's Is patient alert and Yes oriented? Needs Assistance Bathing,Grooming,Meal Prep,Toileting,Managing With Medications,Home Chores / Shopping Caregiver for No Another Patient/Family Home with Home Health Preference Comment None at this time, home w/family, denies needs for [facility] treatment/counseling resources Discharge Plan Home Transportation Family Arrangement Review Status In Process Please Provide Date 04/12/25 Initial DC Assessment Was Performed Next Review Type Continued Stay Review
[2025-04-12 10:56] LABS: Appearance Urine UA CLEAR; Bilirubin Urine UA 2+ (NEGATIVE); Color Urine UA YELLOW; Glucose Urine UA NEGATIVE (Negative); Ketones Urine UA NEGATIVE (NEGATIVE); Leukocyte Esterase Urine UA NEGATIVE (NEGATIVE); Nitrite Urine UA POSITIVE (Negative); Occult Blood Urine UA NEGATIVE (Negative); Protein Urine UA NEGATIVE (Negative); Specific Gravity Urine UA <=1.005 (1.000-1.035); Urobilinogen Urine UA 0.2 E.U./dL (0.2)
[2025-04-12 10:57] LABS: pH Urine UA 6.5 (4.5-8.0)
[2025-04-12 11:03] LABS: Ictotest Urine Positive (Negative)
[2025-04-12 11:04] LABS: Culture Indicated Urine Specimen Cultured
--- NOTE | 2025-04-12 11:33 | PM.HP.1 ---
History of Present Illness History of Present Illness Date Patient Seen: 04/12/25 Chief complaint: Abdominal Pain, Vomiting Narrative: HPI: She was in 68-year-old female who was just discharged on April 08. At that time she had C diff toxin and abdomen pain. She presents today with abdominal pain and distention. She was had diarrhea but this now has resolved. She does have ongoing alcohol use with her last drank yesterday. She did not have any ascites on imaging in the emergency department. She denies any rectal bleeding or hematemesis. She also denies a history of alcohol withdrawal. She was started on empiric antibiotics and given IV fluids in the emergency department for possible sepsis. A clear source was not discovered. She does have chronically abnormal liver function tests. She was alert and oriented and denies confusion. She lives locally with her . ED: WBC 8.6, hemoglobin 13.1, INR 1.8, sodium 133, potassium 3.1, glucose 199, lactic acid 3.6, calcium 7.2, magnesium 0.9, bilirubin 8.8 with AST of 389 and ALT of 131. Abdomen pelvis CT reveals ongoing changes consistent with infectious enteritis of the small bowel loops. The liver is notable for severe hepatic steatosis and hepatomegaly. ROS: All else reviewed and otherwise unremarkable except as noted in the history and physical. IMAGING: CTAP: 1. Finding is suggestive of infectious inflammatory enteritis involving proximal small bowel loops as above not significantly changed from prior study. No abscess collection. No free fluid or free air. 2. Other chronic findings are not significantly changed from recent study. AP US: IMPRESSION: Hepatomegaly with pronounced diffuse fatty infiltration throughout. No ascites found. Bladder prominence as noted. A/P: 1. Abdomen pain with recent diagnosis of C diff toxin, and enteritis on CT scan. 2. Alcohol dependence with recent cessation of use 1 day prior and no history of withdrawal seizures. 3. Acute alcoholic hepatitis and hepatosteatosis, active. 4. Hypomagnesemia, active. 5. Hypokalemia, active. 6. Hypocalcemia, active. 7. Lactic acidosis likely related to liver failure, active. 8. Possible sepsis, active. PLAN: -continue empiric antibiotics with ceftriaxone and Flagyl. -continue oral vancomycin. -IV fluids. -replace magnesium and potassium and monitor. -Librium Q 8 hours scheduled and monitor for any evidence of alcohol withdrawal. Anticipate 2 midnights in the hospital, supports inpatient status. PROGNOSTICATORS: Child class B MELD 3.0: 24 Pts, 89% chance of survival at 90 days. Full code [facility] Medical History (Updated 04/12/25 @ 06:04 by Brian Madrid MD) Chronic pain syndrome (Unknown) Osteoarthritis (Unknown) Asthma (Unknown) Schizophrenia (Unknown) Depression (Unknown) Bipolar disorder (Unknown) Anxiety (Unknown) Restless leg syndrome (Unknown) ADHD (attention deficit hyperactivity disorder) (Unknown) Shoulder pain (Unknown) Foot pain (Unknown) Fractures (Unknown) Chronic back pain (Unknown) Chickenpox (Unknown) Vertigo (Unknown) Hearing loss (Unknown) Fibroids (2004) Hypothyroidism (1985) Diabetes insipidus (Unknown) Type 2 diabetes mellitus (2005) Uncomplicated opioid dependence (12/11/16) Chronic low back pain (05/02/15) Surgical History Status post tubal ligation Status post laparoscopic cholecystectomy Family History Father Brain tumor Mother Cancer Brother Car occupant injured in traffic accident Sister Brain tumor Grandfather Cancer Grandmother Heart failure Social History household members: significant other Smoking Status: Current some day smoker alcohol intake: current Meds Home Medications and Allergies Home Medications ?Medication ?Instructions ?Recorded ?Confirmed ?Type albuterol sulfate 90 mcg/actuation 1 puff inhalation Q4HP PRN 12/03/17 04/07/25 Rx aerosol inhaler (Ventolin HFA) shortness of breath or wheezing #1 ea insulin glargine 100 unit/mL (3 10 unit (0.1 mL) SUBCUT QDAY ##5 12/03/17 04/07/25 Rx mL) subcutaneous pen (Lantus Solostar U-100 Insulin) sertraline 100 mg tablet 100 mg PO BID #60 tabs 01/23/19 04/07/25 Rx levothyroxine 200 mcg tablet 200 mcg PO DAILY 04/14/19 04/07/25 History (Synthroid) magnesium chloride 64 mg 64 mg PO DAILY #30 tabs 05/16/24 04/07/25 Rx (magnesium chloride) tablet,delayed release (Mag 64) [true metrix meter] 1 kit QDAY 04/07/25 History olanzapine 20 mg disintegrating 20 mg PO DAILY #30 tabs 04/08/25 Rx tablet polyethylene glycol 3350 17 gram 17 g PO BID #100 ea 04/08/25 Rx oral powder packet (Miralax) quetiapine 300 mg tablet (Seroquel) 300 mg PO BEDTIME #30 tabs 04/08/25 Rx vancomycin 250 mg capsule 250 mg PO QID #60 caps 04/08/25 Rx naloxone 4 mg/actuation nasal spray 4 mg intranasal Q2M PRN opioid 04/12/25 Rx overdose #2 ea Allergies Allergy/AdvReac Type Severity Reaction Status Date / Time No Known Drug Allergies Allergy Unverified 04/12/25 04:44 Exam Vital Signs (past 8 hours): - 04/12/25 04:44 04/12/25 07:00 04/12/25 07:30 Temperature 96.1 F L Pulse Rate 99 H 101 H 102 H Respiratory Rate 26 H 40 H 32 H Blood Pressure 100/69 Pulse Oximetry 95 99 98 Oxygen Delivery Method Room Air Oxygen Flow Rate 04/12/25 08:00 04/12/25 08:21 04/12/25 08:21 Temperature Pulse Rate 93 H 101 H Respiratory Rate 22 21 Blood Pressure 101/67 Pulse Oximetry 96 97 Oxygen Delivery Method Oxygen Flow Rate 04/12/25 08:30 04/12/25 08:31 04/12/25 08:31 Temperature Pulse Rate 97 H 97 H Respiratory Rate 33 H 35 H Blood Pressure 126/82 Pulse Oximetry 98 93 Oxygen Delivery Method Oxygen Flow Rate 04/12/25 09:00 04/12/25 09:00 04/12/25 09:30 Temperature Pulse Rate 93 H 92 H Respiratory Rate 30 H Blood Pressure 123/82 Pulse Oximetry 98 93 Oxygen Delivery Method Oxygen Flow Rate 04/12/25 09:30 04/12/25 09:47 04/12/25 10:00 Temperature Pulse Rate Respiratory Rate Blood Pressure 123/78 129/85 Pulse Oximetry Oxygen Delivery Method Room Air Oxygen Flow Rate 04/12/25 10:00 04/12/25 10:30 04/12/25 10:30 Temperature Pulse Rate 100 H 97 H Respiratory Rate 26 H 24 Blood Pressure 130/78 Pulse Oximetry 97 92 Oxygen Delivery Method Room Air Oxygen Flow Rate 04/12/25 11:18 Temperature 96.5 F L Pulse Rate 95 H Respiratory Rate 18 Blood Pressure 114/56 L Pulse Oximetry 98 Oxygen Delivery Method Oxygen Flow Rate 0 Oxygen Delivery Method Room Air Oxygen Flow Rate 0 Objective Labs 04/12/25 04:45 04/12/25 04:45 Labs: Laboratory Results - last 24 hr 04/12/25 04/12/25 04/12/25 04:45 06:56 08:11 WBC 8.6 RBC 3.53 L Hgb 13.1 Hct 37.0 MCV 105.1 H MCH 37.2 H MCHC 35.4 RDW 17.6 H Plt Count 278 Neut % (Auto) 50.7 Lymph % (Auto) 38.1 [place] % (Auto) 9.3 Eos % (Auto) 0.3 L Baso % (Auto) 1.6 Neut # (Auto) 4400 Lymph # (Auto) 3300 [place] # (Auto) 800 Eos # (Auto) 0 Baso # (Auto) 100 PT 20.4 H D INR 1.8 H APTT 48 H Sodium 133 L Potassium 3.1 L Chloride 98 Carbon Dioxide 18 L BUN 4 L Creatinine 0.54 Estimated GFR > 60 BUN/Creatinine Ratio 7.4 Glucose 199 H Lactate 4.6 H* 3.6 H Calcium 7.2 L Magnesium 0.9 L* Total Bilirubin 8.8 H AST 389 H ALT 113 H Alkaline Phosphatase 600 H Total Protein 6.8 Albumin 3.5 Globulin 3.3 Albumin/Globulin Ratio 1.1 Lipase 31 Procalcitonin 1.18 H Urine Color Urine Appearance Urine pH Ur Specific [place] Urine Protein Urine Glucose (UA) Urine Ketones Urine Occult Blood Urine Nitrate Urine Bilirubin Ur Bilirubin Confirm Urine Urobilinogen Ur Leukocyte Esterase Urine RBC Urine WBC Ur Squamous Epith Cells Urine Bacteria Ur Culture Indicated? Vol Urine Centrifuged SARS-CoV-2 (PCR) Negative Influenza A (RT-PCR) Flu a negative Influenza B (RT-PCR) Flu b negative RSV (PCR) Negative 04/12/25 10:38 WBC RBC Hgb Hct MCV MCH MCHC RDW Plt Count Neut % (Auto) Lymph % (Auto) [place] % (Auto) Eos % (Auto) Baso % (Auto) Neut # (Auto) Lymph # (Auto) [place] # (Auto) Eos # (Auto) Baso # (Auto) PT INR APTT Sodium Potassium Chloride Carbon Dioxide BUN Creatinine Estimated GFR BUN/Creatinine Ratio Glucose Lactate Calcium Magnesium Total Bilirubin AST ALT Alkaline Phosphatase Total Protein Albumin Globulin Albumin/Globulin Ratio Lipase Procalcitonin Urine Color Yellow Urine Appearance Clear Urine pH 6.5 Ur Specific [place] <=1.005 Urine Protein Negative Urine Glucose (UA) Negative Urine Ketones Negative Urine Occult Blood Negative Urine Nitrate Positive H Urine Bilirubin 2+ H Ur Bilirubin Confirm Positive H Urine Urobilinogen 0.2 Ur Leukocyte Esterase Negative Urine RBC 0-1/hpf Urine WBC 0-1/hpf Ur Squamous Epith Cells 1-5 /hpf Urine Bacteria Moderate (10-30) H Ur Culture Indicated? Specimen cultured Vol Urine Centrifuged 10ml (spun) SARS-CoV-2 (PCR) Influenza A (RT-PCR) Influenza B (RT-PCR) RSV (PCR) Assessment & Plan Time-Based Coding :: [TOTAL MINUTES] spent with patient and on the chart (including review of chart, obtaining history, exam, reviewing outside data, placing orders, documenting exam and treatment plan, and counseling patient) on [DATE].
[2025-04-12] MEDS: HEPARIN 5,000 UNIT/ML VIAL 5000 UNIT SUBCUT ×2 (12:04→21:03)
[2025-04-12] MEDS: VANCOMYCIN 1,250 MG/250 ML PIGGYBACK 250 MG IV (12:04)
[2025-04-12] MEDS: SODIUM CHLORIDE 0.9% 1,000 ML 100 ML IV ×2 (12:04→22:10)
[2025-04-12] MEDS: NICOTINE 21 MG PATCH TOP (12:11)
[2025-04-12] MEDS: INSULIN LISPRO 100 UNIT/ML 3ML VIAL SUBCUT ×3 (12:20→21:15)
[2025-04-12] MEDS: VANCOMYCIN 125 MG CAPSULE PO ×2 (16:57→22:15)
[2025-04-12] MEDS: metroNIDAZOLE 500 MG/100 ML PIGGYBACK 100 MG IV ×2 (16:57→23:00)
[2025-04-12 17:21] LABS: Blood Urea Nitrogen 3 mg/dL (7-17); Calcium 6.5 mg/dL (8.4-10.2); Carbon Dioxide 18 mmol/L (22-32); Chloride 104 mmol/L (98-107); Estimated Glomerular Filt Rate > 60 mL/min (>60); Glucose 152 mg/dL (70-99); HEMOLYSIS < 15 (0-50); Magnesium 1.1 mg/dL (1.6-2.3); Potassium 3.4 mmol/L (3.4-5.1); Sodium 132 mmol/L (137-145)
[2025-04-12] MEDS: CYCLOBENZAPRINE 10 MG TABLET PO (21:02)
[2025-04-12] MEDS: SERTRALINE 50 MG TABLET 25 MG PO (21:22)
[2025-04-13] VITALS (8 sets, daily range): BP systolic 94–119; BP diastolic 52–81; PULSE 84–96; RESP 15–18; TEMP 35.9–36.6; O2SAT 94–99
[2025-04-13] MEDS: VANCOMYCIN 125 MG CAPSULE PO ×4 (04:15→21:00)
[2025-04-13] MEDS: metroNIDAZOLE 500 MG/100 ML PIGGYBACK 100 MG IV ×4 (04:33→23:00)
[2025-04-13 06:11] LABS: Alanine Aminotransferase 80 IU/L (<35); Albumin 2.5 g/dL (3.5-5.0); Albumin Globulin Ratio 0.9 (1.0-2.8); Alkaline Phosphatase 429 U/L (38-126); Blood Urea Nitrogen 5 mg/dL (7-17); Calcium 6.5 mg/dL (8.4-10.2); Carbon Dioxide 17 mmol/L (22-32); Chloride 106 mmol/L (98-107); Estimated Glomerular Filt Rate > 60 mL/min (>60); Globulin 2.7 g/dL (1.7-4.1); Glucose 136 mg/dL (70-99); HEMOLYSIS 34 (0-50); Potassium 3.5 mmol/L (3.4-5.1); Sodium 130 mmol/L (137-145); Total Protein 5.2 g/dL (6.3-8.2)
[2025-04-13 06:14] LABS: INR 2.2 (0.9-1.3); Prothrombin Time 24.2 SECONDS (9.4-12.5)
[2025-04-13 07:06] LABS: Hematocrit 30.3 % (36-46); Hemoglobin 10.4 g/dL (12.0-16.0); Lymphocytes Absolute Auto 2900 /uL (1100-4500); Mean Corpuscular HGB Conc 34.5 % (30-36); Mean Corpuscular Hemoglobin 36.7 PG (26-34); Mean Corpuscular Volume 106.2 fL (80-100); Platelet Count 152 X10^3/uL (150-400)
[2025-04-13 07:40] LABS: Add Manual Diff / Slide Review SLIDE REVIEW
[2025-04-13] MEDS: INSULIN LISPRO 100 UNIT/ML 3ML VIAL SUBCUT ×3 (08:36→21:00)
[2025-04-13] MEDS: cefTRIAXone 2,000 MG in SODIUM CHLORIDE 0.9% 100 ML 200 MG IV (08:43)
[2025-04-13] MEDS: NICOTINE 21 MG PATCH TOP (08:43)
[2025-04-13] MEDS: HEPARIN 5,000 UNIT/ML VIAL 5000 UNIT SUBCUT ×2 (08:44→21:00)
[2025-04-13] MEDS: SODIUM CHLORIDE 0.9% 1,000 ML 100 ML IV ×2 (08:47→19:05)
[2025-04-13 09:10] LABS: Macrocytosis 1+
[2025-04-13 09:13] LABS: Anisocytosis 1+
[2025-04-13] MEDS: HALOPERIDOL 5 MG/ML VIAL IM (15:36)
[2025-04-13 15:41] LABS: Magnesium 1.0 mg/dL (1.6-2.3)
[2025-04-13 15:49] LABS: Hemoglobin A1C% w Est Avg Glu 5.4 % (4.0-6.0)
--- NOTE | 2025-04-13 16:03 | DI.RAD.S_ITS ---
PROCEDURE: XR ANKLE RT MIN 3V INDICATIONS: pain TECHNIQUE: 3 views of the right ankle were acquired. COMPARISON: [facility], CR, XR ANKLE LT MIN 3V, 08/18/2019, 2:17. FINDINGS: Bones: No fractures or dislocations. Ankle mortise is normally aligned. No suspicious bony lesions. Soft tissues: No tibiotalar joint effusion. Achilles tendon appears normal. IMPRESSION: No acute bony abnormality or significant effusion. Dictated by: Erwin Nicole M.D. on 04/13/2025 at 16:59 Approved by: Erwin Nicole M.D. on 04/13/2025 at 16:59
--- NOTE | 2025-04-13 16:15 | PM.PN.1 ---
Subjective Subjective Interval history: Summary: She was admitted with the abdominal pain yesterday. She was chronic liver disease. She was recently diagnosed and treated for C diff colitis. She has been taking oral vancomycin at home. She was enteritis on CT scan and some abdominal pain. Today she became more agitated, despite being on Librium. She does drink alcohol on a regular basis. She denies a history of alcohol withdrawal. She was started on IV antibiotics for possible colitis and oral vancomycin was continued yesterday. S: Some confusion and abdominal pain today. O: Chronically ill in appearance, jaundiced. Somewhat confused. Lungs are clear, normal effort. Heart is regular, no murmur. Abdomen is distended, but nontender. No ascites on imaging. Extremities with trace edema. IMAGING: CTAP: 1. Finding is suggestive of infectious inflammatory enteritis involving proximal small bowel loops as above not significantly changed from prior study. No abscess collection. No free fluid or free air. 2. Other chronic findings are not significantly changed from recent study. ABD US: IMPRESSION: Hepatomegaly with pronounced diffuse fatty infiltration throughout. No ascites found. Bladder prominence as noted. A/P: 1. Abdomen pain with recent diagnosis of C diff toxin, and enteritis on CT scan. 2. Alcohol dependence with recent cessation of use 1 day prior and no history of withdrawal seizures. 3. Acute alcoholic hepatitis and hepatosteatosis, active. 4. Hypomagnesemia, active. 5. Hypokalemia, active. 6. Hypocalcemia, active. 7. Lactic acidosis likely related to liver failure, active. 8. Possible sepsis, active. 9. Increased agitation on April 13, with concern for possible alcohol withdrawal. PLAN: -continue empiric antibiotics with ceftriaxone and Flagyl. -continue oral vancomycin. -IV fluids. -replace magnesium and potassium and monitor. -Librium Q 8 hours scheduled -add CIWA protocol. -1 dose of Haldol given. Exam Vital Signs (past 8 hours): - 04/13/25 08:39 04/13/25 08:50 04/13/25 09:45 Temperature 97.9 F Pulse Rate 84 93 H Respiratory Rate 18 Blood Pressure 118/66 Pulse Oximetry 94 Oxygen Delivery Method Room Air Oxygen Flow Rate 0 04/13/25 12:00 Temperature 96.6 F L Pulse Rate 94 H Respiratory Rate 18 Blood Pressure 94/52 L Pulse Oximetry 98 Oxygen Delivery Method Oxygen Flow Rate 0 Oxygen Delivery Method Room Air Oxygen Flow Rate 0 Objective Labs 04/13/25 06:40 04/13/25 05:15 Labs: Laboratory Results - last 24 hr 04/12/25 04/12/25 04/12/25 16:35 16:55 20:18 WBC RBC Hgb Hct MCV MCH MCHC RDW Plt Count Neut % (Auto) Lymph % (Auto) [place] % (Auto) Eos % (Auto) Baso % (Auto) Neut # (Auto) Lymph # (Auto) [place] # (Auto) Eos # (Auto) Baso # (Auto) RBC Morphology Anisocytosis Macrocytosis PT INR Sodium 132 L Potassium 3.4 Chloride 104 Carbon Dioxide 18 L BUN 3 L Creatinine 0.44 L Estimated GFR > 60 BUN/Creatinine Ratio 6.8 Glucose 152 H POC Whole Bld Glucose 163 H 278 H D Hemoglobin A1c Calcium 6.5 L Magnesium 1.1 L Total Bilirubin AST ALT Alkaline Phosphatase Total Protein Albumin Globulin Albumin/Globulin Ratio 04/13/25 04/13/25 04/13/25 05:15 06:40 07:36 WBC 6.2 RBC 2.85 L Hgb 10.4 L Hct 30.3 L MCV 106.2 H MCH 36.7 H MCHC 34.5 RDW 17.2 H Plt Count 152 Neut % (Auto) 41.7 L Lymph % (Auto) 47.8 H [place] % (Auto) 8.4 Eos % (Auto) 0.3 L Baso % (Auto) 1.8 Neut # (Auto) 2600 Lymph # (Auto) 2900 [place] # (Auto) 500 Eos # (Auto) 0 Baso # (Auto) 100 RBC Morphology See below Anisocytosis 1+ H Macrocytosis 1+ H PT 24.2 H INR 2.2 H Sodium 130 L Potassium 3.5 Chloride 106 Carbon Dioxide 17 L BUN 5 L Creatinine 0.47 L Estimated GFR > 60 BUN/Creatinine Ratio 10.6 Glucose 136 H POC Whole Bld Glucose 178 H D Hemoglobin A1c 5.4 Calcium 6.5 L Magnesium 1.0 L Total Bilirubin 7.7 H AST 272 H ALT 80 H Alkaline Phosphatase 429 H Total Protein 5.2 L Albumin 2.5 L Globulin 2.7 Albumin/Globulin Ratio 0.9 L 04/13/25 11:36 WBC RBC Hgb Hct MCV MCH MCHC RDW Plt Count Neut % (Auto) Lymph % (Auto) [place] % (Auto) Eos % (Auto) Baso % (Auto) Neut # (Auto) Lymph # (Auto) [place] # (Auto) Eos # (Auto) Baso # (Auto) RBC Morphology Anisocytosis Macrocytosis PT INR Sodium Potassium Chloride Carbon Dioxide BUN Creatinine Estimated GFR BUN/Creatinine Ratio Glucose POC Whole Bld Glucose 308 H D Hemoglobin A1c Calcium Magnesium Total Bilirubin AST ALT Alkaline Phosphatase Total Protein Albumin Globulin Albumin/Globulin Ratio [facility] Medical History (Updated 04/12/25 @ 06:04 by Brian Madrid MD) Chronic pain syndrome (Unknown) Osteoarthritis (Unknown) Asthma (Unknown) Schizophrenia (Unknown) Depression (Unknown) Bipolar disorder (Unknown) Anxiety (Unknown) Restless leg syndrome (Unknown) ADHD (attention deficit hyperactivity disorder) (Unknown) Shoulder pain (Unknown) Foot pain (Unknown) Fractures (Unknown) Chronic back pain (Unknown) Chickenpox (Unknown) Vertigo (Unknown) Hearing loss (Unknown) Fibroids (2004) Hypothyroidism (1985) Diabetes insipidus (Unknown) Type 2 diabetes mellitus (2005) Uncomplicated opioid dependence (12/11/16) Chronic low back pain (05/02/15) Surgical History Status post tubal ligation Status post laparoscopic cholecystectomy Family History Father Brain tumor Mother Cancer Brother Car occupant injured in traffic accident Sister Brain tumor Grandfather Cancer Grandmother Heart failure Social History household members: significant other Smoking Status: Current some day smoker alcohol intake: current Assessment & Plan Time-Based Coding :: [TOTAL MINUTES] spent with patient and on the chart (including review of chart, obtaining history, exam, reviewing outside data, placing orders, documenting exam and treatment plan, and counseling patient) on [DATE].
--- NOTE | 2025-04-13 16:53 | PC.NURSE ---
This am when this nurse first entered pt room, the pt had a half dissolved pill in her mouth. When questioned about this, she said she had found it in her bed and she thought it was seroquel. Around 1530, pt got out of bed to sit in the chair and 3 small pink pills were found in the bed. Upon examination, the pills had SHAQUILLE on one side and Y15 on the other side. A google search reveals that these are quetiapine and likely leftover from her dose last night. Pharmacy was informed, and the meds were wasted per protocol.
[2025-04-13] MEDS: MAGNESIUM SULFATE 4 GM/100 ML PIGGYBACK IV (17:34)
[2025-04-13 20:19] LABS: Clostridium difficile toxin AB Not Detected (Not Detect); Enteroaggregative E.coli Not Detected (Not Detect); Enteropathogenic E.coli Not Detected (Not Detect); Enterotoxigenic E.coli It/st Not Detected (Not Detect); Plesiomonsa shigelloides Not Detected (Not Detect); Shiga-like toxin-prod E.coli Not Detected (Not Detect)
[2025-04-13] MEDS: INSULIN GLARGINE 100 UNIT/ML 3ML PEN 10 UNIT SUBCUT (21:43)
[2025-04-13] MEDS: SERTRALINE 50 MG TABLET 25 MG PO (22:20)
[2025-04-14 03:16] VITALS: BP 86/56; PULSE 81; RESP 20
[2025-04-14] MEDS: VANCOMYCIN 125 MG CAPSULE PO ×4 (04:15→22:40)
[2025-04-14 05:00] VITALS: BP 89/55; PULSE 79; RESP 18; TEMP 36; O2SAT 92
[2025-04-14] MEDS: metroNIDAZOLE 500 MG/100 ML PIGGYBACK 100 MG IV ×4 (05:00→22:40)
[2025-04-14 06:56] LABS: Add Manual Diff / Slide Review NO; Hematocrit 24.9 % (36-46); Hemoglobin 8.7 g/dL (12.0-16.0); Lymphocytes Absolute Auto 2000 /uL (1100-4500); Mean Corpuscular HGB Conc 35.0 % (30-36); Mean Corpuscular Hemoglobin 37.4 PG (26-34); Mean Corpuscular Volume 106.9 fL (80-100); Platelet Count 130 X10^3/uL (150-400)
[2025-04-14 07:01] LABS: INR 2.8 (0.9-1.3); Prothrombin Time 31.2 SECONDS (9.4-12.5)
[2025-04-14 07:03] LABS: Alanine Aminotransferase 61 IU/L (<35); Albumin 2.1 g/dL (3.5-5.0); Albumin Globulin Ratio 0.8 (1.0-2.8); Alkaline Phosphatase 359 U/L (38-126); Blood Urea Nitrogen 5 mg/dL (7-17); Carbon Dioxide 17 mmol/L (22-32); Chloride 108 mmol/L (98-107); Estimated Glomerular Filt Rate > 60 mL/min (>60); Globulin 2.7 g/dL (1.7-4.1); Glucose 112 mg/dL (70-99); HEMOLYSIS < 15 (0-50); Potassium 3.0 mmol/L (3.4-5.1); Sodium 132 mmol/L (137-145); Total Protein 4.8 g/dL (6.3-8.2)
[2025-04-14 07:04] LABS: Magnesium 1.5 mg/dL (1.6-2.3)
[2025-04-14 07:08] LABS: Calcium 6.4 mg/dL (8.4-10.2)
[2025-04-14] MEDS: cefTRIAXone 2,000 MG in SODIUM CHLORIDE 0.9% 100 ML 200 MG IV (10:20)
[2025-04-14] MEDS: THIAMINE 100 MG TABLET PO (10:48)
[2025-04-14] MEDS: HEPARIN 5,000 UNIT/ML VIAL 5000 UNIT SUBCUT ×2 (10:48→21:07)
[2025-04-14] MEDS: MULTIVITAMIN 1 TABLET 1 TAB PO (10:48)
[2025-04-14] MEDS: NICOTINE 21 MG PATCH TOP (10:49)
[2025-04-14] MEDS: MAGNESIUM CHLORIDE 64 MG TABLET 128 MG PO (10:49)
[2025-04-14 10:51] VITALS: BP 102/68; PULSE 87; RESP 17; TEMP 36.3; O2SAT 96
[2025-04-14] MEDS: POTASSIUM CHLORIDE 20 MEQ TAB 40 MEQ PO ×2 (10:56→17:17)
[2025-04-14] MEDS: SODIUM CHLORIDE 0.9% 1,000 ML 100 ML IV (12:07)
--- NOTE | 2025-04-14 12:56 | CM.DPNOTE ---
DCP Note NUTRITIONAL ASSISTANT reviewed EMR per provider, labs still remain abnormal. here another day or so. Plan: Anticipating discharge home . may be good HH candidate CM team will follow closely for coordination of discharge plans. ZACHARY Nelson
--- NOTE | 2025-04-14 16:19 | PT-IP ANOTE ---
PT eval order received and EMR reviewed. checked on pt and pt is very lethargic. attempted to wake pt up but pt unable to open her eyes and just mumbles. pt is not appropriate for PT at this time. will f/u.
[2025-04-14] MEDS: INSULIN LISPRO 100 UNIT/ML 3ML VIAL SUBCUT ×2 (17:23→21:10)
[2025-04-14 18:00] VITALS: BP 106/62; PULSE 81; RESP 19; TEMP 36.3; O2SAT 98
--- NOTE | 2025-04-14 18:20 | PC.NURSE ---
Patient has been appropriate all day... She slept late this morning and then her po meds and iv antibiotics given. BS 116, and 200. All insulins given.. Patient did not want her own clothes changed at that time. We just had to change her clothes, bedding, as she had a heavy incontinence on the bed. She is eating her dinner after being cleaned up, she had an xl bm that was soft. Patient given po potassium replacemt x2 today. She requested dilaudid x1. Her CIWA was a score of 1 throughtout the day. Her is here visiting and states that patient has been drinking alot more and has done some Meth. Patients abdomen is rotunded, and her sclera are yellow. She is alert and oriented x2. Not sure if she really knows what the date or month it is. Patient has ativan if needed. She is comfortable at this time.
--- NOTE | 2025-04-14 18:43 | P.PN_ITS ---
Subjective Subjective Interval history: 69-year-old female with history of alcohol dependence and recent hospitalization with C colitis who was admitted with small bowel enteritis and acute alcohol- induced hepatitis. Patient reports that she has not had any further diarrhea. She states she had fairly significant abdominal distention when she 1st came in. She states that is improved since she was admitted. She still feels she is more distended than she is at baseline. She states she has had pain in her right ankle for a couple of weeks now. She states the medial ankle is painful and she has a hard time dorsiflexing. She states this makes it difficult for her to weight bear. She does not believe she has had an evaluation with an x- ray. She is asking for a walking boot. Exam Vital Signs (past 8 hours): - 04/14/25 10:51 04/14/25 18:00 Temperature 97.3 F L 97.3 F L Pulse Rate 87 81 Respiratory Rate 17 19 Blood Pressure 102/68 106/62 Pulse Oximetry 96 98 Oxygen Delivery Method Room Air Oxygen Flow Rate 0 Narrative Exam Narrative: GEN: Chronically ill-appearing middle-aged female, Alert and oriented x 3, NAD HEENT:NC, Face symmetric, scleral icterus is present bilaterally CHEST: Respiratory excursions symmetric, CTAB CV: RRR, no M/R/G ABD: Soft, moderately distended, NT, BT present in all 4 quadrants, distention limits exam EXTR: warm, well perfused, no C/C/E SKIN: warm and dry, no rash NEURO: Alert and oriented x 3, nonfocal Objective Labs 04/14/25 06:20 04/14/25 06:20 Labs: Laboratory Results - last 24 hr 04/13/25 04/13/25 04/14/25 18:00 22:41 06:20 WBC 4.1 L RBC 2.32 L Hgb 8.7 L Hct 24.9 L MCV 106.9 H MCH 37.4 H MCHC 35.0 RDW 17.2 H Plt Count 130 L Neut % (Auto) 42.8 L Lymph % (Auto) 48.7 H [place] % (Auto) 6.8 Eos % (Auto) 0.7 L Baso % (Auto) 1.0 Neut # (Auto) 1800 Lymph # (Auto) 2000 [place] # (Auto) 300 Eos # (Auto) 0 Baso # (Auto) 0 PT 31.2 H D INR 2.8 H Sodium 132 L Potassium 3.0 L Chloride 108 H Carbon Dioxide 17 L BUN 5 L Creatinine 0.50 L Estimated GFR > 60 BUN/Creatinine Ratio 10.0 Glucose 112 H POC Whole Bld Glucose 182 H Calcium 6.4 L* Magnesium 1.5 L Total Bilirubin 6.4 H AST 215 H ALT 61 H Alkaline Phosphatase 359 H Total Protein 4.8 L Albumin 2.1 L Globulin 2.7 Albumin/Globulin Ratio 0.8 L Stl C. cayetanensis PCR Not detected Stool Rotavirus (PCR) Not detected Stool Adenovirus (PCR) Not detected Stool Astrovirus (PCR) Not detected Stool Cryptosporidium PCR Not detected Stl E.coli Shiga Tox PCR Not detected St Sh/Enteroin Ecoli PCR Not detected Stl Enterotoxigenic E PCR Not detected Stool EPEC (PCR) Not detected Stl E. histolytica PCR Not detected Stool Giardia Lamblia PCR Not detected Stool Sapovirus (PCR) Not detected Stl P. shigelloides PCR Not detected St Y.enterocolitica PCR Not detected Stool Vibrio (PCR) Not detected Stl Vibrio cholerae PCR Not detected Stl Enteroaggr Ecoli PCR Not detected Stl Norovirus GI/GII PCR Not detected Campylobacter (PCR) Not detected C. difficile Tox (PCR) Not detected Salmonella (PCR) Not detected 04/14/25 04/14/25 10:40 17:22 WBC RBC Hgb Hct MCV MCH MCHC RDW Plt Count Neut % (Auto) Lymph % (Auto) [place] % (Auto) Eos % (Auto) Baso % (Auto) Neut # (Auto) Lymph # (Auto) [place] # (Auto) Eos # (Auto) Baso # (Auto) PT INR Sodium Potassium Chloride Carbon Dioxide BUN Creatinine Estimated GFR BUN/Creatinine Ratio Glucose POC Whole Bld Glucose 116 H 210 H Calcium Magnesium Total Bilirubin AST ALT Alkaline Phosphatase Total Protein Albumin Globulin Albumin/Globulin Ratio Stl C. cayetanensis PCR Stool Rotavirus (PCR) Stool Adenovirus (PCR) Stool Astrovirus (PCR) Stool Cryptosporidium PCR Stl E.coli Shiga Tox PCR St Sh/Enteroin Ecoli PCR Stl Enterotoxigenic E PCR Stool EPEC (PCR) Stl E. histolytica PCR Stool Giardia Lamblia PCR Stool Sapovirus (PCR) Stl P. shigelloides PCR St Y.enterocolitica PCR Stool Vibrio (PCR) Stl Vibrio cholerae PCR Stl Enteroaggr Ecoli PCR Stl Norovirus GI/GII PCR Campylobacter (PCR) C. difficile Tox (PCR) Salmonella (PCR) [facility] Medical History (Updated 04/12/25 @ 06:04 by Brian Madrid MD) Chronic pain syndrome (Unknown) Osteoarthritis (Unknown) Asthma (Unknown) Schizophrenia (Unknown) Depression (Unknown) Bipolar disorder (Unknown) Anxiety (Unknown) Restless leg syndrome (Unknown) ADHD (attention deficit hyperactivity disorder) (Unknown) Shoulder pain (Unknown) Foot pain (Unknown) Fractures (Unknown) Chronic back pain (Unknown) Chickenpox (Unknown) Vertigo (Unknown) Hearing loss (Unknown) Fibroids (2004) Hypothyroidism (1985) Diabetes insipidus (Unknown) Type 2 diabetes mellitus (2005) Uncomplicated opioid dependence (12/11/16) Chronic low back pain (05/02/15) Surgical History Status post tubal ligation Status post laparoscopic cholecystectomy Family History Father Brain tumor Mother Cancer Brother Car occupant injured in traffic accident Sister Brain tumor Grandfather Cancer Grandmother Heart failure Social History household members: significant other Smoking Status: Current some day smoker alcohol intake: current Assessment & Plan Assessment & Plan narrative: 1. Acute small-bowel enteritis Recent C diff diagnosis. Diarrhea has resolved. He remains on empiric ceftriaxone and Flagyl. She has not had any residual diarrhea. Her abdominal distention is improving. Will continue conservative management. 2. Alcohol-induced hepatitis Improved distention overall. Her LFTs are improving as well. No evidence for alcohol withdrawal. Abdominal ultrasound was negative for ascites. 3. Alcohol dependence without evidence for withdrawal She last used alcohol 1 day prior to admission. She does not have any evidence for withdrawal at this time. 4. Right ankle pain On examination today, she has no swelling or deformity. She did have an x-ray performed yesterday which revealed no abnormality. Will have PT perform an assessment to see if they have any recommendations for further treatment. 5. Anemia, macrocytic Likely due to marrow suppression. Hemoglobin is down from 10.4 yesterday to 8.7 today. No evidence of bleeding. Likely hemodilutional. Will monitor. 6. Hypokalemia Will replete. 7. Hypomagnesemia Continue to replete 8. Hypocalcemia Will replete and recheck tomorrow 9. Diabetes mellitus type 2 Hemoglobin A1c is 5.4%, revealing excellent control. Continue Lantus and sliding scale Code status Full Prophylaxis On heparin Disposition Pending Time-Based Coding :: [TOTAL MINUTES] spent with patient and on the chart (including review of chart, obtaining history, exam, reviewing outside data, placing orders, documenting exam and treatment plan, and counseling patient) on [DATE].
[2025-04-14 20:00] VITALS: BP 105/64; PULSE 87; RESP 20; TEMP 36.1; O2SAT 95
[2025-04-14] MEDS: SERTRALINE 50 MG TABLET 25 MG PO (21:03)
[2025-04-14] MEDS: INSULIN GLARGINE 100 UNIT/ML 3ML PEN 10 UNIT SUBCUT (21:07)
[2025-04-14 23:11] VITALS: PULSE 84; RESP 20
[2025-04-15] VITALS (9 sets, daily range): BP systolic 87–114; BP diastolic 51–75; PULSE 69–96; RESP 14–19; TEMP 36.1–36.4; O2SAT 68–97
[2025-04-15] MEDS: VANCOMYCIN 125 MG CAPSULE PO ×4 (03:44→21:53)
[2025-04-15] MEDS: metroNIDAZOLE 500 MG/100 ML PIGGYBACK 100 MG IV ×4 (04:29→22:15)
[2025-04-15 06:30] LABS: Add Manual Diff / Slide Review NO; Hematocrit 26.4 % (36-46); Hemoglobin 9.2 g/dL (12.0-16.0); Lymphocytes Absolute Auto 2400 /uL (1100-4500); Mean Corpuscular HGB Conc 34.8 % (30-36); Mean Corpuscular Hemoglobin 37.5 PG (26-34); Mean Corpuscular Volume 107.7 fL (80-100); Platelet Count 139 X10^3/uL (150-400)
[2025-04-15 06:35] LABS: INR 3.0 (0.9-1.3); Prothrombin Time 33.2 SECONDS (9.4-12.5)
[2025-04-15 06:40] LABS: Alanine Aminotransferase 58 IU/L (<35); Albumin 2.2 g/dL (3.5-5.0); Albumin Globulin Ratio 0.8 (1.0-2.8); Alkaline Phosphatase 338 U/L (38-126); Blood Urea Nitrogen 6 mg/dL (7-17); Calcium 6.7 mg/dL (8.4-10.2); Carbon Dioxide 17 mmol/L (22-32); Chloride 109 mmol/L (98-107); Estimated Glomerular Filt Rate > 60 mL/min (>60); Globulin 2.6 g/dL (1.7-4.1); Glucose 185 mg/dL (70-99); HEMOLYSIS < 15 (0-50); Potassium 3.3 mmol/L (3.4-5.1); Sodium 133 mmol/L (137-145); Total Protein 4.8 g/dL (6.3-8.2)
[2025-04-15 06:42] LABS: Magnesium 0.9 mg/dL (1.6-2.3)
[2025-04-15] MEDS: MAGNESIUM SULFATE 2 GM/50 ML PIGGYBACK IV ×2 (08:39→13:38)
[2025-04-15] MEDS: cefTRIAXone 2,000 MG in SODIUM CHLORIDE 0.9% 100 ML 200 MG IV (10:10)
[2025-04-15] MEDS: MULTIVITAMIN 1 TABLET 1 TAB PO (10:11)
[2025-04-15] MEDS: THIAMINE 100 MG TABLET PO (10:11)
[2025-04-15] MEDS: NICOTINE 21 MG PATCH TOP (10:11)
[2025-04-15] MEDS: HEPARIN 5,000 UNIT/ML VIAL 5000 UNIT SUBCUT ×2 (10:11→20:50)
[2025-04-15] MEDS: INSULIN LISPRO 100 UNIT/ML 3ML VIAL SUBCUT ×4 (10:12→21:13)
[2025-04-15] MEDS: POTASSIUM CHLORIDE 20 MEQ TAB 40 MEQ PO ×2 (13:38→21:53)
[2025-04-15] MEDS: INSULIN GLARGINE 100 UNIT/ML 3ML PEN SUBCUT (13:42)
[2025-04-15] MEDS: SODIUM CHLORIDE 0.9% 1,000 ML 100 ML IV (15:55)
[2025-04-15 16:18] LABS: Clostridium difficile toxin AB Not Detected (Not Detect); Enteroaggregative E.coli Not Detected (Not Detect); Enteropathogenic E.coli Not Detected (Not Detect); Enterotoxigenic E.coli It/st Not Detected (Not Detect); Plesiomonsa shigelloides Not Detected (Not Detect); Shiga-like toxin-prod E.coli Not Detected (Not Detect)
--- NOTE | 2025-04-15 16:19 | PT.IIE ---
Current Diagnoses Sepsis, unspecified organism (04/12/25) Surgical History (Last Reviewed 04/07/25 @ 05:10 by Soy Taylor MD) Status post laparoscopic cholecystectomy Status post tubal ligation Medical History (Last Reviewed 04/07/25 @ 05:10 by Soy Taylor MD) ADHD (attention deficit hyperactivity disorder) (Unknown) Anxiety (Unknown) Asthma (Unknown) Bipolar disorder (Unknown) Chickenpox (Unknown) Chronic back pain (Unknown) Chronic low back pain (05/02/15) Chronic pain syndrome (Unknown) Depression (Unknown) Diabetes insipidus (Unknown) Fibroids (2004) Foot pain (Unknown) Fractures (Unknown) Hearing loss (Unknown) Hypothyroidism (1985) Osteoarthritis (Unknown) Restless leg syndrome (Unknown) Schizophrenia (Unknown) Shoulder pain (Unknown) Type 2 diabetes mellitus (2005) Uncomplicated opioid dependence (12/11/16) Vertigo (Unknown) Physical Therapy Inpatient Evaluation/Re-Eval M1 PT/OT-IP Prior Functional Status Start: 04/15/25 15:56 Freq: NEEDED Status: Active Protocol: Document 04/15/25 15:56 [facility] (Rec: 04/15/25 16:19 [facility] [id number]) Medical Review Prior Functional Status Medical History Yes Reviewed Communication communication with MD prior to seeing pt regarding her right sided foot pain Mobility and Gait pt is non mobile and reports her carries her in their home including up the steps in their house, she at times crawls to the bathroom Activities of Daily needs assist Living and IADL's Social History Household Members significant other Living Arrangements House Number of Floors ( Two Floors Floors) M2 PT-IP Current Condition Start: 04/15/25 15:56 Freq: NEEDED Status: Active Protocol: Document 04/15/25 15:56 [facility] (Rec: 04/15/25 16:19 [facility] [id number]) Physical Therapy Current Condition Current Condition Evaluation Date 04/15/25 Treatment Diagnosis abdominal pain, vomiting M3 PT-IP Subjective Start: 04/15/25 15:56 Freq: NEEDED Status: Active Protocol: Document 04/15/25 15:56 [facility] (Rec: 04/15/25 16:19 [facility] [id number]) Subjective Physical Therapy Visit Type Type Initial Evaluation Visit Start Time 15:00 Visit Stop Time 15:50 Physical Therapy Visit Comments Patient Comments pt agrees to PT, she reports she is not able to stand due to right sided foot pain Therapy Pain Assessment Pain Present Pain Present Pain Reported Location right foot pain Intensity 5 Scale Used Numeric (0 - 10) Description Aching,With Movement Pain Behaviors Calling Out,Facial Grimacing M4 PT-IP Mobility and Gait Start: 04/15/25 15:56 Freq: NEEDED Status: Active Protocol: Document 04/15/25 15:56 [facility] (Rec: 04/15/25 16:19 [facility] [id number]) PT-Bed Mobility Assessment Rolling Type of Rolling Roll to Right Level of Assist Maximal Assistance Supine to Sit Supine to Sit Maximum Assistance Sit to Supine Sit to Supine 2 Person Assistance Scooting Scooting to Edge of Maximum Assistance Bed Scooting Up and Down Maximum Assistance,Dependent in Bed PT-Transfer Assessment Comments Mobility Comments Transfer from supine to sit at the edge of bed was max A, pt was willing to transfer however was very fatigued and not able to assist with transfer to sitting. Once sitting she required A to keep from slumping to the right and was not able to maintain her balance sitting at the edge of the bed. She sat at bed x 5 min however became more fatigued and leaning to right so she was transferred back to bed with max A. She required max A x2 to scoot her back up in bad. She is not able to assist with right LE due to her foot pain. PT-Balance Assessment Sitting Balance and Reactions Static Sitting Poor Balance Ability Dynamic Sitting Poor Balance Ability M5 PT-IP Objective Assessments Start: 04/15/25 15:56 Freq: NEEDED Status: Active Protocol: Document 04/15/25 15:56 [facility] (Rec: 04/15/25 16:19 [facility] [id number]) Orientation Orientation/Cognition Level of Alertness Alert Safety Awareness Decreased Safety Awareness Gross Range of Motion Upper Extremity ROM Assessment Within Functional Limits Lower Extremity ROM Assessment Right Impaired Impairments very limited active ROM of the right ankle DF 3-4 degrees AROM only and pt reports pain No active PF that I was able to get her to do Strength Upper Extremity Strength Assessment Within Functional Limits Lower Extremity Strength Assessment Right Impaired Hip 3 Knee 3 Ankle 2 ankle DF Comments Strength Comments Right ankle weakness and pain, not sure if it is related to her history of sciatica, I attempted PROM into DF however this was painful to her sensation of the right ankle is intact. Xrays have been taken and are negative. Cinthya does report history of falling down her stairs at home Sensation Assessment Sensation Gross Sensation WNL M7 PT-IP Assessment and Plan Start: 04/15/25 15:56 Freq: NEEDED Status: Active Protocol: Document 04/15/25 15:56 [facility] (Rec: 04/15/25 16:19 [facility] [id number]) PT Summary Assessment and Plan Potential Rehabilitation Fair Potential Status of Condition Evolving at Evaluation Summary Impairments Pain,ROM,Strength,Balance,Bed Mobility,Transfers, Activity Tolerance Assessment Summary Cinthya is a 69 year old female admitted with vomiting and abdominal pain 04/12/25. She was just recently discharged on 04/08/25. At that time she had C diff toxin and abdominal pain. She does have ongoing alcohol use. She lives with her in [place] and he carries her for mobility. They have stairs in there home and he carries her up/down the stairs. She has also crawled to the bathroom but is not ambulating. She is also c/o right ankle pain and with assessment today pain with when she attempts active movement of her ankle. With attempts to mobilize her she is Max A for bed mobility and did not have the balance to support herself sitting at the edge of the bed. She sat x 5 min and became very fatigued and leaned to the right. Max A was used for transfer back into bed and max A x 2 was used to scoot her in bed as she was not able to assist. When assessing her right ankle she has pain with any mobility into DF. I attempted PROM and this was painful to her, she has very limited strength for AROM into DF or PF. SNF may be a good option for her. It does sound like her takes care of her however with significant seated balance issues she may not be safe to be at home. Further assessment needed. Goals Bed Mobility Goal Moderate Assistance Transfer Goal Maximal Assistance,Slide Board Days to Meet Goals 10 Frequency of Treatment Frequency Of Once a Day Treatment Treatment Plan Physical Therapy Bed Mobility Training,Transfer Training Treatment Plan Weight Bearing Status Weight Bearing Full Weight Bearing Status Recommendations To Nursing Amount of Assist 2 Person Assist,Mechanical Lift Needed Discharge Recommendations PT Discharge SNF Rehab Recommendations Other Discharge SNF rehab vs home with and home health Recommendations Transportation Needs Stretcher/Ambulance at Discharge
--- NOTE | 2025-04-15 17:42 | P.PN_ITS ---
Subjective Subjective Interval history: 69-year-old female with history of alcohol dependence and recent hospitalization with C colitis who was admitted with small bowel enteritis and acute alcohol- induced hepatitis. Patient reports that she has not had any further diarrhea. She also notes her abdomen continues to decrease in terms of distention she notes that she has not having any abdominal pain. She continues to complain of pain in her right ankle. She continues to ask for a walking boot. She states it is not healing. She notes it has made her fall a couple of times that she is only able to take 1 step at a time when she is going down the stairs in her home. She states that the doctor has been giving her Dilaudid every 2 hours here and she is asking if she can receive it now. For she stated he was a doctor from [facility] but then stated she was not seeing him anymore. Her nurse reports she has been intermittently sedated through the day. She would last received hydromorphone at 11:00 a.m. this morning. Prior to that it had been at approximately 4:30 a.m. in the morning. Exam Vital Signs (past 8 hours): - 04/15/25 13:00 Temperature 97.4 F L Pulse Rate 80 Respiratory Rate 15 Blood Pressure 88/67 L Pulse Oximetry 96 Oxygen Flow Rate 0 Oxygen Delivery Method Room Air Oxygen Flow Rate 0 Narrative Exam Narrative: GEN: Chronically ill-appearing middle-aged female, Alert and oriented x 3, NAD HEENT:NC, Face symmetric, scleral icterus is present bilaterally but improved compared to yesterday CHEST: Respiratory excursions symmetric, CTAB CV: RRR, no M/R/G ABD: Soft, moderately distended, NT, BT present in all 4 quadrants, distention limits exam EXTR: warm, well perfused, no C/C/E, she does have mild tenderness with palpation of the ankle. Yesterday it was pain with palpation along the medial malleolus, today it is more vague and with palpation along the dorsal foot SKIN: warm and dry, no rash NEURO: Alert and oriented x 3, nonfocal Objective Labs 04/15/25 06:19 04/15/25 06:19 Labs: Laboratory Results - last 24 hr 04/14/25 04/15/25 04/15/25 20:44 06:19 09:51 WBC 4.8 RBC 2.45 L Hgb 9.2 L Hct 26.4 L MCV 107.7 H MCH 37.5 H MCHC 34.8 RDW 16.9 H Plt Count 139 L Neut % (Auto) 42.0 L Lymph % (Auto) 50.5 H [place] % (Auto) 5.4 Eos % (Auto) 0.7 L Baso % (Auto) 1.4 Neut # (Auto) 2000 Lymph # (Auto) 2400 [place] # (Auto) 300 Eos # (Auto) 0 Baso # (Auto) 100 PT 33.2 H INR 3.0 H Sodium 133 L Potassium 3.3 L Chloride 109 H Carbon Dioxide 17 L BUN 6 L Creatinine 0.55 Estimated GFR > 60 BUN/Creatinine Ratio 10.9 Glucose 185 H POC Whole Bld Glucose 230 H 161 H Calcium 6.7 L Magnesium 0.9 L* Total Bilirubin 6.7 H AST 199 H ALT 58 H Alkaline Phosphatase 338 H Total Protein 4.8 L Albumin 2.2 L Globulin 2.6 Albumin/Globulin Ratio 0.8 L Stl C. cayetanensis PCR Stool Rotavirus (PCR) Stool Adenovirus (PCR) Stool Astrovirus (PCR) Stool Cryptosporidium PCR Stl E.coli Shiga Tox PCR St Sh/Enteroin Ecoli PCR Stl Enterotoxigenic E PCR Stool EPEC (PCR) Stl E. histolytica PCR Stool Giardia Lamblia PCR Stool Sapovirus (PCR) Stl P. shigelloides PCR St Y.enterocolitica PCR Stool Vibrio (PCR) Stl Vibrio cholerae PCR Stl Enteroaggr Ecoli PCR Stl Norovirus GI/GII PCR Campylobacter (PCR) C. difficile Tox (PCR) Salmonella (PCR) 04/15/25 04/15/25 04/15/25 12:16 14:40 16:30 WBC RBC Hgb Hct MCV MCH MCHC RDW Plt Count Neut % (Auto) Lymph % (Auto) [place] % (Auto) Eos % (Auto) Baso % (Auto) Neut # (Auto) Lymph # (Auto) [place] # (Auto) Eos # (Auto) Baso # (Auto) PT INR Sodium Potassium Chloride Carbon Dioxide BUN Creatinine Estimated GFR BUN/Creatinine Ratio Glucose POC Whole Bld Glucose 187 H 248 H Calcium Magnesium Total Bilirubin AST ALT Alkaline Phosphatase Total Protein Albumin Globulin Albumin/Globulin Ratio Stl C. cayetanensis PCR Not detected Stool Rotavirus (PCR) Not detected Stool Adenovirus (PCR) Not detected Stool Astrovirus (PCR) Not detected Stool Cryptosporidium PCR Not detected Stl E.coli Shiga Tox PCR Not detected St Sh/Enteroin Ecoli PCR Not detected Stl Enterotoxigenic E PCR Not detected Stool EPEC (PCR) Not detected Stl E. histolytica PCR Not detected Stool Giardia Lamblia PCR Not detected Stool Sapovirus (PCR) Not detected Stl P. shigelloides PCR Not detected St Y.enterocolitica PCR Not detected Stool Vibrio (PCR) Not detected Stl Vibrio cholerae PCR Not detected Stl Enteroaggr Ecoli PCR Not detected Stl Norovirus GI/GII PCR Not detected Campylobacter (PCR) Not detected C. difficile Tox (PCR) Not detected Salmonella (PCR) Not detected [facility] Medical History (Updated 04/12/25 @ 06:04 by Brian Madrid MD) Chronic pain syndrome (Unknown) Osteoarthritis (Unknown) Asthma (Unknown) Schizophrenia (Unknown) Depression (Unknown) Bipolar disorder (Unknown) Anxiety (Unknown) Restless leg syndrome (Unknown) ADHD (attention deficit hyperactivity disorder) (Unknown) Shoulder pain (Unknown) Foot pain (Unknown) Fractures (Unknown) Chronic back pain (Unknown) Chickenpox (Unknown) Vertigo (Unknown) Hearing loss (Unknown) Fibroids (2004) Hypothyroidism (1985) Diabetes insipidus (Unknown) Type 2 diabetes mellitus (2005) Uncomplicated opioid dependence (12/11/16) Chronic low back pain (05/02/15) Surgical History Status post tubal ligation Status post laparoscopic cholecystectomy Family History Father Brain tumor Mother Cancer Brother Car occupant injured in traffic accident Sister Brain tumor Grandfather Cancer Grandmother Heart failure Social History household members: significant other Smoking Status: Current some day smoker alcohol intake: current Assessment & Plan Assessment & Plan narrative: 1. Acute small-bowel enteritis Recent C diff diagnosis. Diarrhea has resolved. She remains on empiric ceftriaxone and Flagyl. She has not had any residual diarrhea. Her abdominal distention is improving. Will continue conservative management. Will likely discharge on oral Keflex and Flagyl at discharge. 2. Alcohol-induced hepatitis Improved distention overall. Her LFTs are improving as well. Her bilirubin is stable at 6.7. No evidence for alcohol withdrawal. Abdominal ultrasound was negative for ascites. 3. Alcohol dependence without evidence for withdrawal She last used alcohol 1 day prior to admission. She does not have any evidence for withdrawal at this time. 4. Right ankle pain Unclear etiology. It is possible she sustained a sprain or ligamentous injury. X-ray was negative for abnormalities. I did ask Physical therapy to assess and make some recommendations for her. I am not convinced a walking boot is appropriate despite her request, as it will decrease the range of motion of her ankle and the bulkiness may actually predispose her to additional falls. 5. Anemia, macrocytic Likely due to marrow suppression. Hemoglobin is stable at 9.2 6. Hypokalemia Potassium is 3.3 today and magnesium 0.9. Will continue to replete. 7. Hypomagnesemia Continue to replete 8. Hypocalcemia Improve with repletion. 9. Diabetes mellitus type 2 Hemoglobin A1c is 5.4%, revealing excellent control. Continue Lantus and sliding scale Code status Full Prophylaxis On heparin Disposition Pending Time-Based Coding :: [TOTAL MINUTES] spent with patient and on the chart (including review of chart, obtaining history, exam, reviewing outside data, placing orders, documenting exam and treatment plan, and counseling patient) on [DATE].
[2025-04-15] MEDS: SERTRALINE 50 MG TABLET 25 MG PO (20:49)
[2025-04-15] MEDS: INSULIN GLARGINE 100 UNIT/ML 3ML PEN 12 UNIT SUBCUT (21:11)
[2025-04-16] VITALS (7 sets, daily range): BP systolic 88–117; BP diastolic 58–75; PULSE 73–101; RESP 13–19; TEMP 35.6–36.3; O2SAT 94–98
[2025-04-16] MEDS: SODIUM CHLORIDE 0.9% 1,000 ML 100 ML IV (04:17)
[2025-04-16] MEDS: CYCLOBENZAPRINE 10 MG TABLET PO ×2 (04:18→20:55)
[2025-04-16] MEDS: VANCOMYCIN 125 MG CAPSULE PO ×4 (04:18→22:15)
[2025-04-16 05:48] LABS: Alanine Aminotransferase 53 IU/L (<35); Albumin 2.4 g/dL (3.5-5.0); Albumin Globulin Ratio 0.8 (1.0-2.8); Alkaline Phosphatase 368 U/L (38-126); Blood Urea Nitrogen 7 mg/dL (7-17); Calcium 7.2 mg/dL (8.4-10.2); Carbon Dioxide 18 mmol/L (22-32); Chloride 111 mmol/L (98-107); Estimated Glomerular Filt Rate > 60 mL/min (>60); Globulin 2.9 g/dL (1.7-4.1); Glucose 214 mg/dL (70-99); HEMOLYSIS < 15 (0-50); Potassium 3.8 mmol/L (3.4-5.1); Sodium 134 mmol/L (137-145); Total Protein 5.3 g/dL (6.3-8.2)
[2025-04-16 05:49] LABS: Magnesium 1.2 mg/dL (1.6-2.3)
[2025-04-16] MEDS: metroNIDAZOLE 500 MG/100 ML PIGGYBACK 100 MG IV ×4 (06:32→22:15)
--- NOTE | 2025-04-16 08:01 | PM.PN.1 ---
Subjective Subjective Interval history: Hospital course: She was admitted with the abdominal pain. She was chronic liver disease. She was recently diagnosed and treated for C diff colitis. She has been taking oral vancomycin at home. She was enteritis on CT scan and some abdominal pain. Today she became more agitated, despite being on Librium. She does drink alcohol on a regular basis. She denies a history of alcohol withdrawal. She was started on IV antibiotics for possible colitis and oral vancomycin was continued yesterday. 04/13: She became more agitated and there was concern for alcohol withdrawal. 04/14-: More alert, complaints of right ankle pain. Intermittent sedation. S: She was somnolent earlier today but it was more awake now. She notes lower back pain from the bed. She denies confusion. She remains weak. O: Chronically ill in appearance, jaundiced. Somewhat confused. Lungs are clear, normal effort. Heart is regular, no murmur. Abdomen is distended, but non-tender. No ascites on imaging. IMAGING: CTAP: 1. Finding is suggestive of infectious inflammatory enteritis involving proximal small bowel loops as above not significantly changed from prior study. No abscess collection. No free fluid or free air. 2. Other chronic findings are not significantly changed from recent study. ABD US: IMPRESSION: Hepatomegaly with pronounced diffuse fatty infiltration throughout. No ascites found. Bladder prominence as noted. A/P: 1. Abdomen pain with recent diagnosis of C diff toxin, and enteritis on CT scan. Being treated as enteritis with antibiotics and improving. 2. Alcohol dependence with recent cessation of use 1 day prior and no history of withdrawal seizures. 3. Acute alcoholic hepatitis and hepatosteatosis, active. Liver function tests are improving. 4. Hypomagnesemia, active. 5. Hypokalemia, improved. 6. Hypocalcemia, improved. 7. Lactic acidosis likely related to liver failure, improved. 8. Possible sepsis, resolved. 9. Increased agitation on April 13, with concern for possible alcohol withdrawal. No improved. PLAN: -continue ceftriaxone and Flagyl. -replace magnesium -right obtain a right walking boot. -out of bed as much as possible. -discussed discharge to home with home to nursing home facility with her. -monitor right ankle pain. Exam Vital Signs (past 8 hours): - 04/16/25 04:00 Temperature 96.6 F L Pulse Rate 101 H Respiratory Rate 18 Blood Pressure 117/75 Pulse Oximetry 96 Oxygen Flow Rate 0 Oxygen Delivery Method Room Air Oxygen Flow Rate 0 Objective Labs 04/15/25 06:19 04/16/25 04:36 Labs: Laboratory Results - last 24 hr 04/15/25 04/15/25 04/15/25 09:51 12:16 14:40 Sodium Potassium Chloride Carbon Dioxide BUN Creatinine Estimated GFR BUN/Creatinine Ratio Glucose POC Whole Bld Glucose 161 H 187 H Calcium Magnesium Total Bilirubin AST ALT Alkaline Phosphatase Total Protein Albumin Globulin Albumin/Globulin Ratio Stl C. cayetanensis PCR Not detected Stool Rotavirus (PCR) Not detected Stool Adenovirus (PCR) Not detected Stool Astrovirus (PCR) Not detected Stool Cryptosporidium PCR Not detected Stl E.coli Shiga Tox PCR Not detected St Sh/Enteroin Ecoli PCR Not detected Stl Enterotoxigenic E PCR Not detected Stool EPEC (PCR) Not detected Stl E. histolytica PCR Not detected Stool Giardia Lamblia PCR Not detected Stool Sapovirus (PCR) Not detected Stl P. shigelloides PCR Not detected St Y.enterocolitica PCR Not detected Stool Vibrio (PCR) Not detected Stl Vibrio cholerae PCR Not detected Stl Enteroaggr Ecoli PCR Not detected Stl Norovirus GI/GII PCR Not detected Campylobacter (PCR) Not detected C. difficile Tox (PCR) Not detected Salmonella (PCR) Not detected 04/15/25 04/15/25 04/16/25 16:30 20:30 04:36 Sodium 134 L Potassium 3.8 Chloride 111 H Carbon Dioxide 18 L BUN 7 Creatinine 0.49 L Estimated GFR > 60 BUN/Creatinine Ratio 14.3 Glucose 214 H POC Whole Bld Glucose 248 H 204 H Calcium 7.2 L Magnesium 1.2 L Total Bilirubin 7.1 H AST 180 H ALT 53 H Alkaline Phosphatase 368 H Total Protein 5.3 L Albumin 2.4 L Globulin 2.9 Albumin/Globulin Ratio 0.8 L Stl C. cayetanensis PCR Stool Rotavirus (PCR) Stool Adenovirus (PCR) Stool Astrovirus (PCR) Stool Cryptosporidium PCR Stl E.coli Shiga Tox PCR St Sh/Enteroin Ecoli PCR Stl Enterotoxigenic E PCR Stool EPEC (PCR) Stl E. histolytica PCR Stool Giardia Lamblia PCR Stool Sapovirus (PCR) Stl P. shigelloides PCR St Y.enterocolitica PCR Stool Vibrio (PCR) Stl Vibrio cholerae PCR Stl Enteroaggr Ecoli PCR Stl Norovirus GI/GII PCR Campylobacter (PCR) C. difficile Tox (PCR) Salmonella (PCR) 04/16/25 07:43 Sodium Potassium Chloride Carbon Dioxide BUN Creatinine Estimated GFR BUN/Creatinine Ratio Glucose POC Whole Bld Glucose 220 H Calcium Magnesium Total Bilirubin AST ALT Alkaline Phosphatase Total Protein Albumin Globulin Albumin/Globulin Ratio Stl C. cayetanensis PCR Stool Rotavirus (PCR) Stool Adenovirus (PCR) Stool Astrovirus (PCR) Stool Cryptosporidium PCR Stl E.coli Shiga Tox PCR St Sh/Enteroin Ecoli PCR Stl Enterotoxigenic E PCR Stool EPEC (PCR) Stl E. histolytica PCR Stool Giardia Lamblia PCR Stool Sapovirus (PCR) Stl P. shigelloides PCR St Y.enterocolitica PCR Stool Vibrio (PCR) Stl Vibrio cholerae PCR Stl Enteroaggr Ecoli PCR Stl Norovirus GI/GII PCR Campylobacter (PCR) C. difficile Tox (PCR) Salmonella (PCR) [facility] Medical History (Updated 04/12/25 @ 06:04 by Brian Madrid MD) Chronic pain syndrome (Unknown) Osteoarthritis (Unknown) Asthma (Unknown) Schizophrenia (Unknown) Depression (Unknown) Bipolar disorder (Unknown) Anxiety (Unknown) Restless leg syndrome (Unknown) ADHD (attention deficit hyperactivity disorder) (Unknown) Shoulder pain (Unknown) Foot pain (Unknown) Fractures (Unknown) Chronic back pain (Unknown) Chickenpox (Unknown) Vertigo (Unknown) Hearing loss (Unknown) Fibroids (2004) Hypothyroidism (1985) Diabetes insipidus (Unknown) Type 2 diabetes mellitus (2005) Uncomplicated opioid dependence (12/11/16) Chronic low back pain (05/02/15) Surgical History Status post tubal ligation Status post laparoscopic cholecystectomy Family History Father Brain tumor Mother Cancer Brother Car occupant injured in traffic accident Sister Brain tumor Grandfather Cancer Grandmother Heart failure Social History household members: significant other Smoking Status: Current some day smoker alcohol intake: current Assessment & Plan Time-Based Coding :: [TOTAL MINUTES] spent with patient and on the chart (including review of chart, obtaining history, exam, reviewing outside data, placing orders, documenting exam and treatment plan, and counseling patient) on [DATE].
[2025-04-16] MEDS: MULTIVITAMIN 1 TABLET 1 TAB PO (08:09)
[2025-04-16] MEDS: THIAMINE 100 MG TABLET PO (08:09)
[2025-04-16] MEDS: cefTRIAXone 2,000 MG in SODIUM CHLORIDE 0.9% 100 ML 200 MG IV (08:09)
[2025-04-16] MEDS: NICOTINE 21 MG PATCH TOP (08:09)
[2025-04-16] MEDS: HEPARIN 5,000 UNIT/ML VIAL 5000 UNIT SUBCUT ×2 (08:10→20:56)
[2025-04-16] MEDS: MAGNESIUM SULFATE 2 GM/50 ML PIGGYBACK IV (09:01)
[2025-04-16] MEDS: INSULIN LISPRO 100 UNIT/ML 3ML VIAL SUBCUT ×2 (09:01→12:53)
--- NOTE | 2025-04-16 11:47 | CM.DPC ---
Addendum entered by ZACHARY Matias 04/16/25 15:54: ADD: Attempted to meet bedside again with pt to discuss HH vs SNF and pt continues to sleep soundly and have difficulty opening her eyes for any length of conversation. SW to follow in the AM for further discussion on discharge planning options and needs. BF Original Note: DCP SNF vs Home Per MD, pt was making improvements over the weekend but seems to be more somnolent and drowsy today, may need another 1-2 days pending progress. Per PT yesterday Sun, pt needing max A for bed mobility and fatigued quickly and recommending SNF vs home with assist and HH pending progress. Pt is dependent on assist with mobility at baseline from [facility] Other. SW attempted to meet bedside with pt and with RN present and pt having difficulty keeping her eyes open and difficult to understand her speech. Attempted to provide information about SNF and HH but pt unable to participate in goal directed discussion this morning but able to nod yes for SW to contact her [facility] Other [facility]. SW called Darci and discussed above and he does not think pt has any hx of HH or SNF and feels pt would likely benefit from SNF but doubtful pt would agree to SNF. Darci confirms that he will provide whatever assist needed to pt at d/c and feels he can manage her needs at home although he has been working nights so is not in the home 25/01. [facility]i would be agreeable with SNF if pt willing to go, HH, and also requests support with get pt established with PCP at [facility] and he would make sure to transport pt to her appointments. Pt was established with Dr. Baron but getting to [facility] has been a barrier. SW notified TCM group and requested assist with scheduling pt with female provider to [facility] Care at [facility]. Plan: SW to follow for further discussion with pt when more medically appropriate to determine SNF vs HH at d/c. Barriers to SNF are pt's ETOH use and limited independence at baseline and would need [facility] MCR auth for SNF. ZACHARY Matias
--- NOTE | 2025-04-16 12:00 | PT.IPTN ---
Current Diagnoses Sepsis, unspecified organism (04/12/25) Physical Therapy Treatment Note M2 PT-IP Current Condition Start: 04/15/25 15:56 Freq: NEEDED Status: Active Protocol: Document 04/15/25 15:56 [facility] (Rec: 04/15/25 16:19 [facility] [id number]) Physical Therapy Current Condition Current Condition Evaluation Date 04/15/25 Treatment Diagnosis abdominal pain, vomiting M3 PT-IP Subjective Start: 04/15/25 15:56 Freq: NEEDED Status: Active Protocol: Document 04/16/25 11:53 KJ (Rec: 04/16/25 11:59 KJ [id number]) Subjective Physical Therapy Visit Type Type Treatment Note Visit Start Time 11:23 Visit Stop Time 11:51 Physical Therapy Visit Comments Patient Comments my butt hurts M4 PT-IP Mobility and Gait Start: 04/15/25 15:56 Freq: NEEDED Status: Active Protocol: Document 04/16/25 11:53 KJ (Rec: 04/16/25 11:59 KJ [id number]) PT-Bed Mobility Assessment Rolling Type of Rolling Log Rolling,Bilateral Level of Assist Moderate Assistance Supine to Sit Supine to Sit Total Assistance PT-Transfer Assessment Comments Mobility Comments Pt with significant difficulty even with rolling. Transfer training not appropriate at this time. M5 PT-IP Objective Assessments Start: 04/15/25 15:56 Freq: NEEDED Status: Active Protocol: Document 04/15/25 15:56 [facility] (Rec: 04/15/25 16:19 [facility] [id number]) Orientation Orientation/Cognition Level of Alertness Alert Safety Awareness Decreased Safety Awareness Gross Range of Motion Upper Extremity ROM Assessment Within Functional Limits Lower Extremity ROM Assessment Right Impaired Impairments very limited active ROM of the right ankle DF 3-4 degrees AROM only and pt reports pain No active PF that I was able to get her to do Strength Upper Extremity Strength Assessment Within Functional Limits Lower Extremity Strength Assessment Right Impaired Hip 3 Knee 3 Ankle 2 ankle DF Comments Strength Comments Right ankle weakness and pain, not sure if it is related to her history of sciatica, I attempted PROM into DF however this was painful to her sensation of the right ankle is intact. Xrays have been taken and are negative. Cinthya does report history of falling down her stairs at home Sensation Assessment Sensation Gross Sensation WNL M6 PT-IP Treatment Start: 04/15/25 15:56 Freq: NEEDED Status: Active Protocol: Document 04/16/25 11:53 KJ (Rec: 04/16/25 11:59 KJ [id number]) Physical Therapy Treatment Exercises Exercises Ankle Pumps,Heel Slides Other Treatments Other Treatment Introduced pt to overhead lift for transfers. Provided Performed cuing for rolling; pt able to roll to either side w/mod assistance. Utilized overhead lift to transfer pt to chair for lunch. RN aware. Educated pt on benefits of being up in chair for meals. Pt wheezing at rest and with activity. O2 sats at 98%, HR 92. M7 PT-IP Assessment and Plan Start: 04/15/25 15:56 Freq: NEEDED Status: Active Protocol: Document 04/16/25 11:53 KJ (Rec: 04/16/25 11:59 KJ [id number]) PT Summary Assessment and Plan Potential Rehabilitation Fair Potential Status of Condition Evolving at Evaluation Summary Impairments ROM,Balance,Bed Mobility,Transfers,Gait,Activity Tolerance Assessment Summary Pt w/garbled speech, difficult to engage in conversation during therapy. Pt should be up in chair 4x/day to facility oob and transition to more activity and ADLs Goals Bed Mobility Goal Moderate Assistance Treatment Plan Physical Therapy Bed Mobility Training,Transfer Training,Therapeutic Treatment Plan Exercise Recommendations To Nursing Amount of Assist Mechanical Lift Needed Discharge Recommendations PT Discharge Home vs SNF Recommendations Equipment Needed for May need a mechanical lift and wheelchair if she goes Home Before home Discharge - PT assist 2
--- NOTE | 2025-04-16 13:33 | DIET.CONS ---
Dietary Consultation Note Admission Date: 04/12/2025 09:24 Assessment: 69 Y F admitted for abd pain. Dietitian consulted for alcohol. Pt with PMH of alcohol dependence and acute alcoholic hepatitis. Well controlled DM with A1c 5.4%. Pt was more somnolent this morning, EMR reviewed. Recent PO intakes -100%. DFM reviewed, pt doing double to triple protein servings at 1-2 meals per day. Ht: 152.4 cm Wt: 70 kg BMI: 26.4 UBW: 66 kg on 05/13/24, 61.2 kg on 04/06/25 Last BM: 04/16/25 (04/16/25 06:00) MNA: 14 Willy Score: 16 Diet: 04/13/25 Dinner Carbohydrate Consistent Diet Diet Modifications: Patient has no dentures Carbohydrate level: Medium (3 CHO) Reflex DM orders: No Food Texture: Level 5 - Minced & Moist Liquid Consistency: Level 0 - Thin Nutrition Percent Meal Consumed 100% 04/15/25 04:44 Percent Meal Consumed 100% 04/14/25 22:00 Labs: RBC 2.45 X10^6/uL (4.0-5.2) L 04/15/25 06:19 Hgb 9.2 g/dL (12.0-16.0) L 04/15/25 06:19 Hct 26.4 % (36-46) L 04/15/25 06:19 Creatinine 0.49 mg/dL (0.52-1.04) L 04/16/25 04:36 Hemoglobin A1c 5.4 % (4.0-6.0) 04/13/25 05:15 Lactate 3.6 mmol/L (0.7-2.1) H 04/12/25 06:56 Nutrition Diagnosis: Increased nutrient needs (protein) r/t alterations in GI related organs as evidenced by acute alcoholic hepatitis Interventions: continue double to triple protein servings at 1-2 meals per day EER: 1800 kcals (25 kcals/kg per altercations in GI function) 75-90 g protein (1.2-1.5 g of adjusted IBW/UBW per hepatitis) Monitoring/Evaluations: monitoring PO intakes Electronically Signed by: Nehal Stacy 04/16/25 13:33 Clinical Dietitian [address] [id number]
[2025-04-16] MEDS: SERTRALINE 50 MG TABLET 25 MG PO (20:55)
[2025-04-16] MEDS: INSULIN GLARGINE 100 UNIT/ML 3ML PEN 15 UNIT SUBCUT (20:56)
[2025-04-17] MEDS: CYCLOBENZAPRINE 10 MG TABLET PO (05:11)
[2025-04-17] MEDS: metroNIDAZOLE 500 MG/100 ML PIGGYBACK 100 MG IV ×3 (05:11→22:20)
[2025-04-17] MEDS: VANCOMYCIN 125 MG CAPSULE PO ×4 (05:12→21:30)
--- NOTE | 2025-04-17 07:42 | PM.PN.1 ---
Subjective Subjective Interval history: S: She denies pain but it was very somnolent. Suggestion to check ammonia. She denies taking lactulose at home. She also denies abdominal pain. No fevers reported overnight. O: NAD, somnolent with slow and slurred speech. Jaundiced. Lungs are clear, normal rate and effort. Heart is regular, no murmur gallop or rub. Abdomen is distended and nontender. Extremities with 2 to 3+ edema. IMAGING: CTAP: 1. Finding is suggestive of infectious inflammatory enteritis involving proximal small bowel loops as above not significantly changed from prior study. No abscess collection. No free fluid or free air. 2. Other chronic findings are not significantly changed from recent study. ABD US: IMPRESSION: Hepatomegaly with pronounced diffuse fatty infiltration throughout. No ascites found. Bladder prominence as noted. A/P: 1. Abdomen pain with recent diagnosis of C diff toxin, and enteritis on CT scan. Being treated as enteritis with antibiotics and improving. 2. Alcohol dependence with recent cessation of use 1 day prior and no history of withdrawal seizures. 3. Acute alcoholic hepatitis and hepatosteatosis, active. Liver function tests are improving. 4. Hypomagnesemia, active. 5. Hypokalemia, improved. 6. Hypocalcemia, improved. 7. Lactic acidosis likely related to liver failure, improved. 8. Possible sepsis, resolved. 9. Increased agitation on April 13, with concern for possible alcohol withdrawal. No improved. PLAN: -continue ceftriaxone and Flagyl. -replace magnesium as needed. -check ammonia as a cause of her persistent and increasing somnolence. -discussed discharge to home with home to custodial facility with her. She was currently declining. -monitor right ankle pain. -we will discuss level of care with her when her visits today. Exam Vital Signs (past 8 hours): Oxygen Delivery Method Room Air Oxygen Flow Rate 0 Objective Labs 04/15/25 06:19 04/16/25 04:36 Labs: Laboratory Results - last 24 hr 04/16/25 04/16/25 04/16/25 07:43 12:45 16:56 POC Whole Bld Glucose 220 H 194 H 97 04/16/25 20:00 POC Whole Bld Glucose 112 H [facility] Medical History (Updated 04/12/25 @ 06:04 by Brian Madrid MD) Chronic pain syndrome (Unknown) Osteoarthritis (Unknown) Asthma (Unknown) Schizophrenia (Unknown) Depression (Unknown) Bipolar disorder (Unknown) Anxiety (Unknown) Restless leg syndrome (Unknown) ADHD (attention deficit hyperactivity disorder) (Unknown) Shoulder pain (Unknown) Foot pain (Unknown) Fractures (Unknown) Chronic back pain (Unknown) Chickenpox (Unknown) Vertigo (Unknown) Hearing loss (Unknown) Fibroids (2004) Hypothyroidism (1985) Diabetes insipidus (Unknown) Type 2 diabetes mellitus (2005) Uncomplicated opioid dependence (12/11/16) Chronic low back pain (05/02/15) Surgical History Status post tubal ligation Status post laparoscopic cholecystectomy Family History Father Brain tumor Mother Cancer Brother Car occupant injured in traffic accident Sister Brain tumor Grandfather Cancer Grandmother Heart failure Social History household members: significant other Smoking Status: Current some day smoker alcohol intake: current Assessment & Plan Time-Based Coding :: [TOTAL MINUTES] spent with patient and on the chart (including review of chart, obtaining history, exam, reviewing outside data, placing orders, documenting exam and treatment plan, and counseling patient) on [DATE].
[2025-04-17 08:00] VITALS: BP 96/64; PULSE 90; RESP 17; TEMP 35.9; O2SAT 95
[2025-04-17 09:51] LABS: Add Manual Diff / Slide Review NO; Hematocrit 32.2 % (36-46); Hemoglobin 11.0 g/dL (12.0-16.0); Lymphocytes Absolute Auto 3600 /uL (1100-4500); Mean Corpuscular HGB Conc 34.2 % (30-36); Mean Corpuscular Hemoglobin 37.4 PG (26-34); Mean Corpuscular Volume 109.3 fL (80-100); Platelet Count 177 X10^3/uL (150-400)
[2025-04-17 09:59] LABS: Alanine Aminotransferase 62 IU/L (<35); Albumin 2.4 g/dL (3.5-5.0); Albumin Globulin Ratio 0.9 (1.0-2.8); Alkaline Phosphatase 378 U/L (38-126); Blood Urea Nitrogen 6 mg/dL (7-17); Calcium 7.9 mg/dL (8.4-10.2); Carbon Dioxide 21 mmol/L (22-32); Chloride 108 mmol/L (98-107); Estimated Glomerular Filt Rate > 60 mL/min (>60); Globulin 2.6 g/dL (1.7-4.1); Glucose 92 mg/dL (70-99); HEMOLYSIS < 15 (0-50); Potassium 3.7 mmol/L (3.4-5.1); Sodium 136 mmol/L (137-145); Total Protein 5.0 g/dL (6.3-8.2)
[2025-04-17 10:00] LABS: Lactate (Lactic Acid) 1.3 mmol/L (0.7-2.1)
[2025-04-17] MEDS: cefTRIAXone 2,000 MG in SODIUM CHLORIDE 0.9% 100 ML 200 MG IV (10:13)
[2025-04-17] MEDS: HEPARIN 5,000 UNIT/ML VIAL 5000 UNIT SUBCUT ×2 (10:13→21:30)
[2025-04-17 10:14] LABS: Ammonia (NH3) 19 umol/L (9-30)
[2025-04-17] MEDS: MULTIVITAMIN 1 TABLET 1 TAB PO (10:14)
[2025-04-17] MEDS: NICOTINE 21 MG PATCH TOP (10:14)
[2025-04-17] MEDS: THIAMINE 100 MG TABLET PO (10:45)
[2025-04-17 12:00] VITALS: BP 99/64; PULSE 96; RESP 13; TEMP 36.3; O2SAT 96
--- NOTE | 2025-04-17 15:10 | PT.IPTN ---
Current Diagnoses Sepsis, unspecified organism (04/12/25) Physical Therapy Treatment Note M2 PT-IP Current Condition Start: 04/15/25 15:56 Freq: NEEDED Status: Active Protocol: Document 04/15/25 15:56 [facility] (Rec: 04/15/25 16:19 [facility] [id number]) Physical Therapy Current Condition Current Condition Evaluation Date 04/15/25 Treatment Diagnosis abdominal pain, vomiting M3 PT-IP Subjective Start: 04/15/25 15:56 Freq: NEEDED Status: Active Protocol: Document 04/17/25 15:10 AB (Rec: 04/17/25 17:37 AB [id number]) Subjective Physical Therapy Visit Type Type Treatment Note Visit Start Time 15:10 Visit Stop Time 15:50 Number of CLOCKMAKER APPRENTICE Visits 0 Physical Therapy Visit Comments Patient Comments agreeable to do PT M4 PT-IP Mobility and Gait Start: 04/15/25 15:56 Freq: NEEDED Status: Active Protocol: Document 04/17/25 15:10 AB (Rec: 04/17/25 17:37 AB [id number]) PT-Bed Mobility Assessment Supine to Sit Supine to Sit Maximum Assistance,1 Person Assistance,2 Person Assistance,Head of Bed Elevated,Bedrails PT-Transfer Assessment Sit to and From Stand Sit to and from Maximum Assistance,2 Person Assistance,Use of Upper Stand Extremities Equipment Transfer Assistive Gait Belt,Front Wheeled Walker Device Orthotic/Prosthetic No Devices or Brace: Transfers Transfer Destination Chair,Bedside Commode Transfer Technique Stand Step Pivot Transfer Ability Level of Assist Maximum Assistance,2 Person Assistance,Use of Upper Extremities Comments Mobility Comments pt asleep in bed. woke pt up and agreed to get up. initially drowsy but able to stay awake after a few minutes. supine to sit max A x 1-2 and max cues with HOB elevated. pt needing max cues with all tasks. able to sit on EOB mod A and cues. presents with increase posterior trunk lean. pt wants to use the toilet and does not want to use bedside commode. informed pt that pt can try to ambulate to the toilet with PT's assistance but if unable, has to use the bedside commode. pt agreed. Offered pt regarding use of her shoes for standing/transfers to support her ankle but pt refused. stated that she needs her boot. sit to stand max A x 2 and max cues. ambulated towards the toilet using FWW requiring max A x 2 and max cues and only completed ~ 3 ft. positioned bedside commode behind pt and cued to sit down. max A for controlled descent. pt presents with shuffling gait and max cues on how to use FWW. sit to stand from the bedside commode max A x 2 and max cues and was able to maintain standing max A using FWW for support while NAC assisted pt with hygiene care and brief management. pt completed step transfer to chair using FWW max A x 2 and max cues. needed to pull chair closer to pt due to unsteadiness. positioned pt on the chair. call light and table placed within reach. pt informed PT regarding getting walking boot and insisted on walking boot. informed pt regarding risks and benefits of the walking boot. pt currently unable to lift LE to take a step and walking boot will make it harder for pt to move LE. pt has a high cut shoes in room and informed pt that will use shoes on tomorrow to assess if shoes might provide necessary support. pt agreed. Currently, no orders for a walking boot for pt. Clarified PLOF and pt with decrease cognition and stated that spouse assists her but was able to get up and use her FWW for transfers and some ambulation but lately was not able to. Gait Assessment Gait Gait Assistance Maximum Assistance,1 Person Assist,2 Person Assist Required: Distance (Feet) 3 Able to Maintain Yes Weight Bearing Status During Gait Assistive Devices Assistive Device Gait Belt,Front Wheeled Walker Orthotic/Prosthetic No Devices or Brace: Gait Deviations General Gait Pattern Antalgic,Decreased Stride Length,Decreased Feet Clearance,Step-to Gait Factors Limiting Gait Function Factors Limiting Decreased Activity Tolerance,Decreased Strength, Gait Function Difficulty Following Directions,Limited Range of Motion ,Pain,Poor Balance,Poor Safety Awareness M5 PT-IP Objective Assessments Start: 04/15/25 15:56 Freq: NEEDED Status: Active Protocol: Document 04/15/25 15:56 [facility] (Rec: 04/15/25 16:19 [facility] [id number]) Orientation Orientation/Cognition Level of Alertness Alert Safety Awareness Decreased Safety Awareness Gross Range of Motion Upper Extremity ROM Assessment Within Functional Limits Lower Extremity ROM Assessment Right Impaired Impairments very limited active ROM of the right ankle DF 3-4 degrees AROM only and pt reports pain No active PF that I was able to get her to do Strength Upper Extremity Strength Assessment Within Functional Limits Lower Extremity Strength Assessment Right Impaired Hip 3 Knee 3 Ankle 2 ankle DF Comments Strength Comments Right ankle weakness and pain, not sure if it is related to her history of sciatica, I attempted PROM into DF however this was painful to her sensation of the right ankle is intact. Xrays have been taken and are negative. Cinthya does report history of falling down her stairs at home Sensation Assessment Sensation Gross Sensation WNL M6 PT-IP Treatment Start: 04/15/25 15:56 Freq: NEEDED Status: Active Protocol: Document 04/17/25 15:10 AB (Rec: 04/17/25 17:37 AB [id number]) Physical Therapy Treatment Education Education Provided Safety M7 PT-IP Assessment and Plan Start: 04/15/25 15:56 Freq: NEEDED Status: Active Protocol: Document 04/17/25 15:10 AB (Rec: 04/17/25 17:37 AB [id number]) PT Summary Assessment and Plan Potential Rehabilitation Fair Potential Summary Impairments Pain,ROM,Strength,Balance,Coordination,Sensation,Tone, Cognition,Bed Mobility,Transfers,Gait,Activity Tolerance Progress Towards Slow Progress due to Medical Issues,Slow Progress due Goals to Activity Tolerance,Slow Progress - Other Assessment Summary pt requiring max A x 2 for transfers using FWW and max cues with all tasks. pt with decrease cognition and needing cues and one step instructions with all tasks. pt will require SNF rehab to improve strength and mobility. Goals Bed Mobility Goal Moderate Assistance Transfer Goal Moderate Assistance,Front Wheeled Walker Gait Goal Moderate Assistance,Front Wheel Walker Gait Distance 25 Days to Meet Goals 10 Frequency of Treatment Frequency Of Once a Day Treatment Treatment Plan Physical Therapy Bed Mobility Training,Transfer Training,Gait Training, Treatment Plan Therapeutic Exercise,Balance Retraining,Discharge Planning,Neuromuscular Re-ed,Manual Therapy Recommendations To Nursing Amount of Assist Mechanical Lift Needed Discharge Recommendations PT Discharge SNF Rehab Recommendations Transportation Needs Wheelchair/Cabulance,Stretcher/Ambulance at Discharge - PT assist 2
[2025-04-17 16:00] VITALS: BP 96/64; PULSE 90; RESP 13; TEMP 35.7; O2SAT 98
[2025-04-17] MEDS: metroNIDAZOLE 500 MG/100 ML PIGGYBACK 200 MG IV (18:07)
[2025-04-17 21:00] VITALS: BP 124/75; PULSE 87; RESP 18; TEMP 36.6; O2SAT 98
[2025-04-17] MEDS: INSULIN LISPRO 100 UNIT/ML 3ML VIAL SUBCUT (21:25)
[2025-04-17] MEDS: INSULIN GLARGINE 100 UNIT/ML 3ML PEN 15 UNIT SUBCUT (21:26)
[2025-04-17] MEDS: SERTRALINE 50 MG TABLET 25 MG PO (21:30)
[2025-04-18 01:00] VITALS: BP 88/58; PULSE 85; RESP 18; TEMP 35.9; O2SAT 96
[2025-04-18 05:00] VITALS: BP 124/75; PULSE 87; RESP 18; TEMP 36.6; O2SAT 98
[2025-04-18] MEDS: VANCOMYCIN 125 MG CAPSULE PO ×4 (06:15→22:52)
[2025-04-18] MEDS: metroNIDAZOLE 500 MG/100 ML PIGGYBACK 100 MG IV ×4 (06:15→22:51)
[2025-04-18] MEDS: CYCLOBENZAPRINE 10 MG TABLET PO (06:15)
[2025-04-18] MEDS: MULTIVITAMIN 1 TABLET 1 TAB PO (08:26)
[2025-04-18] MEDS: HEPARIN 5,000 UNIT/ML VIAL 5000 UNIT SUBCUT ×2 (08:26→21:40)
[2025-04-18] MEDS: NICOTINE 21 MG PATCH TOP (08:26)
[2025-04-18] MEDS: cefTRIAXone 2,000 MG in SODIUM CHLORIDE 0.9% 100 ML 200 MG IV (08:26)
--- NOTE | 2025-04-18 08:26 | PM.PN.1 ---
Subjective Subjective Interval history: S: She was feeling much better today, is more alert. Her jaundice is improving. She denies any abdominal discomfort or diarrhea. She remains in contact so for her C diff toxin. Ammonia was normal. O: NAD, alert and oriented. Fluent speech. Less jaundiced, eating breakfast. Lungs are clear, normal rate and effort. Heart is regular, no murmur gallop or rub. Abdomen is soft, non distended. Extremities are 2+ edema. A/P: 1. Abdomen pain with recent diagnosis of C diff toxin, and enteritis on CT scan. Improving. 2. Alcohol dependence with recent cessation of use 1 day prior and no history of withdrawal seizures. 3. Acute alcoholic hepatitis and hepatosteatosis, active. Improving. 4. Hypomagnesemia, improved. 5. Hypokalemia, improved. 6. Hypocalcemia, improved. 7. Lactic acidosis likely related to liver failure, improved. 8. Possible sepsis, resolved. 9. Increased agitation on April 13, with concern for possible alcohol withdrawal. Resolved. PLAN: -continue ceftriaxone and Flagyl. P.o. vancomycin being continued. -replace magnesium as needed. -discussed discharge to home with home to longterm facility with her. She was currently declining. -monitor right ankle pain. She was very alert today and continues to decline any rehabilitation facility plans. She does appear to be improving in we will likely be able to return home in the next several days. Exam Vital Signs (past 8 hours): - 04/18/25 01:00 04/18/25 05:00 Temperature 96.7 F L 97.8 F Pulse Rate 85 87 Respiratory Rate 18 18 Blood Pressure 88/58 L 124/75 Pulse Oximetry 96 98 Oxygen Flow Rate 0 0 Oxygen Delivery Method Room Air Oxygen Flow Rate 0 Objective Labs 04/17/25 09:22 04/17/25 09:22 Labs: Laboratory Results - last 24 hr 04/17/25 04/17/25 04/17/25 09:22 12:08 16:26 WBC 8.9 RBC 2.95 L Hgb 11.0 L Hct 32.2 L MCV 109.3 H MCH 37.4 H MCHC 34.2 RDW 17.7 H Plt Count 177 Neut % (Auto) 52.6 Lymph % (Auto) 40.4 H [place] % (Auto) 5.9 Eos % (Auto) 0.5 L Baso % (Auto) 0.6 Neut # (Auto) 4700 Lymph # (Auto) 3600 [place] # (Auto) 500 Eos # (Auto) 0 Baso # (Auto) 100 Sodium 136 L Potassium 3.7 Chloride 108 H Carbon Dioxide 21 L BUN 6 L Creatinine 0.45 L Estimated GFR > 60 BUN/Creatinine Ratio 13.3 Glucose 92 D POC Whole Bld Glucose 186 H 115 H Lactate 1.3 Calcium 7.9 L Total Bilirubin 7.8 H AST 252 H ALT 62 H Alkaline Phosphatase 378 H Ammonia 19 Total Protein 5.0 L Albumin 2.4 L Globulin 2.6 Albumin/Globulin Ratio 0.9 L 04/17/25 20:56 WBC RBC Hgb Hct MCV MCH MCHC RDW Plt Count Neut % (Auto) Lymph % (Auto) [place] % (Auto) Eos % (Auto) Baso % (Auto) Neut # (Auto) Lymph # (Auto) [place] # (Auto) Eos # (Auto) Baso # (Auto) Sodium Potassium Chloride Carbon Dioxide BUN Creatinine Estimated GFR BUN/Creatinine Ratio Glucose POC Whole Bld Glucose 209 H Lactate Calcium Total Bilirubin AST ALT Alkaline Phosphatase Ammonia Total Protein Albumin Globulin Albumin/Globulin Ratio [facility] Medical History (Updated 04/12/25 @ 06:04 by Brian Madrid MD) Chronic pain syndrome (Unknown) Osteoarthritis (Unknown) Asthma (Unknown) Schizophrenia (Unknown) Depression (Unknown) Bipolar disorder (Unknown) Anxiety (Unknown) Restless leg syndrome (Unknown) ADHD (attention deficit hyperactivity disorder) (Unknown) Shoulder pain (Unknown) Foot pain (Unknown) Fractures (Unknown) Chronic back pain (Unknown) Chickenpox (Unknown) Vertigo (Unknown) Hearing loss (Unknown) Fibroids (2004) Hypothyroidism (1985) Diabetes insipidus (Unknown) Type 2 diabetes mellitus (2005) Uncomplicated opioid dependence (12/11/16) Chronic low back pain (05/02/15) Surgical History Status post tubal ligation Status post laparoscopic cholecystectomy Family History Father Brain tumor Mother Cancer Brother Car occupant injured in traffic accident Sister Brain tumor Grandfather Cancer Grandmother Heart failure Social History household members: significant other Smoking Status: Current some day smoker alcohol intake: current Assessment & Plan Time-Based Coding :: [TOTAL MINUTES] spent with patient and on the chart (including review of chart, obtaining history, exam, reviewing outside data, placing orders, documenting exam and treatment plan, and counseling patient) on [DATE].
[2025-04-18] MEDS: INSULIN LISPRO 100 UNIT/ML 3ML VIAL SUBCUT ×2 (08:30→18:02)
[2025-04-18 09:00] VITALS: BP 101/63; PULSE 97; RESP 15; TEMP 36.1; O2SAT 96
--- NOTE | 2025-04-18 10:47 | CM.DPC ---
DCP Cont. Reviewed EMR and team rounds for pt's medical status and updates. Per Hospitalist, pt is slightly less jaundiced today, not yet stable for home d/c. Will continue to monitor for final needs.
--- NOTE | 2025-04-18 13:10 | PT-IP ANOTE ---
checked on pt and pt refused PT. pt stated that she has back pain and does not want to move and get up. will f/u.
[2025-04-18 14:41] VITALS: BP 113/66; PULSE 99; RESP 14; TEMP 36.5; O2SAT 100
--- NOTE | 2025-04-18 15:05 | PT.IPTN ---
Current Diagnoses Sepsis, unspecified organism (04/12/25) Physical Therapy Treatment Note M2 PT-IP Current Condition Start: 04/15/25 15:56 Freq: NEEDED Status: Active Protocol: Document 04/15/25 15:56 [facility] (Rec: 04/15/25 16:19 [facility] [id number]) Physical Therapy Current Condition Current Condition Evaluation Date 04/15/25 Treatment Diagnosis abdominal pain, vomiting M3 PT-IP Subjective Start: 04/15/25 15:56 Freq: NEEDED Status: Active Protocol: Document 04/18/25 15:05 AB (Rec: 04/18/25 16:30 AB [id number]) Subjective Physical Therapy Visit Type Type Treatment Note Visit Start Time 15:05 Visit Stop Time 16:00 Number of AUTOMOBILE TESTER Visits 0 Physical Therapy Visit Comments Patient Comments initially refusing but agreed to get up after multiple attempts M4 PT-IP Mobility and Gait Start: 04/15/25 15:56 Freq: NEEDED Status: Active Protocol: Document 04/18/25 15:05 AB (Rec: 04/18/25 16:30 AB [id number]) PT-Bed Mobility Assessment Supine to Sit Supine to Sit Maximum Assistance,2 Person Assistance,Head of Bed Elevated,Bedrails Scooting Scooting to Edge of Dependent Bed PT-Transfer Assessment Sit to and From Stand Sit to and from Maximum Assistance,2 Person Assistance,Use of Upper Stand Extremities Equipment Transfer Assistive Gait Belt,Front Wheeled Walker Device Orthotic/Prosthetic No Devices or Brace: Transfers Transfer Destination Chair Transfer Technique Stand Step Pivot Transfer Ability Level of Assist Maximum Assistance,2 Person Assistance,Use of Upper Extremities Comments Mobility Comments pt in bed. Daughter arrived. talked with daughter and stated that she lives in [employer] and pt's spouse works . also stated that pt lives in a split level house with several steps to enter the house. daughter also stated that pt was still able to ambulate with assist just last march. Pt with confusion. assisted with gown change. supine to sit HOB elevated max A x 2 and max cues. able to sit on EOB mod A. needed max A x 2 for scooting to EOB. Assisted pt with shoe management. pt needing to be cleaned up and changed. sit to stand max A x 2 and max cues . able to maintain standing max A and max cues using FWW for support while nurse assists with hygiene care and brief management. pt completed step transfer to chair using FWW max A x 2 and max cues. total A x 2 for positioning in bed. call light and table placed within reach. daughter wants to talk with the doctor and disability case manager . informed disability case manager but disability case manager was about to leave for the day. disability case manager stated that pt wants to go home and spouse agreed to take her home. informed the doctor that the daughter wants to talk to him and stated that he will once the spouse is present. The doctor stated that pt has refused SNF rehab. informed the daughter regarding this and also to let the nurse know when pt's spouse arrives so that the doctor can talk to them. M5 PT-IP Objective Assessments Start: 04/15/25 15:56 Freq: NEEDED Status: Active Protocol: Document 04/15/25 15:56 [facility] (Rec: 04/15/25 16:19 [facility] [id number]) Orientation Orientation/Cognition Level of Alertness Alert Safety Awareness Decreased Safety Awareness Gross Range of Motion Upper Extremity ROM Assessment Within Functional Limits Lower Extremity ROM Assessment Right Impaired Impairments very limited active ROM of the right ankle DF 3-4 degrees AROM only and pt reports pain No active PF that I was able to get her to do Strength Upper Extremity Strength Assessment Within Functional Limits Lower Extremity Strength Assessment Right Impaired Hip 3 Knee 3 Ankle 2 ankle DF Comments Strength Comments Right ankle weakness and pain, not sure if it is related to her history of sciatica, I attempted PROM into DF however this was painful to her sensation of the right ankle is intact. Xrays have been taken and are negative. Cinthya does report history of falling down her stairs at home Sensation Assessment Sensation Gross Sensation WNL M6 PT-IP Treatment Start: 04/15/25 15:56 Freq: NEEDED Status: Active Protocol: Document 04/18/25 15:05 AB (Rec: 04/18/25 16:30 AB [id number]) Physical Therapy Treatment Education Education Provided Safety M7 PT-IP Assessment and Plan Start: 04/15/25 15:56 Freq: NEEDED Status: Active Protocol: Document 04/18/25 15:05 AB (Rec: 04/18/25 16:30 AB [id number]) PT Summary Assessment and Plan Potential Rehabilitation Fair Potential Summary Impairments Pain,ROM,Strength,Balance,Coordination,Sensation,Tone, Cognition,Bed Mobility,Transfers,Gait,Activity Tolerance Progress Towards Slow Progress due to Medical Issues,Slow Progress due Goals to Activity Tolerance,Slow Progress - Other Assessment Summary pt requiring max A x 2 for all mobilities and unable to ambulate at this time. pt will require 24/7 assist and will benefit from SNF. pt wants to go home and if pt goes home, will need 24/7 assist, a mechanical lift for transfers, manual w/c and HHPT. Goals Bed Mobility Goal Moderate Assistance Transfer Goal Moderate Assistance,Front Wheeled Walker Gait Goal Moderate Assistance,Front Wheel Walker Gait Distance 25 Days to Meet Goals 10 Frequency of Treatment Frequency Of Once a Day Treatment Treatment Plan Physical Therapy Bed Mobility Training,Transfer Training,Gait Training, Treatment Plan Therapeutic Exercise,Balance Retraining,Discharge Planning,Neuromuscular Re-ed,Manual Therapy Precautions Other Precautions contact precautions: C-diff Recommendations To Nursing Amount of Assist Mechanical Lift Needed Discharge Recommendations PT Discharge SNF Rehab Recommendations Transportation Needs Wheelchair/Cabulance,Stretcher/Ambulance at Discharge - PT assist 2
[2025-04-18 20:10] VITALS: BP 118/73; PULSE 89; RESP 18; TEMP 35.9; O2SAT 95
[2025-04-18] MEDS: INSULIN GLARGINE 100 UNIT/ML 3ML PEN 15 UNIT SUBCUT (21:37)
[2025-04-18] MEDS: SERTRALINE 50 MG TABLET 25 MG PO (21:39)
[2025-04-19] VITALS: BP 92/58; PULSE 87; RESP 16; TEMP 36; O2SAT 98
[2025-04-19 04:00] VITALS: BP 102/63; PULSE 83; RESP 17; O2SAT 98
[2025-04-19] MEDS: VANCOMYCIN 125 MG CAPSULE PO ×4 (04:41→21:42)
[2025-04-19] MEDS: metroNIDAZOLE 500 MG/100 ML PIGGYBACK 100 MG IV ×4 (04:41→23:39)
[2025-04-19 05:24] LABS: Hematocrit 29.2 % (36-46); Hemoglobin 10.1 g/dL (12.0-16.0); Mean Corpuscular HGB Conc 34.6 % (30-36); Mean Corpuscular Hemoglobin 37.5 PG (26-34); Mean Corpuscular Volume 108.3 fL (80-100); Platelet Count 138 X10^3/uL (150-400)
[2025-04-19 05:38] LABS: Alanine Aminotransferase 57 IU/L (<35); Albumin 2.4 g/dL (3.5-5.0); Albumin Globulin Ratio 0.9 (1.0-2.8); Alkaline Phosphatase 309 U/L (38-126); Blood Urea Nitrogen 5 mg/dL (7-17); Calcium 7.6 mg/dL (8.4-10.2); Carbon Dioxide 23 mmol/L (22-32); Chloride 106 mmol/L (98-107); Estimated Glomerular Filt Rate > 60 mL/min (>60); Globulin 2.7 g/dL (1.7-4.1); Glucose 95 mg/dL (70-99); HEMOLYSIS < 15 (0-50); Magnesium 0.9 mg/dL (1.6-2.3); Potassium 3.2 mmol/L (3.4-5.1); Sodium 134 mmol/L (137-145); Total Protein 5.1 g/dL (6.3-8.2)
[2025-04-19] MEDS: MAGNESIUM SULFATE 4 GM/100 ML PIGGYBACK IV (07:52)
[2025-04-19 08:00] VITALS: BP 104/71; PULSE 86; RESP 16; TEMP 36.3; O2SAT 97
--- NOTE | 2025-04-19 08:02 | PM.PN.1 ---
Subjective Subjective Interval history: Summary: Patient was significant liver disease and alcohol use disorder was admitted with weakness and encephalopathy. She would received IV antibiotics with some improvement. No clear infectious source was obtained. She did not have significant ascites at the time of admission. She did have grossly abnormal liver functions with a bilirubin of close to 9. This has improved with her general clinical course. Her ammonia was normal. Her daughter lives some distance away and recently arrived and is upset about the current status of her mom. We spent a long time today discussing the grim prognosis of her clinical course if she continues to use alcohol. The patient has been declining PT, and OT as well as SNF. We feel that she requires sniff to regain her strength and medically stabilized. She does have a recent diagnosis of CDT with enteritis on CT. She lives with her , he was allegedly been caring her around the house for some unclear period of time. S: Chronic back pain, no abdomen pain. She was mentally fairly clear today. O: NAD, alert and oriented. Fluent speech. Less jaundiced, eating breakfast. Lungs are clear, normal rate and effort. Heart is regular, no murmur gallop or rub. Abdomen is soft, non distended. Extremities are 1+ edema. A/P: 1. Abdomen pain with recent diagnosis of C diff toxin, and enteritis on CT scan. Improving. 2. Alcohol dependence with recent cessation of use 1 day prior and no history of withdrawal seizures. 3. Acute alcoholic hepatitis and hepatosteatosis, active. Improving. 4. Hypomagnesemia, improved. 5. Hypokalemia, improved. 6. Hypocalcemia, improved. 7. Lactic acidosis likely related to liver failure, improved. 8. Possible sepsis, resolved. 9. Increased agitation on April 13, with concern for possible alcohol withdrawal. Resolved. PLAN: -met with the daughters, we record anticipate from the patient. We also recommended longterm facility transitioned for rehabilitation efforts if her pain we will authorize. -the patient was educated that she will need to participate with PT, OT, and rehabilitation efforts at a longterm facility if she wants to get better. -referral sent to [facility]. Exam Vital Signs (past 8 hours): - 04/19/25 04:00 Pulse Rate 83 Respiratory Rate 17 Blood Pressure 102/63 Pulse Oximetry 98 Oxygen Flow Rate 0 Oxygen Delivery Method Room Air Oxygen Flow Rate 0 Objective Labs 04/19/25 04:40 04/19/25 04:40 Labs: Laboratory Results - last 24 hr 04/18/25 04/18/25 04/18/25 08:30 18:00 21:22 WBC RBC Hgb Hct MCV MCH MCHC RDW Plt Count Sodium Potassium Chloride Carbon Dioxide BUN Creatinine Estimated GFR BUN/Creatinine Ratio Glucose POC Whole Bld Glucose 146 H 149 H 157 H Calcium Magnesium Total Bilirubin AST ALT Alkaline Phosphatase Total Protein Albumin Globulin Albumin/Globulin Ratio 04/19/25 04/19/25 04:40 07:31 WBC 5.4 RBC 2.70 L Hgb 10.1 L Hct 29.2 L MCV 108.3 H MCH 37.5 H MCHC 34.6 RDW 17.7 H Plt Count 138 L Sodium 134 L Potassium 3.2 L Chloride 106 Carbon Dioxide 23 BUN 5 L Creatinine 0.47 L Estimated GFR > 60 BUN/Creatinine Ratio 10.6 Glucose 95 POC Whole Bld Glucose 123 H Calcium 7.6 L Magnesium 0.9 L* Total Bilirubin 6.0 H AST 203 H ALT 57 H Alkaline Phosphatase 309 H Total Protein 5.1 L Albumin 2.4 L Globulin 2.7 Albumin/Globulin Ratio 0.9 L PFSH Medical History Chronic pain syndrome (Unknown) Osteoarthritis (Unknown) Asthma (Unknown) Schizophrenia (Unknown) Depression (Unknown) Bipolar disorder (Unknown) Anxiety (Unknown) Restless leg syndrome (Unknown) ADHD (attention deficit hyperactivity disorder) (Unknown) Shoulder pain (Unknown) Foot pain (Unknown) Fractures (Unknown) Chronic back pain (Unknown) Chickenpox (Unknown) Vertigo (Unknown) Hearing loss (Unknown) Fibroids (2004) Hypothyroidism (1985) Diabetes insipidus (Unknown) Type 2 diabetes mellitus (2005) Uncomplicated opioid dependence (12/11/16) Chronic low back pain (05/02/15) Surgical History Status post tubal ligation Status post laparoscopic cholecystectomy Family History Father Brain tumor Mother Cancer Brother Car occupant injured in traffic accident Sister Brain tumor Grandfather Cancer Grandmother Heart failure Social History household members: significant other alcohol intake: current Assessment & Plan Time-Based Coding :: [TOTAL MINUTES] spent with patient and on the chart (including review of chart, obtaining history, exam, reviewing outside data, placing orders, documenting exam and treatment plan, and counseling patient) on [DATE].
[2025-04-19] MEDS: POTASSIUM CHLORIDE 20 MEQ TAB 40 MEQ PO ×2 (09:27→13:25)
[2025-04-19] MEDS: NICOTINE 21 MG PATCH TOP (09:27)
[2025-04-19] MEDS: MULTIVITAMIN 1 TABLET 1 TAB PO (09:27)
[2025-04-19] MEDS: HEPARIN 5,000 UNIT/ML VIAL 5000 UNIT SUBCUT ×2 (09:27→21:43)
--- NOTE | 2025-04-19 12:10 | OT.IP.EVAL ---
Current Diagnoses Sepsis, unspecified organism (04/12/25) Past Medical History (Last Reviewed 04/19/25 @ 08:05 by Victor Hugo Lan MD) ADHD (attention deficit hyperactivity disorder) (Unknown) Anxiety (Unknown) Asthma (Unknown) Bipolar disorder (Unknown) Chickenpox (Unknown) Chronic back pain (Unknown) Chronic low back pain (05/02/15) Chronic pain syndrome (Unknown) Depression (Unknown) Diabetes insipidus (Unknown) Fibroids (2004) Foot pain (Unknown) Fractures (Unknown) Hearing loss (Unknown) Hypothyroidism (1985) Osteoarthritis (Unknown) Restless leg syndrome (Unknown) Schizophrenia (Unknown) Shoulder pain (Unknown) Type 2 diabetes mellitus (2005) Uncomplicated opioid dependence (12/11/16) Vertigo (Unknown) Surgical History (Last Reviewed 04/19/25 @ 08:05 by Victor Hugo Lan MD) Status post laparoscopic cholecystectomy Status post tubal ligation Occupational Therapy Inpatient Evaluation/Re-Eval M1 PT/OT-IP Prior Functional Status Start: 04/15/25 15:56 Freq: NEEDED Status: Active Protocol: Document 04/19/25 11:45 [facility] (Rec: 04/19/25 13:00 [facility] Desktop) Medical Review Prior Functional Status Medical History Yes Reviewed Communication communication with MD prior to seeing pt regarding her right sided foot pain Mobility and Gait pt is non mobile and reports her carries her in their home including up the steps in their house, she at times crawls to the bathroom Pt states prior to falling was able to walk with assist from her . Activities of Daily Pt states 2 weeks ago able to do all her ADL needs, pt Living and IADL's just sponges off at home. Social History Household Members significant other Living Arrangements House Number of Floors ( Two Floors Floors) Number of Stairs To 2 steps with rails up and down from front room to Enter/Railing? living room, 9 steps down to laundry room, and 6 steps up to the bedroom. Pt states has railing on both sides for all steps. Home Environment Standard Height Toilet,Tub/Shower Home Equipment Hand Held Shower M2 OT-IP Current Condition Start: 04/19/25 12:41 Freq: Status: Active Protocol: Document 04/19/25 11:45 [facility] (Rec: 04/19/25 13:00 [facility] Desktop) Occupational Therapy Current Condition Current Condition Evaluation Date 04/19/25 Treatment Diagnosis Abdominal pain, right ankle pain, and left knee pain Diagnosis Onset Date 04/12/25 M3 OT- IP Subjective and Pain Start: 04/19/25 12:41 Freq: Status: Active Protocol: Document 04/19/25 11:45 [facility] (Rec: 04/19/25 13:00 [facility] Desktop) OT- Subjective Occupational Therapy Visit Type Type Initial Evaluation Visit Start Time 11:45 Visit Stop Time 12:10 Occupational Therapy Visit Comments Patient Comments Pt agreed to get up to the edge of the bed. Patient/Caregiver Pt wanting to go to skilled rehab. Goals OT Pain Assessment Pain When Pain Assessed At Rest Pain Present Pain Present Pain Reported Location Right Ankle Intensity 9 Scale Used Numeric (0 - 10) M4 OT- IP ADL's Start: 04/19/25 12:41 Freq: Status: Active Protocol: Document 04/19/25 11:45 [facility] (Rec: 04/19/25 13:00 [facility] Desktop) OT [id number] Comments OT Self-Feeding Not at meal time. Comments OT ADL-Grooming Comments OT Grooming Comments Pt refusing at this time. OT ADL-Oral Care Comments Oral Care Comments Not performed. OT ADL-Dressing General Eval Lower Body Dressing Maximum Assistance Ability Areas Needing Socks Assistance OT ADL-Toileting General Evaluation Toileting Ability Total Assistance Comments OT Toileting Purewick in place. Comments OT ADL-Bathing Comments OT Bathing Comments Not performed. M6 OT- IP Functional Cognition Start: 04/19/25 12:41 Freq: Status: Active Protocol: Document 04/19/25 11:45 [facility] (Rec: 04/19/25 13:00 [facility] Desktop) Cognitive Factors Limiting Selfcare Function Cognitive Ability Level of Alertness Alert Patient Orientation Name,Age,Birthday,Month,Year,Day of Week,Place, Situation Attention Span Capable of Focused Attention,Capable of Sustained Ability Attention Ability to Follow Able to Follow One Step Commands Commands Cognitive Comments Cognitive Assessment Pt able to follow commands for mobility needs. To Comments assess SLUMS tomorrow as pt not wanting to so at this time. OT- Vision and Hearing OT- Hearing Assessment OT- Hearing WFL Assessment OT- Vision Assessment Vision Assessment Pt says her glasses are lost, but use to wear glasses Comments all the time. Pt able to read the clock correctly. M7 OT- IP Mobility and Balance Start: 04/19/25 12:41 Freq: Status: Active Protocol: Document 04/19/25 11:45 [facility] (Rec: 04/19/25 13:00 [facility] Desktop) OT- Bed Mobility Assessment Supine to Sit Supine to Sit Assist Maximum Assistance,Head of Bed Elevated,Bedrails Sit to Supine Sit to Supine Assist Contact Guard Assistance,Head of Bed Elevated,Bedrails OT-Transfer Assessment Comments Mobility Comments Pt able to get her legs to the edge of the bed and then needing MAXAX1 to get her trunk upright. Pt not wanting to sit long and needing CGA to lie back down. OT- Balance Assessment Sitting Balance and Reactions Static Sitting Fair Balance Ability Dynamic Sitting Poor Balance Ability M8 OT- IP Objective Assessments Start: 04/19/25 12:41 Freq: Status: Active Protocol: Document 04/19/25 11:45 [facility] (Rec: 04/19/25 13:00 [facility] Desktop) OT Gross Range of Motion Upper Extremity Range of Motion Assessment Within Functional Limits OT Strength Upper Extremity Strength Assessment Within Functional Limits Hand Bellows Charger Assembler Strength Hand Dominance Left M9 OT- IP Assessment and Plan Start: 04/19/25 12:41 Freq: Status: Active Protocol: Document 04/19/25 11:45 [facility] (Rec: 04/19/25 13:00 [facility] Desktop) OT Summary Assessment and Plan Potential Rehabilitation Fair Potential Analytic Complexity Moderate at Evaluation Summary OT Impairments Pain,Strength,Balance,Functional Cognition,Functional Mobility,Self-Feeding,Grooming,Dressing,Toileting, Bathing,Toilet Transfers,Shower Transfers,Activity Tolerance Progress Towards Slow Progress due to Pain,Slow Progress due to Medical Goals Issues,Slow Progress due to Activity Tolerance,Slow Progress due to Cognition Assessment Summary Pt MOD complexity and main barriers are steps, decreased activity tolerance, endurance, and now needing extensive assist for ADL and mobility needs. Pt states prior to falling down the steps recently was independent with ADL needs and that he significant other was present to assist with steps. Pt will benefit from skilled rehab. Goals Self-Feeding Goal Independent Grooming Goal Independent Dressing Goal Minimal Assistance Toileting Goal Minimal Assistance Bathing Goal Minimal Assistance Toilet Transfer Goal Contact Guard Assistance Shower Transfer Goal Minimal Assistance Days to Meet Goals 25 Frequency of Treatment Other frequency 5x/week Treatment Plan OT Treatment Plan ADL Training,Functional Cognition Training,Functional Mobility,Patient/Family Education,Discharge Planning Other Treatment SLUMS Recommendations and Next Treatment Focus Discharge Recommendations OT Discharge SNF Rehab Recommendations Transportation Needs Wheelchair/Cabulance at Discharge
[2025-04-19] MEDS: INSULIN LISPRO 100 UNIT/ML 3ML VIAL SUBCUT (12:16)
[2025-04-19] MEDS: cefTRIAXone 2,000 MG in SODIUM CHLORIDE 0.9% 100 ML 200 MG IV (13:47)
--- NOTE | 2025-04-19 14:01 | CM.DPC ---
DCP Cont. Reviewed EMR and team rounds for pt's medical status and updates. Met with daughter Snehal, and pt, and had spoken to Al, her SO, earlier today. New plan is SNF rehab. Pt is still a max 2-person assist. Glen from [facility] will come over and do a bedside assessment today. Work closely with Snehal around d/c plan.
[2025-04-19 14:25] LABS: Magnesium 1.9 mg/dL (1.6-2.3)
--- NOTE | 2025-04-19 16:13 | PT.IPTN ---
Current Diagnoses Sepsis, unspecified organism (04/12/25) Physical Therapy Treatment Note M2 PT-IP Current Condition Start: 04/15/25 15:56 Freq: NEEDED Status: Active Protocol: Document 04/15/25 15:56 [facility] (Rec: 04/15/25 16:19 [facility] [id number]) Physical Therapy Current Condition Current Condition Evaluation Date 04/15/25 Treatment Diagnosis abdominal pain, vomiting M3 PT-IP Subjective Start: 04/15/25 15:56 Freq: NEEDED Status: Active Protocol: Document 04/19/25 16:04 [facility] (Rec: 04/19/25 16:12 [facility] [id number]) Subjective Physical Therapy Visit Type Type Treatment Note Visit Start Time 16:35 Visit Stop Time 16:13 Number of ELECTRIC RANGE ASSEMBLER Visits 0 Physical Therapy Visit Comments Patient Comments Initially refused PT but with encouragement from eli Brian and PT agreed to participate. Therapy Pain Assessment Location Right Ankle Intensity 9 Scale Used Numeric (0 - 10) back Intensity 10 Scale Used Numeric (0 - 10) Description Acute right foot pain Intensity 8 M4 PT-IP Mobility and Gait Start: 04/15/25 15:56 Freq: NEEDED Status: Active Protocol: Document 04/19/25 16:04 [facility] (Rec: 04/19/25 16:11 [facility] [id number]) PT-Bed Mobility Assessment Supine to Sit Supine to Sit Maximum Assistance,1 Person Assistance,Head of Bed Elevated,Bedrails PT-Transfer Assessment Sit to and From Stand Sit to and from Maximum Assistance,2 Person Assistance,Use of Upper Stand Extremities Equipment Transfer Assistive Gait Belt,Front Wheeled Walker Device Orthotic/Prosthetic No Devices or Brace: Transfer Ability Level of Assist Maximum Assistance,2 Person Assistance,Use of Upper Extremities Comments Mobility Comments Pt. eli Brian in room, encouraged her mother to participate in PT. Gait Assessment Comments Gait Comments unable to ambulate this pm PT-Balance Assessment Sitting Balance and Reactions Static Sitting Good Balance Ability Dynamic Sitting Fair Balance Ability Standing Balance and Reactions Static Standing Poor Balance Ability M5 PT-IP Objective Assessments Start: 04/15/25 15:56 Freq: NEEDED Status: Active Protocol: Document 04/15/25 15:56 [facility] (Rec: 04/15/25 16:19 [facility] [id number]) Orientation Orientation/Cognition Level of Alertness Alert Safety Awareness Decreased Safety Awareness Gross Range of Motion Upper Extremity ROM Assessment Within Functional Limits Lower Extremity ROM Assessment Right Impaired Impairments very limited active ROM of the right ankle DF 3-4 degrees AROM only and pt reports pain No active PF that I was able to get her to do Strength Upper Extremity Strength Assessment Within Functional Limits Lower Extremity Strength Assessment Right Impaired Hip 3 Knee 3 Ankle 2 ankle DF Comments Strength Comments Right ankle weakness and pain, not sure if it is related to her history of sciatica, I attempted PROM into DF however this was painful to her sensation of the right ankle is intact. Xrays have been taken and are negative. Cinthya does report history of falling down her stairs at home Sensation Assessment Sensation Gross Sensation WNL M6 PT-IP Treatment Start: 04/15/25 15:56 Freq: NEEDED Status: Active Protocol: Document 04/19/25 16:04 [facility] (Rec: 04/19/25 16:11 [facility] [id number]) Physical Therapy Treatment Exercises Exercises Ankle Pumps,Short Arc Quads Education Education Provided Safety M7 PT-IP Assessment and Plan Start: 04/15/25 15:56 Freq: NEEDED Status: Active Protocol: Document 04/19/25 16:04 [facility] (Rec: 04/19/25 16:11 [facility] [id number]) PT Summary Assessment and Plan Summary Impairments Pain,ROM,Strength,Balance,Coordination,Sensation,Tone, Cognition,Bed Mobility,Transfers,Gait,Activity Tolerance Progress Towards Slow Progress due to Medical Issues,Slow Progress due Goals to Activity Tolerance,Slow Progress - Other Assessment Summary Pt. required max assist x 1 for supine to sit with HOB elevated. Sit to stand max assist x 2,patient c/o pain and requested sit back down and wasn't willing to attempt gain. Assisted back to bed with mod assist x 1 , then max A x 2 to scoot up in bed. Goals Bed Mobility Goal Moderate Assistance Transfer Goal Moderate Assistance,Front Wheeled Walker Gait Goal Moderate Assistance,Front Wheel Walker Gait Distance 25 Days to Meet Goals 10 Frequency of Treatment Frequency Of Once a Day Treatment Treatment Plan Physical Therapy Bed Mobility Training,Transfer Training,Gait Training, Treatment Plan Therapeutic Exercise,Balance Retraining,Discharge Planning,Neuromuscular Re-ed,Manual Therapy Recommendations To Nursing Amount of Assist 2 Person Assist Needed Discharge Recommendations PT Discharge SNF Rehab Recommendations Transportation Needs Wheelchair/Cabulance,Stretcher/Ambulance at Discharge - PT assist 2
[2025-04-19 16:45] VITALS: BP 109/70; PULSE 91; RESP 15; TEMP 36.2; O2SAT 95
--- NOTE | 2025-04-19 18:47 | CM.SWNOTE ---
Discharge planning Note manager merchandise requests ED SOFTWARE ENGINEER DEVELOPER to meet with patient and patient's daughter due to misunderstanding about a meeting with [facility] and [facility] not taking place today. SOFTWARE ENGINEER DEVELOPER provided empathetic therapeutic communication, daughter endorsed that she plans to stay at [facility] in [place] and will be available for further communication and correspondence tomorrow. Patient's daughter continues to seek SNF rehab placement for patient at [facility] and patient is in agreement. SOFTWARE ENGINEER DEVELOPER left VM with [facility] for further coordination as well. Mónica Rousseau, MGMT CONSULTANT
[2025-04-19 20:40] VITALS: BP 140/71; PULSE 90; RESP 19; TEMP 36.3; O2SAT 97
[2025-04-19] MEDS: SERTRALINE 50 MG TABLET 25 MG PO (21:42)
[2025-04-19] MEDS: INSULIN GLARGINE 100 UNIT/ML 3ML PEN 17 UNIT SUBCUT (21:44)
[2025-04-19 23:57] VITALS: BP 92/56; PULSE 84; RESP 17; TEMP 36; O2SAT 94
[2025-04-20] MEDS: metroNIDAZOLE 500 MG/100 ML PIGGYBACK 100 MG IV ×2 (05:04→10:50)
[2025-04-20] MEDS: VANCOMYCIN 125 MG CAPSULE PO ×2 (05:04→10:50)
[2025-04-20] MEDS: INSULIN LISPRO 100 UNIT/ML 3ML VIAL SUBCUT ×2 (08:57→12:12)
[2025-04-20] MEDS: HEPARIN 5,000 UNIT/ML VIAL 5000 UNIT SUBCUT (09:41)
[2025-04-20] MEDS: MULTIVITAMIN 1 TABLET 1 TAB PO (09:41)
[2025-04-20] MEDS: NICOTINE 21 MG PATCH TOP (09:42)
[2025-04-20 10:00] VITALS: BP 117/65; PULSE 94; RESP 20; TEMP 35.9; O2SAT 100
--- NOTE | 2025-04-20 11:06 | PC.NURSE ---
Pt complaining of nausea, but appears to be mostly spit. Pt declines PRN ondansetron. Notified MD Gregorio that pt is complaining of swollen tender abdomen. MD Gregorio stated that he was aware, no new orders at this time.
--- NOTE | 2025-04-20 11:48 | P.DS_ITS ---
History of Present Illness History of Present Illness Date Patient Seen: 04/20/25 Time Patient Seen: 09:00 Chief complaint: Abdominal Pain, Vomiting Narrative: She was in 68-year-old female who was just discharged on April 08. At that time she had C diff toxin and abdomen pain. She presents today with abdominal pain and distention. She was had diarrhea but this now has resolved. She does have ongoing alcohol use with her last drank yesterday. She did not have any ascites on imaging in the emergency department. She denies any rectal bleeding or hematemesis. She also denies a history of alcohol withdrawal. She was started on empiric antibiotics and given IV fluids in the emergency department for possible sepsis. A clear source was not discovered. She does have chronically abnormal liver function tests. She was alert and oriented and denies confusion. She lives locally with her . Discharge Providers Provider Date of admission: 04/12/25 09:24 Discharge Date: 04/20/25 Primary care physician: Adelso Baron MD Consults: 04/13/25 17:00 Consult to Dietitian, Adult Routine Comment: Reason For Exam: alcohol 04/14/25 13:20 Consult to Physical Therapy Evaluate & Treat Comment: pt states L ankle pain prevents her from wt bearin Physician Instructions: Evaluate and Treat 04/19/25 10:54 Consult to Occupational Therapy Evaluate & Treat Comment: Physician Instructions: Evaluate and treat Discharge provider: Garo Gregorio MD Summary Hospital Course Discharge Diagnosis: 1. Abdomen pain with recent diagnosis of C diff toxin, and enteritis on CT scan. 2. Alcohol dependence with recent cessation of use 1 day prior and no history of withdrawal seizures. 3. Acute alcoholic hepatitis and hepatosteatosis, active. 4. Hypomagnesemia, improved. 5. Hypokalemia, improved. 6. Hypocalcemia, improved. 7. Lactic acidosis likely related to liver failure, improved. 8. Possible sepsis, resolved. 9. Increased agitation on April 13, with concern for possible alcohol withdrawal. Hospital Course: The patient was admitted and treated with a combination of broad-spectrum IV antibiotics, IV hydration, and IV fluids for sepsis, with cultures ultimately returning negative. She was treated with ceftriaxone and metronidazole during her hospitalization, as well as oral vancomycin for C diff colitis. She was feeling significantly better though still weak at the time of discharge and arrange incision made for discharge to a long-term facility. Corticosteroids were initially held due to concerns regarding infection and concurrent immunosuppression. The patient has stabilized and still has an elevated Maddrey score and started on low-dose prednisone at 20 mg a day. Status at Discharge Cognitive/behavioral status at discharge: oriented Functional status at discharge: uses cane/walker Overall status at discharge: patient is progressing back to baseline Time Spent with Patient Time spent: Greater than 30 minutes Exam Vital Signs (past 8 hours): - 04/20/25 10:00 Temperature 96.7 F L Pulse Rate 94 H Respiratory Rate 20 Blood Pressure 117/65 Pulse Oximetry 100 Oxygen Flow Rate 0 Oxygen Delivery Method Room Air Oxygen Flow Rate 0 Narrative Exam Narrative: NAD, alert and oriented. Fluent speech. Less jaundiced, eating breakfast. Lungs are clear, normal rate and effort. Heart is regular, no murmur gallop or rub. Abdomen is soft, non distended. Extremities are 2+ edema. Objective Imaging *: Radiologist's impression: 1. Chest x-ray 04/12/2025: No acute cardiopulmonary pathology. No discrepancies. 2. Abdomen US 04/12/2025: Hepatomegaly with pronounced diffuse fatty infiltration throughout. No ascites found. Bladder prominence as noted. 3. Abdomen/pelvis CT 04/12/2025: 1. Finding is suggestive of infectious inflammatory enteritis involving proximal small bowel loops as above not significantly changed from prior study. No abscess collection. No free fluid or free air. 2. Other chronic findings are not significantly changed from recent study. 4. Right ankle x-ray 04/13/2025: No acute bony abnormality or significant effusion. Labs 04/19/25 04:40 04/19/25 04:40 Labs: Laboratory Results - last 24 hr 04/19/25 04/19/25 04/19/25 12:13 14:00 16:40 POC Whole Bld Glucose 215 H 109 H D Magnesium 1.9 04/19/25 04/20/25 04/20/25 20:51 07:44 11:41 POC Whole Bld Glucose 149 H 147 H 190 H Magnesium [facility] Medical History ADHD (attention deficit hyperactivity disorder) (Unknown) Anxiety (Unknown) Asthma (Unknown) Bipolar disorder (Unknown) Chickenpox (Unknown) Chronic back pain (Unknown) Chronic low back pain (05/02/15) Chronic pain syndrome (Unknown) Depression (Unknown) Diabetes insipidus (Unknown) Fibroids (2004) Foot pain (Unknown) Fractures (Unknown) Hearing loss (Unknown) Hypothyroidism (1985) Osteoarthritis (Unknown) Restless leg syndrome (Unknown) Schizophrenia (Unknown) Shoulder pain (Unknown) Type 2 diabetes mellitus (2005) Uncomplicated opioid dependence (12/11/16) Vertigo (Unknown) Surgical History Status post laparoscopic cholecystectomy Status post tubal ligation Family History Father Brain tumor Mother Cancer Brother Car occupant injured in traffic accident Sister Brain tumor Grandfather Cancer Grandmother Heart failure Social History household members: significant other alcohol intake: current Discharge Plan Discharge Plan Patient Disposition: SNF Transfer to: [facility] Consult as needed: Dental, Hearing, Mental health, Podiatry and Vision Discharge orders & Medications Prescriptions: New oxycodone 5 mg Tablet 5 mg PO Q4HR PRN (Reason: Pain, Moderate (4-6)) Qty: 14 0RF vancomycin 125 mg Capsule 125 mg PO Q6H Qty: 30 0RF sertraline 50 mg Tablet 25 mg PO BEDTIME Qty: 30 0RF omeprazole 20 mg capsule,delayed release(DR/EC) 20 mg PO DAILY Qty: 30 0RF nicotine 21 mg/24 hr Patch 24 Hour 21 mg topical DAILY Qty: 28 0RF insulin glargine [Lantus Solostar U-100 Insulin] 100 unit/mL (3 mL) Insulin Pen 17 unit SUBCUT BEDTIME Qty: 15 0RF prednisone 20 mg Tablet 20 mg PO DAILY Qty: 30 0RF Continued albuterol sulfate [Ventolin HFA] 90 mcg/actuation HFA aerosol inhaler 1 puff INHALATION Q4HP PRN (Reason: shortness of breath or wheezing) Qty: 1 11RF levothyroxine [Synthroid] 200 mcg tablet 200 mcg PO DAILY [true metrix meter] 1 kit QDAY polyethylene glycol 3350 [Miralax] 17 gram powder in packet 17 g PO BID Qty: 100 0RF quetiapine [Seroquel] 300 mg tablet 300 mg PO BEDTIME Qty: 30 0RF Rx Instructions: Patient needs to est. care with a PCP. 01/23/19 Last fill by [facility] Patient states that she only takes 150mg of this but order is for 300mg Discontinued insulin glargine [Lantus Solostar U-100 Insulin] 100 unit/mL (3 mL) insulin pen 10 unit SUBCUT QDAY Qty: 5 0RF sertraline 100 mg tablet 100 mg PO BID Qty: 60 2RF magnesium chloride [Mag 64] 64 mg tablet,delayed release (DR/EC) 64 mg PO DAILY Qty: 30 0RF vancomycin 250 mg capsule 250 mg PO QID Qty: 60 0RF olanzapine 20 mg tablet,disintegrating 20 mg PO DAILY Qty: 30 11RF Follow up/Referrals: Adelso Baron MD [Primary Care Provider, [facility]] Diet/Activity/Treatments Diet: Carb-consistent/Diabetic Skin/Wound/Dressing Care Report to your healthcare provider any signs of infection, such as:: chills, fever, night sweats, increased pain, unusual drainage and unusual redness Visit Report/Discharge Packet Stand Alone Forms: Patient Portal/API Discharge Data Primary Care Provider: Adelso Baron Quality MIPS - Admit I confirm the patient?s Advance Care Plan is present, Code status is documented, Surrogate decision maker is in patient?s record [If Yes, STOP here]: Yes MIPS - Meds 'Current medications' to include all prescriptions, [id number] products, herbals, cannabis/cannabidiol products, and vitamin/mineral/dietary (nutritional) supplements. I have utilized all available resources to obtain, update, or review the patient?s current medications. [If Yes, STOP here]: Yes MIPS - DC The patient has a history of heart transplant or Left Ventricular Assist Device (LVAD). If yes, STOP here.: No The patient has current or prior documentation of left ventricular ejection fraction (LVEF) less than or equal to 40%, or moderate or severely depressed left ventricular systolic function.: No A. The patient was prescribed or already taking an Angiotensin-Converting Enzyme (GENESIS) Inhibitor, or Angiotensin Receptor May (ARB).: No B. The patient was prescribed or already taking a beta-may. [If Yes to Both A & B, STOP here]: No Patient not prescribed/taking GENESIS or ARB, no reason given.: No Patient not prescribed/taking beta-may, no reason given.: No PROFEE Charge Codes Discharge inpatient/observation: 13393
[2025-04-20] MEDS: cefTRIAXone 2,000 MG in SODIUM CHLORIDE 0.9% 100 ML 200 MG IV (12:13)
--- NOTE | 2025-04-20 12:46 | CM.DPC ---
Per Alicia with [facility], they can accept patient today between 1-1:30 pm. Patient and patient's family are aware. PASSR, MEDS, and DC order sent VIA email to Alicia.
--- NOTE | 2025-04-20 14:56 | PT-IP ANOTE ---
checked on pt this morning and pt refused PT. stated that she has pain and does not want to move. informed nurse and will give pt pain meds.
== END 2025-04-20 13:09 | DRG 872 ==
LOC: ED 08:24 → AC 09:25
PROVIDERS: Emergency Medicine; Family Medicine; Admitting Provider Hospitalist; Emergency Provider Emergency Medicine; PCP Family Medicine; Referring Provider Emergency Medicine; Visit Provider Hospitalist
DX: A41.9 Sepsis, unspecified organism (principal); A04.72 Enterocolitis due to Clostridium difficile, not specified as recurrent; E87.20 Acidosis, unspecified; F10.239 Alcohol dependence with withdrawal, unspecified; D84.9 Immunodeficiency, unspecified; K76.0 Fatty (change of) liver, not elsewhere classified; R16.0 Hepatomegaly, not elsewhere classified; K70.10 Alcoholic hepatitis without ascites; E83.42 Hypomagnesemia; E87.6 Hypokalemia; E83.51 Hypocalcemia; M25.571 Pain in right ankle and joints of right foot; D53.9 Nutritional anemia, unspecified; E11.9 Type 2 diabetes mellitus without complications; E03.9 Hypothyroidism, unspecified; F20.9 Schizophrenia, unspecified; F31.9 Bipolar disorder, unspecified; F41.9 Anxiety disorder, unspecified; Y90.8 Blood alcohol level of 240 mg/100 ml or more; Z79.4 Long term (current) use of insulin; Z79.890 Hormone replacement therapy
CPT/HCPCS: 36415; 71045; 73610; 74177; 76705; 80048; 80053; 81001; 82140; 82962; 83036; 83605; 83690; 83735; 84145; 85025; 85027; 85610; 85730; 87040; 87086; 87507; 87637; 93005; 96361; 96365; 96366; 96367; 96375; 96376; 97110; 97162; 97166; 97530; 99284; J0696; J1171; J1630; J1644; J1815; J2060; J3375; J3475; J7030; J7050; Q9967

== ENCOUNTER → 2025-06-29 14:11 | Outpatient (CLI) | payer MEDICARE, MEDICAID, SELFPAY ==
[2025-04-12 09:47] VITALS: BMI 26.4
--- NOTE | 2025-06-29 14:14 | DI.MG.S_ITS ---
MM screening mammo BI: 06/29/2025. BI-RADS: 0 CLINICAL: 69-year old female for bilateral screening mammogram. Tyrer-Cuzick lifetime risk of 2.7%. No personal or first-degree family history of breast cancer. PRIOR EXAMS: No prior examinations available. MAMMOGRAPHY TECHNIQUE: 2D and 3D (tomosynthesis) digital mammographic views obtained, with additional images as needed for full coverage. Current study was also evaluated with a Computer Aided Detection (CAD) system. DENSITY B. There are scattered areas of fibroglandular density. MAMMOGRAPHY FINDINGS Right: CC only, Outer, Middle depth: Calcifications needing additional imaging evaluation. These may represent pseudocalcification artifact. Left: No suspicious mass, asymmetry, microcalcification, or other abnormality seen. IMPRESSION: Right (Calcification): CC only, Outer, Middle depth * Incomplete - calcification needing additional imaging evaluation. Left * No evidence of malignancy. RECOMMENDATIONS Right: CC only, Outer, Middle depth * Further evaluation with diagnostic mammography. OVERALL ASSESSMENT CATEGORY BI-RADS-0: Incomplete - Need Additional Imaging Evaluation. ELECTRONICALLY SIGNED: Marta Marquez M.D. on 06/29/2025 at 05:11:09 PM PT Interpreting Station ID: [id number]
--- NOTE | 2025-06-29 14:14 | DI.RAD.S_ITS ---
PROCEDURE: XR DEXA AXIAL SKELETON INDICATIONS: screenings COMPARISON: None. FINDINGS: Lumbar Spine (L2 excluded due to increased bone mineralization): Bone mineral density 0.819 g/cm2, T score -2.1, baseline. Left Femoral Neck: Bone mineral density 0.462 g/cm2, T score -3.5. Left Hip: Bone mineral density 0.565 g/cm2, T score -3.1, baseline. Fracture Risk Calculation (when applicable): Not reported due to osteoporosis diagnosis. (T score greater or equal to -1.0 to: NORMAL) (T score from -1.1 to -2.4: OSTEOPENIA) (T score less than or equal to -2.5: OSTEOPOROSIS) IMPRESSION: Osteoporosis Follow-up guidelines as follows: Osteoporosis: Consider a repeat DEXA and Vertebral Fracture Assessment (VFA) exam in 2 years or sooner if medically necessary, to reassess this patient's status. Osteopenia: Consider a repeat DEXA in 2-3 years to reassess this patient's status, or if there is a new clinical indication. Normal: Consider a repeat DEXA in 5 years or sooner, or if there is a new clinical indication. All treatment decisions require clinical judgment and consideration of individual patient factors, including patient preferences, comorbidities, previous drug use, risk factors not captured in the FRAX model (e.g., frailty, falls, vitamin D deficiency, increased bone turnover, interval significant decline in bone density ) and possible under- or over-estimation of fracture risk by FRAX. In addition, the NOF Guide recommends that FDA-approved medical therapies be considered in postmenopausal women and men age >= 50 years with a: * Hip or vertebral (clinical or morphometric) fracture * T-score of <=-2.5 at the spine or hip * Ten-year fracture probability by FRAX of >= 3% for hip fracture or >=20% for major osteoporotic fracture. Dictated by: Anthony Courtney M.D. on 06/30/2025 at 15:21 Approved by: Anthony Courtney M.D. on 06/30/2025 at 15:22
--- NOTE | 2025-06-29 14:14 | DI.CT.S_ITS ---
PROCEDURE: CT LUNG LOW DOSE SCREENING INDICATIONS: screenings TECHNIQUE: Noncontrast 2.0-2.5 mm thick sections acquired from the pulmonary apices to the posterior costophrenic angles. 7 mm thick axial MIP, and 5 mm coronal and sagittal reformats were then acquired. For radiation dose reduction, the following was used: automated exposure control, adjustment of mA and/or kV according to patient size. COMPARISON: [facility], CT, CT CHEST WO [facility], 05/12/2024, 21:22. FINDINGS: Image quality: Diagnostic. Lower Neck: No enlarged lymph nodes. Thyroid: No thyroid nodules which require sonographic follow up, per consensus guidelines. Axillae: No enlarged lymph nodes. Chest Wall: Unremarkable. Bones: Healed right lateral 4th, 5th rib fractures. Chronic, nonunited mild right lateral 6th rib fracture. Healed right lateral 7th rib fracture. Healed left anterior 4th rib and 5th rib fractures. Lungs and Pleura: No pneumothorax or pleural effusions. Smoothly marginated intra fissural nodule in the left major fissure mild likely represents a intra fissural lymph node (3/116). No suspicious pulmonary nodule. No consolidation. Heart: Heart size is normal. No pericardial effusion. Calcifications of the mitral valve annulus. Aortic valve calcifications. Thoracic Vessels: The aorta and pulmonary arteries demonstrate normal size. Mediastinum and Emilie: No enlarged lymph nodes. Esophagus: No wall thickening. No hiatal hernia. Upper Abdomen: Visualized upper abdomen solid organs and bowel loops appear normal. IMPRESSION: No suspicious pulmonary nodules. LUNG-RADS 2; continued annual screening, if eligible. Clinically Significant Non-pulmonary Findings: None. Dictated by: Amanuel Acosta M.D. on 06/29/2025 at 15:38 Approved by: Amanuel Acosta M.D. on 06/29/2025 at 15:46
== END ==
PROVIDERS: PCP Internal Medicine; Referring Provider Internal Medicine; Visit Provider Internal Medicine
DX: Z12.31 Encounter for screening mammogram for malignant neoplasm of breast (principal); Z12.2 Encounter for screening for malignant neoplasm of respiratory organs; F17.210 Nicotine dependence, cigarettes, uncomplicated; M81.0 Age-related osteoporosis without current pathological fracture; Z78.0 Asymptomatic menopausal state
CPT/HCPCS: 71271; 77063; 77067; 77080